=== PATIENT | male | born 1940 | race Caucasian/White ===

== ENCOUNTER 2017-11-06 19:26 | Inpatient (IN) | payer MEDICARE, OTHER, SELFPAY ==
--- NOTE | 2017-11-06 19:28 | DI.RAD.S_ITS ---
PROCEDURE: XR HIP W PEL IF DONE LT 2V INDICATIONS: Left hip pain after fall TECHNIQUE: AP pelvis with lateral view of the left hip. COMPARISON: [facility], , ABDOMEN 1 VIEW, 03/02/2017, 10:35. The FINDINGS: Bones: Visualized osseous structures appear osteopenic. There is a subcapital fracture of the left femoral neck with associated mild impaction and varus angulation. Pelvic ring appears intact. No suspicious bony lesions. Soft tissues: The visualized bowel gas pattern is normal. No suspicious soft tissue calcifications. IMPRESSION: 1. Left femoral neck fracture. Dictated by: David Frazier M.D. on 11/06/2017 at 20:43 Approved by: David Frazier M.D. on 11/06/2017 at 20:44
[2017-11-06 19:44] VITALS: BP 105/37; PULSE 72; RESP 22; TEMP 36.1; O2SAT 91; BMI 20.3
--- NOTE | 2017-11-06 19:46 | ED.LOWEXIN ---
HPI - Extremity Injury (Lower) General Chief Complaint: Extremity Injury, Lower Stated Complaint: GLF, Left hip pain Time Seen by Provider: 11/06/17 19:28 Source: EMS Mode of arrival: EMS Limitations: no limitations History of Present Illness HPI Narrative: Patient is a 76-year-old male here for evaluation of a reported fall left hip pain. Was reported by EMS that the patient was found in his garage by his . They stated that he was on the ground for approximately 30 min. Unknown how he fell. There was concern for left hip fracture. Patient states that he was in his garage sitting in his chair. He states that he did have a couple drinks of rum. He states he tried to get up from his chair and had ?problems with my left hip ?he states that he did not fall. States he did not hit his head. States he did not lose consciousness. Was unable to walk. Does report pain with the left hip with palpation. No other pain reported from the patient. Related Data Home Medications Medication Instructions Recorded Confirmed tiotropium bromide [Spiriva with 18 mcg RT #0 06/26/06 HandiHaler] CHOLECALCIFEROL (VITAMIN D3) 400 iu PO QDAY #0 09/11/11 (VITAMIN D) escitalopram oxalate [Lexapro] #0 09/11/11 ciprofloxacin (mixture) #0 11/28/16 alfuzosin [Uroxatral] 10 mg PO QDAY #0 01/21/17 cyanocobalamin (vitamin B-12) 50 mcg PO #0 01/21/17 [Vitamin B-12] potassium citrate [Urocit-K 5] 5 meq PO BIDCC #0 01/21/17 folic acid PO QDAY #0 01/23/17 Allergies Allergy/AdvReac Type Severity Reaction Status Date / Time tamsulosin [From FLOMAX] AdvReac Unknown DIZZINESS Unverified 07/01/17 13:03 Review of Systems Constitutional Denies fever(s) and Denies headache(s) ENT Ears, Nose, Mouth, and Throat: Denies vertigo, Denies dizziness and Denies headache(s) Cardiovascular Denies chest pain, Denies syncope and Denies dyspnea Respiratory Denies dyspnea Gastrointestinal Gastrointestinal: Denies abdominal pain, Denies nausea and Denies vomiting Musculoskeletal Comments: Left hip pain Integumentary/Breasts Denies lesions and Denies rash Neurologic Denies confusion, Denies vertigo, Denies dizziness, Denies syncope and Denies headache(s) Psychiatric Denies confusion Hematologic/Lymphatic Denies easy bleeding and Denies easy bruising [facility] Medical History COPD (chronic obstructive pulmonary disease) (Acute) Surgical History No pertinent past surgical history (Acute) Social History Smoking Status: Former smoker alcohol intake: current Exam Initial Vital Signs Initial Vital Signs: Vital Signs Temperature 97 F L 11/06/17 19:44 Pulse Rate 72 11/06/17 19:44 Respiratory Rate 22 11/06/17 19:44 Blood Pressure 105/37 L 11/06/17 19:44 Pulse Oximetry 91 11/06/17 19:44 Const General: cooperative, comfortable, well groomed and No acute distress Orientation: alert, awake, oriented to person, oriented to place and other (Oriented to situation) HENMT Head: normal to inspection, normocephalic and atraumatic Nose: external nose normal Eyes Pupils: PERRL EOM: EOM intact bilaterally Chest Chest: normal inspection of the chest Resp Effort & Inspection: normal respiratory effort Auscultation: clear to auscultation bilaterally Cardio Rate: regular rate Rhythm: regular rhythm Heart Sounds: no murmurs GI Inspection: non-distended Palpation: soft, No firm and No tender Back/Spine/Pelvis Cervical Spine: No cervical spinal tenderness and No step off deformity Skin Lesions: no lesions Rashes: no rashes Neuro General: alert, awake and oriented (Person, place, situation) Speech: speech normal Extrem Other: Bilateral upper extremities unremarkable Right lower extremity unremarkable Left lower extremity shortened and externally rotated with tenderness to palpation over the left hemipelvis Psych Appearance: grossly normal and well kempt Scores [facility] [place] coma scale eye opening: Spontaneous [place] coma scale verbal response: Orientated [place] coma scale motor response: Obey commands [place] coma scale total score: 15 Course Orders Ordered: ED Orders 11/06/17 19:28 XR hip w pel if done LT 2V Stat 11/06/17 20:20 Consult to Orthopedic Surgery Routine Consult to Physician Routine 11/06/17 20:40 Basic Metabolic Panel Stat Complete Blood Count AUTO DIFF Stat Ethanol (ETOH) Stat Partial Thromboplastin Time Stat Prothrombin Time INR Stat Type and Screen Stat Sodium Chloride (Normal Saline 0.9%) 1,000 mls @ 125 mls/hr IV CONT HONG Sodium Chloride (Normal Saline 0.9%) 1,000 mls @ 125 mls/hr IV CONT HONG Morphine Sulfate (Morphine) 2 mg IV Q4HR PRN PRN Reason: Pain, Mild (1-3) Ondansetron HCl (Zofran) 4 mg IV Q4HR PRN PRN Reason: Nausea And Vomiting Vital Signs - 8 hr 11/06/17 19:44 Temperature 97 F L Pulse Rate 72 Respiratory Rate 22 Blood Pressure 105/37 L Pulse Oximetry 91 MDM - Extremity Injury (Lower) Lab Data Result diagrams: 11/06/17 20:40 11/06/17 20:40 Imaging Data Pelvis x-ray: Radiologist's impression: PROCEDURE: XR HIP W PEL IF DONE LT 2V INDICATIONS: Left hip pain after fall TECHNIQUE: AP pelvis with lateral view of the left hip. COMPARISON: [facility], , ABDOMEN 1 VIEW, 03/02/2017, 10:35. The FINDINGS: Bones: Visualized osseous structures appear osteopenic. There is a subcapital fracture of the left femoral neck with associated mild impaction and varus angulation. Pelvic ring appears intact. No suspicious bony lesions. Soft tissues: The visualized bowel gas pattern is normal. No suspicious soft tissue calcifications. IMPRESSION: 1. Left femoral neck fracture. Dictated by: David Frazier M.D. on 11/06/2017 at 20:43 Approved by: David Frazier M.D. on 11/06/2017 at 20:44 [facility] Narrative Medical decision making narrative: Patient was neurovascularly intact. Did admit to having alcohol this evening however did know where he was in the situation of why he was here. X-ray show a left femoral neck fracture. Patient reports no other injuries. No other signs of trauma. Discussed the case with Dr. villagomez with Orthopedics who states that he will evaluate the patient for surgical intervention. Discussed the case with Dr. klein who is on-call for the patient's primary care doctor who will admit the patient. Informed the patient of the need to admit and surgical intervention of his fracture. He expressed understanding and agreement with plan. Discharge Plan Departure Patient Disposition: Admitted As Inpatient Clinical Impression: Closed fracture of neck of left femur, Alcohol intoxication, COPD (chronic obstructive pulmonary disease) Admit Date/Time: 11/06/17 20:27 Admit Provider: Rufino Klein
--- NOTE | 2017-11-06 20:34 | PM.CN ---
History of Present Illness Date Patient Seen: 11/06/17 Time Patient Seen: 20:34 Chief complaint: GLF, Left hip pain Reason for consult: L hip fracture Narrative: 76-year-old male with a left hip fracture. He was found on the floor of his garage by his early this evening complaining of left hip pain. He reports that he just felt like his leg popped and went out from underneath them but did not fall. He does not think he hit anywhere else and he is having no other pain besides the left hip. He was unable to stand. Most of the history is from his . She reports that he is a alcoholic and has been through recovery and alcoholics anonymous several times. She lives in [place] during part of the week and comes home on other days. She reports that she has seen signs of him drinking again over the past several months but never could find any alcohol. Today she came into the garage and found him on the floor. It looks like he had been sitting in his car because he was right next to the open door and she thinks he probably hit his head when he landed. He also has a history of an E coli sepsis about a year ago. He has COPD but stop smoking about 15 years ago after a bad bout of pneumonia. He has a history of a pulmonary embolus and was on Coumadin for several years but they stopped that about a year and a half ago. She thinks he may have had a stroke about 15 or 20 years ago with some resultant left side weakness. His is very frustrated with his recurrent drinking and does not know what to do at this point. [facility] Social History Smoking Status: Former smoker alcohol intake: current Meds Home Medications Medication Instructions Recorded Confirmed Type tiotropium bromide [Spiriva with 18 mcg RT #0 06/26/06 History HandiHaler] CHOLECALCIFEROL (VITAMIN D3) 400 iu PO QDAY #0 09/11/11 History (VITAMIN D) escitalopram oxalate [Lexapro] #0 09/11/11 History ciprofloxacin (mixture) #0 11/28/16 History alfuzosin [Uroxatral] 10 mg PO QDAY #0 01/21/17 History cyanocobalamin (vitamin B-12) 50 mcg PO #0 01/21/17 History [Vitamin B-12] potassium citrate [Urocit-K 5] 5 meq PO BIDCC #0 01/21/17 History folic acid PO QDAY #0 01/23/17 History Allergies Allergy/AdvReac Type Severity Reaction Status Date / Time tamsulosin [From FLOMAX] AdvReac Unknown DIZZINESS Unverified 07/01/17 13:03 Review of Systems Constitutional Constitutional: Reports weight loss Cardiovascular Cardiovascular: Reports shortness of breath with activity Respiratory Respiratory: Denies cough and Reports dyspnea on exertion Gastrointestinal Gastrointestinal: Denies abdominal pain Genitourinary Genitourinary: Denies urinary incontinence Exam Vital Signs (past 8 hours): - 11/06/17 19:44 Temperature 97 F L Pulse Rate 72 Respiratory Rate 22 Blood Pressure 105/37 L Pulse Oximetry 91 Oxygen Delivery Method Room Air Const General: cooperative Nutritional Appearance: thin Orientation: alert and oriented x3 Resp Auscultation: clear to auscultation bilaterally Cardio Rate: regular rate Rhythm: regular rhythm Extrem Other: Intact integument over the left hip. Internal rotation deformity. 1+ dorsalis pedis pulses both lower extremities. Intact sensation through both lower extremities. Able to easily move ankles and toes up and down. Pain with logroll of hip Objective Imaging Hip x-ray: My impression: Displaced left femoral neck fracture. Assessment & Plan Plan: Assessment/Plan Narrative: He has a displaced femoral neck fracture. My recommendation is for surgery with a left hip hemiarthroplasty. We discussed risks and benefits including but not limited to medical risks with heart attack, stroke, DVT, PE, , infection, bleeding, scarring, nerve or blood vessel injury, loss of ambulatory status, dislocation, need for further surgery. He is at higher risk of pulmonary complications due to his COPD. We will keep him on anticoagulation after the surgery due to his previous history of a PE. He understands and would like to go ahead with surgery tomorrow morning. His also understands. Time Spent With Patient Time with patient: 25 - 35 minutes
[2017-11-06 20:51] LABS: Add Manual Diff / Slide Review NO; Basophils Percent Auto 0.9 % (0-2); Hematocrit 38.2 % (41-53); Hemoglobin 12.7 g/dL (13.5-17.5); Lymphocytes Percent Auto 10.4 % (25-40); Mean Corpuscular HGB Conc 33.4 % (30-36); Mean Corpuscular Hemoglobin 33.6 PG (26-34); Mean Corpuscular Volume 100.7 fL (80-100); Monocytes Percent Auto 3.2 % (3-14); Neutrophils Absolute Auto 6400 /uL (3000-5900); Neutrophils Percent Auto 84.5 % (50-75); Platelet Count 213 X10^3/uL (150-400); Red Blood Cell Count 3.79 X10^6/uL (4.5-5.9); Red Cell Distribution Width 15.1 % (11.6-14.8); White Blood Cell Count 7.6 X10^3/uL (4.5-11.0)
[2017-11-06 20:58] LABS: Prothrombin Time 10.7 SECONDS (10.1-12.7)
[2017-11-06 21:00] LABS: PTT Partial Thromboplastin Tim 19 SECONDS (26.4-36.2)
[2017-11-06 21:02] LABS: BUN Creatinine Ratio 25.5 (6-22); Blood Urea Nitrogen 28 mg/dL (9-20); Calcium 8.1 mg/dL (8.4-10.2); Carbon Dioxide 21 mmol/L (22-32); Chloride 103 mmol/L (98-107); Estimated Glomerular Filt Rate > 60.0 mL/min (>60); Ethanol (ETOH) 290 mg/dL; Glucose 86 mg/dL (80-110); HEMOLYSIS < 15 (0-50); Potassium 4.6 mmol/L (3.4-5.1); Sodium 139 mmol/L (137-145)
[2017-11-06 21:45] VITALS: BP 110/41; PULSE 79; RESP 24; TEMP 36.3; O2SAT 92
[2017-11-06] MEDS: SODIUM CHLORIDE 0.9% 1,000 ML 125 ML IV (21:49)
[2017-11-06 21:50] VITALS: BMI 20.3
[2017-11-06] MEDS: MORPHINE 2 MG/ML INJ IV (22:14)
--- NOTE | 2017-11-06 22:41 | PC.NURSE ---
Pt to room 218 from [facility] alert and awake. Pt is cachetic and slightly hard of hearing. Spouse accompanies pt and takes all pt's home meds and clothing home. Pt is NPO with iv fluids infusing as ordered. Oral care per swab. Pt oriented to call light and bed alarm set. Ice to left hip and morphine 2 mg iv administered for pain associated with movement. Pedal pulses palpable x 2.
[2017-11-07] VITALS (31 sets, daily range): BP systolic 90–149; BP diastolic 39–93; PULSE 78–102; RESP 13–24; TEMP 36.3–37.7; O2SAT 90–100; BMI 18.0
--- NOTE | 2017-11-07 | DI.RAD.S_ITS ---
PROCEDURE: XR HIP LT 1V INDICATIONS: s/p hip replacement TECHNIQUE: 1 views of the hip were acquired. COMPARISON: [facility], CR, XR HIP W PEL IF DONE LT 2V, 11/06/2017, 19:48. FINDINGS: Bones: Left hip arthroplasty. Linear lucency traverses the left superomedial acetabulum. No suspicious bony lesions. The visualized pelvic ring appears intact. Soft tissues: No suspicious soft tissue calcifications or masses. IMPRESSION: 1. Left hip arthroplasty. 2. Possible minimally displaced left superomedial acetabular fracture. Dictated by: Sherry Gill M.D. on 11/07/2017 at 11:16 Approved by: Sherry Gill M.D. on 11/07/2017 at 11:18
[2017-11-07] MEDS: MORPHINE 2 MG/ML INJ IV (02:31)
--- NOTE | 2017-11-07 03:26 | PC.NURSE ---
Dr. Saldivar paged via answering service to report pt. unable to void. Bladder scanned showed 755 cc in the bladder. Pt. also hypoxic RA sat. 87-89%, placed 1 liter 02 & SPO2 93-94%. Hypotensive especially after a dose of Morphine [address] Saldivar called back received an orders to bolus him with NS 250 cc , 02 to keep SPO2 greater than 92% & placed a Berman Catheter. Will implement orders & monitor.
[2017-11-07] MEDS: SODIUM CHLORIDE 0.9% 250 ML IV (04:00)
[2017-11-07] MEDS: SODIUM CHLORIDE 0.9% 1,000 ML 125 ML IV (06:58)
[2017-11-07] MEDS: LACTATED RINGERS 1,000 ML 42 ML IV ×2 (08:37→10:48)
--- NOTE | 2017-11-07 08:37 | PM.PREOP ---
Pre-operative Note Interval Note Pre-op Check: Yes History & Physical Reviewed by Physician and Yes Exam Performed Changes: No
[2017-11-07] MEDS: CEFAZOLIN 2 GM/100 ML FROZ.PIGGY IV ×2 (08:42→18:19)
--- NOTE | 2017-11-07 09:33 | SUR.OPER ---
Lateral on padded OR bed. Gel axillary roll. Arms secured on padded armboard with pillow supporting top arm. Padded hip positioner braces x4 - anterior and posterior chest and pelvis. Additional gel pad used anterior pelvis. Gel pad under bottom leg from knee to foot and secured with tape over sheet.
[2017-11-07] MEDS: VANCOMYCIN 1,000 MG VIAL 1000 MG TOP (09:59)
[2017-11-07] MEDS: BUPIVACAINE 0.5% (PF) VIAL 30 ML INJ (09:59)
[2017-11-07] MEDS: BUPIVACAINE LIPOSOME 266 MG/20 ML VIAL INJ (09:59)
[2017-11-07] MEDS: SODIUM CHLORIDE IRRIG SOLUTION 250 ML, EPINEPHrine 1 MG IRR (10:00)
[2017-11-07] MEDS: SODIUM CHLORIDE 0.9% 1,000 ML, GENTAMICIN 80 MG IRR (10:01)
--- NOTE | 2017-11-07 10:53 | PM.OP.1 ---
Operative Date/Time/Diagnoses Date of procedure: 11/07/17 Time of procedure: 10:53 Pre-op diagnosis: Left hip femoral neck fracture Post-op diagnosis: same Procedure & Clinicians Procedure: Left hip hemiarthroplasty Same procedure as scheduled: Yes Indications: [age] year old male with a displaced left hip fracture. It was felt that he would need hemiarthroplasty replacement to fix this. Risks and benefits of surgery were discussed and appropriate consents were obtained. Surgeon: Bert Fierro Operational Risk Consultant: Winter King Anesthesia Type: Spinal Operative Notes Findings: None Closure Type: primary Specimen(s): none sent Implants & Drains: [employer] size 15 high offset stem, +0 neck, 49mm head Applied: catheter Estimated Blood Loss (mL): 100 Blood products transfused: none Procedure in detail: Patient brought to the operating room and intubated on the table. They were then rolled over to the lateral decubitus position with the well marked left hip up. Time-out was performed. Preoperative antibiotics were given. The left leg and hip were prepped and draped in standard sterile fashion. A 20 cm incision was made just posterior to the greater trochanter along the proximal femur and then curving posteriorly to the buttocks. We used Bovie to come down to the fascia. The fascia was nicked and elevated up and split proximally and distally. We bluntly spread through the gluteal muscles until we had good exposure. The leg was internally rotated and the fragments of the external rotators were identified. These were tagged and cut and retracted. The hip capsule was then exposed. This was already torn through but we extended this as a H shaped incision. The fracture and the neck and head and acetabulum were exposed. The femoral guide was used to make the 1st neck cut 1 cm proximal to the lesser trochanter. A corkscrew was then placed into the femoral head and the head was removed. The head was measured. The acetabulum was cleared out and the head was trialed. A lap was placed into the acetabulum. We then used a box osteotome with 20? of version to make our starting cut into the femur. The lateralizer was used and then we used sequentially larger broaches. . When there was a good fit we trialed our components. We needed the high offset for stability. A distal femoral plug was placed. The femur was then copiously irrigated. Cement was injected under pressure and then our components were placed. Once the cement was hardened we again trialed. The acetabulum was washed out.The neck and head were impacted on and then the hip was reduced. This was placed through range of motion with 90 degrees of flexion, 20 degrees of abduction, and 60 degrees of internal rotation before the hip started subluxing. We had little more stability with the +4 neck, but had significant limb length discrepancy with this and went back to the +0. The wound was then again irrigated. The capsule was closed. The external rotators were reapproximated. A drain was placed. The fascia was closed. The superficial skin were closed. The patient was then rolled over into the supine position. An abduction brace was placed. They were transferred to the stretcher and brought to the recovery room with no complications. Complications: none Condition: stable Disposition: PACU Plan for aftercare: Inpatient. Up with physical therapy. Weight bear as tolerated. Posterior hip precautions
--- NOTE | 2017-11-07 13:11 | PM.HP.1 ---
History of Present Illness Date Patient Seen: 11/07/17 Time Patient Seen: 13:11 Chief complaint: GLF, Left hip pain Narrative: Patient is a 76-year-old white male well known to Dr. Mike with history of alcoholism who presents with pain in left hip. Apparently he was in his usual state of health and was wanting to go out and get some air. Had some rum but just a few drinks. Really not sure what happened from there. Was sitting in his garage and next thing he knows he was on the floor. found him on the floor. Could not get up. Was having pain. Did not feel like he hit his head. Did not feel like he lost consciousness. No other changes. Complaining of pain in left hip. No other complaint or problem. Patient otherwise is feeling well. Apparently had a 13 year dry time and then started drinking again about a year ago. Has been good up until last 2 months when he had some family issues and stressors. Apparently has been drinking more in the last 2 months.. Has had a history of withdrawal in the past. His otherwise been feeling well. Has been having no chest pain shortness of breath. No palpitations. Apparently a year ago he was having quite a bit of anemia and dizziness but he has been feeling great since he returns. No other changes. Past medical history significant for alcoholism BPH with obstruction COPD Hypertension Past surgical history not significant. Social history lives with . Retired. Good social support. No other changes. History of smoking distant. Patient History Medical History COPD (chronic obstructive pulmonary disease) (Acute) Surgical History No pertinent past surgical history (Acute) Family & Social History Social History: household members spouse Prior Living Arrangements House Safety & Behavioral: Feels Safe in Current Yes Environment Been Physically Hurt or No Threatened By a Person Suicidal Ideation Description None Suicide Plan Description No Plan Tobacco & Substance use: Smoking Status Former smoker alcohol intake current alcohol intake frequency 0-2 drinks per day Substance Use Type does not use Meds Home Medications Medication Instructions Recorded Confirmed Type tiotropium bromide [Spiriva with 18 mcg RT DAILY #0 06/26/06 11/06/17 History HandiHaler] escitalopram oxalate [Lexapro] 10 mg PO DAILY #0 09/11/11 11/06/17 History alfuzosin [Uroxatral] 10 mg PO QDAY #0 01/21/17 11/06/17 History potassium citrate [Urocit-K 5] 540 mg PO BIDCC #0 01/21/17 11/06/17 History High Potency Iron 1 tab PO DAILY 11/06/17 11/06/17 History Ventolin HFA 1 - 2 puff INHALATION WEEKLY PRN 11/06/17 11/06/17 History docusate sodium 100 mg PO BID 11/06/17 11/06/17 History Allergies Allergy/AdvReac Type Severity Reaction Status Date / Time tamsulosin [From FLOMAX] AdvReac Unknown DIZZINESS Verified 11/07/17 01:17 Review of Systems Review of Systems All systems reviewed & are unremarkable except as noted in HPI and below Exam Vital Signs (past 8 hours): - 11/07/17 05:46 11/07/17 06:34 11/07/17 07:45 Temperature 98.4 F 98.2 F Pulse Rate 88 90 97 H Respiratory Rate 19 18 13 Blood Pressure 99/44 L 113/46 L 133/57 H Pulse Oximetry 95 96 95 11/07/17 07:55 11/07/17 08:32 11/07/17 10:55 Temperature 99.9 F H 99.2 F Pulse Rate 102 H 93 H Respiratory Rate 18 16 Blood Pressure 148/58 H 130/51 H Pulse Oximetry 96 96 98 11/07/17 11:00 11/07/17 11:05 11/07/17 11:15 Temperature 99.2 F 99.2 F 99.2 F Pulse Rate 87 86 88 Respiratory Rate 17 17 20 Blood Pressure 129/56 H 125/51 H 149/69 H Pulse Oximetry 98 97 96 11/07/17 11:24 11/07/17 11:30 11/07/17 12:05 Temperature 98.6 F 97.8 F 97.4 F L Pulse Rate 88 98 H 88 Respiratory Rate 18 24 16 Blood Pressure 124/55 H 149/49 H 128/52 H Pulse Oximetry 96 100 11/07/17 12:30 11/07/17 12:53 Temperature 97.7 F 97.7 F Pulse Rate 83 89 Respiratory Rate 24 24 Blood Pressure 130/52 H 131/50 H Pulse Oximetry 100 90 L Oxygen Delivery Method Nasal Cannula Oxygen Flow Rate 2 Narrative Exam Narrative: Alert elderly male in no acute distress lying comfortably in bed. Skin is without rash. Normal turgor. No diaphoresis. Mucous membranes moist. Neck is supple without adenopathy. Lungs are clear. Heart regular rate and rhythm without murmurs clicks rubs or gallops. Abdomen is soft positive bowel sounds nontender. Did not range is left hip. Postsurgery. Extremities without cyanosis clubbing edema. Neurologic exam appears intact nonfocal. He is alert and oriented. States psychologically appropriate interactive Objective Labs Result Diagrams: 11/06/17 20:40 11/06/17 20:40 Labs: Laboratory Results - last 24 hr 11/06/17 11/06/17 11/06/17 20:40 20:40 20:40 WBC 7.6 RBC 3.79 L Hgb 12.7 L Hct 38.2 L MCV 100.7 H MCH 33.6 MCHC 33.4 RDW 15.1 H Plt Count 213 Neut % (Auto) 84.5 H Lymph % (Auto) 10.4 L [place] % (Auto) 3.2 Eos % (Auto) 1.0 L Baso % (Auto) 0.9 Neut # (Auto) 6400 H PT 10.7 INR 1.0 APTT 19 L Sodium 139 Potassium 4.6 Chloride 103 Carbon Dioxide 21 L BUN 28 H Creatinine 1.10 Estimated GFR > 60.0 BUN/Creatinine Ratio 25.5 H Glucose 86 Calcium 8.1 L Ethyl Alcohol 290 Blood Type Antibody Screen 11/06/17 20:40 WBC RBC Hgb Hct MCV MCH MCHC RDW Plt Count Neut % (Auto) Lymph % (Auto) [place] % (Auto) Eos % (Auto) Baso % (Auto) Neut # (Auto) PT INR APTT Sodium Potassium Chloride Carbon Dioxide BUN Creatinine Estimated GFR BUN/Creatinine Ratio Glucose Calcium Ethyl Alcohol Blood Type AB Negative Antibody Screen Negative Assessment & Plan Plan: Assessment/Plan Narrative: Left hip fracture as per orthopedist. Status post operation. History of alcohol abuse. Will set up CIWA protocol and begin benzodiazepine as needed. Will watch closely. Has a history of withdrawal in the past. Looked okay at this time. Hypoxia. Probably secondary to COPD. May be chronic and not acute but hard to tell at this point. Will continue his usual inhalers. O2 as needed and follow. May need to go home on oxygen will see how things go. Will give usual banana bag. COPD. Actually seems to be pretty stable. Lung exam seems good. Will follow closely. Hypotension. Probably secondary to dehydration. Was managed with fluids last night. Will watch closely. Will place on hydration and follow. Hypertension. Patient is stable at this time. Will follow. Depression. Seems to be actually doing pretty well. No other changes. BPH. Patient unable to urinate last night Berman placed. Will leave in for the next 48 hr and try to remove. Code status. Patient would like no code. Seems comfortable with that decision. GI prophylaxis. Should be stable at this time although will add ranitidine. DVT prophylaxis as per Ortho. Disposition. Suspect will be at least Thursday until discharge will see how things go. Quality VTE Deep Vein Thrombosis/Pulmonary Embolism Present on Admission: No
[2017-11-07] MEDS: MAGNESIUM SULFATE 2 GM, FOLIC ACID 1 MG, THIAMINE 100 MG, MULTIVITAMIN 10 ML in SODIUM ... IV (13:27)
[2017-11-07] MEDS: LORazepam 1 MG TABLET 2 MG PO ×2 (13:28→21:19)
[2017-11-07] MEDS: OXYCODONE IR 5 MG TABLET PO ×2 (13:28→16:30)
[2017-11-07 14:05] LABS: Add Manual Diff / Slide Review NO; Basophils Percent Auto 0.3 % (0-2); Eosinophils Percent Auto 0.1 % (2-4); Hematocrit 29.2 % (41-53); Hemoglobin 9.8 g/dL (13.5-17.5); Lymphocytes Percent Auto 6.1 % (25-40); Mean Corpuscular HGB Conc 33.5 % (30-36); Mean Corpuscular Hemoglobin 33.8 PG (26-34); Mean Corpuscular Volume 100.7 fL (80-100); Monocytes Percent Auto 8.7 % (3-14); Neutrophils Absolute Auto 10800 /uL (3000-5900); Neutrophils Percent Auto 84.8 % (50-75); Platelet Count 149 X10^3/uL (150-400); Red Cell Distribution Width 15.4 % (11.6-14.8); White Blood Cell Count 12.7 X10^3/uL (4.5-11.0)
--- NOTE | 2017-11-07 14:25 | CM.DANOTE ---
DCP: Case received, EMR reviewed and met with patient. Introduced self and role. DCP template completed with information currently available. Patient is a 76 year old malewho admitted yesterday evening to the care of the hospitalist team. PCP: Dr. Mike. Payer: confirmed: Medicare/[facility] Patient carries diagnosis of displaced femoral neck fracture. Had been on the floor of his garage at the time. Patient stated that he did not fall, but that his leg had given out. According to previous note, has been concerned that patient has been drinking again, for he does have a history, and had gone to at one time. Patient had hip surgery today. Attemped to reach , left a message for her to call. Met with patient post surgery, pleasant. Discussed discharge plan, should he need rehabilitation, and he stated that he had been at [facility], [facility] before. Patient is on CIWA as well. Stated that he lives at home with his , but has been under some stress regarding his drinking. P: DCP will continue to plan and assess, and will offer Medicare choice list as well. Will continue to reach out to spouse as well. Mindy Link RN/Community Health Coordinator
--- NOTE | 2017-11-07 15:01 | PC.NURSE ---
LOC/Ortho: SI don't have a problem drinking, who told you that? I didn't fall. Discussed information shared by . Pt reports she makes the issues bigger than they are. Discussed hospital safety concerns, some how the hip was broken and blood alcohol levels were elevated to 290 when he was admitted. Perhaps he doesn't recall what occurred? SI was 290? I only had one little drink at 1:00pm. He was agreeable to leave the seizure pads on and the bed alarm on for now. discussed other modalities in place and he is agreeable to all of them but admitted he might change his mind later. Did take a pain pill and 1mg of ativan, wouldn't take 2mg of ativan because he said he doesn't need it. CIWA was 9-6, off for shakiness, sl off on orientation and he does have a little headache. Ortho - lt upper leg/thigh area does have edema present. aquacel is d/i, ppp, is able to move feet sl now but he can't raise his legs off the bed. They still feel a little numb, brisk cap refill. (Had spinal) Abductor pillow in place and pt isn't sure he needs it but will leave it for now. Pt is on O2 and had to be enc to take deep breaths. Does have hx of copd. Cont w/poc.
--- NOTE | 2017-11-07 15:31 | PT.IIE ---
Surgery Performed Operation Date: 11/07/17 08:30 Actual Procedures p Hip Hemiarthroplasty(Left) - Bert Fierro MD Surgical History (Last Reviewed 11/07/17 @ 13:18 by Rufino Saldivar MD) No pertinent past surgical history (Acute) Medical History (Last Reviewed 11/07/17 @ 13:18 by Rufino Saldivar MD) COPD (chronic obstructive pulmonary disease) (Acute) Physical Therapy Inpatient Evaluation/Re-Eval M1 PT/OT-IP Prior Functional Status Start: 11/07/17 17:06 Freq: NEEDED Status: Active Protocol: Document 11/07/17 15:31 AB (Rec: 11/07/17 17:38 AB [id number]) Medical Review Prior Functional Status Medical History Reviewed Yes Communication able to make needs known Mobility and Gait stated that he is independent with all mobilities and ambulation using SPC outdoors and uses FWW at night inside the house for safety Social History Household Members spouse none Living Arrangements House Number of Floors (Floors) Two Floors Number of Stairs To Enter/Railing? has 5 steps to enter with R rail ascending; pt stays on main level of the house. Home Environment Standard Height Toilet Home Equipment Front Wheel Walker Straight Cane Employment Status Retired Additional Social History Comment pt stated that he does not go upstairs and the shower is upstairs so pt just sponge off . M2 PT-IP Current Condition Start: 11/07/17 17:06 Freq: NEEDED Status: Active Protocol: Document 11/07/17 15:31 AB (Rec: 11/07/17 17:38 AB [id number]) Physical Therapy Current Condition Current Condition Evaluation Date 11/07/17 Treatment Diagnosis L femoral neck fracture s/p L hip hemiarthroplasty Onset Date 11/06/17 Precautions Posterior Hip Precautions No Hip Flexion > 90 degrees No Hip Internal Rotation No Hip Adduction Weight Bearing Status Weight Bearing Status Weight Bear as Tolerated M3 PT-IP Subjective Start: 11/07/17 17:06 Freq: NEEDED Status: Active Protocol: Document 11/07/17 15:31 AB (Rec: 11/07/17 17:38 AB [id number]) Subjective Physical Therapy Visit Type Type Initial Evaluation Visit Start Time 15:31 Visit Stop Time 16:24 Total Visit Minutes 55 Number of STEWARD/STEWARDESS ROOM Visits 0 Therapy Pain Assessment Pain When Pain Assessed At Rest Pain Present Pain Present Pain Reported Location Left Hip Intensity 6 Scale Used Numeric (1 - 10) Pain Management Techniques Re-positioning M4 PT-IP Mobility and Gait Start: 11/07/17 17:06 Freq: NEEDED Status: Active Protocol: Document 11/07/17 15:31 AB (Rec: 11/07/17 17:38 AB [id number]) PT-Bed Mobility Assessment Supine to Sit Supine to Sit Maximum Assistance 1 Person Assistance 2 Person Assistance Sit to Supine Sit to Supine Maximum Assistance 2 Person Assistance Scooting Scooting to Edge of Bed Maximum Assistance PT-Transfer Assessment Sit to and From Stand Sit to and from Stand Maximum Assistance 2 Person Assistance Use of Upper Extremities Equipment Transfer Assistive Device Gait Belt Front Wheeled Walker Orthotic/Prosthetic Devices or Brace: No Gait Assessment Gait Gait Assistance Required: Maximum Assistance 1 Person Assist Able to Maintain Weight Bearing Status No During Gait Assistive Devices Assistive Device Gait Belt Orthotic/Prosthetic Devices or Brace: No Gait Deviations General Gait Pattern Antalgic Decreased Stride Length Decreased Feet Clearance Factors Limiting Gait Function Factors Limiting Gait Function Decreased Activity Tolerance Decreased Strength Limited Range of Motion Pain Poor Balance Poor Safety Awareness Comments Gait Comments pt was able to take side steps towards the HOB max A and cues. M5 PT-IP Objective Assessments Start: 11/07/17 17:06 Freq: NEEDED Status: Active Protocol: Document 11/07/17 15:31 AB (Rec: 11/07/17 17:38 AB [id number]) Orientation Orientation/Cognition Level of Alertness Alert Orientation Name Age Birthday Month Date Year Day of Week Place Situation Safety Awareness Decreased Safety Awareness Memory Description Short Term Impaired Gross Range of Motion Lower Extremity ROM Assessment Left Impaired Strength Lower Extremity Strength Assessment Bilaterally Impaired Hip 3-/5 Knee 3-/5 Comments Strength Comments LLE weaker than RLE Sensation Assessment Sensation Gross Sensation WNL M6 PT-IP Treatment Start: 11/07/17 17:06 Freq: NEEDED Status: Active Protocol: Document 11/07/17 15:31 AB (Rec: 11/07/17 17:38 AB [id number]) Physical Therapy Treatment Education Education Provided Precautions Weight Bearing Status Post-Op Packet Safety M7 PT-IP Assessment and Plan Start: 11/07/17 17:06 Freq: NEEDED Status: Active Protocol: Document 11/07/17 15:31 AB (Rec: 11/07/17 17:38 AB [id number]) PT Summary Assessment and Plan Potential Rehabilitation Potential Fair Status of Condition at Evaluation Evolving Summary Impairments Pain ROM Strength Balance Coordination Sensation Tone Cognition Bed Mobility Transfers Gait Activity Tolerance Assessment Summary pt requiring 1 to 2 person assist with mobility and will require SNF rehab to improve strength and mobility. Goals Bed Mobility Goal Contact Guard Assistance Transfer Goal Contact Guard Assistance Gait Goal Contact Guard Assistance Gait Distance 100 Other Goals up/down 5 steps with R rail ascending Days to Meet Goals 3 Frequency of Treatment Frequency Of Treatment Twice a Day Treatment Plan Physical Therapy Treatment Plan Bed Mobility Training Transfer Training Gait Training Therapeutic Exercise Balance Retraining Post Op Education Discharge Planning Hot or Cold Pack Neuromuscular Re-ed Coordination Retraining Manual Therapy Other Recommendations and Next Treatment transfers, ambulation Focus Recommendations To Nursing Amount of Assist Needed 2 Person Assist Discharge Recommendations PT Discharge Recommendations SNF Rehab Equipment Needed for Home Before FWW if pt goes home Discharge
--- NOTE | 2017-11-07 17:12 | PC.NURSE ---
Pt awake and alert in bed. Pale. Dyspnea with exertion and utilizing pursed lip breathing which spouse states is baseline with exertion. 02 1L per nc sats 92%. P.T. in to mobilize pt to side of bed and stand. Rhonchi throughout all posterior lung hubbard and anterior lung hubbard BL. Multivitamin bag infusing iv. Page to Dr. Saldivar to discuss as further iv orders exist following administration of this MVI fluid bag. Rates left hip pain 5.5/10 with movement. Administered oxycodone 5 mg po. Continuous pulse oximeter in place. Spouse is present. No evidence of etoh withdrawal. Seizure pads in place when returned to bed.
[2017-11-07] MEDS: FUROSEMIDE 20 MG/2 ML VIAL IV (18:18)
[2017-11-07] MEDS: ACETAMINOPHEN 325 MG TABLET 650 MG PO (18:18)
--- NOTE | 2017-11-07 18:38 | PC.NURSE ---
Per Dr. Saldivar, discontinue lactated ringer's ordered postop. Stop banana bag. Give 20 mg iv lasix now. Restart banana bag in two hours. Pt resting quietly in bed with eyes closed. Rouses easily to movement in room. Spouse has left for the evening.
[2017-11-07] MEDS: ENOXAPARIN 30 MG/0.3 ML SYRINGE SUBCUT (21:21)
[2017-11-07] MEDS: DOCUSATE 100 MG CAPSULE PO (21:21)
[2017-11-07] MEDS: ASPIRIN EC 81 MG TABLET PO (21:22)
--- NOTE | 2017-11-07 23:29 | PC.NURSE ---
Pt resting quietly in bed without dyspnea following administration of lasix iv. Rouses easily to voice. Ativan administered as pt reportedly uses alcohol on a daily basis. No signs of withdrawal, but this was administered prophylactically. Abductor wedge between legs with scd's in place. Offloaded pressure to sacrum/buttocks by adjusting pt's head of bed. Continuous pulse oximeter in place; 1L per nc sats 95%. Dr. Saldivar has looked in on pt this evening shift and updated on this RN's interventions.
[2017-11-08] VITALS (14 sets, daily range): BP systolic 95–136; BP diastolic 25–52; PULSE 72–100; RESP 12–24; TEMP 36.9–37.5; O2SAT 91–96
[2017-11-08] MEDS: CEFAZOLIN 2 GM/100 ML FROZ.PIGGY IV (02:27)
[2017-11-08 05:30] LABS: Add Manual Diff / Slide Review NO; Basophils Percent Auto 0.2 % (0-2); Eosinophils Percent Auto 0.1 % (2-4); Hematocrit 27.6 % (41-53); Hemoglobin 9.4 g/dL (13.5-17.5); Lymphocytes Percent Auto 4.4 % (25-40); Mean Corpuscular HGB Conc 34.1 % (30-36); Mean Corpuscular Hemoglobin 34.2 PG (26-34); Mean Corpuscular Volume 100.3 fL (80-100); Neutrophils Absolute Auto 9400 /uL (3000-5900); Neutrophils Percent Auto 87.3 % (50-75); Platelet Count 124 X10^3/uL (150-400); Red Blood Cell Count 2.75 X10^6/uL (4.5-5.9); Red Cell Distribution Width 14.9 % (11.6-14.8); White Blood Cell Count 10.7 X10^3/uL (4.5-11.0)
[2017-11-08 05:43] LABS: BUN Creatinine Ratio 21.8 (6-22); Blood Urea Nitrogen 24 mg/dL (9-20); Calcium 7.4 mg/dL (8.4-10.2); Carbon Dioxide 27 mmol/L (22-32); Chloride 102 mmol/L (98-107); Estimated Glomerular Filt Rate > 60.0 mL/min (>60); Glucose 138 mg/dL (80-110); HEMOLYSIS < 15 (0-50); Potassium 4.1 mmol/L (3.4-5.1); Sodium 134 mmol/L (137-145)
[2017-11-08] MEDS: ACETAMINOPHEN 325 MG TABLET 650 MG PO ×2 (06:58→17:16)
--- NOTE | 2017-11-08 09:18 | PM.PNPO.1 ---
Subjective Date Patient Seen: 11/08/17 Time Patient Seen: 09:19 Interval history: pain is under decent control. Exam Vital Signs (past 8 hours): - 11/08/17 04:36 11/08/17 05:20 11/08/17 07:00 Temperature 99.0 F 98.4 F Pulse Rate 77 76 Respiratory Rate 12 20 Blood Pressure 129/41 H 136/52 H Pulse Oximetry 94 92 96 Oxygen Delivery Method Room Air Oxygen Flow Rate 1 Const Orientation: alert and oriented x3 Extrem Other: Dressing with mild drainage. Drain output 100/57/10. Soft calf Objective Labs Result Diagrams: 11/08/17 05:07 11/08/17 05:07 Labs: Laboratory Results - last 24 hr 11/07/17 11/08/17 11/08/17 13:59 05:07 05:07 WBC 12.7 H D 10.7 RBC 2.90 L 2.75 L Hgb 9.8 L 9.4 L Hct 29.2 L 27.6 L MCV 100.7 H 100.3 H MCH 33.8 34.2 H MCHC 33.5 34.1 RDW 15.4 H 14.9 H Plt Count 149 L 124 L Neut % (Auto) 84.8 H 87.3 H Lymph % (Auto) 6.1 L 4.4 L [place] % (Auto) 8.7 8.0 Eos % (Auto) 0.1 L 0.1 L Baso % (Auto) 0.3 0.2 Neut # (Auto) 67918 H 9400 H Sodium 134 L Potassium 4.1 Chloride 102 Carbon Dioxide 27 BUN 24 H Creatinine 1.10 Estimated GFR > 60.0 BUN/Creatinine Ratio 21.8 Glucose 138 H Calcium 7.4 L Assessment & Plan Post-op Postoperative Procedures Operation Date: 11/07/17 08:30 Actual Procedures Side Surgeon p Hip Hemiarthroplasty Left Bert Fierro MD stable status post left hip hemiarthroplasty. Mobilize with physical therapy. Recheck H&H tomorrow. Plan on discharging to long-term in a few days. Quality VTE Deep Vein Thrombosis/Pulmonary Embolism Present on Admission: No
[2017-11-08] MEDS: TIOTROPIUM BROMIDE 18 MCG INHALER INH (09:59)
[2017-11-08] MEDS: ENOXAPARIN 30 MG/0.3 ML SYRINGE SUBCUT ×2 (10:14→20:21)
[2017-11-08] MEDS: MULTIVITAMIN 1 TABLET 1 TAB PO (10:15)
[2017-11-08] MEDS: THIAMINE 100 MG TABLET PO (10:15)
[2017-11-08] MEDS: OXYCODONE IR 5 MG TABLET PO (10:15)
[2017-11-08] MEDS: DOCUSATE 100 MG CAPSULE PO ×3 (10:16→20:20)
[2017-11-08] MEDS: FOLIC ACID 1 MG TABLET PO (10:16)
[2017-11-08] MEDS: ASPIRIN EC 81 MG TABLET PO ×2 (10:16→20:20)
--- NOTE | 2017-11-08 10:40 | PM.PN.1 ---
Subjective Date Patient Seen: 11/08/17 Time Patient Seen: 10:41 Interval history: Patient overall feeling well today. No further breathing problems. Having no evidence of withdrawal at this time. Has been getting lorazepam. Otherwise no changes or complaints. Patient feels like pain is well controlled at this time. Exam Vital Signs (past 8 hours): - 11/08/17 04:36 11/08/17 05:20 11/08/17 07:00 Temperature 99.0 F 98.4 F Pulse Rate 77 76 Respiratory Rate 12 20 Blood Pressure 129/41 H 136/52 H Pulse Oximetry 94 92 96 11/08/17 10:07 11/08/17 10:08 Temperature Pulse Rate Respiratory Rate Blood Pressure Pulse Oximetry 95 94 Oxygen Delivery Method Room Air Oxygen Flow Rate 1 Narrative Exam Narrative: Alert mildly fatigued male interactive inappropriate no acute distress Lungs are clear. Heart regular rate and rhythm. Abdomen is soft positive bowel sounds nontender. Extremities without cyanosis clubbing edema. Incision dressing is clean Const General: cooperative and healthy appearing Nutritional Appearance: well nourished Orientation: alert HENAL Ears: hearing grossly normal bilaterally Objective Labs Result Diagrams: 11/08/17 05:07 11/08/17 05:07 Labs: Laboratory Results - last 24 hr 11/07/17 11/08/17 11/08/17 13:59 05:07 05:07 WBC 12.7 H D 10.7 RBC 2.90 L 2.75 L Hgb 9.8 L 9.4 L Hct 29.2 L 27.6 L MCV 100.7 H 100.3 H MCH 33.8 34.2 H MCHC 33.5 34.1 RDW 15.4 H 14.9 H Plt Count 149 L 124 L Neut % (Auto) 84.8 H 87.3 H Lymph % (Auto) 6.1 L 4.4 L [place] % (Auto) 8.7 8.0 Eos % (Auto) 0.1 L 0.1 L Baso % (Auto) 0.3 0.2 Neut # (Auto) 84751 H 9400 H Sodium 134 L Potassium 4.1 Chloride 102 Carbon Dioxide 27 BUN 24 H Creatinine 1.10 Estimated GFR > 60.0 BUN/Creatinine Ratio 21.8 Glucose 138 H Calcium 7.4 L Assessment & Plan Plan: Assessment/Plan Narrative: History of alcohol abuse. Does not appear to be having significant issues with withdrawal at this time. Probably today and tomorrow is the highest risk. Will continue with CIWA protocol and follow. Hypoxemia. Stable. Probably secondary to COPD. May be chronic. May need to go with oxygen to home. Will add respiratory evaluation and nebulizer and follow from there. COPD. Stable. Will add nebulizer and follow. Hypertension. Stable at this time. Will continue off his current medicine. May restart medication will see how things go. Hypotension. Resolved. Probably combination of alcohol abuse and dehydration. BPH. Stable. Patient has Berman placed. We will hold on 24 hr and then discontinue tomorrow and see if we get away without it. Code status patient would like to be no code no change today. GI prophylaxis. Continue on radiated Anil will discontinue on discharge. DVT prophylaxis as per Ortho. Disposition. I suspect he will be here through Thursday. Will need chcf placement for short period of time. We will see how his withdrawal symptoms go. Quality VTE Deep Vein Thrombosis/Pulmonary Embolism Present on Admission: No
--- NOTE | 2017-11-08 10:47 | P.PN_ITS ---
Subjective Date Patient Seen: 11/08/17 Time Patient Seen: 10:41 Interval history: Patient overall feeling well today. No further breathing problems. Having no evidence of withdrawal at this time. Has been getting lorazepam. Otherwise no changes or complaints. Patient feels like pain is well controlled at this time. Exam Vital Signs (past 8 hours): - 11/08/17 04:36 11/08/17 05:20 11/08/17 07:00 Temperature 99.0 F 98.4 F Pulse Rate 77 76 Respiratory Rate 12 20 Blood Pressure 129/41 H 136/52 H Pulse Oximetry 94 92 96 11/08/17 10:07 11/08/17 10:08 Temperature Pulse Rate Respiratory Rate Blood Pressure Pulse Oximetry 95 94 Oxygen Delivery Method Room Air Oxygen Flow Rate 1 Narrative Exam Narrative: Alert mildly fatigued male interactive inappropriate no acute distress Lungs are clear. Heart regular rate and rhythm. Abdomen is soft positive bowel sounds nontender. Extremities without cyanosis clubbing edema. Incision dressing is clean Const General: cooperative and healthy appearing Nutritional Appearance: well nourished Orientation: alert HENMO Ears: hearing grossly normal bilaterally Objective Labs Result Diagrams: 11/08/17 05:07 11/08/17 05:07 Labs: Laboratory Results - last 24 hr 11/07/17 11/08/17 11/08/17 13:59 05:07 05:07 WBC 12.7 H D 10.7 RBC 2.90 L 2.75 L Hgb 9.8 L 9.4 L Hct 29.2 L 27.6 L MCV 100.7 H 100.3 H MCH 33.8 34.2 H MCHC 33.5 34.1 RDW 15.4 H 14.9 H Plt Count 149 L 124 L Neut % (Auto) 84.8 H 87.3 H Lymph % (Auto) 6.1 L 4.4 L [place] % (Auto) 8.7 8.0 Eos % (Auto) 0.1 L 0.1 L Baso % (Auto) 0.3 0.2 Neut # (Auto) 97668 H 9400 H Sodium 134 L Potassium 4.1 Chloride 102 Carbon Dioxide 27 BUN 24 H Creatinine 1.10 Estimated GFR > 60.0 BUN/Creatinine Ratio 21.8 Glucose 138 H Calcium 7.4 L Assessment & Plan Plan: Assessment/Plan Narrative: History of alcohol abuse. Does not appear to be having significant issues with withdrawal at this time. Probably today and tomorrow is the highest risk. Will continue with CIWA protocol and follow. Hypoxemia. Stable. Probably secondary to COPD. May be chronic. May need to go with oxygen to home. Will add respiratory evaluation and nebulizer and follow from there. COPD. Stable. Will add nebulizer and follow. Hypertension. Stable at this time. Will continue off his current medicine. May restart medication will see how things go. Hypotension. Resolved. Probably combination of alcohol abuse and dehydration. BPH. Stable. Patient has Berman placed. We will hold on 24 hr and then discontinue tomorrow and see if we get away without it. Code status patient would like to be no code no change today. GI prophylaxis. Continue on radiated Anil will discontinue on discharge. DVT prophylaxis as per Ortho. Disposition. I suspect he will be here through Thursday. Will need alf placement for short period of time. We will see how his withdrawal symptoms go. Quality VTE Deep Vein Thrombosis/Pulmonary Embolism Present on Admission: No
--- NOTE | 2017-11-08 12:52 | CM.DPC ---
DCP: Spoke to patient today, pleasant demeanor, alert and oriented. Stated that his pain has decreased. Started working with physical therapy. Gave patient a Medicare Choice list, and he stated that he had been to [facility] before, and was happy with the care. Stated that this would be the place that he would want to go to. Dr. Saldivar had seen patient today, and is also recommending potential short stay at [facility]. Stated that patient may need to go on oxygen, due to his COPD. Patient is continuing to receive Lorazepam, and is on CIWA precautions. Stated that patient is at most high risk of DTs today and tomorrow, but has not seen any signs yet. Left a message with Teetee at [facility] to inquire on beds. P: DCP to continue to assess. [facility] when stable. Mindy Link RN/Airveyor Operator
[2017-11-08] MEDS: ALBUTEROL 2.5 MG/3 ML NEB (ADULT) INH ×2 (12:56→18:12)
--- NOTE | 2017-11-08 13:30 | PT.IPTN ---
Surgery Performed Operation Date: 11/07/17 08:30 Actual Procedures p Hip Hemiarthroplasty(Left) - Bert Fierro MD Physical Therapy Treatment Note M2 PT-IP Current Condition Start: 11/07/17 17:06 Freq: NEEDED Status: Active Protocol: Document 11/08/17 13:30 RCC (Rec: 11/08/17 15:16 RCC [id number]) Physical Therapy Current Condition Current Condition Evaluation Date 11/07/17 Treatment Diagnosis L femoral neck fracture s/p L hip hemiarthroplasty Onset Date 11/06/17 Precautions Posterior Hip Precautions No Hip Flexion > 90 degrees No Hip Internal Rotation No Hip Adduction Weight Bearing Status Weight Bearing Status Weight Bear as Tolerated M3 PT-IP Subjective Start: 11/07/17 17:06 Freq: NEEDED Status: Active Protocol: Document 11/08/17 13:30 RCC (Rec: 11/08/17 15:16 RCC [id number]) Subjective Physical Therapy Visit Type Type Treatment Note Visit Start Time 13:05 Visit Stop Time 13:30 Total Visit Minutes 25 Number of FAMILY THERAPIST Visits 0 Physical Therapy Visit Comments Patient Comments pt willing to get OOB, no c/o pain at rest. M4 PT-IP Mobility and Gait Start: 11/07/17 17:06 Freq: NEEDED Status: Active Protocol: Document 11/08/17 13:30 RCC (Rec: 11/08/17 15:16 RCC [id number]) PT-Bed Mobility Assessment Supine to Sit Supine to Sit Maximum Assistance 1 Person Assistance Head of Bed Elevated Scooting Scooting to Edge of Bed Maximum Assistance PT-Transfer Assessment Sit to and From Stand Sit to and from Stand Moderate Assistance 1 Person Assistance Use of Upper Extremities Equipment Transfer Assistive Device Gait Belt Front Wheeled Walker Orthotic/Prosthetic Devices or Brace: No Transfers Transfer Destination Chair Transfer Technique Stand Step Pivot Transfer Ability Level of Assist Moderate Assistance 1 Person Assistance Gait Assessment Gait Gait Assistance Required: Moderate Assistance 1 Person Assist Distance (Feet) (feet) 3 Assistive Devices Assistive Device Gait Belt Front Wheeled Walker Orthotic/Prosthetic Devices or Brace: No Gait Deviations General Gait Pattern Antalgic Decreased Stride Length Decreased Feet Clearance Step-to Gait Factors Limiting Gait Function Factors Limiting Gait Function Decreased Activity Tolerance Decreased Strength Limited Range of Motion Pain Poor Balance Poor Safety Awareness Comments Gait Comments Mod A for weight shifting M5 PT-IP Objective Assessments Start: 11/07/17 17:06 Freq: NEEDED Status: Active Protocol: Document 11/07/17 15:31 AB (Rec: 11/07/17 17:38 AB [id number]) Orientation Orientation/Cognition Level of Alertness Alert Orientation Name Age Birthday Month Date Year Day of Week Place Situation Safety Awareness Decreased Safety Awareness Memory Description Short Term Impaired Gross Range of Motion Lower Extremity ROM Assessment Left Impaired Strength Lower Extremity Strength Assessment Bilaterally Impaired Hip 3-/5 Knee 3-/5 Comments Strength Comments LLE weaker than RLE Sensation Assessment Sensation Gross Sensation WNL M6 PT-IP Treatment Start: 11/07/17 17:06 Freq: NEEDED Status: Active Protocol: Document 11/08/17 13:30 RCC (Rec: 11/08/17 15:16 RCC [id number]) Physical Therapy Treatment Education Education Provided Precautions Weight Bearing Status M7 PT-IP Assessment and Plan Start: 11/07/17 17:06 Freq: NEEDED Status: Active Protocol: Document 11/08/17 13:30 RCC (Rec: 11/08/17 15:16 RCC [id number]) PT Summary Assessment and Plan Summary Assessment Summary Pt with less assistance required for transfers and able to walk a very short distance with FWW, but is not close to being at his prior level of function or a safe level to be able to d/c home. Pt will require SNF rehabilitation upon d/c to due progress toward functional independence. Goals Bed Mobility Goal Contact Guard Assistance Transfer Goal Contact Guard Assistance Gait Goal Contact Guard Assistance Gait Distance 100 Other Goals up/down 5 steps with R rail ascending Days to Meet Goals 3 Frequency of Treatment Frequency Of Treatment Twice a Day Treatment Plan Other Recommendations and Next Treatment transfers, review precautions, Focus post-op exercises Recommendations To Nursing Amount of Assist Needed 2 Person Assist Discharge Recommendations PT Discharge Recommendations SNF Rehab Equipment Needed for Home Before FWW if pt goes home Discharge
--- NOTE | 2017-11-08 14:45 | PT.IPTN ---
Surgery Performed Operation Date: 11/07/17 08:30 Actual Procedures p Hip Hemiarthroplasty(Left) - Bert Fierro MD Physical Therapy Treatment Note M2 PT-IP Current Condition Start: 11/07/17 17:06 Freq: NEEDED Status: Active Protocol: Document 11/08/17 14:45 RCC (Rec: 11/08/17 15:20 RCC [id number]) Physical Therapy Current Condition Current Condition Evaluation Date 11/07/17 Treatment Diagnosis L femoral neck fracture s/p L hip hemiarthroplasty Onset Date 11/06/17 Precautions Posterior Hip Precautions No Hip Flexion > 90 degrees No Hip Internal Rotation No Hip Adduction Weight Bearing Status Weight Bearing Status Weight Bear as Tolerated M3 PT-IP Subjective Start: 11/07/17 17:06 Freq: NEEDED Status: Active Protocol: Document 11/08/17 14:45 RCC (Rec: 11/08/17 15:20 RCC [id number]) Subjective Physical Therapy Visit Type Type Treatment Note Visit Start Time 14:30 Visit Stop Time 14:45 Total Visit Minutes 15 Number of EMPLOYEE DEVELOPMENT MANAGER Visits 0 Physical Therapy Visit Comments Patient Comments pt requesting BTB. M4 PT-IP Mobility and Gait Start: 11/07/17 17:06 Freq: NEEDED Status: Active Protocol: Document 11/08/17 14:45 RCC (Rec: 11/08/17 15:20 RCC [id number]) PT-Bed Mobility Assessment Sit to Supine Sit to Supine Maximum Assistance 1 Person Assistance Scooting Scooting to Edge of Bed Maximum Assistance PT-Transfer Assessment Sit to and From Stand Sit to and from Stand Maximum Assistance 1 Person Assistance Use of Upper Extremities Equipment Transfer Assistive Device Gait Belt Front Wheeled Walker Orthotic/Prosthetic Devices or Brace: No Transfers Transfer Destination Bed Transfer Technique Stand Step Pivot Transfer Ability Level of Assist Moderate Assistance 1 Person Assistance M5 PT-IP Objective Assessments Start: 11/07/17 17:06 Freq: NEEDED Status: Active Protocol: Document 11/07/17 15:31 AB (Rec: 11/07/17 17:38 AB [id number]) Orientation Orientation/Cognition Level of Alertness Alert Orientation Name Age Birthday Month Date Year Day of Week Place Situation Safety Awareness Decreased Safety Awareness Memory Description Short Term Impaired Gross Range of Motion Lower Extremity ROM Assessment Left Impaired Strength Lower Extremity Strength Assessment Bilaterally Impaired Hip 3-/5 Knee 3-/5 Comments Strength Comments LLE weaker than RLE Sensation Assessment Sensation Gross Sensation WNL M6 PT-IP Treatment Start: 11/07/17 17:06 Freq: NEEDED Status: Active Protocol: Document 11/08/17 14:45 RCC (Rec: 11/08/17 15:20 [facility] [id number]) Physical Therapy Treatment Education Education Provided Precautions Weight Bearing Status M7 PT-IP Assessment and Plan Start: 11/07/17 17:06 Freq: NEEDED Status: Active Protocol: Document 11/08/17 14:45 [facility] (Rec: 11/08/17 15:20 [facility] [id number]) PT Summary Assessment and Plan Summary Assessment Summary Pt reported being tired and wanting back to bed. He was unable to attempt ambulation this session due to increased fatigue and pain. Pt is motivated to improve and becoming more alert during this session. Pt is still not at a safe functional level to d/c home. Goals Bed Mobility Goal Contact Guard Assistance Transfer Goal Contact Guard Assistance Gait Goal Contact Guard Assistance Gait Distance 100 Other Goals up/down 5 steps with R rail ascending Days to Meet Goals 3 Frequency of Treatment Frequency Of Treatment Twice a Day Treatment Plan Other Recommendations and Next Treatment transfers, review precautions, Focus post-op exercises Recommendations To Nursing Amount of Assist Needed 2 Person Assist Discharge Recommendations PT Discharge Recommendations SNF Rehab Equipment Needed for Home Before FWW if pt goes home Discharge
--- NOTE | 2017-11-08 15:19 | PC.NURSE ---
LOC/Ortho: Very sleepy this am, did arouse but would then fall immed back to sleep. Woke up at about lunch. called earlier to obtain 2 home medications. She reports pt usually sleeps in most days and doesn't get up until 11 or 12. Pt did receive some oral pain medication and this helped but he declined the tylenol and the ativan was held due to being sleepy after his return to bed by PT. No sxs of DT's seen. Orthos - brisk cap refill, ppp, feet =/warm. Dressing intact and hemovac has remained in place. Declined pain medication this afternoon. Cont w/poc.
[2017-11-08] MEDS: POTASSIUM CITRATE 540 EACH PO (17:17)
--- NOTE | 2017-11-08 17:23 | PC.NURSE ---
Pt mostly sleeping, but rouses easily to voice. Pale. Hard of hearing, but appropriate mentation and conversation when heard. Room air 90% with sleep per continuous monitor and was placed on 1L per nc. Sats increase to 93-95%. Admits to pain left hip 4/10, dull in nature. Administered tylenol as ordered. No signs of alcohol withdrawal. Spouse arrives with pt's home meds to be ID'd and dispensed per pharmacy. This was done. Ice to left hip. Berman with fernanda colored urine. BL calf scd's replaced and pt tolerates well. Abductor wedge in place. Set up for evening meal. Offered oral fluids and pt accepts.
--- NOTE | 2017-11-08 19:00 | PC.NURSE ---
Pt denies pain at rest. Repositioned onto left side slightly with pillow to support. Aquacel dressing left hip with moderate amount drainage contained within dressing. Moist cough without sputum. Encouraged cough.
[2017-11-08] MEDS: SODIUM CHLORIDE 0.9% FLUSH 10 ML IV (20:32)
[2017-11-08] MEDS: LORazepam 1 MG TABLET 2 MG PO (22:15)
[2017-11-09] VITALS (17 sets, daily range): BP systolic 103–126; BP diastolic 42–57; PULSE 81–98; RESP 14–24; TEMP 36.9–37.7; O2SAT 91–100; BMI 18.0
--- NOTE | 2017-11-09 04:17 | PC.NURSE ---
Medical Pathology Teacher Note: Vital signs stable. Dressing to lt hip 2/3 saturated with old drainage. Pt remains in abductor pillow wedge. He requested to not be disturbed during the night. Assisted to reposition.
[2017-11-09] MEDS: LORazepam 1 MG TABLET 2 MG PO (05:43)
[2017-11-09] MEDS: ACETAMINOPHEN 325 MG TABLET 650 MG PO ×2 (05:43→22:12)
[2017-11-09 05:50] LABS: Hematocrit 25.2 % (41-53); Hemoglobin 8.6 g/dL (13.5-17.5)
[2017-11-09 06:01] LABS: Blood Urea Nitrogen 23 mg/dL (9-20); Calcium 7.6 mg/dL (8.4-10.2); Carbon Dioxide 29 mmol/L (22-32); Chloride 101 mmol/L (98-107); Estimated Glomerular Filt Rate > 60.0 mL/min (>60); Glucose 118 mg/dL (80-110); HEMOLYSIS < 15 (0-50); Potassium 3.9 mmol/L (3.4-5.1); Sodium 133 mmol/L (137-145)
[2017-11-09] MEDS: ALBUTEROL 2.5 MG/3 ML NEB (ADULT) INH ×3 (06:02→17:57)
[2017-11-09] MEDS: TIOTROPIUM BROMIDE 18 MCG INHALER INH (06:02)
--- NOTE | 2017-11-09 07:46 | PM.PNPO.1 ---
Subjective Date Patient Seen: 11/09/17 Time Patient Seen: 07:23 Interval history: Patient is seen bedside status post left hip hemiarthroplasty postop day 2. Patient is somnolent and difficult to assess secondary to this state. He is resting comfortably. Exam Vital Signs (past 8 hours): - 11/08/17 23:55 11/09/17 00:10 11/09/17 00:30 Temperature 99.5 F Pulse Rate 88 Respiratory Rate 24 Blood Pressure 114/38 L 116/45 L Pulse Oximetry 94 95 11/09/17 04:00 11/09/17 06:02 11/09/17 07:33 Temperature 99.9 F H 98.9 F Pulse Rate 87 86 98 H Respiratory Rate 24 14 18 Blood Pressure 108/43 L 119/44 L Pulse Oximetry 96 100 98 Oxygen Delivery Method Nasal Cannula Oxygen Flow Rate 2 Narrative Exam Narrative: Well-developed well-nourished in no acute distress. Patient is somnolent on exam. Left hip dressing is clean dry and intact with minimal discharge in the Hemovac drain. Berman present. Patient is neurovascularly intact in his extremity calves are soft and compressible. Objective Labs Result Diagrams: 11/09/17 05:32 11/09/17 05:32 Labs: Laboratory Results - last 24 hr 11/09/17 11/09/17 05:32 05:32 Hgb 8.6 L Hct 25.2 L Sodium 133 L Potassium 3.9 Chloride 101 Carbon Dioxide 29 BUN 23 H Creatinine 1.00 Estimated GFR > 60.0 BUN/Creatinine Ratio 23.0 H Glucose 118 H Calcium 7.6 L Assessment & Plan Post-op Postoperative Procedures Operation Date: 11/07/17 08:30 Actual Procedures Side Surgeon p Hip Hemiarthroplasty Left Bert Fierro MD The patient is postop day 2. Status post left hemiarthroplasty of the hip. Doing well from an orthopedic standpoint. Discontinue Hemovac drain today. Discontinue Berman once more alert and moving with physical therapy. Weightbearing as tolerated. Follow up in the office in 2 weeks time for examination and x-rays. May be discharged once medically cleared. A SNF would be a good option for post-hospital care. Quality VTE Deep Vein Thrombosis/Pulmonary Embolism Present on Admission: No
--- NOTE | 2017-11-09 08:17 | PM.PN.1 ---
Subjective Date Patient Seen: 11/09/17 Time Patient Seen: 08:17 Interval history: Had an okay day yesterday. Mildly agitated but otherwise stable. Still requiring oxygen. No other significant new change. Pain is well controlled. Exam Vital Signs (past 8 hours): - 11/09/17 00:30 11/09/17 04:00 11/09/17 06:02 Temperature 99.9 F H Pulse Rate 87 86 Respiratory Rate 24 14 Blood Pressure 108/43 L Pulse Oximetry 95 96 100 11/09/17 07:33 Temperature 98.9 F Pulse Rate 98 H Respiratory Rate 18 Blood Pressure 119/44 L Pulse Oximetry 98 Oxygen Delivery Method Nasal Cannula Oxygen Flow Rate 2 Narrative Exam Narrative: Alert elderly male in no acute distress. Lungs are clear. Heart regular rate and rhythm. Abdomen is soft positive bowel sounds nontender. Extremities without cyanosis clubbing edema. Awake interactive Objective Labs Result Diagrams: 11/09/17 05:32 11/09/17 05:32 Labs: Laboratory Results - last 24 hr 11/09/17 11/09/17 05:32 05:32 Hgb 8.6 L Hct 25.2 L Sodium 133 L Potassium 3.9 Chloride 101 Carbon Dioxide 29 BUN 23 H Creatinine 1.00 Estimated GFR > 60.0 BUN/Creatinine Ratio 23.0 H Glucose 118 H Calcium 7.6 L Assessment & Plan Plan: Assessment/Plan Narrative: History of alcohol abuse. Does not appear to be having a significant issue I would like to watch to the day. Make sure he is stable for a discharge him to assisted. Hopefully that will be tomorrow. Anemia. Secondary to surgery. With history. Will see what it is tomorrow may need to go home on iron. Hypoxemia. Stable. I suspect he may need long-term oxygen will see how things go. COPD stable continue pulmonary care. Hypotension resolved. Hypertension stable. BPH. Discontinue Berman and see how he does. Need to manage closely and if stable can go home tomorrow. Code status no code. GI prophylaxis on meds. DVT prophylaxis as per Ortho. Disposition. Hopefully if able to urinate and no evidence of withdrawal today can go to assisted tomorrow. We did discuss this and understands questions answered Quality VTE Deep Vein Thrombosis/Pulmonary Embolism Present on Admission: No
--- NOTE | 2017-11-09 08:21 | P.PN_ITS ---
Subjective Date Patient Seen: 11/09/17 Time Patient Seen: 08:17 Interval history: Had an okay day yesterday. Mildly agitated but otherwise stable. Still requiring oxygen. No other significant new change. Pain is well controlled. Exam Vital Signs (past 8 hours): - 11/09/17 00:30 11/09/17 04:00 11/09/17 06:02 Temperature 99.9 F H Pulse Rate 87 86 Respiratory Rate 24 14 Blood Pressure 108/43 L Pulse Oximetry 95 96 100 11/09/17 07:33 Temperature 98.9 F Pulse Rate 98 H Respiratory Rate 18 Blood Pressure 119/44 L Pulse Oximetry 98 Oxygen Delivery Method Nasal Cannula Oxygen Flow Rate 2 Narrative Exam Narrative: Alert elderly male in no acute distress. Lungs are clear. Heart regular rate and rhythm. Abdomen is soft positive bowel sounds nontender. Extremities without cyanosis clubbing edema. Awake interactive Objective Labs Result Diagrams: 11/09/17 05:32 11/09/17 05:32 Labs: Laboratory Results - last 24 hr 11/09/17 11/09/17 05:32 05:32 Hgb 8.6 L Hct 25.2 L Sodium 133 L Potassium 3.9 Chloride 101 Carbon Dioxide 29 BUN 23 H Creatinine 1.00 Estimated GFR > 60.0 BUN/Creatinine Ratio 23.0 H Glucose 118 H Calcium 7.6 L Assessment & Plan Plan: Assessment/Plan Narrative: History of alcohol abuse. Does not appear to be having a significant issue I would like to watch to the day. Make sure he is stable for a discharge him to long-term. Hopefully that will be tomorrow. Anemia. Secondary to surgery. With history. Will see what it is tomorrow may need to go home on iron. Hypoxemia. Stable. I suspect he may need long-term oxygen will see how things go. COPD stable continue pulmonary care. Hypotension resolved. Hypertension stable. BPH. Discontinue Berman and see how he does. Need to manage closely and if stable can go home tomorrow. Code status no code. GI prophylaxis on meds. DVT prophylaxis as per Ortho. Disposition. Hopefully if able to urinate and no evidence of withdrawal today can go to long-term tomorrow. We did discuss this and understands questions answered Quality VTE Deep Vein Thrombosis/Pulmonary Embolism Present on Admission: No
[2017-11-09] MEDS: POTASSIUM CITRATE 540 EACH PO (08:27)
[2017-11-09] MEDS: DOCUSATE 100 MG CAPSULE PO ×2 (08:28→22:13)
[2017-11-09] MEDS: ENOXAPARIN 30 MG/0.3 ML SYRINGE SUBCUT ×2 (08:28→22:13)
[2017-11-09] MEDS: ASPIRIN EC 81 MG TABLET PO ×2 (08:28→22:14)
[2017-11-09] MEDS: MULTIVITAMIN 1 TABLET 1 TAB PO (08:29)
[2017-11-09] MEDS: FOLIC ACID 1 MG TABLET PO (08:29)
[2017-11-09] MEDS: SODIUM CHLORIDE 0.9% FLUSH 10 ML IV ×2 (08:29→22:14)
[2017-11-09] MEDS: THIAMINE 100 MG TABLET PO (08:37)
--- NOTE | 2017-11-09 10:07 | PC.NURSE ---
Pt roused for breakfast and sat up. Speaking in muffled voice. Oriented to self and place (town not hospital or date). Denies pain or symptoms of ETOH withdrawal per CIWA. Scored 3 mainly for disorientation. Attempted to assist pt with feeding and taking pills. Pt experienced difficulty swallowing - attempted with apple sauce which pt took but noted swallowing coordination seemed impaired. Coughed vigorously with oral suctioning via yankhaur done to assist in clearing secretions. MD called to request order for swallow evaluation. Dressing to left hip CDI with H/V drain present. Plan to removed drain and bojorquez catheter later this am when pt is more awake. O2 sats on 1L are in the low 90s.
--- NOTE | 2017-11-09 12:00 | PT.IPTN ---
Current Diagnoses Fracture of unspecified part of neck of left femur, initial encounter for closed fracture (11/06/17) Surgery Performed Operation Date: 11/07/17 08:30 Actual Procedures p Hip Hemiarthroplasty(Left) - Bert Fierro MD Physical Therapy Treatment Note M2 PT-IP Current Condition Start: 11/07/17 17:06 Freq: NEEDED Status: Active Protocol: Document 11/08/17 14:45 RCC (Rec: 11/08/17 15:20 RCC [id number]) Physical Therapy Current Condition Current Condition Evaluation Date 11/07/17 Treatment Diagnosis L femoral neck fracture s/p L hip hemiarthroplasty Onset Date 11/06/17 Precautions Posterior Hip Precautions No Hip Flexion > 90 degrees No Hip Internal Rotation No Hip Adduction Weight Bearing Status Weight Bearing Status Weight Bear as Tolerated M3 PT-IP Subjective Start: 11/07/17 17:06 Freq: NEEDED Status: Active Protocol: Document 11/09/17 12:00 DLM (Rec: 11/09/17 12:41 DLM [id number]) Subjective Physical Therapy Visit Type Type Patient Unavailable Notes Pt very sleepy and difficult to arouse. His nurse is aware. May be related to medication give at 6AM. Will follow later today for treatment when alert and able to participate.
--- NOTE | 2017-11-09 12:15 | CM.DPC ---
Addendum entered by Ida Lala LPN 11/10/17 08:33: Received a call from Gabriella, pt's spouse in the late afternoon. Went over the POC with her. She notes that pt also has a LTC policy that she will need some help with and she will followup with the business office at [facility] re this. She notes pt really does not do well when left alone in the home setting and is hopeful this benefit will support further care in appropriate environment after snf rehab/recovery is completed. Agreed to keep her updated re the d/c details. Unclear at this point when pt will be ready for d/c. Original Note: DCP: Case received and spoke this morning with Dr. Saldivar. He noted pt would likely be ready for [facility] tomorrow. Checked in now with pt to confirm his plan ([place]/[facility] confirms they have the bed available). Pt was noted to be coughing, groggy, barely able to open his eyes. Checked in with MILANA Ryan. She reported that this is not pt's usual state and that he had a dose of Ativan at the end of shift boss. She noted CIWA at that time was 0 so she was unsure of the details surrounding this. She stated Dr. Saldivar is aware. P: Will check in tomorrow and follow. [facility] when stable. PT thus far is unable to work with pt today due to pt's groggy state. RT is seeing pt. Need: PASRR
--- NOTE | 2017-11-09 13:16 | ST.IPIE ---
Care Team Visit Care Team Role Provider Type Olayinka Mike MD Primary Care Provider Physician Specialty: Family Practice Address: [address] [place] [address], [id number] Email: Bert Fierro MD Other Providers Physician Specialty: Orthopedic Surgery Address: [address] [place] [address], [id number] Email: [email or web address] Olayinka Ramachandran DO Emergency Provider Physician Specialty: Emergency Medicine Address: [address] [place] [address], [id number] Email: Rufino Saldivar MD Admit Provider Physician Attending Provider Specialty: [facility] Practice Address: [address] [place] [address], [id number] Email: [email or web address] Current Diagnoses Fracture of unspecified part of neck of left femur, initial encounter for closed fracture (11/06/17) Past Medical History (Last Reviewed 11/07/17 @ 13:18 by uRfino Saldivar MD) COPD (chronic obstructive pulmonary disease) (Acute Medical) ST IP Initial Evaulation Report PLASTIC INJECTION MOLD MAKER Clinical Swallow Evaluation Start: 11/09/17 12:52 Freq: Status: Active Protocol: Document 11/09/17 12:52 [facility] (Rec: 11/09/17 13:15 [facility] [id number]) Clinical Swallow Evaluation Session Time Visit Start Time 12:20 Visit Stop Time 12:50 Total Visit Minutes [address] Saldivar Reason for Referral Dysphagia Setting Assessment Location Acute Care Visit Type Note Type Initial Evaluation Next Note Type Next Note Type Treatment Note Patient Information Identification Type Name ID Wristband History Patient is a 76-year-old male with a history of alcoholism who came to [facility] on 11/06/17 after being found down by his , unable to get up. He had hip surgery on 11/06/17. PMH: HTN BPH with obstruction COPD Anemia, secondary to surgery Hypoxemia, stable, but may require long-term oxygen Per RNShelby, patient was suspected to demonstrate symptoms of alcohol withdrawal . His CIWA score was 3, mainly showing disorientation. Patient was given an ativan a 0600 this AM. Nursing observed couging with need for suctioning with thin liqudis. Difficutly tolerating eggs and applesauce observed by nursing as well. As a result, a swallow evaluation was ordered to determine the nature and safety of the patient's swallowing ability. Until now, he has been tolerating a regular diet with thin liquids. Subjective Observations Patient was resting in bed, but able to rouse. Lunch tray present at bedside. No complaints of pain pre/post evaluation. RN and PLASTIC INJECTION MOLD MAKER repositioned patient upright. Disoriented to place and time. Able to follow firm verbal directions. Observed difficulty with self-feeding. No family present. After completion of the evaluation, patient's 02 sats dropped from mid 90s to 81. PLASTIC INJECTION MOLD MAKER and RN called RT and examined patient. Found that his pulse-ox had fallen off his finger and was not getting a reading. PLASTIC INJECTION MOLD MAKER replaced this on the patient's right index finger. His 02 gabino returned to 94. PLASTIC INJECTION MOLD MAKER and RN monitored patient for consistency. He showed no further signs of respiratory distress. Evaluation Liquids Trialed Thin [place] Solids Trialed Puree Administration Type Tea Spoon Controlled Cup Sip Straw Dependent Feeding Oral Impairment Moderately Impaired Oral Strategies Upright at 90 degrees Double Swallow Controlled Bite/Sip Size Alternate Liquids/Solids Dementia Strategies Other Pharyngeal Impairment Moderately Impaired Pharyngeal Strategies Sitting Upright (90 deg) Double Swallow Effortful Swallow Supraglottic Swallow Small Bites and Sips Alternate Liquids/Solids Findings Impressions Moderate oropharyngeal impairment, secondary to reduced cognitive state. Observed minimal base of tongue strength, observed through articualtion and oral bolus control. Demonstrated lingual pumping and a loose jaw, strongly indicating reduced/absent lingua-velar seal, to allow posterior spillage into pharynx. Cough observed immediately after straw and small cup sip of thin liquid despite cues for throat clear/double swallow. Audible wet vocal quality observed upon inhalation. Symptoms resolved with nectar thick liquid via tsp. Demonstrated mild wet vocal quality with spoon bites of applesauce, unable to self- feed. Required cues from PLASTIC INJECTION MOLD MAKER for throat clear/double swallow. Able to follow these commands and demonstrate ability to tolerate puree textures slowly with cues. No further trials performed due to patient's lethargy and poor oral coordination for safety. Minimal mastication observed with trials of applesauce. Recommend further assessment next session. RECOMMEND: [place] thick liquids via small, controlled cup sips or straw sips; dysphagia blenderized textures . 1:1 assistance with meals. Cues for throat clear/double swallow. Small bites/sips. Alternate liquids/solids. Monitor for wet vocal quality. If observed, cues for throat clear/cough until resolved. Diet Recommendations Liquids Order [place] Diet Order Dysphagia Blenderized Medication Recommendations Crushed in Carrier Additional Dietary Needs 1:1 Assistance Reminders to Use Strategies Aspiration Precautions Recommended Precautions Upright at 90 Degrees Alternate Liquids/Solids Frequent Rest Periods Small Bites/Sips Effortful Swallow Treatment Plan Placement Recommendations after Nursing Home Facility Discharge Appropriate for Therapy Yes Therapy Recommendations Dysphagia therapy Dysphagia Goals Patient will tolerate PO while sitting bolt upright at 90 degrees to improve alertness. Patient will particiapte in 1: 1 assistance with intake with cues to implement strategies ( throat clear/double swallow, cough/swallow). Patient will trial more solid textures, when appropriate, for possible diet upgrade. Patient will tolerate safest, least restrictive diet without overt s/s of aspiration. Referrals/Other Recommended Referrals Occupational Therapy
--- NOTE | 2017-11-09 14:12 | PC.NURSE ---
Pt placed on dysphagia diet with one on one supervision during meals and double swallows. Pt refused to have bojorquez removed at this time - states Do it later. Has not been up yet due to excessive sedation from ativan. PT to work with pt this afternoon. Pt rouses easily and is cooperative. No signs of alcohol withdrawal at this time.
--- NOTE | 2017-11-09 14:49 | PC.NURSE ---
No drainage from hemovac - this was removed and 2x2 placed. NOted that aquacel dressing has signiciant shadow drainage present. Not leaking but needs close monitoring for increased drainage. Plan to change prior to dc.
--- NOTE | 2017-11-09 14:51 | PT.IPTN ---
Current Diagnoses Fracture of unspecified part of neck of left femur, initial encounter for closed fracture (11/06/17) Surgery Performed Operation Date: 11/07/17 08:30 Actual Procedures p Hip Hemiarthroplasty(Left) - Bert Fierro MD Physical Therapy Treatment Note M2 PT-IP Current Condition Start: 11/07/17 17:06 Freq: NEEDED Status: Active Protocol: Document 11/08/17 14:45 RCC (Rec: 11/08/17 15:20 RCC [id number]) Physical Therapy Current Condition Current Condition Evaluation Date 11/07/17 Treatment Diagnosis L femoral neck fracture s/p L hip hemiarthroplasty Onset Date 11/06/17 Precautions Posterior Hip Precautions No Hip Flexion > 90 degrees No Hip Internal Rotation No Hip Adduction Weight Bearing Status Weight Bearing Status Weight Bear as Tolerated M3 PT-IP Subjective Start: 11/07/17 17:06 Freq: NEEDED Status: Active Protocol: Document 11/09/17 14:47 DLM (Rec: 11/09/17 14:51 DLM [id number]) Subjective Physical Therapy Visit Type Notes Pt continues to be very sleepy , can arouse him to talk, he is oriented to self and hospital but not why he is here nor the day. He continues to be very lethargic and unable to participate in mobility. Therapy Pain Assessment Pain When Pain Assessed During Mobility Pain Present Pain Present Pain Reported FLACC Pain Scale Face No particular expression Legs Normal position; relaxed Activity Squirming,shifting Cry Moans/whimpers/complains Consolability Reassurable with touch FLACC Total 3 Location Left Hip Intensity 3 Scale Used FLACC Description Aching Pain Behaviors Moaning Pain Management Techniques Re-positioning M4 PT-IP Mobility and Gait Start: 11/07/17 17:06 Freq: NEEDED Status: Active Protocol: Document 11/09/17 14:47 DLM (Rec: 11/09/17 14:51 DLM [id number]) PT-Transfer Assessment Comments Mobility Comments Worked with nursing to reposition him and his nurse removed his hemovac. Pt unable to participate and was dependent for all moving. He reports he just wants to go back to sleep
--- NOTE | 2017-11-09 23:06 | PC.NURSE ---
Roney very drowsy, appeared sedated for most of evening, sleeping for the most part. Did wake up to voice, oriented to person place and situation, just not date. Thought it was thursday. Denies pain until repositioned. Medicated with 2 Tylenol tonight for left hip pain flacc score of 3. Aquacel to left hip mostly saturated, not leaking. Aquacel changed per protocol, staple line intact with no erythema, well approximated, cleaned with ns and sterile gauze, new aquacel placed. Pt tolerated drsg change. Diastolic BP low, BP 117/42. He denies any dizziness or lightheadedness at rest or with movement. H&H is 11/14. 1:1 feed assist per strict aspiration precautions, pt took in sips of juice earlier tonight and at bedtime agreed to drink most of ensure. Meds crushed and given in pudding. Pt with no observed swallowing difficulty tonight. No cough, LS diminished with scattered crackles to bases. 2L O2 sats 94-95%, continuous pulse ox on but has not alarmed all night. Using IS to 600. Denies headache or hallucinations. No tremor. Ciwa = 1 as forgetful to date. Bed alarm active for safety, pt reminded to use call button.
[2017-11-10] VITALS (11 sets, daily range): BP systolic 109–115; BP diastolic 43–46; PULSE 73–88; RESP 16–21; TEMP 36.6–36.8; O2SAT 89–97
[2017-11-10] MEDS: SODIUM CHLORIDE 0.9% FLUSH 10 ML IV ×2 (00:06→08:29)
--- NOTE | 2017-11-10 04:16 | PC.NURSE ---
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 States September 1990. Arouses with verbal stimuli, appropriate during conversation, maintains eye contact. Denies pain to left hip, some facial grimacing noted with repositioning, facial expression relaxed and pt talking after in resting position. Left hip aquacel dressing CDI, CMS+, PPP, no edema noted to lower extremity, edema is noted to left hip area. Abductor foam in place. Berman insitu draining clear yellow urine qs. HOB elevated at 30 degrees, pt aware of need and safety precaution. AE clear to upper lobes and diminished with coarseness to bases. On continuous O2 monitoring. Attempt to wean from 1L NC O2. O2 95% on 1L NC, at [id number] O2 sat 91-95% on RA. At 0410 O2 sat 89% on RA, 1LNC placed back on and O2 sat increased to 92%. At beginning of shift, instructed pt on use of incentive spirometer, pt able to return demonstrate. Volume to 500 with 5 breaths, enc daytime use.High fall risk precautions in place, bed alarm on. Call light within reach.
[2017-11-10] MEDS: TIOTROPIUM BROMIDE 18 MCG INHALER INH (04:40)
[2017-11-10] MEDS: ALBUTEROL 2.5 MG/3 ML NEB (ADULT) INH ×2 (04:40→10:40)
[2017-11-10] MEDS: ACETAMINOPHEN 325 MG TABLET 650 MG PO ×3 (06:41→13:03)
[2017-11-10 07:29] LABS: Hematocrit 25.9 % (41-53); Hemoglobin 8.8 g/dL (13.5-17.5); Mean Corpuscular Volume 101.5 fL (80-100); Red Blood Cell Count 2.55 X10^6/uL (4.5-5.9); White Blood Cell Count 7.5 X10^3/uL (4.5-11.0)
[2017-11-10 07:30] LABS: Add Manual Diff / Slide Review NO; Basophils Percent Auto 0.2 % (0-2); Eosinophils Percent Auto 1.1 % (2-4); Lymphocytes Percent Auto 10.5 % (25-40); Mean Corpuscular HGB Conc 33.9 % (30-36); Mean Corpuscular Hemoglobin 34.5 PG (26-34); Monocytes Percent Auto 6.9 % (3-14); Neutrophils Percent Auto 81.3 % (50-75); Platelet Count 125 X10^3/uL (150-400); Red Cell Distribution Width 15.3 % (11.6-14.8)
[2017-11-10 07:31] LABS: Neutrophils Absolute Auto 6100 /uL (3000-5900)
--- NOTE | 2017-11-10 07:38 | PM.PNPO.1 ---
Subjective Date Patient Seen: 11/10/17 Time Patient Seen: 07:38 Interval history: PD 3. S/P left hip hemiarthroplasty by Dr. Fierro. No complaints of any pain this a.m.. According to the nurse on duty, patient has been somnolent after receiving Ativan. Plan is to DC to snf facility when medically stable. Exam Vital Signs (past 8 hours): - 11/09/17 23:50 11/10/17 01:15 11/10/17 01:47 Temperature Pulse Rate Respiratory Rate Blood Pressure Pulse Oximetry 95 91 91 11/10/17 02:10 11/10/17 04:09 11/10/17 04:12 Temperature Pulse Rate 73 Respiratory Rate Blood Pressure Pulse Oximetry 95 89 L 92 11/10/17 04:40 11/10/17 05:03 11/10/17 05:30 Temperature 98.3 F Pulse Rate 75 78 Respiratory Rate 18 16 Blood Pressure 115/46 L Pulse Oximetry 92 94 95 Oxygen Delivery Method Room Air Oxygen Flow Rate 0 Narrative Exam Narrative: Patient sleeping in bed but able to wake up and answer questions and follow commands. Hip abductor brace on. Left hip Aquacel dressing clean dry and intact. Some swelling in left anterior thigh. Bilateral calf soft and nontender. 5/5 left ankle strength. Neurovascular status intact. Berman in. Objective Labs Result Diagrams: 11/10/17 05:21 11/09/17 05:32 Labs: Laboratory Results - last 24 hr 11/10/17 05:21 WBC 7.5 RBC 2.55 L Hgb 8.8 L Hct 25.9 L MCV 101.5 H MCH 34.5 H MCHC 33.9 RDW 15.3 H Plt Count 125 L Neut % (Auto) 81.3 H Lymph % (Auto) 10.5 L [place] % (Auto) 6.9 Eos % (Auto) 1.1 L Baso % (Auto) 0.2 Neut # (Auto) 6100 H Assessment & Plan Post-op Postoperative Procedures Operation Date: 11/07/17 08:30 Actual Procedures Side Surgeon p Hip Hemiarthroplasty Left Bert Fierro MD Postop day 3. Continue hip abductor brace. Continue DVT prophylaxis. Continue physical therapy. Weight bear as tolerated. DC Berman when more mobile. Follow up with Ortho in 10-14 days. Plan to is to DC to a snf facility when medically stable by the hospitalist service. Quality VTE Deep Vein Thrombosis/Pulmonary Embolism Present on Admission: No
--- NOTE | 2017-11-10 07:43 | P.PN_ITS ---
Subjective Date Patient Seen: 11/10/17 Time Patient Seen: 07:38 Interval history: PD 3. S/P left hip hemiarthroplasty by Dr. Fierro. No complaints of any pain this a.m.. According to the nurse on duty, patient has been somnolent after receiving Ativan. Plan is to DC to [facility] facility when medically stable. Exam Vital Signs (past 8 hours): - 11/09/17 23:50 11/10/17 01:15 11/10/17 01:47 Temperature Pulse Rate Respiratory Rate Blood Pressure Pulse Oximetry 95 91 91 11/10/17 02:10 11/10/17 04:09 11/10/17 04:12 Temperature Pulse Rate 73 Respiratory Rate Blood Pressure Pulse Oximetry 95 89 L 92 11/10/17 04:40 11/10/17 05:03 11/10/17 05:30 Temperature 98.3 F Pulse Rate 75 78 Respiratory Rate 18 16 Blood Pressure 115/46 L Pulse Oximetry 92 94 95 Oxygen Delivery Method Room Air Oxygen Flow Rate 0 Narrative Exam Narrative: Patient sleeping in bed but able to wake up and answer questions and follow commands. Hip abductor brace on. Left hip Aquacel dressing clean dry and intact. Some swelling in left anterior thigh. Bilateral calf soft and nontender. 5/5 left ankle strength. Neurovascular status intact. Berman in. Objective Labs Result Diagrams: 11/10/17 05:21 11/09/17 05:32 Labs: Laboratory Results - last 24 hr 11/10/17 05:21 WBC 7.5 RBC 2.55 L Hgb 8.8 L Hct 25.9 L MCV 101.5 H MCH 34.5 H MCHC 33.9 RDW 15.3 H Plt Count 125 L Neut % (Auto) 81.3 H Lymph % (Auto) 10.5 L [place] % (Auto) 6.9 Eos % (Auto) 1.1 L Baso % (Auto) 0.2 Neut # (Auto) 6100 H Assessment & Plan Post-op Postoperative Procedures Operation Date: 11/07/17 08:30 Actual Procedures Side Surgeon p Hip Hemiarthroplasty Left Bert Fierro MD Postop day 3. Continue hip abductor brace. Continue DVT prophylaxis. Continue physical therapy. Weight bear as tolerated. DC B[place] when more mobile. Follow up with Ortho in 10-14 days. Plan to is to DC to a [facility] facility when medically stable by the hospitalist service. Quality VTE Deep Vein Thrombosis/Pulmonary Embolism Present on Admission: No
[2017-11-10 08:24] LABS: BUN Creatinine Ratio 24.4 (6-22); Blood Urea Nitrogen 22 mg/dL (9-20); Calcium 7.9 mg/dL (8.4-10.2); Carbon Dioxide 31 mmol/L (22-32); Chloride 101 mmol/L (98-107); Estimated Glomerular Filt Rate > 60.0 mL/min (>60); Glucose 92 mg/dL (80-110); HEMOLYSIS 0 (0-50); Potassium 3.8 mmol/L (3.4-5.1); Sodium 136 mmol/L (137-145)
[2017-11-10] MEDS: DOCUSATE 100 MG CAPSULE PO (08:29)
[2017-11-10] MEDS: FOLIC ACID 1 MG TABLET PO (08:29)
[2017-11-10] MEDS: THIAMINE 100 MG TABLET PO (08:29)
[2017-11-10] MEDS: MULTIVITAMIN 1 TABLET 1 TAB PO (08:29)
[2017-11-10] MEDS: ASPIRIN EC 81 MG TABLET PO (08:30)
[2017-11-10] MEDS: POTASSIUM CITRATE 540 EACH PO (08:38)
--- NOTE | 2017-11-10 08:49 | PM.DS.1 ---
History of Present Illness Chief complaint: GLF, Left hip pain Discharge Providers Date of admission: 11/06/17 20:27 Primary care physician: Olayinka Mike MD Consults: 11/06/17 20:20 Consult to Orthopedic Surgery Routine Comment: Consulting Provider: Bert Fierro Reason for consultation: Left femoral neck fracture Has provider been notified: Yes 11/07/17 11:47 Consult to Discharge Planning Routine Comment: Consult to Physical Therapy Evaluate & Treat Comment: Physician Instructions: post op NAINA protocol Consult to Respiratory Therapy Evaluate & Treat Comment: Physician Instructions: Evaluate and treat 11/08/17 10:48 Consult to Respiratory Therapy Evaluate & Treat Comment: history of copd Physician Instructions: Evaluate and treat 11/09/17 10:30 Consult to Speech Therapy Evaluate & Treat Comment: Difficulty swallowing, aspiration risk Physician Instructions: Evaluate and treat Discharge provider: Olayinka Mike MD Summary Discharge Diagnosis: Discharge diagnosis 1. Left hip fracture Diagnosis 2. Anemia stable postoperative COPD stable at this point no longer requiring oxygen Diagnosis 4. Hypertension blood pressure stable at this point will continue regular meds Diagnosis 5. Alcohol abuse no evidence of withdrawal but I think this contributed to his fall which led to his hip fracture Diagnosis 6. Constipation duplex suppository to be given prior to his discharge to residential Hospital Course: Patient fell while intoxicated several days ago unable to bear weight or move and transported to the hospital found to have left hip fracture and had surgical resection of that. Had significant sedation with meds and some secondary anemia both have stabilized. His COPD has been stable and initially requiring some oxygen but I think that was because of sedation of a combination of pain meds and lorazepam. Clear mind this morning wakens easily answers questions appropriately is clear breasts fine plan lungs heart are clear. Has slight irregular heart rate I think this is consistent with his COPD and denies any pain while at rest. Status at Discharge Cognitive/behavioral status at discharge: Patient's cognitive function clear this morning and appears to be at his baseline Functional status at discharge: bed bound Overall status at discharge: patient is progressing back to baseline Time Spent with Patient Greater than 30 minutes Exam Vital Signs (past 8 hours): - 11/10/17 01:15 11/10/17 01:47 11/10/17 02:10 Temperature Pulse Rate Respiratory Rate Blood Pressure Pulse Oximetry 91 91 95 11/10/17 04:09 11/10/17 04:12 11/10/17 04:40 Temperature Pulse Rate 73 75 Respiratory Rate 18 Blood Pressure Pulse Oximetry 89 L 92 92 11/10/17 05:03 11/10/17 05:30 11/10/17 07:00 Temperature 98.3 F 97.9 F Pulse Rate 78 81 Respiratory Rate 16 17 Blood Pressure 115/46 L 109/43 L Pulse Oximetry 94 95 90 L Oxygen Delivery Method Room Air Oxygen Flow Rate 0 Objective Labs Result Diagrams: 11/10/17 05:21 11/10/17 05:21 Labs: Laboratory Results - last 24 hr 11/10/17 11/10/17 05:21 05:21 WBC 7.5 RBC 2.55 L Hgb 8.8 L Hct 25.9 L MCV 101.5 H MCH 34.5 H MCHC 33.9 RDW 15.3 H Plt Count 125 L Neut % (Auto) 81.3 H Lymph % (Auto) 10.5 L [place] % (Auto) 6.9 Eos % (Auto) 1.1 L Baso % (Auto) 0.2 Neut # (Auto) 6100 H Sodium 136 L Potassium 3.8 Chloride 101 Carbon Dioxide 31 BUN 22 H Creatinine 0.90 Estimated GFR > 60.0 BUN/Creatinine Ratio 24.4 H Glucose 92 Calcium 7.9 L Discharge Plan Discharge Plan Patient Disposition: SNF Transfer to: [facility] Under care of provider: Jonatan Mike Transportation: [facility] Discharge comment: frail, anemic post hip fracture, COPD, no alchohol withdrawal I certify the postop hospital residential care is medically necessary on a continuing basis for any conditions for which he/ she received care during this hospitalization.: Yes The receiving facility has agreed to accept transfer and provide medical treatment.: Yes Discharge Health Status Multidrug resistant organism: No MDRO Provider Discharge Instructions Diet: Diet as Tolerated Liquid consistency: Normal/Thin Food texture: Regular Activity: Rehab per Ortho for have fractured hip Special Rehabilitation Services Reason for rehabilitation: Post-operative therapy Rehab type: Physical therapy and Occupational therapy Discharge Data Primary Care Provider: Olayinka Mike Attending Provider: Rufino Saldivar Admit Date/Time: 11/06/17 20:27 Quality VTE Deep Vein Thrombosis/Pulmonary Embolism Present on Admission: No
--- NOTE | 2017-11-10 08:55 | P.DS_ITS ---
History of Present Illness Chief complaint: GLF, Left hip pain Discharge Providers Date of admission: 11/06/17 20:27 Primary care physician: Olayinka Mike MD Consults: 11/06/17 20:20 Consult to Orthopedic Surgery Routine Comment: Consulting Provider: Bert Fierro Reason for consultation: Left femoral neck fracture Has provider been notified: Yes 11/07/17 11:47 Consult to Discharge Planning Routine Comment: Consult to Physical Therapy Evaluate & Treat Comment: Physician Instructions: post op NAINA protocol Consult to Respiratory Therapy Evaluate & Treat Comment: Physician Instructions: Evaluate and treat 11/08/17 10:48 Consult to Respiratory Therapy Evaluate & Treat Comment: history of copd Physician Instructions: Evaluate and treat 11/09/17 10:30 Consult to Speech Therapy Evaluate & Treat Comment: Difficulty swallowing, aspiration risk Physician Instructions: Evaluate and treat Discharge provider: Olayinka Mike MD Summary Discharge Diagnosis: Discharge diagnosis 1. Left hip fracture Diagnosis 2. Anemia stable postoperative COPD stable at this point no longer requiring oxygen Diagnosis 4. Hypertension blood pressure stable at this point will continue regular meds Diagnosis 5. Alcohol abuse no evidence of withdrawal but I think this contributed to his fall which led to his hip fracture Diagnosis 6. Constipation duplex suppository to be given prior to [facility] Hospital Course: Patient fell while intoxicated several days ago unable to bear weight or move and transported to the hospital found to have left hip fracture and had surgical resection of that. Had significant sedation with meds and some secondary anemia both have stabilized. His COPD has been stable and initially requiring some oxygen but I think that was because of sedation of a combination of pain meds and lorazepam. Clear mind this morning wakens easily answers questions appropriately is clear breasts fine plan lungs heart are clear. Has slight irregular heart rate I think this is consistent with his COPD and denies any pain while at rest. Status at Discharge Cognitive/behavioral status at discharge: Patient's cognitive function clear this morning and appears to be at his baseline Functional status at discharge: bed bound Overall status at discharge: patient is progressing back to baseline Time Spent with Patient Greater than 30 minutes Exam Vital Signs (past 8 hours): - 11/10/17 01:15 11/10/17 01:47 11/10/17 02:10 Temperature Pulse Rate Respiratory Rate Blood Pressure Pulse Oximetry 91 91 95 11/10/17 04:09 11/10/17 04:12 11/10/17 04:40 Temperature Pulse Rate 73 75 Respiratory Rate 18 Blood Pressure Pulse Oximetry 89 L 92 92 11/10/17 05:03 11/10/17 05:30 11/10/17 07:00 Temperature 98.3 F 97.9 F Pulse Rate 78 81 Respiratory Rate 16 17 Blood Pressure 115/46 L 109/43 L Pulse Oximetry 94 95 90 L Oxygen Delivery Method Room Air Oxygen Flow Rate 0 Objective Labs Result Diagrams: 11/10/17 05:21 11/10/17 05:21 Labs: Laboratory Results - last 24 hr 11/10/17 11/10/17 05:21 05:21 WBC 7.5 RBC 2.55 L Hgb 8.8 L Hct 25.9 L MCV 101.5 H MCH 34.5 H MCHC 33.9 RDW 15.3 H Plt Count 125 L Neut % (Auto) 81.3 H Lymph % (Auto) 10.5 L [place] % (Auto) 6.9 Eos % (Auto) 1.1 L Baso % (Auto) 0.2 Neut # (Auto) 6100 H Sodium 136 L Potassium 3.8 Chloride 101 Carbon Dioxide 31 BUN 22 H Creatinine 0.90 Estimated GFR > 60.0 BUN/Creatinine Ratio 24.4 H Glucose 92 Calcium 7.9 L Discharge Plan Discharge Plan Patient Disposition: SNF Transfer to: [facility] Under care of provider: Jonatan Mike Transportation: [facility] Discharge comment: frail, anemic post hip fracture, COPD, no alchohol withdrawal I certify the postop hospital [facility] care is medically necessary on a continuing basis for any conditions for which he/ she received care during this hospitalization.: Yes The receiving facility has agreed to accept transfer and provide medical treatment.: Yes Discharge Health Status Multidrug resistant organism: No MDRO Provider Discharge Instructions Diet: Diet as Tolerated Liquid consistency: Normal/Thin Food texture: Regular Activity: Rehab per Ortho for have fractured hip Special [facility] Reason for rehabilitation: Post-operative therapy Rehab type: Physical therapy and Occupational therapy Discharge Data Primary Care Provider: Olayinka Mike Attending Provider: Rufino Saldivar Admit Date/Time: 11/06/17 20:27 Quality VTE Deep Vein Thrombosis/Pulmonary Embolism Present on Admission: No
--- NOTE | 2017-11-10 09:12 | PC.NURSE ---
Addendum entered by Columba Hammer R.N. 11/10/17 13:06: Pt walked into bathroom, attempted to void, unsuccessful. Bladder scanned for 50cc, denies urge to void. Pt given 650mg tylenol before transfer. Report called to Teetee at [facility], Teetee made aware of patients inability to void at this time. Also informed Teetee of patients home medications from pharmacy that are in the packet. Potassium citrate and alfuzosin. Original Note: Pt alert, oriented, denies nausea, pain 2/10 when not moving. Given tylenol in anticipation of working with physical therapy after breakfast. Pt fed himself with supervision, no signs symptoms of aspiration, ate 75%. CIWA 0. Dr Mike in to assess patient.
[2017-11-10] MEDS: BISACODYL 10 MG SUPP PR (09:15)
--- NOTE | 2017-11-10 10:05 | PT.IPTN ---
Current Diagnoses Fracture of unspecified part of neck of left femur, initial encounter for closed fracture (11/06/17) Surgery Performed Operation Date: 11/07/17 08:30 Actual Procedures p Hip Hemiarthroplasty(Left) - Bert Fierro MD Physical Therapy Treatment Note M2 PT-IP Current Condition Start: 11/07/17 17:06 Freq: NEEDED Status: Active Protocol: Document 11/08/17 14:45 RCC (Rec: 11/08/17 15:20 RCC [id number]) Physical Therapy Current Condition Current Condition Evaluation Date 11/07/17 Treatment Diagnosis L femoral neck fracture s/p L hip hemiarthroplasty Onset Date 11/06/17 Precautions Posterior Hip Precautions No Hip Flexion > 90 degrees No Hip Internal Rotation No Hip Adduction Weight Bearing Status Weight Bearing Status Weight Bear as Tolerated M3 PT-IP Subjective Start: 11/07/17 17:06 Freq: NEEDED Status: Active Protocol: Document 11/10/17 10:10 DLM (Rec: 11/10/17 10:21 DLM [id number]) Subjective Physical Therapy Visit Type Type Treatment Note Visit Start Time 09:45 Visit Stop Time 10:05 Total Visit Minutes 20 Number of PREMIUM NOTE INTEREST CALCULATOR CLERK Visits 0 Physical Therapy Visit Comments Patient Comments He is ready to get up, feels better today, he describes his breathing as about normal for him, c/o getting tired during treatment Therapy Pain Assessment Pain When Pain Assessed During Mobility Pain Present Pain Present Pain Reported Location Left Hip Intensity 2 Scale Used Numeric (1 - 10) Description Aching Pain Management Techniques Re-positioning M4 PT-IP Mobility and Gait Start: 11/07/17 17:06 Freq: NEEDED Status: Active Protocol: Document 11/10/17 10:10 DLM (Rec: 11/10/17 10:21 DLM [id number]) PT-Bed Mobility Assessment Supine to Sit Supine to Sit Minimal Assistance Scooting Scooting to Edge of Bed Contact Guard Assistance PT-Transfer Assessment Sit to and From Stand Sit to and from Stand Minimal Assistance Use of Upper Extremities Equipment Transfer Assistive Device Gait Belt Front Wheeled Walker Transfers Transfer Destination Chair Transfer Technique Stand Step Pivot Transfer Ability Level of Assist Minimal Assistance Comments Mobility Comments mild light-headedness when up which pt reports is how he has felt in past when anemic, shortness of breath noted, O2 sats 91-96% on room air. Pt up to recliner with chair alarm and call light close. PT-Balance Assessment Comments Other Balance Tests/Deviations/Treatment Pt is alert and appropriate : today. He is conversational and able to follow simple directions for mobility. He is using his remote to access the TV. M5 PT-IP Objective Assessments Start: 11/07/17 17:06 Freq: NEEDED Status: Active Protocol: Document 11/07/17 15:31 AB (Rec: 11/07/17 17:38 AB [id number]) Orientation Orientation/Cognition Level of Alertness Alert Orientation Name Age Birthday Month Date Year Day of Week Place Situation Safety Awareness Decreased Safety Awareness Memory Description Short Term Impaired Gross Range of Motion Lower Extremity ROM Assessment Left Impaired Strength Lower Extremity Strength Assessment Bilaterally Impaired Hip 3-/5 Knee 3-/5 Comments Strength Comments LLE weaker than RLE Sensation Assessment Sensation Gross Sensation WNL M6 PT-IP Treatment Start: 11/07/17 17:06 Freq: NEEDED Status: Active Protocol: Document 11/10/17 10:10 DLM (Rec: 11/10/17 10:21 DLM [id number]) Physical Therapy Treatment Education Education Provided Precautions Safety M7 PT-IP Assessment and Plan Start: 11/07/17 17:06 Freq: NEEDED Status: Active Protocol: Document 11/10/17 10:10 DLM (Rec: 11/10/17 10:21 DLM [id number]) PT Summary Assessment and Plan Summary Progress Towards Goals Slow Progress due to Activity Tolerance Assessment Summary He is more alert today and able to participate in therapy . He is up to recliner with mild lightheadedness and shortness of breath. He only tolerates light activity at this time with assistance of one person. He is not safe to discharge home at this time. Continue to recommend SNF rehab. Frequency of Treatment Frequency Of Treatment Twice a Day Treatment Plan Other Recommendations and Next Treatment slowly progress to gait as Focus light-headedness and shortness of breath allows Recommendations To Nursing Amount of Assist Needed 1 Person Assist Discharge Recommendations PT Discharge Recommendations SNF Rehab
--- NOTE | 2017-11-10 10:56 | CM.DPC ---
DCP: continued: pt now is ok'd by Dr. Mike for d/c to [facility]. [employer] VISITING TEACHER will see pt again to finalize diet order as pt today is back to baseline, alert, reading newpaper, per RN Columba swallowing with no apparent problems. Berman will be taken out. Teetee/[facility] can accept pt at 1300 by w/c with [facility] staff to transport. Called Timur and updated her re the d/c details of today. PASRR completed and faxed to [facility]. Rest of snf orders will be faxed to [facility] by [facility].
--- NOTE | 2017-11-10 13:04 | ST.IPDYTX ---
Care Team Visit Care Team Role Provider Type Olayinka Mike MD Primary Care Provider Physician Specialty: [facility] Practice Address: [address] [place] [address], [id number] Email: Bert Fierro MD Other Providers Physician Specialty: Orthopedic Surgery Address: [address] [place] [address], [id number] Email: [email or web address] Emergency Provider Physician Specialty: Emergency Medicine Address: [address] [place] [address], [id number] Email: Rufino Saldivar MD Admit Provider Physician Attending Provider Specialty: [facility] Address: [address] [place] [address], [id number] Email: [email or web address] API PRODUCT MANAGER Dysphagia Treatment API PRODUCT MANAGER Dysphagia Treatment Start: 11/09/17 12:52 Freq: Status: Active Protocol: Document 11/10/17 12:59 MRM (Rec: 11/10/17 13:04 [facility] [id number]) Dysphagia Treatment Session Time Visit Start Time 12:00 Visit Stop Time 12:20 Total Visit Minutes 20 Setting Assessment Location Acute Care Visit Type Note Type Treatment Note Next Note Type Next Note Type Treatment Note Patient Information Identification Type Name ID Card ID Wristband Other Subjective Observations Patient awake and very alert, sitting upright in chair reading the newspaper. Oriented to self, date, time, location and situation. Much more clear today than yesterday. Nursing reported self-feeding and able to take most pills whole. Treatment Liquids Trialed Thin [place] Solids Trialed Puree Dysphagia Mechanical Mechanical Soft Administration Type Cup Single Sip Oral Strategies Upright at 90 degrees Controlled Bite/Sip Size Alternate Liquids/Solids Pharyngeal Strategies Sitting Upright (90 deg) Double Swallow Effortful Swallow Small Bites and Sips Alternate Liquids/Solids Additional Dysphagia Treatment Throat clear/double swallow Strategies Treatment Activities Patient able to tolerate trials of nectar thick liquids and thin liquids via cup independently. Able to tolerate puree, dysphagia mechancial and mechancial soft texutres independently as well. Observed mild wet vocal quality throughout meal after multiple bites/sips. Able to clear with cue for throat clear. Mild cough observed occasionally throughout session. Not suspected to be related to aspiration. Benefitted from cues to implement throat clear/double swallow strategies. RECOMMEND: Upgrade to thin liquids and mechanical soft textures. No need for 1:1 assistance with meals. Assessment Patient Response to Treatment Excellent Rehab Potential Excellent Assessment of Improvement Significantly improved swallowing ability. Able to tolerate thin liquids and mechanical soft textures with mild wet vocal qualtiy. Occasional cough observed, but not suspected to be related to aspiration. No change in respiratory rate or saturation observed throughout the session. Recommend upgrade diet. Medication to be administered as tolerated. Discussed cutting large pills in half and/or taking them in a carrier. Patient agreed. Recommend follow up with API PRODUCT MANAGER at [facility] to assess for carryover and reassess patient's tolerance of new diet upgrade. Diet Recommendations Recommendations Upgrade Liquid Order Liquids Order Thin Diet Order Mechanical Soft Medication Recommendations As Tolerated Whole Whole in Carrier Additional Dietary Needs Encourage to Self-Feed Reminders to Use Strategies Aspiration Precautions Recommended Precautions Upright at 90 Degrees Alternate Liquids/Solids Small Bites/Sips Effortful Swallow Double Swallow Treatment Plan Placement Recommendation after Discharge Intermediate Facility Appropriate for Continued Therapy Yes Therapy Recommendations Dysphagia therapy Dysphagia Goals Patient will tolerate PO while sitting bolt upright at 90 degrees to improve alertness. Patient will tolerate safest, least restrictive diet without overt s/s of aspiration. Patient will implement throat clear/double swallow for clear pharynx throughout meals.
--- NOTE | 2017-11-10 16:23 | PC.NURSE ---
RN from [facility] here to mails supervisor patient. All belongings and DC packet sent with her. Patient assisted into wheelchair via 2 person assist, FWW & gait belt. Pt following cues & post-op hip precautions appropriately. RN from [facility] left room/hospital with patient, belongings & packet. Denies questions or concerns.
== END 2017-11-10 16:23 | DRG 469 ==
LOC: ED 20:16 → AC 20:29
PROVIDERS: Orthopaedic Surgery; Admitting Provider Family Medicine; Emergency Provider Emergency Medicine; PCP Family Medicine; Visit Provider Family Medicine
PROC: 0SRS0JZ Replacement of Left Hip Joint, Femoral Surface with Synthetic Substitute, Open Approach (ICD-10-PCS; CPT 27125; principal; 2017-11-07 08:30)
DX: S72.002A Fracture of unspecified part of neck of left femur, initial encounter for closed fracture (principal); E43 Unspecified severe protein-calorie malnutrition; W19.XXXA Unspecified fall, initial encounter; Y92.008 Other place in unspecified non-institutional (private) residence as the place of occurrence of the external cause; F10.220 Alcohol dependence with intoxication, uncomplicated; Y90.8 Blood alcohol level of 240 mg/100 ml or more; J44.9 Chronic obstructive pulmonary disease, unspecified; R09.02 Hypoxemia; N40.1 Benign prostatic hyperplasia with lower urinary tract symptoms; R33.9 Retention of urine, unspecified; I95.89 Other hypotension; E86.0 Dehydration; I10 Essential (primary) hypertension; D64.9 Anemia, unspecified; K59.00 Constipation, unspecified; R40.0 Somnolence; T42.4X5A Adverse effect of benzodiazepines, initial encounter; T39.95XA Adverse effect of unspecified nonopioid analgesic, antipyretic and antirheumatic, initial encounter; Y92.230 Patient room in hospital as the place of occurrence of the external cause; Z68.20 Body mass index [BMI] 20.0-20.9, adult
CPT/HCPCS: 36415; 36591; 73501; 73502; 80048; 80320; 85014; 85018; 85025; 85610; 85730; 86850; 86900; 86901; 92526; 92610; 94640; 94760; 97162; 97530; 99282; 99284; C1776; C9290; J0171; J0690; J1650; J1940; J2250; J2270; J2704; J3475; J7613

== ENCOUNTER → 2017-11-25 08:23 | Outpatient (REF) | payer MEDICARE, OTHER, SELFPAY ==
[2017-11-06 21:50] VITALS: BMI 20.3
[2017-11-25 08:39] LABS: Add Manual Diff / Slide Review NO; Basophils Percent Auto 0.9 % (0-2); Hematocrit 27.6 % (41-53); Hemoglobin 9.2 g/dL (13.5-17.5); Lymphocytes Percent Auto 12.2 % (25-40); Mean Corpuscular HGB Conc 33.4 % (30-36); Mean Corpuscular Hemoglobin 33.3 PG (26-34); Mean Corpuscular Volume 99.6 fL (80-100); Neutrophils Absolute Auto 5800 /uL (3000-5900); Neutrophils Percent Auto 75.9 % (50-75); Platelet Count 501 X10^3/uL (150-400); Red Blood Cell Count 2.77 X10^6/uL (4.5-5.9); Red Cell Distribution Width 14.8 % (11.6-14.8); White Blood Cell Count 7.6 X10^3/uL (4.5-11.0)
[2017-11-25 08:55] LABS: Blood Urea Nitrogen 24 mg/dL (9-20); Calcium 8.2 mg/dL (8.4-10.2); Carbon Dioxide 32 mmol/L (22-32); Chloride 104 mmol/L (98-107); Estimated Glomerular Filt Rate > 60.0 mL/min (>60); Glucose 84 mg/dL (80-110); HEMOLYSIS < 15 (0-50); Potassium 5.1 mmol/L (3.4-5.1); Sodium 140 mmol/L (137-145)
== END ==
LOC: LAB 08:23
PROVIDERS: PCP Family Medicine
DX: I50.9 Heart failure, unspecified (principal); J44.9 Chronic obstructive pulmonary disease, unspecified
CPT/HCPCS: 36415; 80048; 85025

== ENCOUNTER → 2017-12-03 11:00 | Outpatient (REF) | payer MEDICARE, OTHER, SELFPAY ==
[2017-11-06 21:50] VITALS: BMI 20.3
[2017-12-03 11:10] LABS: Add Manual Diff / Slide Review NO; Basophils Percent Auto 0.4 % (0-2); Eosinophils Percent Auto 2.9 % (2-4); Hematocrit 27.9 % (41-53); Hemoglobin 9.2 g/dL (13.5-17.5); Lymphocytes Percent Auto 5.7 % (25-40); Mean Corpuscular HGB Conc 32.7 % (30-36); Mean Corpuscular Hemoglobin 32.1 PG (26-34); Mean Corpuscular Volume 98.1 fL (80-100); Monocytes Percent Auto 6.8 % (3-14); Neutrophils Absolute Auto 11000 /uL (3000-5900); Neutrophils Percent Auto 84.2 % (50-75); Platelet Count 317 X10^3/uL (150-400); Red Blood Cell Count 2.85 X10^6/uL (4.5-5.9); Red Cell Distribution Width 14.4 % (11.6-14.8); White Blood Cell Count 13.1 X10^3/uL (4.5-11.0)
== END ==
LOC: LAB 11:00
PROVIDERS: PCP Family Medicine; Visit Provider Hospitalist
DX: N40.0 Benign prostatic hyperplasia without lower urinary tract symptoms (principal)
CPT/HCPCS: 85025

== ENCOUNTER → 2018-02-09 14:13 | Outpatient (CLI) | payer MEDICARE, OTHER, SELFPAY ==
--- NOTE | 2018-02-09 | DI.RAD.S_ITS ---
PROCEDURE: XR CHEST 2V INDICATIONS: SOB, AND COPD TECHNIQUE: 2 views of the chest were acquired. COMPARISON: [facility], CR, CHEST 2 VIEW, 11/25/2016, 8:41. [facility], CR, XR ABDOMEN 1 VIEW, 06/16/2017, 12:53. [facility], CR, XR ABDOMEN 1 VIEW, 11/30/2017, 13:30. FINDINGS: Surgical changes and devices: None. Lungs and pleura: No pleural effusions or pneumothorax. Lungs are abnormal with COPD and what appears to be mild or early pneumonia at the left lung base posteriorly. Mediastinum: Mediastinal contours are normal. Heart size is normal. Bones and chest wall: No suspicious bony abnormalities. Soft tissues appear unremarkable. IMPRESSION: Flattening of the diaphragms, COPD. Chronic interstitial prominence with superimposed mild or early pneumonia retrocardiac left lower lobe. Dictated by: Robert Bradshaw M.D. on 02/09/2018 at 15:04 Approved by: Robert Bradshaw M.D. on 02/09/2018 at 15:05
== END ==
PROVIDERS: Family Provider Nurse Practitioner Family; PCP Family Medicine; Visit Provider Family Medicine
DX: J18.9 Pneumonia, unspecified organism (principal); J44.9 Chronic obstructive pulmonary disease, unspecified; R06.02 Shortness of breath
CPT/HCPCS: 71046

== ENCOUNTER → 2019-01-31 09:32 | Outpatient (CLI) | payer MEDICARE, OTHER, SELFPAY | PROVIDERS: PCP Family Medicine; Visit Provider Family Medicine | DX: R53.1 Weakness (principal); J44.9 Chronic obstructive pulmonary disease, unspecified | CPT/HCPCS: 94618 ==

== ENCOUNTER 2020-03-06 22:35 | Emergency (ER) | payer MEDICARE, OTHER, SELFPAY ==
--- NOTE | 2020-03-06 22:39 | ED_ITS ---
HPI - General Adult General Chief complaint: Extremity Problem,Nontraumatic Stated complaint: SOB Time Seen by Provider: 03/06/20 22:37 Source: patient and family Mode of arrival: Wheelchair Limitations: no limitations History of Present Illness HPI narrative: For evaluation of right foot pain. He states that approximately 3 days ago he started noticing pain on the bottom of his right foot. He has a history of COPD and is on home oxygen. Spends most of his time in a wheelchair. He does not describe any specific incident the caused his foot to have discomfort. States he is somewhat better with just sitting in his chair however he has not been able to walk secondary to pain. Has tried lidocaine patches without any improvement. No fevers. Related Data Home Medications Medication Instructions Recorded Confirmed tiotropium bromide [Spiriva with 18 mcg RT DAILY #0 06/26/06 11/06/17 HandiHaler] escitalopram oxalate [Lexapro] 10 mg PO DAILY #0 09/11/11 11/06/17 alfuzosin [Uroxatral] 10 mg PO QDAY #0 01/21/17 11/06/17 potassium citrate [Urocit-K 5] 540 mg PO BIDCC #0 01/21/17 11/06/17 High Potency Iron 1 tab PO DAILY 11/06/17 11/06/17 Ventolin HFA 1 - 2 puff INHALATION WEEKLY PRN 11/06/17 11/06/17 docusate sodium 100 mg PO BID 11/06/17 11/06/17 Previous Rx's Medication Instructions Recorded oxycodone 5 mg PO Q3HR PRN #30 tab 11/10/17 Allergies Allergy/AdvReac Type Severity Reaction Status Date / Time tamsulosin [From FLOMAX] AdvReac Unknown DIZZINESS Verified 11/07/17 01:17 Review of Systems Constitutional Constitutional: Denies fever(s) Cardiovascular Cardiovascular: Denies chest pain and Denies dyspnea Respiratory Respiratory: Denies dyspnea Gastrointestinal Gastrointestinal: Denies abdominal pain, Denies nausea and Denies vomiting Musculoskeletal Comments: Right foot pain Integumentary/Breasts Skin/Breast: Denies lesions and Denies rash Neurologic Neurologic: Denies behavioral changes Psychiatric Psychiatric: Denies behavioral changes Hematologic/Lymphatic Hematologic/Lymphatic: Denies easy bleeding and Denies easy bruising Allergic/Immunologic Allergic/Immunologic: Denies urticaria Patient History Medical History COPD (chronic obstructive pulmonary disease) Surgical History No pertinent past surgical history Social History household members: spouse and none Smoking Status: Former smoker alcohol intake: current Smoking Status: Former smoker alcohol intake frequency: 0-2 drinks per day Substance Use Type: does not use Exam Initial Vital Signs Initial Vital Signs: Vital Signs Temperature 98.9 F 03/06/20 22:43 Pulse Rate 106 H 03/06/20 22:43 Respiratory Rate 17 03/06/20 22:43 Blood Pressure 188/75 H 03/06/20 22:43 Pulse Oximetry 96 03/06/20 22:43 Const General: cooperative Cardio Pulses: dorsalis pedis present on the right Skin Lesions: no lesions Extrem Other: Patient with tenderness to palpation on the plantar aspect of his right foot along the plantar fascia. He has no right ankle tenderness. He can flex and extend his right ankle without causing pain on the bottom of his foot. He has no calf tenderness. No knee tenderness. I was able to reproduce the pain that brought him in by extending his toes. Course Orders Ordered: ED Orders 03/06/20 22:54 XR foot RT min 3V Stat Vital Signs Vital signs: Vital Signs - 8 hr 03/06/20 22:43 03/06/20 22:48 Temperature 98.9 F Pulse Rate 106 H 103 H Respiratory Rate 17 24 Blood Pressure 188/75 H 185/75 H Pulse Oximetry 96 97 Medical Decision Making Imaging Data Extremity x-ray #1: Radiologist's Impression: Right foot x-ray Generalized osteopenia. No acute fracture dislocation MDM Narrative Medical decision making narrative: Patient is neurovascularly intact. He stated that the pain that brought him in his on the bottom of his right foot and is reproducible with palpation along the plantar fashion also with extending the toes on his right foot. There is no fractures on the x-ray. I do have a high suspicion that his symptoms are caused by plantar fasciitis. He does admit that he has been spending more time in his wheelchair secondary to his breathing issues secondary to COPD. I feel that this is causing some atrophy of his leg muscles and he agrees with this. We did discuss thinks he could try at home to include ice and massage in anti-inflammatories and stretching. He is going to contact his primary provider for follow-up. He expressed understanding and agreement. Discharge Plan Departure Patient Disposition: Home Clinical Impression: Plantar fasciitis of right foot Acute foot pain Qualifiers: Laterality: right Qualified Code(s): M79.671 - Pain in right foot Instructions: DI for Plantar Fasciitis Activity Restrictions/Additional Instructions: There were no fractures on the x-rays. I do recommend that you continue with the stretches like we talked about. Contact your primary provider for follow- up. Return to the emergency department for any new or worsening symptoms Prescriptions: No Action tiotropium bromide [Spiriva with HandiHaler] 18 MCG capsule, w/inhalation device 18 mcg RT DAILY Qty: 0 RF: 0 escitalopram oxalate [Lexapro] 10 MG tablet 10 mg PO DAILY Qty: 0 RF: 0 potassium citrate [Urocit-K 5] 5 MEQ tablet extended release 540 mg PO BIDCC Qty: 0 RF: 0 alfuzosin [Uroxatral] 10 MG tablet extended release 24 hr 10 mg PO QDAY Qty: 0 RF: 0 docusate sodium 100 mg Capsule 100 mg PO BID RF: 0 High Potency Iron 1 tab PO DAILY RF: 0 Ventolin HFA 90 mcg 1 - 2 puff Inhalation WEEKLY PRN (Reason: COPD) RF: 0 oxycodone 5 mg Tablet 5 mg PO Q3HR PRN (Reason: Pain, Moderate (4-6)) Qty: 30 RF: 0 Referrals: Olayinka Mike MD [Primary Care Provider] -
[2020-03-06 22:43] VITALS: BP 188/75; PULSE 106; RESP 17; TEMP 37.2; O2SAT 96; BMI 21.2
[2020-03-06 22:48] VITALS: BP 185/75; PULSE 103; RESP 24; O2SAT 97
--- NOTE | 2020-03-06 22:54 | DI.RAD.S_ITS ---
PROCEDURE: XR FOOT RT MIN 3V INDICATIONS: Pain over calcaneus TECHNIQUE: 3 views of the foot were acquired. COMPARISON: None. FINDINGS: Bones: No fractures or dislocations. No suspicious bony lesions. Diffuse hindfoot and midfoot joint degeneration. Moderate 1st MTP and diffuse interphalangeal joint degeneration. Soft tissues: Scattered vascular calcifications noted. IMPRESSION: Chronic and degenerative changes as above. If the patient's pain or other symptoms persist, consider further evaluation with MRI Dictated by: Rubio Abdul M.D. on 03/07/2020 at 9:01 Approved by: Rubio Abdul M.D. on 03/07/2020 at 9:02
== END 2020-03-06 23:55 | disposition home or self-care (01) ==
PROVIDERS: Emergency Provider Emergency Medicine; PCP Family Medicine
DX: M72.2 Plantar fascial fibromatosis (principal); M79.671 Pain in right foot; J44.9 Chronic obstructive pulmonary disease, unspecified
CPT/HCPCS: 73630; 99284; 99285

== ENCOUNTER 2020-03-22 10:25 | Inpatient (IN) | payer MEDICARE, OTHER, SELFPAY ==
[2020-03-22] VITALS (17 sets, daily range): BP systolic 117–156; BP diastolic 50–67; PULSE 78–93; RESP 14–17; TEMP 36.3–36.6; O2SAT 91–98; BMI 20.5
--- NOTE | 2020-03-22 10:39 | DI.RAD.S_ITS ---
PROCEDURE: XR CHEST 1V INDICATIONS: suspected sepsis TECHNIQUE: One view of the chest was acquired. COMPARISON: [facility], CR, XR CHEST 2V, 02/09/2018, 14:23. FINDINGS: Surgical changes and devices: None. Lungs and pleura: There are indistinct peripheral opacities in the left lung base peripherally. There is hyperinflation of the lungs with flattening of the hemidiaphragms compatible with COPD. No pleural effusions or pneumothorax. Mediastinum: Mediastinal contours appear unchanged. Heart size is normal. Bones and chest wall: Multiple healed right rib fractures are redemonstrated. Overlying soft tissues appear unremarkable. IMPRESSION: 1. Indistinct peripheral left basilar opacities are nonspecific and the differential includes pneumonia, inflammatory processes, atelectasis, or aspiration. 2. Findings compatible with COPD redemonstrated. Dictated by: David rFazier M.D. on 03/22/2020 at 12:40 Approved by: David Frazier M.D. on 03/22/2020 at 12:42
[2020-03-22 10:44] LABS: INR 1.3 (0.9-1.3); Prothrombin Time 14.7 SECONDS (10.1-12.7)
[2020-03-22 10:45] LABS: Hematocrit 36.7 % (41-53); Mean Corpuscular HGB Conc 32.6 % (30-36); Mean Corpuscular Hemoglobin 32.1 PG (26-34); Mean Corpuscular Volume 98.3 fL (80-100); Platelet Count 356 X10^3/uL (150-400); Red Blood Cell Count 3.73 X10^6/uL (4.5-5.9); Red Cell Distribution Width 13.7 % (11.6-14.8)
[2020-03-22 10:46] LABS: PTT Partial Thromboplastin Tim 24 SECONDS (26.4-36.2)
[2020-03-22 10:48] LABS: Add Manual Diff / Slide Review YES; White Blood Cell Count 25.6 X10^3/uL (4.5-11.0)
[2020-03-22 10:49] LABS: Alanine Aminotransferase 33 IU/L (<50); Albumin 3.4 g/dL (3.5-5.0); Albumin Globulin Ratio 0.8 (1.0-2.8); Alkaline Phosphatase 137 U/L (38-126); Aspartate Aminotransferase 57 IU/L (17-59); BUN Creatinine Ratio 31.2 (6-22); Bilirubin Total 0.6 mg/dL (0.2-1.3); Blood Urea Nitrogen 44 mg/dL (9-20); Carbon Dioxide 25 mmol/L (22-32); Chloride 104 mmol/L (98-107); Estimated Glomerular Filt Rate 48.2 mL/min (>60); Globulin 4.1 g/dL (1.7-4.1); Glucose 103 mg/dL (80-110); HEMOLYSIS 29 (0-50); Potassium 4.2 mmol/L (3.4-5.1); Sodium 136 mmol/L (137-145); Total Protein 7.5 g/dL (6.3-8.2)
[2020-03-22 10:50] LABS: Lipase < 10 U/L (23-300)
[2020-03-22 11:10] LABS: Neutrophils Absolute Manual 24576 /uL (3000-5900); Total Cells Counted 100
[2020-03-22 11:11] LABS: Anisocytosis 1+
[2020-03-22 11:15] LABS: Procalcitonin < 0.05 ng/mL (<0.5)
[2020-03-22 11:18] LABS: Lactate (Lactic Acid) 1.5 mmol/L (0.7-2.1)
--- NOTE | 2020-03-22 11:23 | ED_ITS ---
HPI - Extremity Problem General Chief complaint: Extremity Problem,Nontraumatic Stated complaint: Generalized weakness Time Seen by Provider: 03/22/20 10:49 Source: EMS Mode of arrival: EMS Limitations: no limitations History of Present Illness HPI Narrative: Patient is a john 79-year-old male history of COPD on home oxygen at presenting with right foot pain and swelling. He was actually seen evaluated here on March 06 for the same where he had an x-ray. There is no injury. The a has progressively gotten much more swollen. He has been sitting in his wheelchair unable to walk due to pain. He now has some pressure sores on his bottom. He states that he is so weak his can no longer take care of him. He denies any fever or chills. No worsening shortness of breath. He does have COPD but denies being on any prednisone at this time. MD Complaint: extremity pain and extremity swelling Location: right and lower extremity Related Data Home Medications Medication Instructions Recorded Confirmed Spiriva with HandiHaler 18 mcg RT DAILY #0 06/26/06 03/22/20 escitalopram oxalate [Lexapro] 10 mg PO DAILY #0 09/11/11 03/22/20 alfuzosin [Uroxatral] 10 mg PO QDAY #0 01/21/17 03/22/20 potassium citrate [Urocit-K 5] 540 mg PO BIDCC #0 01/21/17 03/22/20 High Potency Iron 1 tab PO DAILY 11/06/17 03/22/20 docusate sodium 100 mg PO BID 11/06/17 03/22/20 Previous Rx's Medication Instructions Recorded oxycodone 5 mg PO Q3HR PRN #30 tab 11/10/17 Allergies Allergy/AdvReac Type Severity Reaction Status Date / Time tamsulosin [From FLOMAX] AdvReac Unknown DIZZINESS Verified 11/07/17 01:17 Review of Systems Review of Systems ROS Unobtainable: All systems reviewed & are unremarkable except as noted in HPI and below Constitutional Constitutional: Denies chills, Reports fatigue, Denies fever(s), Reports lethargy and Denies weakness ENT Ears, Nose, Mouth, and Throat: Denies change in voice, Denies neck pain and Denies sore throat Cardiovascular Cardiovascular: Denies chest pain, Denies irregular heart rhythm, Denies lightheadedness, Denies palpitations and Denies orthopnea Gastrointestinal Gastrointestinal: Denies abdominal pain, Denies change in bowel habits, Denies diarrhea, Denies nausea and Denies vomiting Musculoskeletal Musculoskeletal: Reports as per HPI, Reports deformity and Denies neck pain Integumentary/Breasts Skin/Breast: Reports as per HPI, Denies pruritus, Reports erythema, Denies rash, Reports skin pain, Reports skin swelling, Reports skin ulcer, Reports sores and Reports wounds Neurologic Neurologic: Denies abnormal speech, Denies localized weakness and Denies weakness Endocrine Endocrine: Reports fatigue and Denies palpitations Patient History Medical History (Updated 03/22/20 @ 13:07 by Kady Farmer DO) COPD (chronic obstructive pulmonary disease) Surgical History No pertinent past surgical history Social History household members: spouse and none Smoking Status: Former smoker alcohol intake: former Smoking Status: Former smoker alcohol intake frequency: 0-2 drinks per day Substance Use Type: does not use Exam Initial Vital Signs Initial Vital Signs: Vital Signs Temperature 97.9 F 03/22/20 10:31 Pulse Rate 84 03/22/20 10:31 Respiratory Rate 17 03/22/20 10:31 Blood Pressure 129/58 L 03/22/20 10:31 Pulse Oximetry 96 03/22/20 10:31 GENERAL: Thin frail 79-year-old male and in no acute distress. HEENT: Head atraumatic,EOMI, pupils reactive, face symmetric, moist mucous membranes CARDIOVASCULAR: Regular rate and rhythm without murmurs, rubs or gallops. RESPIRATORY: Breath sounds equal bilaterally, no wheezes rales or rhonchi. ABDOMEN: Soft, nontender. Normoactive bowel sounds all 4 quadrants. No guarding or rebound. Pressure ulcer noted he has 2 sores on each buttock 1 cm x 0.5 cm erythematous mild skin breakdown, no drainage EXTREMITIES: Normal range of motion,. Neurovascularly intact Right lower extremity significantly swollen, erythema noted on toes but no sign ificant streaking. There is age dark and area on the bottom of his foot as well. It is tender to touch NEUROLOGICAL: Alert and oriented x4. SKIN: Pressure ulcer as described mild erythema of the right lower. Mild erythema of right toes Course Orders Ordered: ED Orders 03/22/20 10:39 XR chest 1V Stat EKG-12 Lead Stat 03/22/20 10:45 C-Reactive Protein Quant Stat Erythrocyte Sedimentation Rate Stat Lactate (Lactic Acid) Stat 03/22/20 10:56 Blood Culture Stat 03/22/20 11:24 US periph venous low extrem rt Stat 03/22/20 11:46 COVID19 Stat 03/22/20 13:07 MR foot RT wo con Stat 03/22/20 18:50 Urinalysis and Microscopic Stat Acetaminophen (Acetaminophen 325 Mg Tablet) 650 mg PO Q6HR PRN PRN Reason: Fever/Mild Pain (1-3) Hydrocodone Bitart/Acetaminophen (Hydrocodone/Acet 5/325 Tablet) 1 tab PO Q6HR [facility] Last Admin: 03/22/20 18:34 Dose: Not Given Documented by: ZO Al Hydrox/Mg Hydrox/Simethicone (Mag Hydrox/Alum/Simeth 30 Ml Udc) 30 ml PO Q6HR PRN PRN Reason: Dyspepsia Docusate Sodium (Docusate 100 Mg Capsule) 100 mg PO BID [facility] Enoxaparin Sodium (Enoxaparin 30 Mg/0.3 Ml Syringe) 30 mg SUBCUT DAILY [facility] Ferrous Sulfate (Ferrous Sulfate 325 Mg Tablet) 325 mg PO DAILY [facility] Sodium Chloride (Normal Saline 0.9%) 1,000 mls @ 100 mls/hr IV CONT [facility] Last Admin: 03/22/20 15:52 Dose: 100 mls/hr Documented by: ZO Ceftriaxone Sodium/Dextrose (Rocephin) 1 gm in 50 mls @ 100 mls/hr IV Q12H [facility] Vancomycin HCl (Vancomycin) 1,250 mg in 250 mls @ 250 mls/hr IV Q24H [facility] Last Admin: 03/22/20 16:05 Dose: 250 mls/hr Documented by: MOHAMUD Naloxone HCl (Naloxone 0.4 Mg/Ml Vial) 0.2 mg IV Q2MIN PRN PRN Reason: Opiate Reversal Alfuzosin [Uroxatral (] 10 Mg) 10 mg PO DAILY [facility] Potassium Citrate [ (Urocit-K 5] 5 Meq) 540 mg PO BIDWM [facility] Last Admin: 03/22/20 18:33 Dose: 540 mg Documented by: ZO Ondansetron HCl (Ondansetron 4 Mg/2 Ml Inj) 4 mg IV Q8HR PRN PRN Reason: Nausea And Vomiting Tiotropium Reinbeck (Tiotropium Reinbeck 18 Mcg Inhaler) 18 mcg INH DAILY [facility] Vancomycin HCl (Vancomycin Trough) 1 request MISC 1530 [facility] Discontinued Medications Ceftriaxone Sodium/Dextrose (Rocephin) 1 gm in 50 mls @ 100 mls/hr IV NOW ONE Stop: 03/22/20 12:01 Last Infusion: 03/22/20 12:12 Dose: 0 mls/hr Documented by: Admin: 03/22/20 11:39 Dose: 100 mls/hr Documented by: RENE Morphine Sulfate (Morphine 2 Mg/Ml Inj) 2 mg IV NOW ONE Stop: 03/22/20 11:36 Last Admin: 03/22/20 11:39 Dose: 2 mg Documented by: RENE Vancomycin HCl (Vancomycin Per Pharmacy) 1 request MISC NOW ONE Stop: 03/22/20 14:55 Last Admin: 03/22/20 18:32 Dose: Not Given Documented by: ZO Vital Signs Vital signs: Vital Signs - 8 hr 03/22/20 12:00 03/22/20 12:01 03/22/20 12:30 Pulse Rate 84 84 86 Blood Pressure 137/60 Pulse Oximetry 95 94 97 03/22/20 12:31 03/22/20 13:00 03/22/20 13:01 Pulse Rate 81 78 85 Blood Pressure 140/60 151/61 H Pulse Oximetry 97 96 96 MDM - Extremity (Nontraumatic) Lab Data Result diagrams: 03/22/20 10:18 03/22/20 10:18 Labs: Lab Results 03/22/20 03/22/20 03/22/20 Range/Units 10:18 10:18 10:18 WBC 25.6 H (4.5-11.0) X10^3/uL RBC 3.73 L (4.5-5.9) X10^6/uL Hgb 12.0 L (13.5-17.5) g/dL Hct 36.7 L (41-53) % MCV 98.3 (80-100) fL MCH 32.1 (26-34) PG MCHC 32.6 (30-36) % RDW 13.7 (11.6-14.8) % Plt Count 356 (150-400) X10^3/uL Neut % (Auto) Not Reportable Lymph % (Auto) Not Reportable [place] % (Auto) Not Reportable Eos % (Auto) Not Reportable Baso % (Auto) Not Reportable Lymph # (Auto) Not Reportable [place] # (Auto) Not Reportable Baso # (Auto) Not Reportable Total Counted 100 Seg Neutrophils % 85.0 H (38-70) % Band Neutrophils % 11.0 H (3-7) % Monocytes % (Manual) 2.0 (2-11) % Metamyelocytes % 2.0 H (-0) % Neutrophils # (Manual) 62590 H (8421-5994) /uL RBC Morphology See below Anisocytosis 1+ H ESR (0-15) MM/HR PT 14.7 H (10.1-12.7) SECONDS INR 1.3 (0.9-1.3) APTT 24 L D (26.4-36.2) SECONDS Sodium (137-145) mmol/L Potassium (3.4-5.1) mmol/L Chloride (98-107) mmol/L Carbon Dioxide (22-32) mmol/L BUN (9-20) mg/dL Creatinine (0.66-1.25) mg/dL Estimated GFR (>60) mL/min BUN/Creatinine Ratio (6-22) Glucose (80-110) mg/dL Lactate (0.7-2.1) mmol/L Calcium (8.4-10.2) mg/dL Total Bilirubin (0.2-1.3) mg/dL AST (17-59) IU/L ALT (<50) IU/L Alkaline Phosphatase (38-126) U/L C-Reactive Protein (<1.0) mg/dL Total Protein (6.3-8.2) g/dL Albumin (3.5-5.0) g/dL Globulin (1.7-4.1) g/dL Albumin/Globulin Ratio (1.0-2.8) Lipase (23-300) U/L Procalcitonin < 0.05 (<0.5) ng/mL SARS-CoV-2 (PCR) (Negative) 03/22/20 03/22/20 03/22/20 Range/Units 10:18 10:45 10:45 WBC (4.5-11.0) X10^3/uL RBC (4.5-5.9) X10^6/uL Hgb (13.5-17.5) g/dL Hct (41-53) % MCV (80-100) fL MCH (26-34) PG MCHC (30-36) % RDW (11.6-14.8) % Plt Count (150-400) X10^3/uL Neut % (Auto) Lymph % (Auto) [place] % (Auto) Eos % (Auto) Baso % (Auto) Lymph # (Auto) [place] # (Auto) Baso # (Auto) Total Counted Seg Neutrophils % (38-70) % Band Neutrophils % (3-7) % Monocytes % (Manual) (2-11) % Metamyelocytes % (-0) % Neutrophils # (Manual) (1253-5086) /uL RBC Morphology Anisocytosis ESR 66 H (0-15) MM/HR PT (10.1-12.7) SECONDS INR (0.9-1.3) APTT (26.4-36.2) SECONDS Sodium 136 L (137-145) mmol/L Potassium 4.2 (3.4-5.1) mmol/L Chloride 104 (98-107) mmol/L Carbon Dioxide 25 (22-32) mmol/L BUN 44 H (9-20) mg/dL Creatinine 1.41 H (0.66-1.25) mg/dL Estimated GFR 48.2 L (>60) mL/min BUN/Creatinine Ratio 31.2 H (6-22) Glucose 103 (80-110) mg/dL Lactate 1.5 (0.7-2.1) mmol/L Calcium 9.0 (8.4-10.2) mg/dL Total Bilirubin 0.6 (0.2-1.3) mg/dL AST 57 (17-59) IU/L ALT 33 (<50) IU/L Alkaline Phosphatase 137 H (38-126) U/L C-Reactive Protein (<1.0) mg/dL Total Protein 7.5 (6.3-8.2) g/dL Albumin 3.4 L (3.5-5.0) g/dL Globulin 4.1 (1.7-4.1) g/dL Albumin/Globulin Ratio 0.8 L (1.0-2.8) Lipase < 10 L (23-300) U/L Procalcitonin (<0.5) ng/mL SARS-CoV-2 (PCR) (Negative) 03/22/20 03/22/20 Range/Units 10:45 11:46 WBC (4.5-11.0) X10^3/uL RBC (4.5-5.9) X10^6/uL Hgb (13.5-17.5) g/dL Hct (41-53) % MCV (80-100) fL MCH (26-34) PG MCHC (30-36) % RDW (11.6-14.8) % Plt Count (150-400) X10^3/uL Neut % (Auto) Lymph % (Auto) [place] % (Auto) Eos % (Auto) Baso % (Auto) Lymph # (Auto) [place] # (Auto) Baso # (Auto) Total Counted Seg Neutrophils % (38-70) % Band Neutrophils % (3-7) % Monocytes % (Manual) (2-11) % Metamyelocytes % (-0) % Neutrophils # (Manual) (2598-8432) /uL RBC Morphology Anisocytosis ESR (0-15) MM/HR PT (10.1-12.7) SECONDS INR (0.9-1.3) APTT (26.4-36.2) SECONDS Sodium (137-145) mmol/L Potassium (3.4-5.1) mmol/L Chloride (98-107) mmol/L Carbon Dioxide (22-32) mmol/L BUN (9-20) mg/dL Creatinine (0.66-1.25) mg/dL Estimated GFR (>60) mL/min BUN/Creatinine Ratio (6-22) Glucose (80-110) mg/dL Lactate (0.7-2.1) mmol/L Calcium (8.4-10.2) mg/dL Total Bilirubin (0.2-1.3) mg/dL AST (17-59) IU/L ALT (<50) IU/L Alkaline Phosphatase (38-126) U/L C-Reactive Protein 5.3 H (<1.0) mg/dL Total Protein (6.3-8.2) g/dL Albumin (3.5-5.0) g/dL Globulin (1.7-4.1) g/dL Albumin/Globulin Ratio (1.0-2.8) Lipase (23-300) U/L Procalcitonin (<0.5) ng/mL SARS-CoV-2 (PCR) Negative (Negative) Imaging Data Chest x-ray: Radiologist's Impression: PROCEDURE: XR CHEST 1V INDICATIONS: suspected sepsis TECHNIQUE: One view of the chest was acquired. COMPARISON: [facility], , XR CHEST 2V, 02/09/2018, 14:23. FINDINGS: Surgical changes and devices: None. Lungs and pleura: There are indistinct peripheral opacities in the left lung base peripherally. There is hyperinflation of the lungs with flattening of the hemidiaphragms compatible with COPD. No pleural effusions or pneumothorax. Mediastinum: Mediastinal contours appear unchanged. Heart size is normal. Bones and chest wall: Multiple healed right rib fractures are redemonstrated. Overlying soft tissues appear unremarkable. IMPRESSION: 1. Indistinct peripheral left basilar opacities are nonspecific and the differential includes pneumonia, inflammatory processes, atelectasis, or aspiration. 2. Findings compatible with COPD redemonstrated. Dictated by: David Frazier M.D. on 03/22/2020 at 12:40 US - DVT: Radiologist's Impression: PROCEDURE: US PERIPH VENOUS LOW EXTREM RT INDICATIONS: significant swelling TECHNIQUE: Real-time imaging, as well as color and pulse Doppler interrogation, were performed of the lower extremity deep veins from the inguinal ligament to the popliteal fossa. COMPARISON: None. FINDINGS: The common femoral, femoral and popliteal veins are normally compressible, and free of intraluminal thrombus. Color and pulse Doppler demonstrate normal phasic intraluminal flow. There is normal augmentation response to distal compression maneuver. IMPRESSION: 1. No evidence of deep venous thrombosis in the right lower extremity. Dictated by: David Frazier M.D. on 03/22/2020 at 12:28 [facility] Narrative Medical decision making narrative: The patient has leukocytosis of 25 is afebrile he has significant swelling of his right leg without DVT. I suspect probable cellulitis. The bottom of this foot is quite tender questionable abs cess. MRI is ordered. I. have discussed case with Dr. Saldivar who is happy to accept patient. He is given 1 dose of Rocephin in the ED discussed with Yariel about vancomycin he will likely start that on the floor. Patient overall does not appear septic he is afebrile with normal vital signs but does clearly have been infection. Discharge Plan Departure Patient Disposition: Admitted As Inpatient Clinical Impression: Cellulitis Admit Date/Time: 03/22/20 13:23 Admit Provider: Rufino Saldivar
[2020-03-22] MEDS: CEFTRIAXONE 1 GM/50 ML FROZ.PIGGY IV (11:39)
[2020-03-22] MEDS: MORPHINE 2 MG/ML INJ IV (11:39)
[2020-03-22 12:09] LABS: COVID19 -Nasal RAPID Negative (Negative)
--- NOTE | 2020-03-22 12:28 | PC.NURSE ---
The patient has a stage 1-2 pressure ulcer over his coccyx. The skin is reddened and blanching on both sides of the tail bone region. His left cheek has a 1cm x 0.5cm ulcer with in tact skin. The right cheek is also tender and red and blanches without visible ulcerations. Provider reported to see a second ulcer of the same size over the right cheek as well when we did a two person skin check.
--- NOTE | 2020-03-22 13:07 | DI.MRI.S_ITS ---
PROCEDURE: MR FOOT RT WO CON INDICATIONS: pain ? abcess TECHNIQUE: Noncontrast sagittal T1 spin echo and T2 fast spin echo with fat saturation, long-axis T1 spin echo and T2 fast spin echo with fat saturation, short-axis T1 spin echo and T2 fast spin echo with fat saturation through the forefoot. COMPARISON: None. FINDINGS: Image quality: Diagnostic. Patient terminated the study prior to completion due to significant pain.. Bones and joints: No bone marrow contusions or metatarsal stress fractures. The sesamoid bones appear in expected positions, without internal edema. No metatarsophalangeal joint degeneration. No intraosseous lesions. Soft tissues: Marked soft tissue swelling and edema surrounding ankle joint is seen extending to dorsum of midfoot particularly over the metatarsus and distal tarsal bones. No discrete drainable abscess collection is identified. The visualized plantar foot muscles demonstrate normal signal and bulk. Visualized flexor and extensor tendons appear intact, without tenosynovitis. The distal insertions of the peroneus brevis and longus tendons appear intact. The principal Lisfranc ligament appears intact. No soft tissue ganglion cysts or bursal fluid collections. Sagittal images demonstrate no evidence for plantar plate tears. IMPRESSION: 1. Suggestion of extensive cellulitis involving around ankle joint extending to dorsum of midfoot with marked soft tissue swelling and edema. No discrete drainable abscess collection is seen. 2. No MR evidence of osteomyelitis. No fracture or dislocation. Dictated by: Teja Montero M.D. on 03/22/2020 at 15:42 Approved by: Teja Montero M.D. on 03/22/2020 at 15:44
[2020-03-22 13:38] LABS: C-Reactive Protein Quant 5.3 mg/dL (<1.0)
[2020-03-22 13:39] LABS: Erythrocyte Sedimentation Rate 66 MM/HR (0-15)
--- NOTE | 2020-03-22 14:43 | PM.HP.1 ---
History of Present Illness History of Present Illness Date Patient Seen: 03/22/20 Time Patient Seen: 14:43 Date of Onset of Symptoms: 03/22/20 Chief complaint: Generalized weakness Narrative: Patient an 79-year-old white male well known to our practice patient of Dr. Mike who presents with issues with his right leg. Patient has had approximately 3 week history of pain. No history of trauma. X-rays previously been negative. Patient had been seen in the clinic 2 weeks ago and was started on Levaquin and then Augmentin. Patient really has had no improvement. Maybe the pain was decreased but otherwise no improvement he has been sitting in his wheelchair persistently over the last 2 weeks. He has been coming increasingly weak. And has been having difficulty even getting to the bathroom alone participating. He has had no urinary changes no chest pain. No shortness of breath. No orthopnea is breathing which he has COPD has been stable and has not required more oxygen. He uses very little oxygen at home. He does not feel as if his leg has been increasingly red or had other changes. He has had no improvement in the swelling. He has otherwise had no change or complaint. Patient denies fever chills night sweats or other changes. Physically otherwise feeling well. Has not had a lot of change. Patient denies any neurologic symptoms or other change. 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 Social history. Retired. long to standing. Good support. 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 Patient History Medical History (Updated 03/22/20 @ 13:07 by Kady Farmer DO) COPD (chronic obstructive pulmonary disease) Surgical History No pertinent past surgical history Family & Social History Social History: household members spouse,none Prior Living Arrangements House Safety & Behavioral: Feels Safe in Current Yes Environment Been Physically Hurt or No Threatened By a Person Suicidal Ideation Description None Suicide Plan Description No Plan Tobacco & Substance use: Smoking Status Former smoker alcohol intake former alcohol intake frequency 0-2 drinks per day Substance Use Type does not use Meds Home Medications and Allergies Home Medications Medication Instructions Recorded Confirmed Type Spiriva with HandiHaler 18 mcg RT DAILY #0 06/26/06 03/22/20 History escitalopram oxalate [Lexapro] 10 mg PO DAILY #0 09/11/11 03/22/20 History alfuzosin [Uroxatral] 10 mg PO QDAY #0 01/21/17 11/06/17 History potassium citrate [Urocit-K 5] 540 mg PO BIDCC #0 01/21/17 03/22/20 History High Potency Iron 1 tab PO DAILY 11/06/17 03/22/20 History Ventolin HFA 1 - 2 puff INHALATION WEEKLY PRN 11/06/17 11/06/17 History docusate sodium 100 mg PO BID 11/06/17 03/22/20 History oxycodone 5 mg PO Q3HR PRN #30 tab 11/10/17 03/22/20 Rx Allergies Allergy/AdvReac Type Severity Reaction Status Date / Time tamsulosin [From FLOMAX] AdvReac Unknown DIZZINESS Verified 11/07/17 01:17 Review of Systems Review of Systems ROS: Yes All systems reviewed with the patient and are negative except as otherwise documented Exam Vital Signs (past 8 hours): - 03/22/20 10:31 03/22/20 10:59 03/22/20 11:00 Temperature 97.9 F Pulse Rate 84 90 89 Respiratory Rate 17 Blood Pressure 129/58 L 156/67 H Pulse Oximetry 96 98 97 03/22/20 11:30 03/22/20 11:31 03/22/20 12:00 Temperature Pulse Rate 93 H 84 84 Respiratory Rate Blood Pressure 147/64 H Pulse Oximetry 94 93 95 03/22/20 12:01 03/22/20 12:30 03/22/20 12:31 Temperature Pulse Rate 84 86 81 Respiratory Rate Blood Pressure 137/60 140/60 Pulse Oximetry 94 97 97 03/22/20 13:00 03/22/20 13:01 Temperature Pulse Rate 78 85 Respiratory Rate Blood Pressure 151/61 H Pulse Oximetry 96 96 Oxygen Delivery Method Room Air Narrative Exam Narrative: Alert smiling cachectic elderly male in no acute respiratory distress. Mucous membranes mildly dry. Neck supple without adenopathy JVD or bruits. No supraclavicular adenopathy. Lungs are clear with decreased breath sounds Heart regular rate and rhythm. Abdomen is soft scaphoid and nontender. He has no femoral adenopathy. He has for superficial buttock ulcers the top of his cleft. Mild erythema. Right leg shows no real tenderness in the thigh. Does have some slight tenderness in the calf moderate swelling compared to the other side right foot shows moderate swelling in quite a bit of tenderness. There is no bony abnormality that I can see. Otherwise no change. Capillary refill is decreased but present. Left side seems more normal. Neurologic exam is nonfocal. Appears to be intact psychologically interactive and appropriate Objective Labs Result Diagrams: 03/22/20 10:18 03/22/20 10:18 Labs: Laboratory Results - last 24 hr 03/22/20 03/22/20 03/22/20 10:18 10:18 10:18 WBC 25.6 H RBC 3.73 L Hgb 12.0 L Hct 36.7 L MCV 98.3 MCH 32.1 MCHC 32.6 RDW 13.7 Plt Count 356 Neut % (Auto) Not Reportable Lymph % (Auto) Not Reportable [place] % (Auto) Not Reportable Eos % (Auto) Not Reportable Baso % (Auto) Not Reportable Lymph # (Auto) Not Reportable [place] # (Auto) Not Reportable Baso # (Auto) Not Reportable Total Counted 100 Seg Neutrophils % 85.0 H Band Neutrophils % 11.0 H Monocytes % (Manual) 2.0 Metamyelocytes % 2.0 H Neutrophils # (Manual) 17870 H RBC Morphology See below Anisocytosis 1+ H ESR PT 14.7 H INR 1.3 APTT 24 L D Sodium Potassium Chloride Carbon Dioxide BUN Creatinine Estimated GFR BUN/Creatinine Ratio Glucose Lactate Calcium Total Bilirubin AST ALT Alkaline Phosphatase C-Reactive Protein Total Protein Albumin Globulin Albumin/Globulin Ratio Lipase Procalcitonin < 0.05 SARS-CoV-2 (PCR) 03/22/20 03/22/20 03/22/20 10:18 10:45 10:45 WBC RBC Hgb Hct MCV MCH MCHC RDW Plt Count Neut % (Auto) Lymph % (Auto) [place] % (Auto) Eos % (Auto) Baso % (Auto) Lymph # (Auto) [place] # (Auto) Baso # (Auto) Total Counted Seg Neutrophils % Band Neutrophils % Monocytes % (Manual) Metamyelocytes % Neutrophils # (Manual) RBC Morphology Anisocytosis ESR 66 H PT INR APTT Sodium 136 L Potassium 4.2 Chloride 104 Carbon Dioxide 25 BUN 44 H Creatinine 1.41 H Estimated GFR 48.2 L BUN/Creatinine Ratio 31.2 H Glucose 103 Lactate 1.5 Calcium 9.0 Total Bilirubin 0.6 AST 57 ALT 33 Alkaline Phosphatase 137 H C-Reactive Protein Total Protein 7.5 Albumin 3.4 L Globulin 4.1 Albumin/Globulin Ratio 0.8 L Lipase < 10 L Procalcitonin SARS-CoV-2 (PCR) 03/22/20 03/22/20 10:45 11:46 WBC RBC Hgb Hct MCV MCH MCHC RDW Plt Count Neut % (Auto) Lymph % (Auto) [place] % (Auto) Eos % (Auto) Baso % (Auto) Lymph # (Auto) [place] # (Auto) Baso # (Auto) Total Counted Seg Neutrophils % Band Neutrophils % Monocytes % (Manual) Metamyelocytes % Neutrophils # (Manual) RBC Morphology Anisocytosis ESR PT INR APTT Sodium Potassium Chloride Carbon Dioxide BUN Creatinine Estimated GFR BUN/Creatinine Ratio Glucose Lactate Calcium Total Bilirubin AST ALT Alkaline Phosphatase C-Reactive Protein 5.3 H Total Protein Albumin Globulin Albumin/Globulin Ratio Lipase Procalcitonin SARS-CoV-2 (PCR) Negative Assessment & Plan Assessment & Plan narrative: Cellulitis right leg mostly foot. Question possible bone abnormality or abscess MRI is pending. Will add vancomycin and continue Rocephin and follow. Till cultures are 1 way or the other. Certainly hopefully white count will be improved tomorrow. Will see what MRI shows and follow from there. Weakness. Probably secondary to infection. Will have to follow. Hopefully he will respond and will respond to physical therapy which will start once we have better idea what is going on with his leg. May be secondary to decreased appetite and other issue. Will see what his appetite does. Dehydration. Moderate. Gentle hydration given his age and will follow. Buttock ulcers. Will treat with barrier cream and follow. Biggest issue will be getting him off is wheelchair and see how we do. May need wound care but will see how does. Hypertension stable. BPH stable. GI prophylaxis. Does not need any adequate at this time. DVT prophylaxis. Will place on Lovenox. Code status. No code by patient's request. Disposition I suspect this with a 2-3 days but will see how things go see how he response and follow from there. Quality VTE Deep Vein Thrombosis/Pulmonary Embolism Present on Admission: No
--- NOTE | 2020-03-22 15:28 | PC.ADMIT ---
[address] Admission Note: Safe hand off from Roberto CORTÉS, ED. Patient arrived to the floor via stretcher and was moved to the bed via slider board. Patient VSS, and patient is on 1 liter NC and saturation is 95%. Patient is alert and oriented. Patient is not able to move very well because of cellulitis on right foot. All skin assessments are charted and patient has an allevyn dressing placed on his coccyx. Skin friction and Q2 turns implemented. Patient has foam boots for foot comfort and to prevent more skin break down. Patient was educated about the use of his call light, bed is low and locked, bed alarm is on and call light is within reach. The patient,Roney Wray,79 y/o, was given written information regarding hospital policies, unit procedures and contact persons. Patient's smoking status: Former smoker. Vital Signs - 8 hr 03/22/20 10:31 03/22/20 10:59 03/22/20 11:00 Temperature 97.9 F Pulse Rate 84 90 89 Respiratory Rate 17 Blood Pressure 129/58 L 156/67 H Pulse Oximetry 96 98 97 03/22/20 11:30 03/22/20 11:31 03/22/20 12:00 Temperature Pulse Rate 93 H 84 84 Respiratory Rate Blood Pressure 147/64 H Pulse Oximetry 94 93 95 03/22/20 12:01 03/22/20 12:30 03/22/20 12:31 Temperature Pulse Rate 84 86 81 Respiratory Rate Blood Pressure 137/60 140/60 Pulse Oximetry 94 97 97 03/22/20 13:00 03/22/20 13:01 03/22/20 14:00 Temperature 97.6 F Pulse Rate 78 85 86 Respiratory Rate 16 Blood Pressure 151/61 H 121/56 L Pulse Oximetry 96 96 97 03/22/20 14:51 Temperature Pulse Rate Respiratory Rate Blood Pressure Pulse Oximetry 96
--- NOTE | 2020-03-22 15:50 | DIET.PN ---
Dietary Progress Note Assessment: Mr. Wray is an 79-year-old male who presents with right leg pain for approx 3 weeks. reports he has become increasingly weak and has had diminished appetite. He was admitted 2 weeks ago and has had significant weight loss since. He has some difficulty chewing related to lower dentures and endorses typically drinking 2 ensures per day. HT: 68in WT: 135lb UBW: 140lb BMI: 20.5 Labs: BUN: 44 Cr: 1.41 eGFR: 48.2 Lipase: <10 MNA: 7 (malnourished) Elbert: 15 Nutrition Diagnosis: Acute severe PCM r/t decreased appetite w/ limited mobility aeb pt report energy intake <50% EER > 2 weeks, weight loss 3.5% x 2 wks ([facility]eb medical records), BMI 20.5 (age >65), overall thin appearing with moderate fat/muscle loss. Interventions: 1. Reviewed likes/dislikes with patient. Reviewed menu and discussed options for high protein, easy chew. 2. Provide ONS ensure enlive BID. 3. Recommend easy chew diet as requested by patient. Diet Order: General EER: 1800 luis @ 30cal/kg ; Pro 70-80g (1.1-1.3 g/kg) Monitoring/Evaluations: PO intake, diet tolerance, ONS acceptance
[2020-03-22] MEDS: SODIUM CHLORIDE 0.9% 1,000 ML 100 ML IV (15:52)
[2020-03-22] MEDS: VANCOMYCIN 1,250 MG/250 ML PIGGYBACK 250 MG IV (16:05)
[2020-03-22] MEDS: POTASSIUM CITRATE 5 MEQ 540 EACH PO (18:33)
[2020-03-22 19:20] LABS: Bacteria Urine None Seen; WBC Urine None Seen (0-5/HPF)
[2020-03-22 19:21] LABS: Appearance Urine UA CLEAR; Bilirubin Urine UA NEGATIVE (NEGATIVE); Color Urine UA YELLOW; Glucose Urine UA NEGATIVE (Negative); Ketones Urine UA TRACE (NEGATIVE); Leukocyte Esterase Urine UA NEGATIVE (NEGATIVE); Nitrite Urine UA NEGATIVE (Negative); Occult Blood Urine UA 1+ (Negative); Protein Urine UA NEGATIVE (Negative); Urobilinogen Urine UA 0.2 E.U./dL (0.2)
[2020-03-22 19:24] LABS: Culture Indicated Urine Cult Not Indicated; RBC Urine 5-10/HPF (0-5/HPF)
[2020-03-22] MEDS: DOCUSATE 100 MG CAPSULE PO (21:00)
[2020-03-23] MEDS: CEFTRIAXONE 1 GM/50 ML FROZ.PIGGY IV (00:38)
[2020-03-23] MEDS: HYDROCODONE/ACET 5/325 TABLET 1 TAB PO (03:10)
[2020-03-23] MEDS: SODIUM CHLORIDE 0.9% 1,000 ML 100 ML IV (04:01)
[2020-03-23 05:28] LABS: Add Manual Diff / Slide Review NO; Basophils Absolute Auto 0 /uL (0-100); Basophils Percent Auto 0.1 % (0-2); Eosinophils Absolute Auto 200 /uL (0-450); Eosinophils Percent Auto 0.6 % (2-4); Hematocrit 31.1 % (41-53); Lymphocytes Absolute Auto 400 /uL (1100-4500); Lymphocytes Percent Auto 1.6 % (25-40); Mean Corpuscular HGB Conc 32.1 % (30-36); Mean Corpuscular Hemoglobin 31.8 PG (26-34); Mean Corpuscular Volume 99.1 fL (80-100); Monocytes Absolute Auto 1200 /uL (0-900); Monocytes Percent Auto 4.9 % (3-14); Neutrophils Absolute Auto 22600 /uL (1500-7000); Neutrophils Percent Auto 92.8 % (50-75); Platelet Count 297 X10^3/uL (150-400); Red Blood Cell Count 3.14 X10^6/uL (4.5-5.9); Red Cell Distribution Width 13.7 % (11.6-14.8); White Blood Cell Count 24.3 X10^3/uL (4.5-11.0)
[2020-03-23 05:59] LABS: BUN Creatinine Ratio 31.1 (6-22); Blood Urea Nitrogen 32 mg/dL (9-20); Calcium 7.8 mg/dL (8.4-10.2); Carbon Dioxide 28 mmol/L (22-32); Chloride 109 mmol/L (98-107); Estimated Glomerular Filt Rate > 60.0 mL/min (>60); Glucose 94 mg/dL (80-110); HEMOLYSIS < 15 (0-50); Potassium 3.9 mmol/L (3.4-5.1); Sodium 138 mmol/L (137-145)
[2020-03-23 07:20] VITALS: BP 129/51; PULSE 73; RESP 16; TEMP 36.4; O2SAT 93
[2020-03-23] MEDS: ENOXAPARIN 30 MG/0.3 ML SYRINGE SUBCUT (08:15)
[2020-03-23] MEDS: FERROUS SULFATE 325 MG TABLET PO (08:15)
[2020-03-23] MEDS: DOCUSATE 100 MG CAPSULE PO ×2 (08:15→20:30)
[2020-03-23] MEDS: Alfuzosin [Uroxatral] 10 MG 10 EACH PO (08:16)
[2020-03-23] MEDS: POTASSIUM CITRATE 5 MEQ 540 EACH PO ×2 (08:16→16:58)
[2020-03-23] MEDS: TIOTROPIUM BROMIDE 18 MCG INHALER INH (09:57)
[2020-03-23 09:58] VITALS: PULSE 76; RESP 12; O2SAT 93
--- NOTE | 2020-03-23 11:02 | DI.US.S_ITS ---
PROCEDURE: US ARTERIAL DUPLEX LE RT INDICATIONS: COLD FOOT TECHNIQUE: Color and pulse Doppler interrogation was performed of the right lower extremity arterial system, with image documentation. COMPARISON: None. FINDINGS: Common femoral artery: 169 cm/sec, with biphasic flow. Deep femoral artery: 134 cm/sec, with biphasic flow. Proximal superficial femoral artery: 67 cm/sec, with monophasic flow. Mid superficial femoral artery: 81 cm/sec, with monophasic flow. Distal superficial femoral artery: Occluded. Popliteal artery: 15 cm/sec, with monophasic flow. No popliteal artery aneurysm can be seen. Posterior tibial artery: Occluded Anterior tibial artery/dorsalis pedis: 11 cm/sec, with monophasic flow. [place]re-scale imaging description: Prominent atherosclerotic plaque can be seen. IMPRESSION: Occlusion of the distal superficial femoral artery and the posterior tibial artery. Note is made of cardiac arrhythmia within the waveforms. Dictated by: Rajan De Los Santos M.D. on 03/23/2020 at 12:15 Approved by: Rajan De oLs Santos M.D. on 03/23/2020 at 12:20
--- NOTE | 2020-03-23 11:15 | P.PN_ITS ---
Subjective Subjective Date Patient Seen: 03/23/20 Time Patient Seen: 11:15 Interval history: Patient feeling a little better today. A little less pain. No other changes. Has not been up moving around much. But otherwise has been doing well. Feels like maybe used energy level is a little better. Does not feel a lot of other changes. Has no complaint or problem today. Exam Vital Signs (past 8 hours): - 03/23/20 07:20 03/23/20 09:58 Temperature 97.5 F L Pulse Rate 73 76 Respiratory Rate 16 12 Blood Pressure 129/51 L Pulse Oximetry 93 93 Oxygen Delivery Method Nasal Cannula Oxygen Flow Rate 0.5 Narrative Exam Narrative: Alert male no acute distress. With oxygen in place. In no respiratory distress. Mucous membranes moist. Neck supple without adenopathy. Lungs are clear. Heart regular rate and rhythm. Abdomen is soft positive bowel sounds nontender is no femoral adenopathy or tenderness right leg shows no tenderness in the upper thigh no swelling no erythema he feels like he has good pulses in the femoral area. Has still continued swelling maybe slightly better certainly not worse no erythema of the foot toes are tender to palpation and slightly purplish. But do have decreased capillary refill but present. Unable to feel pulses. Neurologic exam is normal. Psychologically interactive appropriate smiling Objective Labs Result Diagrams: 03/23/20 04:55 03/23/20 04:55 Labs: Laboratory Results - last 24 hr 03/22/20 03/22/20 03/22/20 10:18 10:45 10:45 WBC RBC Hgb Hct MCV MCH MCHC RDW Plt Count Neut % (Auto) Lymph % (Auto) [place] % (Auto) Eos % (Auto) Baso % (Auto) Neut # (Auto) Lymph # (Auto) [place] # (Auto) Eos # (Auto) Baso # (Auto) ESR 66 H Sodium Potassium Chloride Carbon Dioxide BUN Creatinine Estimated GFR BUN/Creatinine Ratio Glucose Lactate 1.5 Calcium C-Reactive Protein Procalcitonin < 0.05 Urine Color Urine Appearance Urine pH Ur Specific [place] Urine Protein Urine Glucose (UA) Urine Ketones Urine Occult Blood Urine Nitrate Urine Bilirubin Urine Urobilinogen Ur Leukocyte Esterase Urine RBC Urine WBC Urine Bacteria Ur Culture Indicated? SARS-CoV-2 (PCR) 03/22/20 03/22/20 03/22/20 10:45 11:46 18:50 WBC RBC Hgb Hct MCV MCH MCHC RDW Plt Count Neut % (Auto) Lymph % (Auto) [place] % (Auto) Eos % (Auto) Baso % (Auto) Neut # (Auto) Lymph # (Auto) [place] # (Auto) Eos # (Auto) Baso # (Auto) ESR Sodium Potassium Chloride Carbon Dioxide BUN Creatinine Estimated GFR BUN/Creatinine Ratio Glucose Lactate Calcium C-Reactive Protein 5.3 H Procalcitonin Urine Color Yellow Urine Appearance Clear Urine pH 5.0 Ur Specific [place] 1.020 Urine Protein Negative Urine Glucose (UA) Negative Urine Ketones Trace H Urine Occult Blood 1+ H Urine Nitrate Negative Urine Bilirubin Negative Urine Urobilinogen 0.2 Ur Leukocyte Esterase Negative Urine RBC 5-10/hpf H Urine WBC None seen Urine Bacteria None seen Ur Culture Indicated? Cult not indicated SARS-CoV-2 (PCR) Negative 03/23/20 03/23/20 04:55 04:55 WBC 24.3 H RBC 3.14 L Hgb 10.0 L Hct 31.1 L MCV 99.1 MCH 31.8 MCHC 32.1 RDW 13.7 Plt Count 297 Neut % (Auto) 92.8 H Lymph % (Auto) 1.6 L [place] % (Auto) 4.9 Eos % (Auto) 0.6 L Baso % (Auto) 0.1 Neut # (Auto) 73457 H Lymph # (Auto) 400 L [place] # (Auto) 1200 H Eos # (Auto) 200 Baso # (Auto) 0 ESR Sodium 138 Potassium 3.9 Chloride 109 H Carbon Dioxide 28 BUN 32 H Creatinine 1.03 Estimated GFR > 60.0 BUN/Creatinine Ratio 31.1 H Glucose 94 Lactate Calcium 7.8 L C-Reactive Protein Procalcitonin Urine Color Urine Appearance Urine pH Ur Specific [place] Urine Protein Urine Glucose (UA) Urine Ketones Urine Occult Blood Urine Nitrate Urine Bilirubin Urine Urobilinogen Ur Leukocyte Esterase Urine RBC Urine WBC Urine Bacteria Ur Culture Indicated? SARS-CoV-2 (PCR) [facility] Medical History (Updated 03/22/20 @ 13:07 by Kady Farmer DO) COPD (chronic obstructive pulmonary disease) Surgical History No pertinent past surgical history Social History household members: spouse and none Smoking Status: Former smoker alcohol intake: former Assessment & Plan Assessment & Plan narrative: Cellulitis right foot leg. White count continues to increase. No fever no other evidence of any other obvious source of infection. MRI showed no evidence of abscess but significant swelling. Antibiotic coverage should be good for all but anaerobes. Will discontinue Rocephin and start Unasyn. Discussed with pharmacy. Wonder about possible decrease vascular supply to the foot that could be contributing to this. Will obtain arterial Doppler. If not improved tomorrow consider discussion with orthopedist and have them evaluated. There was no evidence of bone infection on MRI. But certainly not improving. Discussed with patient he understands. Will see what the next 24 hours does. Follow from there. Weakness. Probably secondary to deconditioning and infection. Certainly unable to place much weight on his foot. Hoping that improves with his response to antibiotics. But no other changes. He otherwise has no other changes. Certainly can not do physical therapy with him in his foot at this time. What to see how things go. Buttock ulcers. Will just take time will continue treatment may have Wound Care see if needed. Dehydration. Seems to be euvolemic at this time will Hep-Lock IV. Hypertension. Stable. BPH stable. GI prophylaxis no other change but on Lovenox. Code status. DNR. Disposition. [place] to take a few days. No other changes. 45 minutes spent in care plan discussion with team and work on the floor Quality VTE Deep Vein Thrombosis/Pulmonary Embolism Present on Admission: No
[2020-03-23] MEDS: AMPICILLIN/SULBACTAM 1.5 GM 1.5 GM in SODIUM CHLORIDE 0.9% 100 ML IV ×3 (13:00→23:43)
--- NOTE | 2020-03-23 14:51 | PC.NURSE ---
SHIFT SUMMARY; PATIENT DENIES PAIN OR NEED FOR PAIN MEDICATION. DOES ENDORSE PAIN TO BL FEET, ESPECIALLY R FOOT WITH LIGHT PALPATION, PURPLISH DISCOLORATION, 2+ PITTING EDEMA BL FEET, ANKLE AND PRE-TIBIAL. FOOT COOL BUT NOT COLD. PULSES BY DOPPLER. TURN Q2HRS. HAS NOT BEEN OOB. ARTERIAL U/S COMPLETED TO RLE. REPORTED RESULTS TO DR. PHILLIP AT 1445. DR. PHILLIP WILL REVIEW AND CALL BACK WITH ANY ORDERS OR CHANGE OF POC NECESSARY.
[2020-03-23] MEDS: VANCOMYCIN 1,250 MG/250 ML PIGGYBACK 250 MG IV (15:43)
[2020-03-23 16:11] VITALS: BP 105/38; PULSE 79; RESP 18; TEMP 36.2; O2SAT 96
[2020-03-23] MEDS: SODIUM CHLORIDE 0.9% FLUSH 10 ML IV ×2 (20:31→23:45)
[2020-03-23 23:51] VITALS: BP 122/44; PULSE 86; RESP 18; TEMP 37.3; O2SAT 93
[2020-03-24] MEDS: AMPICILLIN/SULBACTAM 1.5 GM 1.5 GM in SODIUM CHLORIDE 0.9% 100 ML IV ×4 (05:57→23:48)
[2020-03-24 06:15] LABS: Add Manual Diff / Slide Review NO; Basophils Absolute Auto 200 /uL (0-100); Basophils Percent Auto 0.9 % (0-2); Eosinophils Absolute Auto 300 /uL (0-450); Eosinophils Percent Auto 1.5 % (2-4); Hematocrit 31.8 % (41-53); Hemoglobin 10.2 g/dL (13.5-17.5); Lymphocytes Absolute Auto 600 /uL (1100-4500); Mean Corpuscular HGB Conc 32.1 % (30-36); Mean Corpuscular Hemoglobin 31.7 PG (26-34); Mean Corpuscular Volume 98.7 fL (80-100); Monocytes Absolute Auto 1200 /uL (0-900); Monocytes Percent Auto 5.7 % (3-14); Neutrophils Absolute Auto 19200 /uL (1500-7000); Neutrophils Percent Auto 88.9 % (50-75); Platelet Count 283 X10^3/uL (150-400); Red Blood Cell Count 3.23 X10^6/uL (4.5-5.9); Red Cell Distribution Width 13.8 % (11.6-14.8); White Blood Cell Count 21.6 X10^3/uL (4.5-11.0)
[2020-03-24 06:21] LABS: BUN Creatinine Ratio 34.1 (6-22); Blood Urea Nitrogen 31 mg/dL (9-20); Calcium 7.9 mg/dL (8.4-10.2); Carbon Dioxide 31 mmol/L (22-32); Chloride 106 mmol/L (98-107); Estimated Glomerular Filt Rate > 60.0 mL/min (>60); Glucose 99 mg/dL (80-110); HEMOLYSIS < 15 (0-50); Potassium 4.3 mmol/L (3.4-5.1); Sodium 137 mmol/L (137-145)
[2020-03-24] MEDS: HYDROCODONE/ACET 5/325 TABLET 1 TAB PO (07:00)
[2020-03-24 07:45] VITALS: BP 111/41; PULSE 83; RESP 18; TEMP 36.5; O2SAT 93
[2020-03-24] MEDS: TIOTROPIUM BROMIDE 18 MCG INHALER INH (09:11)
[2020-03-24 09:15] VITALS: PULSE 79; RESP 18; O2SAT 94
[2020-03-24] MEDS: POTASSIUM CITRATE 5 MEQ 540 EACH PO ×2 (09:48→17:10)
[2020-03-24] MEDS: Alfuzosin [Uroxatral] 10 MG 10 EACH PO (09:50)
[2020-03-24] MEDS: DOCUSATE 100 MG CAPSULE PO ×2 (09:51→20:38)
[2020-03-24] MEDS: SODIUM CHLORIDE 0.9% FLUSH 10 ML IV ×3 (09:52→23:49)
[2020-03-24] MEDS: ENOXAPARIN 30 MG/0.3 ML SYRINGE SUBCUT (09:52)
[2020-03-24] MEDS: FERROUS SULFATE 325 MG TABLET PO (09:52)
--- NOTE | 2020-03-24 10:58 | PM.PN.1 ---
Subjective Subjective Date Patient Seen: 03/24/20 Time Patient Seen: 10:58 Interval history: Patient feeling slightly better today. Less pain. Otherwise no real significant changes. No fever. Exam Vital Signs (past 8 hours): - 03/24/20 07:45 03/24/20 09:15 Temperature 97.7 F Pulse Rate 83 79 Respiratory Rate 18 18 Blood Pressure 111/41 L Pulse Oximetry 93 94 Oxygen Delivery Method Nasal Cannula Oxygen Flow Rate 1 Narrative Exam Narrative: Alert smiling male in no acute distress. Lungs are clear. Heart regular rate and rhythm. Right leg has decreased swelling. Decreased erythema continued significant pain. Second toe has a small eschar but otherwise is decreased but present capillary refill. Quite tender everywhere. Objective Labs Result Diagrams: 03/24/20 05:55 03/24/20 05:55 Labs: Laboratory Results - last 24 hr 03/24/20 03/24/20 05:55 05:55 WBC 21.6 H RBC 3.23 L Hgb 10.2 L Hct 31.8 L MCV 98.7 MCH 31.7 MCHC 32.1 RDW 13.8 Plt Count 283 Neut % (Auto) 88.9 H Lymph % (Auto) 3.0 L [place] % (Auto) 5.7 Eos % (Auto) 1.5 L Baso % (Auto) 0.9 Neut # (Auto) 39586 H Lymph # (Auto) 600 L [place] # (Auto) 1200 H Eos # (Auto) 300 Baso # (Auto) 200 H Sodium 137 Potassium 4.3 Chloride 106 Carbon Dioxide 31 BUN 31 H Creatinine 0.91 Estimated GFR > 60.0 BUN/Creatinine Ratio 34.1 H Glucose 99 Calcium 7.9 L [facility] Medical History (Updated 03/22/20 @ 13:07 by Kady Farmer DO) COPD (chronic obstructive pulmonary disease) Surgical History No pertinent past surgical history Social History household members: spouse and none Smoking Status: Former smoker alcohol intake: former Assessment & Plan Assessment & Plan narrative: Cellulitis right foot. Complicated by decreased vascular supply. White count actually improved on Unasyn. I think were in a good spot at this point. Very slow improvement I suspect that is how it is going to go with his decreased vascular supply. But I do think clinically it is improved today. At this point will continue IV antibiotics I suspect is going to take several days and will just have to see how goes. Peripheral vascular disease. Moderately severe probably with positive rest pain. Discussed with vascular surgeon. Will need evaluation as outpatient but not acutely at this time. We discussed the significance of this he understands. Buttock ulcers. Re-evaluate in a.m.. But expect will be improved. Will have to follow. Dehydration. Seems to be euvolemic at this time. Will continue to follow. Weakness. Combination of his poor nutritional status and his pain and decreased mobilization. Will continue to evaluate add physical therapy the next few days. I do not think he can get move around on this leg at this time. BPH. Stable. Acute severe PCM. I suspect he has probably been moderately with poor nutrition for some time but has been made more acute with this issue of pain and infection. Will have to watch closely as per dietitian GI prophylaxis no other changes on Protonix. DVT prophylaxis on Lovenox Code status negative DNR only. COVID negative. Disposition. Will need to discuss with equipment planner. Going to need maybe longstanding IV antibiotics can be hard to tell. Will know over the next couple days. Whether we can do this at home or will need to go to the [facility] will have to be discussed. Patient is reluctant to go to [facility] but understands. Quality VTE Deep Vein Thrombosis/Pulmonary Embolism Present on Admission: No
--- NOTE | 2020-03-24 10:58 | CM.DANOTE ---
Addendum entered by Mindy Link R.N. 03/24/20 14:49: Dr. Saldivar stopped by the care management office and indicated that patient may need to be on outpatient IV antibiotics. He is not certain what medications he will be on, and how often or long. Patient does not yet have a PICC line, and anticipate that he may have one tomorrow or Thursday. Spoke to patient's , Gabriella, who was at bedside. Mentioned potential for long term, and she stated, there's no way he's going into any correction, he's been careful about not going out if necessary, and don't want to chance him getting COVID there. Mentioned having patient go home with IV antibiotics. stated, I won't always be there to help him with that, he should be able to finish them here, since it's the providers that have caused these medical problems. Let her know that patient can't stay here for the duration of antibiotics. Gave her choice for home with [facility] and home health, or outpatient to the infusion clinic if it is a daily antibiotic. stated, 'it's challenging for him at home, he's always in a wheel-chair because of his foot, and I can't life him. She is looking into getting in home caregivers. Gave her the [facility] book, so she can call some of the in home agencies. stated, she doesn't need them all of the time, just for a few hours at a time so she can run her errands. Gave her a Medicare Choice List to look at regarding home health agencies. Let her know that it is unclear how much that [employer] will cover for in home infusions, but can run this by [facility]. Reminded that there are no other options if he is not going to skilled, he would be going home. Will contact [facility] and send referral. Dr. Saldivar anticipates that patient will be here for a few days. Original Note: DCP: Case received, EMR reviewed and met with patient. Introduced self and role. Was able to obtain information from patient regarding his baseline activity level at home prior to hospitalization. DCP assessment completed with information currently available. Patient is an 79 year old male who admitted 03/22 to the care of the hospitalist team. PCP: Dr. Saldivar. Payer: confirmed: Medicare/[facility]. Patient came to the hospital via ambulance secondary to increased weakness, as well as pain to his right leg. Patient was diagnosed with occlusion of distal femoral posterior tibialis. It was noted in note from yesterday that patient could potentially be transferred to a higher level hospital secondary to vascular issues. Patient will be seen again by his provider today. Met with patient in his room. He is alert and oriented, and was sitting up in bed. Patient indicated that at his baseline, is in a wheel-chair at home, due to the pain that he has had in his right leg, but also uses a FWW. He stated that his , Ivette, is his primary caregiver. Discussed possibility of having some skilled rehab at discharge, and patient stated, I don't want to go to any long term facilities, but home health would be helpful. Patient indicated that he has had home health before, but was uncertain which agency. P: DCP to continue to follow. Patient does not yet have any P.T. orders due the instability of his leg, but is unclear if this can be ordered today, or if patient will be transferred out. If patient remains here, can go over Medicare Choice List of home health agencies. Mindy Link RN/Grape Pruner
--- NOTE | 2020-03-24 11:26 | PC.NURSE ---
Patient resting in bed with heels floated. Patient is A/Ox4, reports moderate pain in RLE. Right foot is swollen, dusky toes, warm, cap refill <2, pulses equal bilaterally. Noted non-draining pressure ulcer on right heel. Allyvn on coccyx, CDI. Lungs are clear except in RLL, fine crackles noted on inspiration. Patient denies SOB or increased WOB. NC @ 1L removed, patient remains at 93% on room air. Intermittent, non productive moist cough noted. Patient repositioned Q2. Patient is able to turn in bed but needs reminded to relieve pressure on coccyx. Call light in reach, bed alarm.
--- NOTE | 2020-03-24 15:10 | CM.DPC ---
Addendum entered by Mindy Link R.N. 03/24/20 15:57: Rani from [facility] called back and stated that patient's deductible for his insurance is $250.00, which she stated, he most likely has met being here at the hospital. She stated that the cost of the Vancomycin will be about $145.00 a week. Let her know that care management will continue to keep her updated. Original Note: DCP Cont: Called [facility], and spoke to Rani, pharmacist suppression crew leader. She is requesting that information get faxed over, focusing on his face sheet, for she indicated that they have someone from billing in the office today. Went ahead and faxed over information, face sheet, H&P, labs, and med sheets. Did let Rani know does of current Vancomycin. P: DCP to continue to follow. Plan is home with home health, is reviewing agencies and [facility]. Other option is outpatient infusions at the infusion clinic here at the hospital. Mindy Link RN/Cattle Inspector
[2020-03-24 15:40] VITALS: BP 137/55; PULSE 85; RESP 188; TEMP 36.5
[2020-03-24] MEDS: VANCOMYCIN 1,250 MG/250 ML PIGGYBACK 250 MG IV (16:46)
[2020-03-24 19:40] VITALS: O2SAT 91
[2020-03-24 23:49] VITALS: BP 140/47; PULSE 115; RESP 16; TEMP 37.2
--- NOTE | 2020-03-24 23:53 | PC.NURSE ---
DAIRY INSPECTOR note: repositioned patient to bridge him up, floating his hips between two pillows. Patient stated he was comfortable. Call light next to patient, bed alarm is on.
[2020-03-25] MEDS: AMPICILLIN/SULBACTAM 1.5 GM 1.5 GM in SODIUM CHLORIDE 0.9% 100 ML IV ×3 (06:28→20:41)
[2020-03-25] MEDS: SODIUM CHLORIDE 0.9% FLUSH 10 ML IV ×3 (06:28→20:41)
[2020-03-25 07:18] LABS: Add Manual Diff / Slide Review NO; Basophils Absolute Auto 100 /uL (0-100); Basophils Percent Auto 0.6 % (0-2); Eosinophils Absolute Auto 200 /uL (0-450); Hematocrit 31.4 % (41-53); Hemoglobin 10.6 g/dL (13.5-17.5); Lymphocytes Absolute Auto 500 /uL (1100-4500); Lymphocytes Percent Auto 2.8 % (25-40); Mean Corpuscular HGB Conc 33.6 % (30-36); Mean Corpuscular Volume 98.1 fL (80-100); Monocytes Absolute Auto 1100 /uL (0-900); Neutrophils Absolute Auto 16800 /uL (1500-7000); Neutrophils Percent Auto 89.6 % (50-75); Platelet Count 288 X10^3/uL (150-400); Red Cell Distribution Width 13.8 % (11.6-14.8); White Blood Cell Count 18.8 X10^3/uL (4.5-11.0)
--- NOTE | 2020-03-25 07:37 | PC.NURSE ---
Attempted to flush patients heplock, and site was leaking. Tried to tighten connection, was still leaking. IV site discontinued, canulla intact. I attempted times one, got blood flash, but IV blew. Site covered. Another chief of staff attempted twice, with the last try successful.
[2020-03-25 08:00] VITALS: BP 143/49; PULSE 83; RESP 19; TEMP 36.6; O2SAT 91
[2020-03-25] MEDS: TIOTROPIUM BROMIDE 18 MCG INHALER INH (08:04)
[2020-03-25 08:07] VITALS: PULSE 91; RESP 24; O2SAT 92
[2020-03-25] MEDS: POTASSIUM CITRATE 5 MEQ 540 EACH PO ×2 (09:32→18:41)
--- NOTE | 2020-03-25 09:35 | P.PN_ITS ---
Subjective Subjective Date Patient Seen: 03/25/20 Time Patient Seen: 09:35 Interval history: Overall doing well. No major issues. Pain is slightly improved. Has not been ambulating. No other changes Exam Vital Signs (past 8 hours): - 03/25/20 08:00 03/25/20 08:07 Temperature 98 F Pulse Rate 83 91 H Respiratory Rate 19 24 Blood Pressure 143/49 H Pulse Oximetry 91 92 Oxygen Delivery Method Room Air Oxygen Flow Rate 0 Narrative Exam Narrative: Alert male no acute distress right foot less swollen. Less red. LEs warm. Still has some eschar at the into the 2nd toe but otherwise capillary refill seems good. Lungs are clear. Heart regular rate and rhythm Objective Labs Result Diagrams: 03/25/20 06:50 03/24/20 05:55 Labs: Laboratory Results - last 24 hr 03/25/20 06:50 WBC 18.8 H RBC 3.20 L Hgb 10.6 L Hct 31.4 L MCV 98.1 MCH 33.0 MCHC 33.6 RDW 13.8 Plt Count 288 Neut % (Auto) 89.6 H Lymph % (Auto) 2.8 L [place] % (Auto) 6.0 Eos % (Auto) 1.0 L Baso % (Auto) 0.6 Neut # (Auto) 82579 H Lymph # (Auto) 500 L [place] # (Auto) 1100 H Eos # (Auto) 200 Baso # (Auto) 100 PFSH Medical History (Updated 03/22/20 @ 13:07 by Kady Farmer DO) COPD (chronic obstructive pulmonary disease) Surgical History No pertinent past surgical history Social History household members: spouse and none Smoking Status: Former smoker alcohol intake: former Assessment & Plan Assessment & Plan narrative: Cellulitis right foot slowly improving. Will need long-term antibiotic some not sure how long IV. I am hoping over the next 2 days we can get his white count down at switch over to p.o. medicine and be adequatel y covered. It would be hard to do IV antibiotics 3 times a day use anywhere but in a custodial he is not interested in custodial care. Will have to see. At this point will continue IV antibiotics and re-evaluate in a.m. make a decision probably on Thursday on whether we can switch to p.o. or not or half to proceed for IV long-term antibiotics. Peripheral vascular disease. Stable certainly not worse. Will need outpatient evaluation. Buttock ulcers. Stable. We just need to keep him off his bottom. Hopefully he will be mobilized. Dehydration. Resolved. Will follow. COPD. Stable will increase deep breaths and will mobilize. Weakness. Combination of poor nutritional status and decreased mobilization will follow. Acute severe PCM. As per dietitian will follow as outpatient. GI prophylaxis stable. DVT prophylaxis on Lovenox. Code status DNR. Code status negative. Quality VTE Deep Vein Thrombosis/Pulmonary Embolism Present on Admission: No
[2020-03-25] MEDS: FERROUS SULFATE 325 MG TABLET PO (10:00)
[2020-03-25] MEDS: ENOXAPARIN 30 MG/0.3 ML SYRINGE SUBCUT (10:00)
[2020-03-25] MEDS: Alfuzosin [Uroxatral] 10 MG 10 EACH PO (10:00)
[2020-03-25] MEDS: DOCUSATE 100 MG CAPSULE PO (10:00)
--- NOTE | 2020-03-25 12:10 | PT.IIE ---
Addendum entered and electronically signed by Corinna Maldonado PT 03/25/20 15:00: Pt had waffle cushion in the bed which was transferred to the chair during transfer. Original Note: Current Diagnoses Cellulitis of right lower limb (03/22/20) Surgical History (Last Reviewed 03/22/20 @ 11:44 by Kady Farmer DO) No pertinent past surgical history Medical History (Last Reviewed 03/22/20 @ 11:44 by Kady Farmer DO) COPD (chronic obstructive pulmonary disease) Physical Therapy Inpatient Evaluation/Re-Eval M1 PT/OT-IP Prior Functional Status Start: 03/25/20 08:16 Freq: NEEDED Status: Active Protocol: Document 03/25/20 12:10 AW (Rec: 03/25/20 14:18 AW [id number]) Medical Review Prior Functional Status Medical History Reviewed Yes Communication WNL. Pt is an effective verbal communicator. Mobility and Gait Pt states he has been using a manual wheelchair for household mobility which he propels himself with either arms or legs. He transfers without AD. Activities of Daily Living and IADL's Pt states he is mod independent with dressing, using a sock aid and assistant unit forester. He does not shower since his shower is upstairs and he stays on the entry level receptionist; instead, he sponge bathes regularly. Pt states he is independent with toileting. Pt and his both contribute to cooking and cleaning. His does all the shopping. Prior Functional Level (Other details) Pt has COPD and uses oxygen at home during light housework. Social History Household Members spouse,none Living Arrangements House Number of Floors (Floors) Two Floors Number of Stairs To Enter/Railing? 7 CARID[address] through the garage with R rail ascending. Home Environment Standard Height Toilet Home Equipment Front Wheel Walker,Quad Cane, Manual Wheelchair,Womens Volleyball Coach,Sock Aid Employment Status Retired Additional Social History Comment Pt lives with his , Ivette, who is somewhat limited in her ability to provide physical assist. They have a daughter in [place] and a son in [place]. They have been considering private caregiver options recently. M2 PT-IP Current Condition Start: 03/25/20 08:16 Freq: NEEDED Status: Active Protocol: Document 03/25/20 12:10 AW (Rec: 03/25/20 14:37 AW [id number]) Physical Therapy Current Condition Current Condition Evaluation Date 03/25/20 Treatment Diagnosis RLE cellulitis; PAD; difficulty in walking Onset Date three weeks M3 PT-IP Subjective Start: 03/25/20 08:16 Freq: NEEDED Status: Active Protocol: Document 03/25/20 12:10 AW (Rec: 03/25/20 14:37 AW [id number]) Subjective Physical Therapy Visit Type Type Initial Evaluation Visit Start Time 11:25 Visit Stop Time 12:10 Total Visit Minutes 45 Notes PT spoke with pt's later in the day and clarified that they will refuse SNF. Physical Therapy Visit Comments Patient Comments Pt is unsure about mobilizing but willing to try. Patient Goals Pt and his refuse SNF rehab and plan to take the pt home Therapy Pain Assessment Pain When Pain Assessed During Mobility Pain Present Pain Present Pain Reported Location Right Lower Leg Intensity 8 Scale Used Numeric (0 - 10) M4 PT-IP Mobility and Gait Start: 03/25/20 08:16 Freq: NEEDED Status: Active Protocol: Document 03/25/20 12:10 AW (Rec: 03/25/20 14:37 AW [id number]) PT-Bed Mobility Assessment Supine to Sit Supine to Sit Minimal Assistance,1 Person Assistance Scooting Scooting to Edge of Bed Minimal Assistance PT-Transfer Assessment Sit to and From Stand Sit to and from Stand Maximum Assistance,1 Person Assistance,Use of Upper Extremities Equipment Transfer Assistive Device Gait Belt,Front Wheeled Walker Orthotic/Prosthetic Devices or Brace: No Transfers Transfer Destination Chair Transfer Technique Stand Step Pivot Transfer Ability Level of Assist Maximum Assistance,1 Person Assistance,Use of Upper Extremities Comments Mobility Comments SpO2 was 88-93% on room air during conversation. Pt completed supine to sit min A x 1 and immediately began to have increased work of breathing as SpO2 dropped to mid-80's. PT applied O2 2L/min via NC and SpO2 remained 96- 97% for the duration of the session. PT donned sock on LLE and left RLE in the purple cushion. Pt required increased time and max A x 1 for sit to stand with FWW. RLE WB was minimal. Pt required max A x 1 for pivot transfer to bedside chair set up on his left side . Pt refused further mobility but agreed to stay up on the chair for lunch. Pt was positioned with pillow beneath RLE, call light and all needs in reach. Gait Assessment Gait Gait Assistance Required: Maximum Assistance,1 Person Assist Distance (Feet) 2 Assistive Devices Assistive Device Gait Belt,Front Wheeled Walker Comments Gait Comments Pt mostly pivoted on LLE with minimal RLE WB with steps taken during transfer. Stair Climbing Assessment Comments Stair Climbing Comments Not assessed. PT-Balance Assessment Sitting Balance and Reactions Static Sitting Balance Ability Good Dynamic Sitting Balance Ability Good Standing Balance and Reactions Static Standing Balance Ability Fair Dynamic Standing Balance Ability Poor Device Used FWW M5 PT-IP Objective Assessments Start: 03/25/20 08:16 Freq: NEEDED Status: Active Protocol: Document 03/25/20 12:10 AW (Rec: 03/25/20 14:37 AW [id number]) Orientation Orientation/Cognition Level of Alertness Alert Orientation Name,Day of Week,Place, Situation Language Function Ability No Deficits Noted Safety Awareness Decreased Safety Awareness Gross Range of Motion Lower Extremity ROM Assessment Right Impaired Impairments distal impaired more than proximal Strength Lower Extremity Strength Assessment Bilaterally Impaired Comments Strength Comments LLE grossly 4-/5; RLE 3+/5 Sensation Assessment Sensation Gross Sensation Right LE Impaired,Left LE Impaired Light Touch Impaired Sensation Description Numbness Comments Sensation Comments plantar surfaces of bilateral feet with impaired light touch sensation M6 PT-IP Treatment Start: 03/25/20 08:16 Freq: NEEDED Status: Active Protocol: Document 03/25/20 12:10 AW (Rec: 03/25/20 14:37 AW [id number]) Physical Therapy Treatment Education Education Provided Weight Bearing Status,Safety Other Treatments Other Treatment Performed Provided education on risks of immobility with positive feedback. M7 PT-IP Assessment and Plan Start: 03/25/20 08:16 Freq: NEEDED Status: Active Protocol: Document 03/25/20 12:10 AW (Rec: 03/25/20 14:37 AW [id number]) PT Summary Assessment and Plan Potential Rehabilitation Potential Fair Status of Condition at Evaluation Evolving Summary Impairments Pain,ROM,Strength,Balance, Sensation,Bed Mobility, Transfers,Gait,Activity Tolerance Assessment Summary Roney is an 79 yo man admitted with RLE cellulitis. He lives with his , Ivette, and mobilizes with a manual wheelchair which he propels without assist. He typically transfers without AD. On evaluation, pt required mod to max assist with bed mobility and transfer with FWW. His work of breathing increased with moblity but SpO2 remained 96-97% with 2L/min O2 via NC. Pt and his spouse adamantly refuse SNF rehab. Pt is not safe for home discharge at this time. He must be able to transfer CGA, walk 15 feet with FWW, and climb 7 steps with right rail ascending before returning home. PT will continue to assess and refine discharge recommendation based on pt progress. Goals Bed Mobility Goal Contact Guard Assistance Transfer Goal Contact Guard Assistance,Front Wheeled Walker Gait Goal Contact Guard Assistance,Front Wheel Walker Gait Distance 15 Other Goals - up/down 7 steps with R rail ascending CGA (may also use quad cane opposite side) Days to Meet Goals 10 Frequency of Treatment Frequency Of Treatment Once a Day Treatment Plan Physical Therapy Treatment Plan Bed Mobility Training,Transfer Training,Gait Training, Therapeutic Exercise,Balance Retraining,Discharge Planning Other Recommendations and Next Treatment transfers with FWW; ambulation Focus with FWW when able Recommendations To Nursing Amount of Assist Needed 2 Person Assist Discharge Recommendations PT Discharge Recommendations Home with 24/7 Assist,Home Health,SNF Rehab Other Discharge Recommendations SNF vs home with 24/7 assist for all mobility and HH Transportation Needs at Discharge Private Vehicle,Wheelchair/ Cabulance
--- NOTE | 2020-03-25 12:39 | CM.DPC ---
Addendum entered by Mindy Link R.N. 03/25/20 13:43: [facility] can accept patient, but stated, no way will he go to [facility]. Let her know that skilled is the alternative if patient can't go home. stated, she will make it work, she's not comfortable giving IV medication, she would rather that he get them here if possible, and have home health at home. Let her know that this will depend upon how often patient needs. Let her know that if patient needs QD Vancomycin, cost of co-payment would be approximately 146.00 a week, per [facility]. Let her and patient know that this all depends upon cultures. stated, he used to be independent, it's unfortunate that they missed his diagnosis before. Gave her Soila's phone number at [facility], confirmed with Soila that it would be ok to give out her number. Her phone number is:[phone]. is prepared to take him home with home health as well, as long as he's strong enough. Original Note: DCP Cont: Have not yet seen patient's , Gabriella, but Daniele is working with patient today. It is noted that patient is on two antibiotics, and Dr. Saldivar is hoping that patient can go home on oral. As a plan B, this case manage went ahead and faxed referral over to [facility], in case is not able to manage him at home, although she has adamately refused for him to go to [facility]. She has not yet decided on a home health agency as well. Daniele Weinstein is working with patient, will see what her recommendations are. Updated Reba at [facility] about patient, faxed over information, letting her know that this is a plan B, in case is not able to manage at home. P: DCP to continue to follow, and will follow up with as well. Face to face is signed, but agency not yet picked out. Plan B referral was sent to [facility] Mindy Link RN/Branch Assistant
[2020-03-25 15:15] VITALS: BP 120/48; PULSE 88; RESP 22; TEMP 37.1
--- NOTE | 2020-03-25 15:38 | PC.NURSE ---
Assumed care of patient at 0700. Patient A/O x 4, denies pain except with touch to right foot. Foot is edematous, still red and dusky at the toes. DP is palpable, subtle warmth noted around ankle, cooler at the toes. Pressure ulcer noted on heel, erythemic, unable to observe base d/t slough. Covered with allyvn 3x3. Foam booties reapplied, heels floated. Stage 2 pressure ulcer on buttocks, barrier cream applied, dressing changed. Patient turned Q2, using foam wedge and waffle for coccyx relief. Patient tolerating. Saline locked, left wrist, IV patent, dsg CDI. Patient up to chair with PT, reports he does not feel SOB but dropped to mid 80's and RR increased to 30bpm, put on 2L of O2, patient returned to baseline. Bed alarm on. Belongings in reach. was bedside and discussed options for home at discharge.
--- NOTE | 2020-03-25 17:22 | PC.NURSE ---
Addendum entered by Mally Braxton R.N. 03/25/20 20:49: Able to ausculate pedal pulse to right foot with doppler. Foot booties in place to heels BL. BL calf scd's in place. Pt mostly sleeping, states breathing (pursed lip) is as per home routine r/t COPD. On 1.5L oxygen per NC. Addendum entered by Mally Braxton R.N. 03/25/20 18:05: Lab in to draw vanco trough. Pt denies pain or need for analgesia. Addendum entered by Mally Braxton R.N. 03/25/20 17:46: Reached Tony in laboratory and states phelbotomist will be up to draw vancomycin trough [facility]IS Original Note: Awaiting report of trough prior to hanging vancomycin. Unsuccessful attempt to contact lab, will continue to attempt.
[2020-03-25 18:36] LABS: Vancomycin Random 15.3 ug/mL (10-40)
[2020-03-25] MEDS: VANCOMYCIN 1,250 MG/250 ML PIGGYBACK 250 MG IV (18:43)
[2020-03-25 23:55] VITALS: BP 124/48; PULSE 86; RESP 16; TEMP 36.9; O2SAT 94
[2020-03-26] VITALS (7 sets, daily range): BP systolic 122–137; BP diastolic 58–59; PULSE 86–92; RESP 14–23; TEMP 36–36.9; O2SAT 93–97
[2020-03-26] MEDS: ACETAMINOPHEN 325 MG TABLET 650 MG PO (01:41)
[2020-03-26] MEDS: AMPICILLIN/SULBACTAM 1.5 GM 1.5 GM in SODIUM CHLORIDE 0.9% 100 ML IV ×2 (05:35→13:50)
[2020-03-26 06:20] LABS: Add Manual Diff / Slide Review NO; Basophils Absolute Auto 0 /uL (0-100); Basophils Percent Auto 0.2 % (0-2); Eosinophils Absolute Auto 200 /uL (0-450); Hematocrit 29.8 % (41-53); Hemoglobin 9.7 g/dL (13.5-17.5); Lymphocytes Absolute Auto 600 /uL (1100-4500); Lymphocytes Percent Auto 3.1 % (25-40); Mean Corpuscular HGB Conc 32.5 % (30-36); Mean Corpuscular Hemoglobin 31.8 PG (26-34); Mean Corpuscular Volume 97.9 fL (80-100); Monocytes Absolute Auto 1200 /uL (0-900); Monocytes Percent Auto 6.7 % (3-14); Neutrophils Absolute Auto 15900 /uL (1500-7000); Platelet Count 251 X10^3/uL (150-400); Red Blood Cell Count 3.04 X10^6/uL (4.5-5.9); Red Cell Distribution Width 13.5 % (11.6-14.8); White Blood Cell Count 17.9 X10^3/uL (4.5-11.0)
--- NOTE | 2020-03-26 08:07 | PM.PN.1 ---
Subjective Subjective Date Patient Seen: 03/26/20 Time Patient Seen: 08:07 Interval history: Clinically patient feeling better. Was up on his foot yesterday. Feel like it was better. He otherwise has no new pain or complaint. Pain is still present but not as bad. No fevers no chills Exam Vital Signs (past 8 hours): Oxygen Delivery Method Nasal Cannula Oxygen Flow Rate 0 Narrative Exam Narrative: Alert smiling male in no acute distress. Lungs-clear. Heart regular rate and rhythm. Abdomen is soft positive bowel sounds nontender. Right leg shows decreased swelling capillary refill seems okay and no new lesions. mill tender warm up to palpation of the entire forefoot but less tender than it was. Objective Labs Result Diagrams: 03/26/20 05:55 03/24/20 05:55 Labs: Laboratory Results - last 24 hr 03/25/20 03/26/20 18:15 05:55 WBC 17.9 H RBC 3.04 L Hgb 9.7 L Hct 29.8 L MCV 97.9 MCH 31.8 MCHC 32.5 RDW 13.5 Plt Count 251 Neut % (Auto) 89.0 H Lymph % (Auto) 3.1 L [place] % (Auto) 6.7 Eos % (Auto) 1.0 L Baso % (Auto) 0.2 Neut # (Auto) 73903 H Lymph # (Auto) 600 L [place] # (Auto) 1200 H Eos # (Auto) 200 Baso # (Auto) 0 Random Vancomycin 15.3 PFSH Medical History (Updated 03/22/20 @ 13:07 by Kady Farmer DO) COPD (chronic obstructive pulmonary disease) Surgical History No pertinent past surgical history Social History household members: spouse and none Smoking Status: Former smoker alcohol intake: former Assessment & Plan Assessment & Plan narrative: Cellulitis right foot. Slowly improving. Clinically doing better his white count isn't that much better. At this point I think 2 more days of antibiotics and then oral and we should be okay. Will need outpatient vascular surgeon evaluation which really might be the answer to the question. And will have to follow. Peripheral vascular disease. Stable at this time. I do not see any worsening. Seems to be slightly improved on will see if the infection improvement does not make it but least tolerable. Tell outpatient evaluation. Buttock ulcers. Will re-evaluate tomorrow. Reported to be improved. Dehydration resolved. COPD stable. Weakness. Hopefully we will be able to increase his mobilization and follow. Issues his leg hurts a lot he is probably not going to get up on it. I think his weakness is not a new issue has probably been going on for a while but we need to mobilize as much as we can. Acute severe PCM. Not helping us. Hopefully status is improving why were here and we can get him better before discharge. GI prophylaxis stable. DVT prophylaxis on Lovenox. DNR code status. COVID status negative. Disposition. Hopefully home by Thursday or Quality VTE Deep Vein Thrombosis/Pulmonary Embolism Present on Admission: No
[2020-03-26] MEDS: Alfuzosin [Uroxatral] 10 MG 10 EACH PO (08:09)
[2020-03-26] MEDS: DOCUSATE 100 MG CAPSULE PO ×2 (08:09→20:04)
[2020-03-26] MEDS: ENOXAPARIN 30 MG/0.3 ML SYRINGE SUBCUT (08:09)
[2020-03-26] MEDS: FERROUS SULFATE 325 MG TABLET PO (08:09)
[2020-03-26] MEDS: SODIUM CHLORIDE 0.9% FLUSH 10 ML IV ×2 (08:09→20:04)
[2020-03-26] MEDS: POTASSIUM CITRATE 5 MEQ 540 EACH PO ×2 (08:10→17:08)
[2020-03-26] MEDS: TIOTROPIUM BROMIDE 18 MCG INHALER INH (08:30)
[2020-03-26] MEDS: ALBUTEROL/IPRATROPIUM 3 ML AMPUL INH ×2 (08:40→12:53)
--- NOTE | 2020-03-26 12:31 | DIET.PN ---
Dietary Progress Note Assessment: Follow up with Mr. Wray for right food cellulitis and buttocks ulcers. Pt has been bed/chair bound for the last several weeks. He expresses reduced appetite with too large of tray portions. He has been drinking his ensure enlive 2x/day as recommended. HT: 68in WT: 135lb UBW: 140lb BMI: 20.5 Interventions: 1. Recommend ONS Alvin BID for wound healing. Provided pt educational material for he and his to review. Diet Order: General PO's: ~50% Monitoring/Evaluations: ONS acceptance, PO's, labs
--- NOTE | 2020-03-26 14:21 | CM.DPC ---
DCP: continued: Case received, EMR reviewed and spoke this afternoon with Dr. Saldivar in attempt to get some clarity re the ? of IV antibiotics at d/c. He stated (and added an addendum to his morning note) that he told pt that he will plan for a d/c on 03/29. IF pt is not improving to point where he can d/c on oral antibiotics he will need to go to a snf setting for continued IV antibiotics/Unasyn at every 6 hours. Followed up on the [facility] referral with Dinorah: she says if pt needs to come on that specific antibiotic the facility can accept him and will hold a place if he is agreeable and needs it. Met then with pt and his spouse Gabriella. Introduced self and role. Gabriella said she was not here when Dr. Saldivar spoke with her and that I deliberately do not come in when I think he will be here. She expressed anger re her 's d/c options and anger in general about his deteriorating health over the last few months. She said a shelter d/c is not an option. Her agreed but did ask questions about [facility] and explained to both the care that [facility] takes to insure that staff and patients remain as safe as possible in terms of following COVID guidelines. Did agreed to call [facility] in order to get a quote for this new antibiotic. Adria is agreeble to having the team follow. Gabriella does say that she will not accept a call from any number that does not show up as [facility] and I do not listen to voice mails. PT Corinna was working with pt during this conversation and stated later that she continued to encourage pt and Gabriella to consider the snf setting. Clearly pt is very debilitated, is struggling with mobility of any kind and would benefit from PT/OT and as well as the IV antibiotics. P: follow closely. Dr. Saldivar plans for a d/c this as per above. ? [facility]. ? home with HH and [facility] with Gabriella being taught to give his. vs home on oral antibiotics with HH (if they will accept people into their home)
--- NOTE | 2020-03-26 15:18 | PT.IPTN ---
Current Diagnoses Cellulitis of right lower limb (03/22/20) Physical Therapy Treatment Note M2 PT-IP Current Condition Start: 03/25/20 08:16 Freq: NEEDED Status: Active Protocol: Document 03/25/20 12:10 AW (Rec: 03/25/20 14:37 AW [id number]) Physical Therapy Current Condition Current Condition Evaluation Date 03/25/20 Treatment Diagnosis RLE cellulitis; PAD; difficulty in walking Onset Date three weeks M3 PT-IP Subjective Start: 03/25/20 08:16 Freq: NEEDED Status: Active Protocol: Document 03/26/20 15:05 AW (Rec: 03/26/20 15:17 AW [id number]) Subjective Physical Therapy Visit Type Type Treatment Note Visit Start Time 13:32 Visit Stop Time 14:02 Total Visit Minutes 30 Notes DCP Ida present for part of treatment, advising pt and his on discharge options. Physical Therapy Visit Comments Patient Comments Pt is willing to participate with PT Therapy Pain Assessment Pain When Pain Assessed During Mobility Pain Present Pain Present Pain Reported Location Right Lower Leg Intensity 8 Scale Used Numeric (0 - 10) M4 PT-IP Mobility and Gait Start: 03/25/20 08:16 Freq: NEEDED Status: Active Protocol: Document 03/26/20 15:05 AW (Rec: 03/26/20 15:17 AW [id number]) PT-Bed Mobility Assessment Supine to Sit Supine to Sit Minimal Assistance,1 Person Assistance Scooting Scooting to Edge of Bed Minimal Assistance PT-Transfer Assessment Sit to and From Stand Sit to and from Stand Moderate Assistance,1 Person Assistance,Use of Upper Extremities Equipment Transfer Assistive Device Gait Belt,Front Wheeled Walker Orthotic/Prosthetic Devices or Brace: No Transfers Transfer Destination Chair Transfer Technique Stand Step Pivot Transfer Ability Level of Assist Maximum Assistance,1 Person Assistance,Use of Upper Extremities Comments Mobility Comments SpO2 maintained ~95% throughout treatment today although pt did have increased work of breathing with mobility same as yesterday. PT donned sock on left foot and left the right foot in purple bootie. Pt completed supine to long-sitting and turned toward EOB to dangle his legs min A x 1. After scooting to EOB, pt required a rest break to focus on breathing. He then stood from the bed in lowest position mod A x1 with FWW. He c/o increased pain with WB on right foot but was able to briefly accept weight in order to ambulate 3 feet to the bedside chair max A x 1 with FWW and max A x 1 to sit due to poor control of descent. Pt needed another rest break and then was able to stand for placement on waffle cushion on the chair. Sit to stand was mod a X 1 and pt stood for 60 seconds before needing to sit again. Pt was positioned with legs elevated, call light and all needs within reach, warm blankets provided. Gait Assessment Gait Gait Assistance Required: Maximum Assistance,1 Person Assist Distance (Feet) 3 Assistive Devices Assistive Device Gait Belt,Front Wheeled Walker Comments Gait Comments Pt mostly pivoted on LLE with minimal RLE WB with steps taken during transfer. Stair Climbing Assessment Comments Stair Climbing Comments Not assessed. PT-Balance Assessment Sitting Balance and Reactions Static Sitting Balance Ability Good Dynamic Sitting Balance Ability Good Standing Balance and Reactions Static Standing Balance Ability Fair Dynamic Standing Balance Ability Poor Device Used FWW M5 PT-IP Objective Assessments Start: 03/25/20 08:16 Freq: NEEDED Status: Active Protocol: Document 03/25/20 12:10 AW (Rec: 03/25/20 14:37 AW [id number]) Orientation Orientation/Cognition Level of Alertness Alert Orientation Name,Day of Week,Place, Situation Language Function Ability No Deficits Noted Safety Awareness Decreased Safety Awareness Gross Range of Motion Lower Extremity ROM Assessment Right Impaired Impairments distal impaired more than proximal Strength Lower Extremity Strength Assessment Bilaterally Impaired Comments Strength Comments LLE grossly 4-/5; RLE 3+/5 Sensation Assessment Sensation Gross Sensation Right LE Impaired,Left LE Impaired Light Touch Impaired Sensation Description Numbness Comments Sensation Comments plantar surfaces of bilateral feet with impaired light touch sensation M6 PT-IP Treatment Start: 03/25/20 08:16 Freq: NEEDED Status: Active Protocol: Document 03/26/20 15:05 AW (Rec: 03/26/20 15:17 AW [id number]) Physical Therapy Treatment Education Education Provided Weight Bearing Status,Safety M7 PT-IP Assessment and Plan Start: 03/25/20 08:16 Freq: NEEDED Status: Active Protocol: Document 03/26/20 15:05 AW (Rec: 03/26/20 15:17 AW [id number]) PT Summary Assessment and Plan Potential Rehabilitation Potential Fair Status of Condition at Evaluation Stable Summary Impairments Pain,ROM,Strength,Balance, Sensation,Bed Mobility, Transfers,Gait,Activity Tolerance Progress Towards Goals Slow Progress due to Pain,Slow Progress due to Medical Issues Assessment Summary Roney required slightly less assist today and tolerated slight uptick in activity with SpO2 maintained ~95% on 1.5L/ min via NC. Pt and his were discussing discharge options. PT provided education on pt's level of assist needed and likelihood that he would need SNF rehab before being able to safely return home. Goals Bed Mobility Goal Contact Guard Assistance Transfer Goal Contact Guard Assistance,Front Wheeled Walker Gait Goal Contact Guard Assistance,Front Wheel Walker Gait Distance 15 Other Goals - up/down 7 steps with R rail ascending CGA (may also use quad cane opposite side) Days to Meet Goals 10 Frequency of Treatment Frequency Of Treatment Once a Day Treatment Plan Physical Therapy Treatment Plan Bed Mobility Training,Transfer Training,Gait Training, Therapeutic Exercise,Balance Retraining,Discharge Planning Other Recommendations and Next Treatment transfers with FWW; ambulation Focus with FWW when able Recommendations To Nursing Amount of Assist Needed 2 Person Assist Discharge Recommendations PT Discharge Recommendations Home with 24/7 Assist,Home Health,SNF Rehab Other Discharge Recommendations SNF vs home with 24/7 assist for all mobility and HH Transportation Needs at Discharge Wheelchair/Cabulance
[2020-03-26] MEDS: AMPICILLIN/SULBACTAM 1.5 GM 1.5 GM in SODIUM CHLORIDE 0.9% 100 ML 150 ML IV (17:33)
[2020-03-27] MEDS: AMPICILLIN/SULBACTAM 1.5 GM 1.5 GM in SODIUM CHLORIDE 0.9% 100 ML IV ×4 (01:51→17:37)
[2020-03-27] MEDS: ACETAMINOPHEN 325 MG TABLET 650 MG PO ×3 (02:50→19:59)
[2020-03-27 07:20] VITALS: BP 139/70; PULSE 89; RESP 16; TEMP 36.3; O2SAT 94
[2020-03-27 08:21] LABS: HEMOLYSIS < 15 (0-50); Iron 16 ug/dL (49-181)
[2020-03-27 08:31] LABS: Percent Iron Saturation 10 % (20-50); Total Iron Binding Capacity 158 ug/dL (261-462); Transferrin 95 mg/dL (206-381)
--- NOTE | 2020-03-27 08:35 | PM.PN.1 ---
Subjective Subjective Date Patient Seen: 03/27/20 Time Patient Seen: 08:36 Interval history: Patient overall feeling well. Got up yesterday move around was pretty weak. Basically could be up for more than 30 seconds to a minute. Without severe weakness. Was not all related to his right foot. Still having some pain but improved. Basically feels about the same as he was. Exam Vital Signs (past 8 hours): Oxygen Delivery Method Nasal Cannula Oxygen Flow Rate 2 Narrative Exam Narrative: Alert male no acute distress. Lungs are clear. Heart regular rate and rhythm. Abdomen is soft positive bowel sounds nontender. Extremities without change. Right foot continues to be decreased in its edema and swelling. He still has tenderness now mostly over the toes. He does have the lesion on the tip of his left toe which is not any worse. Capillary refill about the same. Neurologic exam is stable. Objective Labs Result Diagrams: 03/26/20 05:55 03/24/20 05:55 Labs: Laboratory Results - last 24 hr 03/27/20 07:58 Iron 16 L TIBC 158 L % Saturation 10 L Transferrin 95 L PFSH Medical History (Updated 03/22/20 @ 13:07 by Kady Farmer DO) COPD (chronic obstructive pulmonary disease) Surgical History No pertinent past surgical history Social History household members: spouse and none Smoking Status: Former smoker alcohol intake: former Assessment & Plan Assessment & Plan narrative: Cellulitis right foot. Continue slow improvement. Clinically much improved. White count is improving certainly not completely resolved will see how things go. Hopefully tomorrow we can consider switch to oral or at least . We are making progress and things seem to be improved. I do not think we need long-term IV antibiotics but it is unclear at this time. Weakness. I think this is multifactorial some part being his peripheral vascular disease but some part being just his generalized weakness and COPD. And his lack of mobility over the last several months. Will see what physical therapy thinks. Will determine what happens only go home. Anemia. Probably chronic. Probably secondary to his poor nutritional status will check iron studies B12 and folate re-evaluate. Buttock ulcers. Tried to look at him today but they are covered. At this point will see what they do but I think we are making progress just having him off that area. Dehydration resolved. COPD is stable. Were GI prophylaxis stable. DVT prophylaxis on Lovenox. DNR status no code. Disposition. Unclear what the best system will be. is unclear whether she wants him home or retirement he eats thinking maybe it would be best for him to go to retirement and get some strength and then go back home. I think that and had difficulty with his lack of strength. I am not sure that this is going to recover completely by the end of his stay here. Probably safest would be in retirement but could go home with home health. Will have to see how things go will see what the next 40 hours per ring and will follow from there. Discussed extensively with enterprise resource planner who will be working on that today. Quality VTE Deep Vein Thrombosis/Pulmonary Embolism Present on Admission: No
[2020-03-27] MEDS: TIOTROPIUM BROMIDE 18 MCG INHALER INH (09:01)
[2020-03-27] MEDS: ALBUTEROL/IPRATROPIUM 3 ML AMPUL INH (09:03)
[2020-03-27 09:04] VITALS: PULSE 90; RESP 24; O2SAT 97
[2020-03-27 09:13] LABS: Vitamin B12 968 pg/mL (239-931)
[2020-03-27] MEDS: DOCUSATE 100 MG CAPSULE PO ×2 (09:29→20:00)
[2020-03-27] MEDS: POTASSIUM CITRATE 5 MEQ 540 EACH PO ×2 (09:30→17:37)
[2020-03-27] MEDS: FERROUS SULFATE 325 MG TABLET PO (09:30)
[2020-03-27] MEDS: Alfuzosin [Uroxatral] 10 MG 10 EACH PO (09:30)
[2020-03-27] MEDS: SODIUM CHLORIDE 0.9% FLUSH 10 ML IV ×2 (09:31→19:00)
[2020-03-27] MEDS: ENOXAPARIN 30 MG/0.3 ML SYRINGE SUBCUT (09:31)
[2020-03-27 10:26] LABS: Folate 12.2 ng/mL (2.76-20.0)
--- NOTE | 2020-03-27 10:26 | PC.NURSE ---
Addendum entered by Veronika Magana R.N. 03/28/20 15:30: Note about patient void and bladder scan, please ignore. This was charted under the wrong patient. Addendum entered by Veronika Magana R.N. 03/27/20 15:29: Patient voided only 50cc and bladder scanned for 187cc. aware and states that we will watch this for now. Original Note: Assess- Patient is A&Ox3, he is a two person assist to get up to the chair and is only able to pivot. Dressing to lower coccyx changed, area appears to be healing. Skin is only slightly open and red on each side of buttocks. Allevyn foam placed over area, patient did have a small bowel movement and was incontinent of urine. His r.foot and maxwell is red and swollen with 1+ edema. Patient is on 1L of O2 and sats around 93%. His lung sounds are diminished but clear. Resting on his right side after being repositioned.
--- NOTE | 2020-03-27 13:55 | OT.IPNOTE ---
Attempted to see pt for OT eval and able to discuss with pt about pro and and cons about going home versus skilled rehab. Case management also present for pt's decision that it would be best for him to go to skilled rehab as he feels that it would be too much on his to assist and in addition would have to hire addition caregivers to assist. Therefore no charge and to attempt OT eval again tomorrow.
--- NOTE | 2020-03-27 14:54 | CM.DPC ---
DCP SNF Planning Per MD, pt remains on IV-Abx with potential for switching to oral abx tomorrow 03/28/20 pending how pt's infection looks. PT still recommending SNF as pt 2PA for transfers. NITO met bedside with pt and OT Yolis who just had new orders for eval and had lengthy discussion about d/c plan and options. Pt confirms that home with just his spouse is not a safe option and that if home CG would need to be hired. Pt states he feels SNF is his best/safe option for d/c to gain strength and have 24/7 care before safely going home. Pt had to talk through his COVID fears and hear the precautions SNF has in place to prevent COVID and pt's own physical limitations currently and was then agreeable with another referral to [facility] to confirm they can accept and have openings. Pt states he has a hx of SNF at [facility] and had a very pleasant experience. Pt acknowledges that he and his spouse do not feel they can currently manage his needs at home alone and he doesn't want to put all this on my , she already was saying she couldn't care for me. Pt aware that he may d/c on IV-Abx vs oral abx. NITO called Dinorah at [facility] and confirmed they can accept pt on his current IV-Abx or oral meds as long as pt's cellulitis has not resolved, but resolving. Dinorah states she spoke with pt's spouse via phone yesterday and updated her on COVID precautions and option for pt getting COVID vaccine tomorrow if pt is discharged in the morning as their facility will be provided with the vaccine for staff and residents tomorrow only and that spouse and pt would be very agreeable to pt getting the COVID vaccine. MATHEUS Giraldo willing to call Dr. Saldivar's clinic office to update Dr. Saldivar on pt's decision for SNF at [facility] and hope to get to [facility] in time tomorrow to get the COVID vaccine. PASRR completed in anticipation of SNF at d/c. Call from Adria at [email or web address] confirming again that pt would have a $250 deductible and then around $122 a week give or take on most IV-Abx medications if plan ends up being home at discharge and IV-Abx still needed. Plan: SW to follow for possible plan of [facility] tomorrow morning via facility van if medically stable to discharge.
--- NOTE | 2020-03-27 15:36 | PT.IPTN ---
Current Diagnoses Cellulitis of right lower limb (03/22/20) Physical Therapy Treatment Note M2 PT-IP Current Condition Start: 03/25/20 08:16 Freq: NEEDED Status: Active Protocol: Document 03/25/20 12:10 AW (Rec: 03/25/20 14:37 AW [id number]) Physical Therapy Current Condition Current Condition Evaluation Date 03/25/20 Treatment Diagnosis RLE cellulitis; PAD; difficulty in walking Onset Date three weeks M3 PT-IP Subjective Start: 03/25/20 08:16 Freq: NEEDED Status: Active Protocol: Document 03/27/20 15:23 AW (Rec: 03/27/20 15:36 AW [id number]) Subjective Physical Therapy Visit Type Type Treatment Note Visit Start Time 14:58 Visit Stop Time 15:17 Total Visit Minutes 19 Physical Therapy Visit Comments Patient Comments I think I'm going to have to go to rehab to get stronger before I go home. Therapy Pain Assessment Pain When Pain Assessed During Mobility Pain Present Pain Present Denied Pain Location Right Lower Leg Scale Used not quantified Description Sharp,With Movement Pain Behaviors Calling Out,Wincing Pain Management Techniques Distraction,Elevation,Timing of Activity with Medications M4 PT-IP Mobility and Gait Start: 03/25/20 08:16 Freq: NEEDED Status: Active Protocol: Document 03/27/20 15:23 AW (Rec: 03/27/20 15:36 AW [id number]) PT-Bed Mobility Assessment Supine to Sit Supine to Sit Contact Guard Assistance Scooting Scooting to Edge of Bed Contact Guard Assistance PT-Transfer Assessment Sit to and From Stand Sit to and from Stand Moderate Assistance,1 Person Assistance,Use of Upper Extremities Equipment Transfer Assistive Device Gait Belt,Front Wheeled Walker Orthotic/Prosthetic Devices or Brace: No Transfers Transfer Destination Chair Transfer Technique Stand Step Pivot Transfer Ability Level of Assist Moderate Assistance,1 Person Assistance,Use of Upper Extremities Comments Mobility Comments Pt was reclined in the bed and positioned tilted toward his left. He agreed to get up but refused surgical bootie or any covering on his right foot. PT donned the purple cushion on right foot and pt completed supine to sit from flat bed CGA, complaining of increased pain in right foot while in dependent position. He sat on EOB to focus on his breathing. SpO2 dropped to 87% but recovered to baseline 94% in less than one minute. Pt then stood from the bed mod A x 1 using FWW and took steps ~3 feet toward the chair. Transfer to chair required mod 1PA and verbal cues for positioning. Waffle cushion was placed under pt's pelvis. Pt was positioned with legs elevated, call light and all needs within reach. Gait Assessment Gait Gait Assistance Required: Moderate Assistance,1 Person Assist Distance (Feet) 3 Assistive Devices Assistive Device Gait Belt,Front Wheeled Walker Gait Deviations General Gait Pattern Antalgic,Decreased Stride Length,Decreased Feet Clearance,Flexed Trunk,Step-to Gait Factors Limiting Gait Function Factors Limiting Gait Function Decreased Activity Tolerance, Decreased Sensation,Decreased Strength,Limited Range of Motion,Pain,Poor Balance,Poor Safety Awareness,Respiratory Distress Comments Gait Comments Pt able to bear more weight on RLE this date during transfer but continues to be limited by pain. Stair Climbing Assessment Comments Stair Climbing Comments Not assessed. PT-Balance Assessment Sitting Balance and Reactions Static Sitting Balance Ability Good Dynamic Sitting Balance Ability Good Standing Balance and Reactions Static Standing Balance Ability Fair Dynamic Standing Balance Ability Poor Device Used FWW M5 PT-IP Objective Assessments Start: 03/25/20 08:16 Freq: NEEDED Status: Active Protocol: Document 03/25/20 12:10 AW (Rec: 03/25/20 14:37 AW [id number]) Orientation Orientation/Cognition Level of Alertness Alert Orientation Name,Day of Week,Place, Situation Language Function Ability No Deficits Noted Safety Awareness Decreased Safety Awareness Gross Range of Motion Lower Extremity ROM Assessment Right Impaired Impairments distal impaired more than proximal Strength Lower Extremity Strength Assessment Bilaterally Impaired Comments Strength Comments LLE grossly 4-/5; RLE 3+/5 Sensation Assessment Sensation Gross Sensation Right LE Impaired,Left LE Impaired Light Touch Impaired Sensation Description Numbness Comments Sensation Comments plantar surfaces of bilateral feet with impaired light touch sensation M6 PT-IP Treatment Start: 03/25/20 08:16 Freq: NEEDED Status: Active Protocol: Document 03/27/20 15:23 AW (Rec: 03/27/20 15:36 AW [id number]) Physical Therapy Treatment Education Education Provided Weight Bearing Status,Safety M7 PT-IP Assessment and Plan Start: 03/25/20 08:16 Freq: NEEDED Status: Active Protocol: Document 03/27/20 15:23 AW (Rec: 03/27/20 15:36 AW [id number]) PT Summary Assessment and Plan Potential Rehabilitation Potential Fair Status of Condition at Evaluation Stable Summary Impairments Pain,ROM,Strength,Balance, Sensation,Bed Mobility, Transfers,Gait,Activity Tolerance Progress Towards Goals Slow Progress due to Pain,Slow Progress due to Medical Issues Assessment Summary Pt improved with bed mobility today but remains limited in activity tolerance. He was able to transfer bed to chair 3 feet away but could not tolerate further activity due to pain. Pt spoke of needing to go to rehab, mentioning [facility] in particular, before returning home. PT continues to recommend SNF rehab. Goals Bed Mobility Goal Contact Guard Assistance Transfer Goal Contact Guard Assistance,Front Wheeled Walker Gait Goal Contact Guard Assistance,Front Wheel Walker Gait Distance 15 Other Goals - up/down 7 steps with R rail ascending CGA (may also use quad cane opposite side) Days to Meet Goals 10 Frequency of Treatment Frequency Of Treatment Once a Day Treatment Plan Physical Therapy Treatment Plan Bed Mobility Training,Transfer Training,Gait Training, Therapeutic Exercise,Balance Retraining,Discharge Planning Other Recommendations and Next Treatment transfers with FWW; ambulation Focus with FWW when able Recommendations To Nursing Amount of Assist Needed 2 Person Assist Discharge Recommendations PT Discharge Recommendations Home with 24/7 Assist,Home Health,SNF Rehab Other Discharge Recommendations SNF vs home with 24/7 assist for all mobility and HH Transportation Needs at Discharge Wheelchair/Cabulance
[2020-03-27] MEDS: IRON SUCROSE 200 MG in SODIUM CHLORIDE 0.9% 100 ML 220 ML IV (16:08)
--- NOTE | 2020-03-27 16:57 | CM.DPC ---
Addendum entered by Kristal Anguiano R.N. 03/27/20 17:12: Spoke to Dr. Kelly and updated him with the above. He will evaluate pt. for medical stability in the morning with hopes pt. can be discharged to by 10 am. Original Note: Marielena [employer] updated me about her conversations with patient and Dinorah at (where Dinorah explained her conversation with pt. about SNF stay and possible COVID vaccination). Due to Marielena's time constraints I agreed to call and update Dr. Saldivar. I spoke to Dr. Saldivar and he asked me about the possibility of the patient getting a PICC line so he could continue his IV abx. I told him that I was uncertain about PICC availability but I would look into possibility of PICC placement tonight or early tomorrow morning and if it was an option to get done in that time frame I would order it for him so PICC nurse would know it needed to be done. That way discharge in morning would be an option if pt. is medically ready. Spoke to Ely Garsia and he assured me he could get it done tonight or early tomorrow am. I updated Eryn CORTÉS about the plan and placed a telephone order for Dr. Saldivar. I called and spoke to his answering service and asked them to let him know I put the PICC order into [employer] for him. I left my 2040 office number in case he had any questions or issues. It has been over an hour since I left my message with his service and have not gotten a call that would alter the above plan.
[2020-03-27 17:30] VITALS: BP 134/70; PULSE 80; RESP 17; TEMP 36.3; O2SAT 94
--- NOTE | 2020-03-27 19:30 | PC.NURSE ---
A&OX3, 1L 94-96%, desat to 88% on RA. Rt.foot elevated w/pillows. rt foot drsng changed at 1930. pt signed the consent for PICC placement. PICC will be placed in the morning by Ely around 0730. call light in reach. bed alarm active.
[2020-03-27] MEDS: HYDROCODONE/ACET 5/325 TABLET 1 TAB PO (22:29)
[2020-03-28] VITALS: BP 121/89; PULSE 96; RESP 18; TEMP 36.8; O2SAT 93
[2020-03-28] MEDS: AMPICILLIN/SULBACTAM 1.5 GM 1.5 GM in SODIUM CHLORIDE 0.9% 100 ML IV ×2 (00:35→06:19)
[2020-03-28 06:17] LABS: Add Manual Diff / Slide Review NO; Basophils Absolute Auto 100 /uL (0-100); Basophils Percent Auto 0.4 % (0-2); Eosinophils Absolute Auto 400 /uL (0-450); Eosinophils Percent Auto 2.4 % (2-4); Hematocrit 28.1 % (41-53); Hemoglobin 9.1 g/dL (13.5-17.5); Lymphocytes Absolute Auto 600 /uL (1100-4500); Mean Corpuscular HGB Conc 32.2 % (30-36); Mean Corpuscular Hemoglobin 31.9 PG (26-34); Mean Corpuscular Volume 98.9 fL (80-100); Monocytes Absolute Auto 1100 /uL (0-900); Monocytes Percent Auto 7.2 % (3-14); Neutrophils Absolute Auto 12700 /uL (1500-7000); Platelet Count 237 X10^3/uL (150-400); Red Blood Cell Count 2.84 X10^6/uL (4.5-5.9); Red Cell Distribution Width 13.5 % (11.6-14.8); White Blood Cell Count 14.8 X10^3/uL (4.5-11.0)
[2020-03-28] MEDS: HYDROCODONE/ACET 5/325 TABLET 1 TAB PO (06:20)
[2020-03-28 06:27] LABS: Blood Urea Nitrogen 40 mg/dL (9-20); Calcium 7.7 mg/dL (8.4-10.2); Carbon Dioxide 34 mmol/L (22-32); Chloride 105 mmol/L (98-107); Estimated Glomerular Filt Rate > 60.0 mL/min (>60); Glucose 97 mg/dL (80-110); HEMOLYSIS < 15 (0-50); Potassium 4.2 mmol/L (3.4-5.1); Sodium 135 mmol/L (137-145)
[2020-03-28 07:24] VITALS: BP 131/61; PULSE 92; RESP 18; TEMP 36.1; O2SAT 98
[2020-03-28] MEDS: TIOTROPIUM BROMIDE 18 MCG INHALER INH (08:37)
[2020-03-28] MEDS: ALBUTEROL/IPRATROPIUM 3 ML AMPUL INH (08:38)
[2020-03-28 08:40] VITALS: PULSE 99; RESP 20; O2SAT 98
--- NOTE | 2020-03-28 08:49 | PM.DS.1 ---
History of Present Illness History of Present Illness Date Patient Seen: 03/28/20 Time Patient Seen: 08:50 Date of Onset of Symptoms: 03/28/20 Chief complaint: Generalized weakness Narrative: Patient an 79-year-old white male well known to our practice patient of Dr. Mike who presents with issues with his right leg. Patient has had approximately 3 week history of pain. No history of trauma. X-rays previously been negative. Patient had been seen in the clinic 2 weeks ago and was started on Levaquin and then Augmentin. Patient really has had no improvement. Maybe the pain was decreased but otherwise no improvement he has been sitting in his wheelchair persistently over the last 2 weeks. He has been coming increasingly weak. And has been having difficulty even getting to the bathroom alone participating. He has had no urinary changes no chest pain. No shortness of breath. No orthopnea is breathing which he has COPD has been stable and has not required more oxygen. He uses very little oxygen at home. He does not feel as if his leg has been increasingly red or had other changes. He has had no improvement in the swelling. He has otherwise had no change or complaint. Patient denies fever chills night sweats or other changes. Physically otherwise feeling well. Has not had a lot of change. Patient denies any neurologic symptoms or other change. 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 Social history. Retired. long to standing. Good support. 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 Discharge Providers Provider Date of admission: 03/22/20 13:23 Discharge Date: 03/28/20 Consults: 03/22/20 14:16 Consult to Dietitian, Adult Routine Comment: Reason For Exam: weight loss and appetite loss 03/22/20 14:17 Consult to Dietitian, Adult Routine Comment: Reason For Exam: weight loss and appetite loss 03/22/20 14:42 Consult to Discharge Planning Routine Comment: 03/24/20 12:02 Consult to Physical Therapy Evaluate & Treat Comment: Physician Instructions: Evaluate and Treat 03/25/20 19:37 Consult to Dietitian, Adult Routine Comment: Reason For Exam: skin integrity compromised 03/27/20 10:07 Consult to Occupational Therapy Evaluate & Treat Comment: Physician Instructions: Evaluate and treat Discharge provider: Rufino Saldivar MD Summary Hospital Course Discharge Diagnosis: Cellulitis right foot Peripheral vascular disease Anemia Buttock ulcers Dehydration Weakness Severe protein malnutrition COPD with O2 dependence Hospital Course: Cellulitis right foot. Patient had been treated with multiple outpatient therapies without improvement. Had significant pain and swelling. Patient had MRI done which showed no definitive osteo arthritis and only cellulitis. Was placed on IV Vanco and white count continued to increase. Was switched to IV Unasyn and improvement was had. No definitive source was found. Patient had slow improvement probably secondary to his compromised vascular status. Has been making steady improvement over the last 3 days. Swelling is markedly improved. Erythema is improved. Pain is decreased. We discussed options. I think at this point it is okay for discharge to prison will continue IV antibiotics for the next 7 days and will be followed after that. Peripheral vascular disease. I think this is the biggest issue with his right foot. Certainly he had no evidence of significant damage he does have a 2nd tell which has a eschar but has not worsened. Had discussed with vascular surgeon who felt that we needed to 1st control his infection and then as an outpatient we can refer him down for further evaluation. Certainly set risk for worsening condition but this point he has been stable throughout the course of his admission he has resting pain which I think is more related to the vascular status then his infection and will have to be sent to vascular surgeon as outpatient. I am not sure how this is going to get set up in the near future since he will be going to the prison but will have to do this. If he were to have worsening he will need to go to [facility] for evaluation. Anemia. Patient was stable but slightly decreased. Throughout the course. Iron study showed this was iron deficiency was given 1 IV dose of iron and will be sent on iron as an outpatient. Patient will be followed up with CBC in the next week. Buttock ulcers. Patient was on his wheelchair for 3 weeks. Without really moving. They were treated in the usual manner in seem to be improving. Was unable to look at him on the last day due to them being covered and I did not want her moving. We followed as an outpatient at the prison. But she seemed to be making good progress. Dehydration. Patient was hydrated on the initial 2 days and did well. Has been euvolemic since then. Weakness. This is of combination of multiple issues. Part his COPD part is deconditioning in part his pain in his right foot. Hopefully as we get this infection under control he can mobilize on a more consistent basis. No other changes. Severe protein malnutrition. Patient was seen by dietitian and plan is been in place. Will be followed as prison. COPD O2 dependence. No issue during his current admission. Will be continued on his oxygen. Usual treatments. Status at Discharge Cognitive/behavioral status at discharge: oriented Functional status at discharge: wheelchair bound Overall status at discharge: patient is not back to baseline Exam Vital Signs (past 8 hours): - 03/28/20 07:24 03/28/20 08:40 Temperature 97.0 F L Pulse Rate 92 H 99 H Respiratory Rate 18 20 Blood Pressure 131/61 Pulse Oximetry 98 98 Oxygen Delivery Method Nasal Cannula Oxygen Flow Rate 2 Narrative Exam Narrative: Alert male in no acute distress lying in bed not moving much. Lungs are clear. Heart regular rate and rhythm. Abdomen is soft positive bowel sounds nontender. Right foot shows decreased erythema decreased pain. Decreased swelling. He has an eschar on the tip of his 2nd toe which has been unchanged since his admission. Neurologic exam is nonfocal and he is alert and oriented. Objective Labs Result Diagrams: 03/28/20 05:45 03/28/20 05:45 Labs: Laboratory Results - last 24 hr 03/27/20 03/28/20 03/28/20 07:58 05:45 05:45 WBC 14.8 H RBC 2.84 L Hgb 9.1 L Hct 28.1 L MCV 98.9 MCH 31.9 MCHC 32.2 RDW 13.5 Plt Count 237 Neut % (Auto) 86.0 H Lymph % (Auto) 4.0 L Izard % (Auto) 7.2 Eos % (Auto) 2.4 Baso % (Auto) 0.4 Neut # (Auto) 46932 H Lymph # (Auto) 600 L Izard # (Auto) 1100 H Eos # (Auto) 400 Baso # (Auto) 100 Sodium 135 L Potassium 4.2 Chloride 105 Carbon Dioxide 34 H BUN 40 H Creatinine 0.91 Estimated GFR > 60.0 BUN/Creatinine Ratio 44.0 H Glucose 97 Calcium 7.7 L Vitamin B12 968 H Folate 12.2 PFSH Medical History (Updated 12/31/20 @ 13:07 by Kady Farmer DO) COPD (chronic obstructive pulmonary disease) Surgical History No pertinent past surgical history Social History household members: spouse and none Smoking Status: Former smoker alcohol intake: former Discharge Assessment & Plan Assessment and Plan Assessment: Patient has been slowly recovering and is doing well. Needs prison I think that is the safest thing for him. Eventually hopefully will get home. Will need vascular consult hopefully in the next couple weeks. Hopefully will only be in the prison for a couple weeks. Otherwise no change. Will need CBC in 1 week. Will need to continue on iron and will continue antibiotics for Discharge Plan Discharge Plan Patient Disposition: SNF Transfer to: [facility] Under care of provider: [facility] medical team Consult as needed: Dental, Hearing, Mental health and Podiatry Provider Discharge Comment: patient will need vascular surgery consult on the right foot Discharge orders & Medications Prescriptions: New enoxaparin [Lovenox] 30 mg/0.3 mL Syringe 30 mg SUBCUT DAILY Qty: 10 RF: 0 ampicillin-sulbactam [Unasyn] 1.5 gram recon soln 1.5 g IM Q6H Qty: 28 RF: 0 acetaminophen 325 mg Tablet 650 mg PO Q4HR PRN (Reason: Fever/Mild Pain (1-3)) 50 Days RF: 0 Continued Spiriva with HandiHaler 18 MCG capsule, w/inhalation device 18 mcg RT DAILY Qty: 0 RF: 0 escitalopram oxalate [Lexapro] 10 MG tablet 10 mg PO DAILY Qty: 0 RF: 0 potassium citrate [Urocit-K 5] 5 MEQ tablet extended release 540 mg PO BIDCC Qty: 0 RF: 0 alfuzosin [Uroxatral] 10 MG tablet extended release 24 hr 10 mg PO QDAY Qty: 0 RF: 0 docusate sodium 100 mg Capsule 100 mg PO BID RF: 0 High Potency Iron 1 tab PO DAILY RF: 0 Discontinued oxycodone 5 mg Tablet 5 mg PO Q3HR PRN (Reason: Pain, Moderate (4-6)) Qty: 30 RF: 0 Follow up/Referrals: Rufino Saldivar MD [Physician] - 1 Month Discharge Health Status Multidrug resistant organism: No MDRO Precautions: [place] Diet/Activity/Treatments Diet: Diet as Tolerated Liquid consistency: Normal/Thin Food texture: Regular Oxygen: to keep sats greater than 92% Skin/Wound/Dressing Care Report to your healthcare provider any signs of infection, such as:: chills, fever, night sweats and increased pain Special Rehabilitation Services Rehab type: Physical therapy and Occupational therapy Quality VTE Deep Vein Thrombosis/Pulmonary Embolism Present on Admission: No
[2020-03-28 09:17] LABS: COVID19 -Nasal RAPID Negative (Negative)
--- NOTE | 2020-03-28 09:21 | CM.DPC ---
Addendum entered by Mindy Link R.N. 03/28/20 10:10: Faxed over negative COVID results to [facility] Original Note: DCP Cont: Patient is to be discharged today to [facility]. Spoke to August at [facility], confirmed pick up and delivery driver time of 11:00. COVID test completed, pending. Dr. Saldivar signed med sheet, discharge summary completed. Faxed PASSR, med sheets, and DC summary to [facility]. White board at main nurses station updated. Patient signed updated IMM, and is on board with going to [facility]. P: Patient is to be discharged to [facility] today. Mindy Link RN/Rip/Mould Operator
--- NOTE | 2020-03-28 09:54 | DI.RAD.S_ITS ---
PROCEDURE: XR CHEST FOR PICC 1V INDICATIONS: line placement TECHNIQUE: One view of the chest was acquired. COMPARISON: [facility], CT, CT CHEST ABD PELVIS WO CON, 09/29/2016, 5:37. [facility], CR, XR CHEST 1V, 03/22/2020, 11:09. [facility], CR, XR CHEST 2V, 02/09/2018, 14:23. FINDINGS: Surgical changes and devices: Newly placed left-sided PICC with the tip at the lower 3rd of the SVC in satisfactory position. Lungs and pleura: Emphysematous change. Suspect bibasilar scarring, unchanged. No pleural effusions or pneumothorax. Mediastinum: Mediastinal contours appear normal. Heart size is normal. Bones and chest wall: Prior right-sided rib fractures. No suspicious bony lesions. Overlying soft tissues appear unremarkable. IMPRESSION: Left-sided PICC with the tip at the lower 3rd of the SVC in satisfactory position. No pneumothorax. Dictated by: Eric Stewart M.D. on 03/28/2020 at 9:19 Approved by: Eric Stewart M.D. on 03/28/2020 at 9:21
[2020-03-28] MEDS: ENOXAPARIN 30 MG/0.3 ML SYRINGE SUBCUT (10:23)
[2020-03-28] MEDS: FERROUS SULFATE 325 MG TABLET PO (10:24)
[2020-03-28] MEDS: DOCUSATE 100 MG CAPSULE PO (10:24)
[2020-03-28] MEDS: POTASSIUM CITRATE 5 MEQ 540 EACH PO (10:24)
[2020-03-28] MEDS: SODIUM CHLORIDE 0.9% FLUSH 10 ML IV (10:24)
[2020-03-28] MEDS: Alfuzosin [Uroxatral] 10 MG 10 EACH PO (10:24)
[2020-03-28] MEDS: ACETAMINOPHEN 325 MG TABLET 650 MG PO (10:27)
--- NOTE | 2020-03-28 10:40 | PC.NURSE ---
Assess- Patient complained of discomfort, given tylenol for pain to r. leg and foot. He has a heel protector to area and a dressing to his lower buttocks for a small ucler on each side that is healing, stage 1. He has voided 250cc of yellow urine. Picc line placed to left upper extremity. Patient is discharging to [facility] at 11am. He is resting better after tylenol given to patient.
--- NOTE | 2020-03-28 11:08 | PT-IP ANOTE ---
DRILLING SUPERINTENDENT unable to see pt for am tx due to DC to [facility] before arrived at 1108.
--- NOTE | 2020-03-28 11:08 | CM.DPNOTE ---
Faxed to [facility] per Maria Fernanda, [facility], med list and received fax confirmation. Herminia Garcia CM Asst.
== END 2020-03-28 11:15 | DRG 602 ==
LOC: ED 13:18 → AC 13:24
PROVIDERS: Admitting Provider Family Medicine; Emergency Provider Emergency Medicine; Referring Provider Emergency Medicine; Visit Provider Family Medicine
DX: L03.115 Cellulitis of right lower limb (principal); E43 Unspecified severe protein-calorie malnutrition; L89.302 Pressure ulcer of unspecified buttock, stage 2; Z99.81 Dependence on supplemental oxygen; E86.0 Dehydration; J44.9 Chronic obstructive pulmonary disease, unspecified; Z68.20 Body mass index [BMI] 20.0-20.9, adult; D64.89 Other specified anemias; N40.0 Benign prostatic hyperplasia without lower urinary tract symptoms; I10 Essential (primary) hypertension; I77.9 Disorder of arteries and arterioles, unspecified; R53.1 Weakness; Z87.891 Personal history of nicotine dependence; Z20.828 Contact with and (suspected) exposure to other viral communicable diseases; Z66 Do not resuscitate
CPT/HCPCS: 36415; 36569; 71045; 73718; 80048; 80053; 80202; 81001; 82607; 82746; 83540; 83550; 83605; 83690; 84145; 85007; 85025; 85610; 85651; 85730; 86140; 87040; 87635; 93005; 93926; 93971; 94640; 94762; 96365; 96375; 97162; 97530; 99284; C9803; J0295; J1650; J1756; J2270

== ENCOUNTER 2020-04-04 09:58 | Inpatient (IN) | payer MEDICARE, OTHER, SELFPAY ==
[2020-03-22 14:01] VITALS: BMI 20.5
[2020-04-04] VITALS (27 sets, daily range): BP systolic 80–120; BP diastolic 46–87; PULSE 45–119; RESP 18–40; TEMP 30.9–36.3; O2SAT 90–100; BMI 20.2
--- NOTE | 2020-04-04 10:07 | DI.RAD.S_ITS ---
PROCEDURE: XR CHEST 1V INDICATIONS: short of breath TECHNIQUE: One view of the chest was acquired. COMPARISON: [facility], CR, XR CHEST 2V, 02/09/2018, 14:23. [facility], CR, XR CHEST 1V, 03/22/2020, 11:09. [facility], CR, XR CHEST FOR PICC 1V, 03/28/2020, 10:00. FINDINGS: Surgical changes and devices: A right-sided PICC line can be seen, with the tip overlying the axillary region. The previously seen left-sided PICC line has been removed. Lungs and pleura: On this semiupright portable chest examination, no large pneumothorax or large pleural effusions are seen. No focal infiltrates are seen. Mediastinum: Mediastinal contours appear normal. Heart size is normal. Atherosclerotic calcification of the aortic arch is noted. Bones and chest wall: Age-appropriate bony degenerative changes are seen. No suspicious bony lesions. Remote right posterolateral rib fractures can be seen. Overlying soft tissues appear unremarkable. IMPRESSION: The tip of the right-sided PICC line is seen overlying the right axillary region. Please correlate with known patient history. Please adjust position, as clinically appropriate. Limited portable chest examination, without a significant cardiopulmonary abnormality identified. Remote right posterolateral rib fractures. Dictated by: Rajan De Los Santos M.D. on 04/04/2020 at 10:04 Approved by: Rajan De Los Santos M.D. on 04/04/2020 at 10:06
[2020-04-04] MEDS: ALBUTEROL/IPRATROPIUM 3 ML AMPUL INH ×2 (10:14→18:11)
--- NOTE | 2020-04-04 10:16 | ED_ITS ---
HPI - Neuro Symptoms/Deficit General Chief Complaint: Shortness of Breath/Dyspnea Stated Complaint: Decreased LOC Time Seen by Provider: 04/04/20 10:04 Source: patient and EMS Mode of arrival: Ambulatory Limitations: altered mental status History of Present Illness HPI Narrative: Patient is an 79-year-old male with, CHF, hypertension with recent admission for cellulitis. He was admitted March 22 through the . He had cellulitis of his right leg and foot. Today presenting with decreasing mental status and shortness of breath. [facility] what happened today but he was noticed to have decreasing mental status. He was responsive only to pain free EMS. He was difficult to get in O2 reading and blood pressure. However he does have a blood pressure of 120/80 but is currently on a non-rebreather. He is responsive and answering questions but not opening his eyes. He sounds like he has audible coarse breath sounds Onset (ago): hour(s) Related Data Home Medications Medication Instructions Recorded Confirmed Spiriva with HandiHaler 18 mcg RT DAILY #0 06/26/06 04/04/20 escitalopram oxalate [Lexapro] 10 mg PO DAILY #0 09/10/04/04/20 alfuzosin [Uroxatral] 10 mg PO QDAY #0 01/21/17 04/04/20 potassium citrate [Urocit-K 5] 540 mg PO BIDCC #0 01/21/17 04/04/20 docusate sodium 100 mg PO BID 11/06/17 04/04/20 ferrous sulfate 325 mg PO DAILY #0 11/06/17 04/04/20 albuterol sulfate 2 puff INHALATION QID 04/04/20 04/04/20 ampicillin-sulbactam 1.5 g IV Q6H 04/04/20 04/04/20 Previous Rx's Medication Instructions Recorded acetaminophen 650 mg PO Q4HR PRN 50 Days tab 03/28/20 enoxaparin [Lovenox] 30 mg SUBCUT DAILY #10 ml 03/28/20 Allergies Allergy/AdvReac Type Severity Reaction Status Date / Time tamsulosin [From FLOMAX] AdvReac Unknown DIZZINESS Verified 04/04/20 10:10 Review of Systems Review of Systems ROS Unobtainable: All systems reviewed & are unremarkable except as noted in HPI and below Cardiovascular Cardiovascular: Denies chest pain and Reports dyspnea Respiratory Respiratory: Reports as per HPI, Reports cough and Reports dyspnea Gastrointestinal Gastrointestinal: Denies nausea and Denies vomiting Musculoskeletal Musculoskeletal: Denies back pain and Denies myalgias Integumentary/Breasts Skin/Breast: Reports as per HPI Comments: known cellulitis of right foot and leg Patient History Medical History (Updated 04/04/20 @ 12:49 by Kady Farmer DO) COPD (chronic obstructive pulmonary disease) Surgical History No pertinent past surgical history Social History household members: spouse and none Smoking Status: Former smoker alcohol intake: former Smoking Status: Former smoker alcohol intake frequency: 0-2 drinks per day Substance Use Type: does not use Exam Initial Vital Signs Initial Vital Signs: Vital Signs Pulse Rate 53 L 04/04/20 10:03 Respiratory Rate 21 04/04/20 10:03 Pulse Oximetry 100 04/04/20 10:03 GENERAL: Alert elderly male chronically ill 79-year-old or and in mild respiratory distress distress. HEENT: Head atraumatic,keeps eyes closed, face symmetric, moist mucous membranes CARDIOVASCULAR: Regular rate and rhythm without murmurs, rubs or gallops. RESPIRATORY: Coarse breath sounds minimal wheezing ABDOMEN: Soft, nontender. Normoactive bowel sounds all 4 quadrants. No g uarding or rebound. EXTREMITIES: Normal range of motion, no clubbing or edema. Neurovascularly inta ct NEUROLOGICAL: Moving all extremities SKIN: Warm, dry, no laceration, no petechiae, no rashes or lesions. Course Orders Ordered: ED Orders 04/04/20 10:05 Influenza A & B (PCR) Stat 04/04/20 10:07 Consult to Respiratory Therapy Evaluate & Treat XR chest 1V Stat EKG-12 Lead Stat 04/04/20 10:13 COVID19 Stat 04/04/20 10:18 Complete Blood Count AUTO DIFF Stat Comprehensive Metabolic Panel Stat Lactate (Lactic Acid) Stat Magnesium Stat NT-proBNP (BNP-Adult 18+) Stat Procalcitonin Stat Troponin & CK Cardiac Panel Stat 04/04/20 10:30 Arterial Blood Gas Stat 04/04/20 10:35 Blood Culture Stat 04/04/20 10:39 CT head/brain wo con Stat 04/04/20 11:45 Urinalysis and Microscopic Stat Acetaminophen (Acetaminophen 325 Mg Tablet) 650 mg PO Q6HR PRN PRN Reason: Fever Albuterol/Ipratropium (Albuterol/Ipratropium 3 Ml Ampul) 3 ml INH [id number] [facility] Bisacodyl (Bisacodyl 10 Mg Supp) 10 mg OK DAILY PRN PRN Reason: Constipation Folic Acid (Folic Acid 1 Mg Tablet) 1 mg PO DAILY HONG Lorazepam (Lorazepam 2 Mg/Ml Inj) 0 mg IV CIWAPRN PRN; Protocol PRN Reason: Alcohol Withdrawal Multivitamins (Multivitamin 1 Tablet) 1 tab PO DAILY [facility] Naloxone HCl (Naloxone 0.4 Mg/Ml Vial) 0.2 mg IV Q2MIN PRN PRN Reason: Opiate Reversal Thiamine HCl (Thiamine 100 Mg Tablet) 100 mg PO DAILY HONG Stop: 04/08/20 09:01 Discontinued Medications Albuterol/Ipratropium (Albuterol/Ipratropium 3 Ml Ampul) 3 ml INH NOW ONE Stop: 04/04/20 10:08 Last Admin: 04/04/20 10:14 Dose: 3 ml Documented by: AURORA Furosemide (Furosemide 40 Mg/4 Ml Vial) 40 mg IV NOW ONE Stop: 04/04/20 11:04 Last Admin: 04/04/20 11:47 Dose: 40 mg Documented by: INDRA Lidocaine HCl (Lidocaine 2% (Urojet) 5 Ml Gel) 5 ml TOP NOW ONE Stop: 04/04/20 11:10 Last Admin: 04/04/20 11:48 Dose: 5 ml Documented by: INDRA Methylprednisolone (Methylprednisolone 125 Mg/2 Ml Vial) 125 mg IV NOW ONE Stop: 04/04/20 10:08 Last Admin: 04/04/20 10:22 Dose: 125 mg Documented by: INDRA Vital Signs Vital signs: Vital Signs - 8 hr 04/04/20 10:03 04/04/20 10:10 04/04/20 10:30 Temperature 97.4 F L Pulse Rate 53 L 45 L 85 Respiratory Rate 21 19 37 H Blood Pressure 120/69 Pulse Oximetry 100 99 99 04/04/20 11:04 04/04/20 11:15 04/04/20 11:30 Temperature Pulse Rate 90 91 H Respiratory Rate 23 24 Blood Pressure 111/73 Pulse Oximetry 98 04/04/20 11:46 04/04/20 12:00 Temperature Pulse Rate 92 H Respiratory Rate 28 H Blood Pressure 119/73 Pulse Oximetry 99 MDM - Neuro Symptoms/Deficit Lab Data Attestation: I reviewed the patient's lab results. Result diagrams: 04/04/20 10:18 04/04/20 10:18 Labs: Lab Results 04/04/20 04/04/20 04/04/20 Range/Units 10:05 10:13 10:18 WBC 13.4 H (4.5-11.0) X10^3/uL RBC 2.98 L (4.5-5.9) X10^6/uL Hgb 9.5 L (13.5-17.5) g/dL Hct 29.8 L (41-53) % MCV 100.0 (80-100) fL MCH 32.0 (26-34) PG MCHC 32.0 (30-36) % RDW 14.2 (11.6-14.8) % Plt Count 241 (150-400) X10^3/uL Neut % (Auto) 88.9 H (50-75) % Lymph % (Auto) 2.8 L (25-40) % [place] % (Auto) 6.5 (3-14) % Eos % (Auto) 1.2 L (2-4) % Baso % (Auto) 0.6 (0-2) % Neut # (Auto) 48381 H (8526-6516) /uL Lymph # (Auto) 400 L (8444-8226) /uL [place] # (Auto) 900 (0-900) /uL Eos # (Auto) 200 (0-450) /uL Baso # (Auto) 100 (0-100) /uL ABG pH (7.35-7.45) ABG pCO2 (35-45) mmHg ABG pO2 (80-100) mmHg ABG HCO3 (22-26) mmol/L ABG Total CO2 (21-31) mmol/L ABG O2 Saturation (95-100) % ABG Base Excess (-2-2) mmol/L FiO2 Sodium (137-145) mmol/L Potassium (3.4-5.1) mmol/L Chloride (98-107) mmol/L Carbon Dioxide (22-32) mmol/L BUN (9-20) mg/dL Creatinine (0.66-1.25) mg/dL Estimated GFR (>60) mL/min BUN/Creatinine Ratio (6-22) Glucose (80-110) mg/dL Lactate (0.7-2.1) mmol/L Calcium (8.4-10.2) mg/dL Magnesium (1.6-2.3) mg/dL Total Bilirubin (0.2-1.3) mg/dL AST (17-59) IU/L ALT (<50) IU/L Alkaline Phosphatase (38-126) U/L Total Creatine Kinase (55-170) U/L CK-MB (CK-2) (<2.37) ng/mL CK-MB (CK-2) Rel Index (1.5-5.0) % Troponin I (0.01-0.034) ng/mL NT-Pro-B Natriuret Pep (<450) pg/mL Total Protein (6.3-8.2) g/dL Albumin (3.5-5.0) g/dL Globulin (1.7-4.1) g/dL Albumin/Globulin Ratio (1.0-2.8) Procalcitonin (<0.5) ng/mL Urine Color Urine Appearance Urine pH (4.5-8.0) Ur Specific Surveyor (1.000-1.035) Urine Protein (Negative) Urine Glucose (UA) (Negative) g/dL Urine Ketones (NEGATIVE) Urine Occult Blood (Negative) Urine Nitrate (Negative) Urine Bilirubin (NEGATIVE) Urine Urobilinogen (0.2) E.U./dL Ur Leukocyte Esterase (NEGATIVE) Urine RBC (0-5/HPF) Urine WBC (0-5/HPF) Uric Acid Crystals (None) Amorphous Sediment Urine Bacteria (None) Ur Culture Indicated? SARS-CoV-2 (PCR) Negative (Negative) Influenza A (RT-PCR) Flu a negative (NEGATIVE) Influenza B (RT-PCR) Flu b negative (NEGATIVE) 04/04/20 04/04/20 04/04/20 Range/Units 10:18 10:18 10:18 WBC (4.5-11.0) X10^3/uL RBC (4.5-5.9) X10^6/uL Hgb (13.5-17.5) g/dL Hct (41-53) % MCV (80-100) fL MCH (26-34) PG MCHC (30-36) % RDW (11.6-14.8) % Plt Count (150-400) X10^3/uL Neut % (Auto) (50-75) % Lymph % (Auto) (25-40) % [place] % (Auto) (3-14) % Eos % (Auto) (2-4) % Baso % (Auto) (0-2) % Neut # (Auto) (2349-0835) /uL Lymph # (Auto) (8360-6847) /uL [place] # (Auto) (0-900) /uL Eos # (Auto) (0-450) /uL Baso # (Auto) (0-100) /uL ABG pH (7.35-7.45) ABG pCO2 (35-45) mmHg ABG pO2 (80-100) mmHg ABG HCO3 (22-26) mmol/L ABG Total CO2 (21-31) mmol/L ABG O2 Saturation (95-100) % ABG Base Excess (-2-2) mmol/L FiO2 Sodium 141 (137-145) mmol/L Potassium 4.0 (3.4-5.1) mmol/L Chloride 105 (98-107) mmol/L Carbon Dioxide 37 H (22-32) mmol/L BUN 24 H (9-20) mg/dL Creatinine 0.86 (0.66-1.25) mg/dL Estimated GFR > 60.0 (>60) mL/min BUN/Creatinine Ratio 27.9 H (6-22) Glucose 125 H (80-110) mg/dL Lactate 1.5 (0.7-2.1) mmol/L Calcium 8.1 L (8.4-10.2) mg/dL Magnesium 2.4 H (1.6-2.3) mg/dL Total Bilirubin 0.2 (0.2-1.3) mg/dL AST 51 (17-59) IU/L ALT 40 (<50) IU/L Alkaline Phosphatase 129 H (38-126) U/L Total Creatine Kinase 126 (55-170) U/L CK-MB (CK-2) 5.89 H (<2.37) ng/mL CK-MB (CK-2) Rel Index 4.7 (1.5-5.0) % Troponin I 0.030 (0.01-0.034) ng/mL NT-Pro-B Natriuret Pep 15457 H (<450) pg/mL Total Protein 6.1 L (6.3-8.2) g/dL Albumin 2.6 L (3.5-5.0) g/dL Globulin 3.5 (1.7-4.1) g/dL Albumin/Globulin Ratio 0.7 L (1.0-2.8) Procalcitonin 0.10 (<0.5) ng/mL Urine Color Urine Appearance Urine pH (4.5-8.0) Ur Specific Surveyor (1.000-1.035) Urine Protein (Negative) Urine Glucose (UA) (Negative) g/dL Urine Ketones (NEGATIVE) Urine Occult Blood (Negative) Urine Nitrate (Negative) Urine Bilirubin (NEGATIVE) Urine Urobilinogen (0.2) E.U./dL Ur Leukocyte Esterase (NEGATIVE) Urine RBC (0-5/HPF) Urine WBC (0-5/HPF) Uric Acid Crystals (None) Amorphous Sediment Urine Bacteria (None) Ur Culture Indicated? SARS-CoV-2 (PCR) (Negative) Influenza A (RT-PCR) (NEGATIVE) Influenza B (RT-PCR) (NEGATIVE) 04/04/20 04/04/20 Range/Units 10:30 11:45 WBC (4.5-11.0) X10^3/uL RBC (4.5-5.9) X10^6/uL Hgb (13.5-17.5) g/dL Hct (41-53) % MCV (80-100) fL MCH (26-34) PG MCHC (30-36) % RDW (11.6-14.8) % Plt Count (150-400) X10^3/uL Neut % (Auto) (50-75) % Lymph % (Auto) (25-40) % [place] % (Auto) (3-14) % Eos % (Auto) (2-4) % Baso % (Auto) (0-2) % Neut # (Auto) (7547-2413) /uL Lymph # (Auto) (6879-0913) /uL [place] # (Auto) (0-900) /uL Eos # (Auto) (0-450) /uL Baso # (Auto) (0-100) /uL ABG pH 7.28 L* (7.35-7.45) ABG pCO2 68.9 H* (35-45) mmHg ABG pO2 156 H (80-100) mmHg ABG HCO3 32 H (22-26) mmol/L ABG Total CO2 34 H (21-31) mmol/L ABG O2 Saturation 99 (95-100) % ABG Base Excess 6.0 H (-2-2) mmol/L FiO2 100 Sodium (137-145) mmol/L Potassium (3.4-5.1) mmol/L Chloride (98-107) mmol/L Carbon Dioxide (22-32) mmol/L BUN (9-20) mg/dL Creatinine (0.66-1.25) mg/dL Estimated GFR (>60) mL/min BUN/Creatinine Ratio (6-22) Glucose (80-110) mg/dL Lactate (0.7-2.1) mmol/L Calcium (8.4-10.2) mg/dL Magnesium (1.6-2.3) mg/dL Total Bilirubin (0.2-1.3) mg/dL AST (17-59) IU/L ALT (<50) IU/L Alkaline Phosphatase (38-126) U/L Total Creatine Kinase (55-170) U/L CK-MB (CK-2) (<2.37) ng/mL CK-MB (CK-2) Rel Index (1.5-5.0) % Troponin I (0.01-0.034) ng/mL NT-Pro-B Natriuret Pep (<450) pg/mL Total Protein (6.3-8.2) g/dL Albumin (3.5-5.0) g/dL Globulin (1.7-4.1) g/dL Albumin/Globulin Ratio (1.0-2.8) Procalcitonin (<0.5) ng/mL Urine Color Yellow Urine Appearance Clear Urine pH 5.0 (4.5-8.0) Ur Specific Surveyor 1.025 (1.000-1.035) Urine Protein Trace H (Negative) Urine Glucose (UA) Negative (Negative) g/dL Urine Ketones Negative (NEGATIVE) Urine Occult Blood Trace-lysed (Negative) Urine Nitrate Negative (Negative) Urine Bilirubin Negative (NEGATIVE) Urine Urobilinogen 0.2 (0.2) E.U./dL Ur Leukocyte Esterase Negative (NEGATIVE) Urine RBC 0-1/hpf (0-5/HPF) Urine WBC 0-1/hpf (0-5/HPF) Uric Acid Crystals Occasional (None) Amorphous Sediment 1+ Urine Bacteria Few (2-10) H (None) Ur Culture Indicated? Cult not indicated SARS-CoV-2 (PCR) (Negative) Influenza A (RT-PCR) (NEGATIVE) Influenza B (RT-PCR) (NEGATIVE) Imaging Data Chest x-ray: Radiologist's Impression: PROCEDURE: XR CHEST 1V INDICATIONS: short of breath TECHNIQUE: One view of the chest was acquired. COMPARISON: [facility], CR, XR CHEST 2V, 02/09/2018, 14:23. [facility], CR, XR CHEST 1V, 03/22/2020, 11:09. [facility], CR, XR CHEST FOR PICC 1V, 03/28/2020, 10:00. FINDINGS: Surgical changes and devices: A right-sided PICC line can be seen, with the tip overlying the axillary region. The previously seen left-sided PICC line has been removed. Lungs and pleura: On this semiupright portable chest examination, no large pneumothorax or large pleural effusions are seen. No focal infiltrates are seen. Mediastinum: Mediastinal contours appear normal. Heart size is normal. A therosclerotic calcification of the aortic arch is noted. Bones and chest wall: Age-appropriate bony degenerative changes are seen. No suspicious bony lesions. Remote right posterolateral rib fractures can be seen. Overlying soft tissues appear unremarkable. IMPRESSION: The tip of the right-sided PICC line is seen overlying the right axillary region. Please correlate with known patient history. Please adjust position, as clinically appropriate. Limited portable chest examination, without a significant cardiopulmonary abnormality identified. Remote right posterolateral rib fractures. Dictated by: Rajan De Los Santos M.D. on 04/04/2020 at 10:04 ECG Data Attestation: I personally reviewed and interpreted this ECG as follows: MDM Narrative Medical decision making narrative: Patient is [place] [address] probable both COPD and CHF exacerbation. He does have a SUKHWINDER ST which shows limited intervention but BiPAP is acceptable. He is placed on BiPAP and seems to be breathing much more easily. Berman catheter placed Lasix given he has had significant urine output. Leukocytosis has improved from previously. Chest x-ray does not show significant cardiopulmonary process however PICC line is noted to be in the axilla but is still working. 12:00p Dr. Darling updated patient's symptoms test results agrees with admission 12:05p Attempted to call at [phone] mailbox was full Discharge Plan Departure Patient Disposition: Admitted As Inpatient Clinical Impression: Acute exacerbation of chronic obstructive pulmonary disease, Acute hypercapnic respiratory failure, Cellulitis of leg, right Congestive heart failure Qualifiers: Heart failure type: unspecified Heart failure chronicity: unspecified Qualified Code(s): I50.9 - Heart failure, unspecified Admit Date/Time: 04/04/20 12:05 Admit Provider: Pamela Darling
[2020-04-04] MEDS: methylPREDNISolone 125 MG/2 ML VIAL IV ×2 (10:22→20:48)
[2020-04-04 10:31] LABS: Add Manual Diff / Slide Review NO; Basophils Absolute Auto 100 /uL (0-100); Basophils Percent Auto 0.6 % (0-2); Eosinophils Absolute Auto 200 /uL (0-450); Eosinophils Percent Auto 1.2 % (2-4); Hematocrit 29.8 % (41-53); Hemoglobin 9.5 g/dL (13.5-17.5); Lymphocytes Absolute Auto 400 /uL (1100-4500); Lymphocytes Percent Auto 2.8 % (25-40); Monocytes Absolute Auto 900 /uL (0-900); Monocytes Percent Auto 6.5 % (3-14); Neutrophils Absolute Auto 11900 /uL (1500-7000); Neutrophils Percent Auto 88.9 % (50-75); Platelet Count 241 X10^3/uL (150-400); Red Blood Cell Count 2.98 X10^6/uL (4.5-5.9); Red Cell Distribution Width 14.2 % (11.6-14.8); White Blood Cell Count 13.4 X10^3/uL (4.5-11.0)
--- NOTE | 2020-04-04 10:39 | DI.CT.S_ITS ---
PROCEDURE: CT HEAD/BRAIN WO CON INDICATIONS: decrased mental status TECHNIQUE: Noncontrast 4.5 mm thick angled axial sections acquired from the foramen magnum to the vertex, with coronal and sagittal reformats. For radiation dose reduction, the following was used: automated exposure control, adjustment of mA and/or kV according to patient size. COMPARISON: [facility], CT, HEAD WITHOUT CONTRAST, 09/28/2016, 21:30. FINDINGS: Image quality: Limited by motion artifact. CSF spaces: Basal cisterns are patent. No extra-axial fluid collections. The ventricles are symmetric in size and shape. Brain: No intracranial bleeds or masses. There is cerebral volume loss for age, with resultant ventricular and sulcal prominence. There are periventricular and deep white matter chronic small vessel ischemic changes. There is intracranial internal carotid artery atherosclerosis. Skull and face: Calvarium and visualized facial bones appear intact, without suspicious lesions. Sinuses: Visualized sinuses and mastoids are clear. IMPRESSION: No acute intracranial process. Motion degraded examination Dictated by: Rubio Abdul M.D. on 04/04/2020 at 11:32 Approved by: Rubio Abdul M.D. on 04/04/2020 at 11:34
[2020-04-04 10:49] LABS: Alanine Aminotransferase 40 IU/L (<50); Albumin 2.6 g/dL (3.5-5.0); Albumin Globulin Ratio 0.7 (1.0-2.8); Alkaline Phosphatase 129 U/L (38-126); Aspartate Aminotransferase 51 IU/L (17-59); BUN Creatinine Ratio 27.9 (6-22); Bilirubin Total 0.2 mg/dL (0.2-1.3); Blood Urea Nitrogen 24 mg/dL (9-20); Calcium 8.1 mg/dL (8.4-10.2); Carbon Dioxide 37 mmol/L (22-32); Chloride 105 mmol/L (98-107); Creatine Kinase 126 U/L (55-170); Estimated Glomerular Filt Rate > 60.0 mL/min (>60); Globulin 3.5 g/dL (1.7-4.1); Glucose 125 mg/dL (80-110); HEMOLYSIS < 15 (0-50); Lactate (Lactic Acid) 1.5 mmol/L (0.7-2.1); Magnesium 2.4 mg/dL (1.6-2.3); Sodium 141 mmol/L (137-145); Total Protein 6.1 g/dL (6.3-8.2)
[2020-04-04 11:00] LABS: NT-proBNP (BNP-Adult 18+) 19400 pg/mL (<450)
[2020-04-04 11:04] LABS: CKMB % Relative Index 4.7 % (1.5-5.0); Creatine Kinase MB 5.89 ng/mL (<2.37)
[2020-04-04 11:10] LABS: Influenza A - CEPHEID Flu A NEGATIVE (NEGATIVE); Influenza B - CEPHEID Flu B NEGATIVE (NEGATIVE)
[2020-04-04 11:35] LABS: HCO3 ABG 32 mmol/L (22-26); PCO2 ABG 68.9 mmHg (35-45); PO2 ABG 156 mmHg (80-100); TCO2 ABG 34 mmol/L (21-31); pH ABG 7.28 (7.35-7.45)
[2020-04-04 11:36] LABS: Fractionated Inspired Oxygen 100; Oxygen Saturation ABG 99 % (95-100)
[2020-04-04 11:42] LABS: COVID19 -Nasal RAPID Negative (Negative)
[2020-04-04] MEDS: FUROSEMIDE 40 MG/4 ML VIAL IV (11:47)
[2020-04-04] MEDS: LIDOCAINE 2% (UROJET) 5 ML GEL TOP (11:48)
--- NOTE | 2020-04-04 12:08 | PC.NURSE ---
Pt has some wounds to right LE.
[2020-04-04 12:18] LABS: Appearance Urine UA CLEAR; Bilirubin Urine UA NEGATIVE (NEGATIVE); Color Urine UA YELLOW; Glucose Urine UA NEGATIVE (Negative); Ketones Urine UA NEGATIVE (NEGATIVE); Leukocyte Esterase Urine UA NEGATIVE (NEGATIVE); Nitrite Urine UA NEGATIVE (Negative); Occult Blood Urine UA TRACE-LYSED (Negative); Protein Urine UA TRACE (Negative); Specific Gravity Urine UA 1.025 (1.000-1.035); Urobilinogen Urine UA 0.2 E.U./dL (0.2)
[2020-04-04 12:34] LABS: Amorphous Sediment Urine 1+; Bacteria Urine Few (2-10); RBC Urine 0-1/HPF (0-5/HPF); Uric Acid Crystals Urine Occasional; WBC Urine 0-1/HPF (0-5/HPF)
[2020-04-04 12:35] LABS: Culture Indicated Urine Cult Not Indicated
[2020-04-04] MEDS: LORazepam 2 MG/ML INJ IV ×2 (15:13→21:57)
--- NOTE | 2020-04-04 15:55 | DIET.PN ---
Dietary Progress Note Assessment: 79y M admitted for SOB and decreased LOC after d/c on 03/28/20 to [facility] for cellulitis and weakness referred to nutrition for skin breakdown and low Elbert score. Pt is weight stable since last admit, however appears to have exacerbation of CHF. Pt prefers easy chew diet and generally drinks 2 Ensures per day. HT: 68in WT: 62kg (up from 61.3kg on 03/23/2020) UBW: 63.6kg BMI: 20.2 Labs: BNP 19,400 Elbert: 12 Nutrition Diagnosis: increased protein needs r/t high risk for skin breakdown aeb Elbert score 12, pt admitted weeks ago for cellulitis, pt reports reduced appetite. Interventions: 1. Recc Easy Chew diet with a focus on protein rich choices 2. Recc ONS Ensure Enlive bid to support BMI and skin integrity Diet Order: General EER: 1800 luis @ 30cal/kg ; Pro 70-80g (1.1-1.3 g/kg) Monitoring/Evaluations: PO intake, diet tolerance, ONS acceptance
--- NOTE | 2020-04-04 16:30 | PC.NURSE ---
Addendum entered by Stephanie Bradford R.N. 04/04/20 19:15: NPO for too drowsy to safely swallow. Pt does have hx with EtOH, but has been staying [facility] and not been drinking per Pt and staff. Discussed with Dr Darling , as CIWA is ordered and Pt remains tremulous but this is likely not r/t ETOH consumption. Addendum entered by Stephanie Bradford R.N. 04/04/20 19:01: 1735-Call to Gabriella to Update on Pt and POC for next shift. Continue on bipap, possibly add pain control as dressing changes were not comfortable for Pt. Call into Dr Darling for orders as well as ABG for coming down on O2 settings for bipap. Orders obtained for same. . RT managing vent and Spo2 has been 95% or greater. Floating heels and protecting all bony prominences as skin is incredibly fragile. Addendum entered by Stephanie Bradford R.N. 04/04/20 17:50: back to see Patient, coordinator Ksenia accompanying , who is clearly quite upset. did not stay at bedside long, this RN with another patient at time and unable to give face to face update. Short time later, Daughter Nery called with Gabriella on speakerphone. Questions regarding why there was no one to update them at any time during this stay, and expressing concern about visitor policy. Discussed at length that 1 person per stay was out current policy, and that is for patient safety as well as staff safety. Daughter and were not pleased with this but they will follow the recommendations, though not pleased with them. Pooja Barrios and Coordinator Ksenia arrived during this conversation and the Spouse Original Note: Admission, Pt arrives from ER confused, able to confirm name and that is all. Skin check completed with Delmi Villa RN. Multiple areas of open tissue and erythema. See photos in chart. Pt noted to be quite tremulous. Pt denies that he is like this normally. Pt is alert to self, and drowsy, dosing intermittently. Bipap in place and managed by RT with settings @ 16/5 Rate 26 40% Fio2. Pt denies pain, and is more alert after 1 hour on bipap. Call light in reach, BA active. Berman patent with clear urine.
--- NOTE | 2020-04-04 18:55 | P.HP_ITS ---
History of Present Illness History of Present Illness Date Patient Seen: 04/04/20 Time Patient Seen: 18:55 Chief complaint: Decreased LOC Narrative: 79 year old male with peripheral vascular disease recently complicated by a right leg cellulitis requiring hospitalization from 03/22/2020 to 03/28/2020 presents to the ED after having a decline in mental status and s hortness of breath this morning. One week prior to presentation, he had been discharged on IV Unasyn via PICC line to [facility]. Paramedics reported that he was responsive only to pain when they found him this morning and that it was difficult to obtain an oxygen reading and blood pressure. Vital signs in the ED included a temperature of 97.4?, pulse 53, respirations 21, blood pressure 120/69, and O2 saturation 100% on room air. He was given Tylenol, DuoNeb, lorazepam, and Lasix and eventually was responsive enough to answer questions but did not open his eyes. Lab workup significant for a BNP of 19,400 and an ABG with a pH of 7.28, pCO2 of 68.9, and bicarb of 32. He has a normocytic/normochromic anemia with a hemoglobin/hematocrit of 9.5/29.8. His white count was up at 13.4 but this is a slight decrease from his white count of 14.8, one week ago. He continues to be protein malnourished. His lactic acid was normal. Notably, his influenza and COVID testing was negative. History is obtained from chart review as patient is unable to answer questions intelligibly. 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 Patient History Medical History (Updated 04/04/20 @ 12:49 by Kady Farmer DO) COPD (chronic obstructive pulmonary disease) Surgical History No pertinent past surgical history Family & Social History Social History: household members spouse,none Safety & Behavioral: Feels Safe in Current Unwilling to Answer Environment Been Physically Hurt or Unwilling to Answer Threatened By a Person Suicidal Ideation Description None Suicide Plan Description No Plan Tobacco & Substance use: Smoking Status Former smoker alcohol intake former alcohol intake frequency 0-2 drinks per day Substance Use Type does not use Meds Home Medications and Allergies Home Medications Medication Instructions Recorded Confirmed Type Spiriva with HandiHaler 18 mcg RT DAILY #0 06/26/06 04/04/20 History escitalopram oxalate [Lexapro] 10 mg PO DAILY #0 09/10/04/04/20 History alfuzosin [Uroxatral] 10 mg PO QDAY #0 01/21/17 04/04/20 History potassium citrate [Urocit-K 5] 540 mg PO BIDCC #0 01/21/17 04/04/20 History docusate sodium 100 mg PO BID 11/06/17 04/04/20 History ferrous sulfate 325 mg PO DAILY #0 11/06/17 04/04/20 History acetaminophen 650 mg PO Q4HR PRN 50 Days tab 03/28/20 04/04/20 Rx enoxaparin [Lovenox] 30 mg SUBCUT DAILY #10 ml 03/28/20 04/04/20 Rx albuterol sulfate 2 puff INHALATION QID 04/04/20 04/04/20 History ampicillin-sulbactam 1.5 g IV Q6H 04/04/20 04/04/20 History Allergies Allergy/AdvReac Type Severity Reaction Status Date / Time tamsulosin [From FLOMAX] AdvReac Unknown DIZZINESS Verified 04/04/20 10:10 Review of Systems Review of Systems ROS: Yes unobtainable due to mental status Exam Vital Signs (past 8 hours): - 04/04/20 11:04 04/04/20 11:15 04/04/20 11:30 Temperature Pulse Rate 90 91 H Respiratory Rate 23 24 Blood Pressure 111/73 Pulse Oximetry 98 04/04/20 11:46 04/04/20 12:00 04/04/20 13:00 Temperature Pulse Rate 92 H 91 H Respiratory Rate 28 H 26 H Blood Pressure 119/73 Pulse Oximetry 99 90 L 04/04/20 13:30 04/04/20 14:00 04/04/20 14:37 Temperature 97.0 F L Pulse Rate 119 H 85 87 Respiratory Rate 33 H 30 H 30 H Blood Pressure 108/68 Pulse Oximetry 100 98 04/04/20 15:42 04/04/20 16:06 04/04/20 18:17 Temperature 97.3 F L Pulse Rate 82 Respiratory Rate 18 27 H Blood Pressure 114/52 L 114/52 L Pulse Oximetry 04/04/20 18:35 Temperature Pulse Rate 82 Respiratory Rate Blood Pressure 106/67 Pulse Oximetry Fraction of Inspired Oxygen 0.40 Oxygen Delivery Method Non -Rebreather Oxygen Flow Rate 15 Narrative Exam Narrative: GENERAL: Lying in bed with BiPAP machine in place, grasping at his lines, not responsive to questions. HEENT: Head normocephalic/atraumatic. Pupils equal, round, and reactive to light and accomodation. Extraocular muscles intact. Tympanic membranes clear. BIPAP in place. Neck soft and supple, no lymphadenopathy. LUNGS: Breathing with BiPAP but has increased work of breathing with coarse breath sounds. He is tremulous making his exam difficult to obtain. CV: Normal S1 and S2 with regular rate and rhythm, no audible murmurs, rubs or gallops. ABDOMEN: Soft, non-tender, non-distended, no organomegaly. Hypoactive bowel sounds. EXTREMITIES: PICC line in place peripherally in right upper extremity. NEURO: Tremulous, unable to obtain as patient not able to cooperate. PSYCH: Awake but not able to answer questions, agitated and pulling at lines. SKIN: Right antecubital fossa has violaceous contusion that appears new with thin, weeping overlying skin. Right ankle and foot has white heel with surrounding erythema and edema. Petechial rash extends up the ankle. Lateral side of foot has a 1 x 3 cm superficial ulcer that is not bleeding. Buttocks have 4 small superficial ulcers in the gluteal cleft. Toenails are hypertrophic and several right toes have eschars on the tips. Objective Labs Result Diagrams: 04/04/20 10:18 04/04/20 10:18 Labs: Laboratory Results - last 24 hr 04/04/20 04/04/20 04/04/20 10:05 10:13 10:18 WBC 13.4 H RBC 2.98 L Hgb 9.5 L Hct 29.8 L MCV 100.0 MCH 32.0 MCHC 32.0 RDW 14.2 Plt Count 241 Neut % (Auto) 88.9 H Lymph % (Auto) 2.8 L [place] % (Auto) 6.5 Eos % (Auto) 1.2 L Baso % (Auto) 0.6 Neut # (Auto) 36282 H Lymph # (Auto) 400 L [place] # (Auto) 900 Eos # (Auto) 200 Baso # (Auto) 100 ABG pH ABG pCO2 ABG pO2 ABG HCO3 ABG Total CO2 ABG O2 Saturation ABG Base Excess FiO2 Sodium Potassium Chloride Carbon Dioxide BUN Creatinine Estimated GFR BUN/Creatinine Ratio Glucose Lactate Calcium Magnesium Total Bilirubin AST ALT Alkaline Phosphatase Total Creatine Kinase CK-MB (CK-2) CK-MB (CK-2) Rel Index Troponin I NT-Pro-B Natriuret Pep Total Protein Albumin Globulin Albumin/Globulin Ratio Procalcitonin Urine Color Urine Appearance Urine pH Ur Specific [place] Urine Protein Urine Glucose (UA) Urine Ketones Urine Occult Blood Urine Nitrate Urine Bilirubin Urine Urobilinogen Ur Leukocyte Esterase Urine RBC Urine WBC Uric Acid Crystals Amorphous Sediment Urine Bacteria Ur Culture Indicated? Nasal Screen MRSA (PCR) SARS-CoV-2 (PCR) Negative Influenza A (RT-PCR) Flu a negative Influenza B (RT-PCR) Flu b negative 04/04/20 04/04/20 04/04/20 10:18 10:18 10:18 WBC RBC Hgb Hct MCV MCH MCHC RDW Plt Count Neut % (Auto) Lymph % (Auto) [place] % (Auto) Eos % (Auto) Baso % (Auto) Neut # (Auto) Lymph # (Auto) [place] # (Auto) Eos # (Auto) Baso # (Auto) ABG pH ABG pCO2 ABG pO2 ABG HCO3 ABG Total CO2 ABG O2 Saturation ABG Base Excess FiO2 Sodium 141 Potassium 4.0 Chloride 105 Carbon Dioxide 37 H BUN 24 H Creatinine 0.86 Estimated GFR > 60.0 BUN/Creatinine Ratio 27.9 H Glucose 125 H Lactate 1.5 Calcium 8.1 L Magnesium 2.4 H Total Bilirubin 0.2 AST 51 ALT 40 Alkaline Phosphatase 129 H Total Creatine Kinase 126 CK-MB (CK-2) 5.89 H CK-MB (CK-2) Rel Index 4.7 Troponin I 0.030 NT-Pro-B Natriuret Pep 51969 H Total Protein 6.1 L Albumin 2.6 L Globulin 3.5 Albumin/Globulin Ratio 0.7 L Procalcitonin 0.10 Urine Color Urine Appearance Urine pH Ur Specific [place] Urine Protein Urine Glucose (UA) Urine Ketones Urine Occult Blood Urine Nitrate Urine Bilirubin Urine Urobilinogen Ur Leukocyte Esterase Urine RBC Urine WBC Uric Acid Crystals Amorphous Sediment Urine Bacteria Ur Culture Indicated? Nasal Screen MRSA (PCR) SARS-CoV-2 (PCR) Influenza A (RT-PCR) Influenza B (RT-PCR) 04/04/20 04/04/20 04/04/20 10:30 11:45 14:48 WBC RBC Hgb Hct MCV MCH MCHC RDW Plt Count Neut % (Auto) Lymph % (Auto) [place] % (Auto) Eos % (Auto) Baso % (Auto) Neut # (Auto) Lymph # (Auto) [place] # (Auto) Eos # (Auto) Baso # (Auto) ABG pH 7.28 L* ABG pCO2 68.9 H* ABG pO2 156 H ABG HCO3 32 H ABG Total CO2 34 H ABG O2 Saturation 99 ABG Base Excess 6.0 H FiO2 100 Sodium Potassium Chloride Carbon Dioxide BUN Creatinine Estimated GFR BUN/Creatinine Ratio Glucose Lactate Calcium Magnesium Total Bilirubin AST ALT Alkaline Phosphatase Total Creatine Kinase CK-MB (CK-2) CK-MB (CK-2) Rel Index Troponin I NT-Pro-B Natriuret Pep Total Protein Albumin Globulin Albumin/Globulin Ratio Procalcitonin Urine Color Yellow Urine Appearance Clear Urine pH 5.0 Ur Specific [place] 1.025 Urine Protein Trace H Urine Glucose (UA) Negative Urine Ketones Negative Urine Occult Blood Trace-lysed Urine Nitrate Negative Urine Bilirubin Negative Urine Urobilinogen 0.2 Ur Leukocyte Esterase Negative Urine RBC 0-1/hpf Urine WBC 0-1/hpf Uric Acid Crystals Occasional Amorphous Sediment 1+ Urine Bacteria Few (2-10) H Ur Culture Indicated? Cult not indicated Nasal Screen MRSA (PCR) Negative for mrsa SARS-CoV-2 (PCR) Influenza A (RT-PCR) Influenza B (RT-PCR) Assessment & Plan Assessment & Plan narrative: 79-year-old man with recent hospitalization for right foot/ankle cellulitis due to peripheral vascular disease, readmitted for decreasing mental status and dyspnea. 1. COPD exacerbation with acute hypoxic respiratory failure, oxygen dependent Plan: BiPAP per RT, DuoNebs, Spiriva, albuterol, methylprednisolone, azithromycin. Patient's code status is for limited interventions only. Will follow closely. 2. Congestive heart failure, type unknown, acute -BNP 19,400 Plan: IV Lasix, potassium, echo. 3. Acute metabolic encephalopathy Plan: Treating underlying diseases as noted above and below. Will trend labs. Lorazepam for agitation. 4. Right leg cellulitis, chronic Plan: Will reposition PICC and continue IV unasyn. Wound care consult. Will trend CBC. 5. Peripheral vascular disease, chronic Plan: Vascular surgery consult as outpatient after cellulitis infection has resolved. 6. Anemia of chronic disease Plan: Continue iron supplements. 7. Buttock ulcers, chronic Plan: Silvadene eggjhonate cushion, wound care consult. 8. Severe protein malnutrition, chronic Plan: Nutrition consult. 9. Weakness Plan: PT/OT 10. Hypertension, chronic Plan: Will watch closely, uses furosemide 20 mg daily at home, will start with IV furosemide to help bring down BNP and transition to orals when able. 11. Alcoholism, chronic Plan: CIWA protocol 12. History of PE Plan: Lovenox per home dose. DVT prophylaxis: Lovenox, SCDs Code: Limited COVID: Negative
[2020-04-04] MEDS: MORPHINE 2 MG/ML INJ 1 MG IV (19:16)
[2020-04-04 19:53] LABS: PCO2 ABG 40.7 mmHg (35-45); PO2 ABG 148 mmHg (80-100); pH ABG 7.53 (7.35-7.45)
[2020-04-04 19:54] LABS: HCO3 ABG 34 mmol/L (22-26); Oxygen Saturation ABG 99 % (95-100); TCO2 ABG 35 mmol/L (21-31)
--- NOTE | 2020-04-04 20:01 | PC.NURSE ---
Addendum entered by Kellen Herrera R.N. 04/04/20 22:54: Pt continues to be tremulous. Unable to get reliable BP at this time r/t tremors. Oral care provided. Audibly course with bi-pap mask removed for care. Addendum entered by Kellen Herrera R.N. 04/04/20 22:19: Discussed patients inability to take PO with MD. Clarified medication orders. Discussed patient's continued rigid and tremulous movements, appearing anxious or agitated during care. Ativan given. Pt repositioned. 100% on FIO2 of 30%, 05/08. Bed alarm on. Drsg intact. IV infusing as ordered. Original Note: Pt rigid and tremulous, grimacing. Morphine given for pain. RT to recheck ABG. Pt resistive to care, does not follow request to open eyes. PERRLA. Repositioned. Drsg placed to weeping right forearm, drsg to left forearm and RLE CDI. Repositioned, smearing stool. Waffle cushion under buttock. Bed alarm on.
[2020-04-04] MEDS: AMPICILLIN/SULBACTAM 1.5 GM 1.5 GM in SODIUM CHLORIDE 0.9% 100 ML IV (20:47)
[2020-04-04] MEDS: POTASSIUM CHLORIDE 20 MEQ in SODIUM CHLORIDE 0.9% 250 ML 75 ML IV (21:21)
[2020-04-04] MEDS: AZITHROMYCIN 500 MG in DEXTROSE 5% IN WATER 250 ML IV (22:00)
[2020-04-05] VITALS (69 sets, daily range): BP systolic 54–93; BP diastolic 34–51; PULSE 70–90; RESP 19–45; TEMP 30.9–36.4; O2SAT 94–100
--- NOTE | 2020-04-05 01:11 | PC.NURSE ---
Addendum entered by Debra John R.N. 04/05/20 04:19: A good amount of time spent at bedside with family; updating them on current patient condition and education on his tenuous status. Family agreed to morphine IVP for comfort. Current BP 78/44 (57). RR increasing 30-35 Sp02 100% on BiPAP. Remains unresponsive with spasticity. Addendum entered by Debra John R.N. 04/05/20 02:01: (Gabriella) at bedside. Original Note: Received patient unresponsive. BP stable at the time; however trending low. As the shift progressed the patient became increasingly hypotensive. Cuff changed to a more appropriate size without any improvement. Tele SR with rate in the 70's-80's. Tolerating BIPAP settings FI02 30%, 05/08. Dr. Darling notified of change in condition - she verbalized that this is expected. DNR code status verified from Dr. Darling as well as patient's POLST form signed 03/28/20. Family notified of change in patient status - awaiting their arrival to bedside. Last BP 66/38. Patient with noted intermittent spastic movements of extremities. Occasional facial grimacing noted for FLACC of 2. Per verbal orders will administer morphine once family arrives.
[2020-04-05] MEDS: methylPREDNISolone 125 MG/2 ML VIAL IV ×2 (01:27→06:29)
[2020-04-05] MEDS: MORPHINE 2 MG/ML INJ 1 MG IV ×4 (03:57→22:58)
[2020-04-05] MEDS: AMPICILLIN/SULBACTAM 1.5 GM 1.5 GM in SODIUM CHLORIDE 0.9% 100 ML IV ×4 (03:58→21:01)
[2020-04-05 05:35] LABS: Add Manual Diff / Slide Review NO; Basophils Absolute Auto 0 /uL (0-100); Basophils Percent Auto 0.1 % (0-2); Eosinophils Absolute Auto 0 /uL (0-450); Hematocrit 25.1 % (41-53); Hemoglobin 8.3 g/dL (13.5-17.5); Lymphocytes Absolute Auto 100 /uL (1100-4500); Lymphocytes Percent Auto 1.4 % (25-40); Mean Corpuscular HGB Conc 33.1 % (30-36); Mean Corpuscular Hemoglobin 32.6 PG (26-34); Mean Corpuscular Volume 98.4 fL (80-100); Monocytes Absolute Auto 200 /uL (0-900); Monocytes Percent Auto 1.8 % (3-14); Neutrophils Absolute Auto 9100 /uL (1500-7000); Neutrophils Percent Auto 96.7 % (50-75); Platelet Count 196 X10^3/uL (150-400); Red Blood Cell Count 2.55 X10^6/uL (4.5-5.9); White Blood Cell Count 9.4 X10^3/uL (4.5-11.0)
[2020-04-05 05:36] LABS: INR 1.1 (0.9-1.3); Prothrombin Time 12.8 SECONDS (10.1-12.7)
[2020-04-05 05:41] LABS: Alanine Aminotransferase 31 IU/L (<50); Albumin 2.2 g/dL (3.5-5.0); Albumin Globulin Ratio 0.7 (1.0-2.8); Alkaline Phosphatase 102 U/L (38-126); Aspartate Aminotransferase 36 IU/L (17-59); BUN Creatinine Ratio 34.2 (6-22); Bilirubin Total 0.1 mg/dL (0.2-1.3); Blood Urea Nitrogen 27 mg/dL (9-20); Calcium 7.6 mg/dL (8.4-10.2); Carbon Dioxide 37 mmol/L (22-32); Chloride 107 mmol/L (98-107); Estimated Glomerular Filt Rate > 60.0 mL/min (>60); Glucose 111 mg/dL (80-110); HEMOLYSIS < 15 (0-50); Sodium 141 mmol/L (137-145); Total Protein 5.2 g/dL (6.3-8.2)
[2020-04-05 05:50] LABS: NT-proBNP (BNP-Adult 18+) 14800 pg/mL (<450)
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
[2020-04-05] MEDS: TIOTROPIUM BROMIDE 18 MCG INHALER INH (07:52)
--- NOTE | 2020-04-05 08:55 | OT.IPNOTE ---
Per nursing, pt not appropriate for OT eval at this time. Hold OT eval.
--- NOTE | 2020-04-05 08:58 | PT-IP ANOTE ---
Per ORAL HYGIENIST, pt not appropriate for therapy at this time. Will discuss in AM rounds.
--- NOTE | 2020-04-05 10:12 | OT.IPNOTE ---
Pt not medically appropriate as not responsive and therefore discharge OT eval orders.
--- NOTE | 2020-04-05 10:51 | PC.NURSE ---
Addendum entered by Stephanie Bradford R.N. 04/05/20 15:25: Update to Dr Darling, family would like to have bedside service with [facility] if possible. prize coordinator notified for visitor approval. Addendum entered by Stephanie Bradford R.N. 04/05/20 14:38: Bipap removed @ 1210 due to Patient cough and unable to safely protect airway. 2L NC placed and Spo2 93-[address] Rossi. After speaking with Dr Rossi, Pt family is more understanding of dire situation that Patient is in. Discussion about comfort vs. giving patient the time to clear this Son and daughter at bedside for all conversation re care of Patient. Allow for additional time to process and grieve this shift. Pt family significant improvement to understanding process and what to expect in the coming days. Request made for backend java developer services, Luciano Ferrer at bedside with family at 1430. Original Note: Am shift Start of shift, and 2 adult children at bedside. BP low overnight, still tolerating bipap with settings adjusted by RT. Lengthy update with family, and Dr Darling at bedside to discuss POC, code status. Pt hypotensive, unable to tolerate Lasix, notified Dr Darling, but no changes to current POC, family expresses significant frustration in handling of care of Pt, extending from SNF. Allowing for additional time to let family air frustrations, and offer solutions as able. Update to prize coordinator, as Pt is appropriate for comfort care. Dr Darling has also consulted with Dr Rossi who is seeing Pt family at bedside @11am.
--- NOTE | 2020-04-05 11:03 | CM.DANOTE ---
Discharge Planning/Care Management DCP: assessment: case received, EMR reviewed. Readmit: noted. Discussed in Team Rounds and then just now with RN coordinator Ksenia. Pt is an 79 year old male who admitted yesterday afternoon to care of Dr. Briseyda Darling. Hospitalist consult is being requested. RN Ksenia reports that pt seems to be actively dying and she has discussed POC at length with Dr. Darling, MILANA Brown (caring for pt today) and the pt's family members. Pt's Gabriella and his son and daughter at bedside much of the night. POLST form is being reviewed and discussed. vp director of finance Pooja is now speaking with family members. After further discussion with RN coordinator Ksenia will plan to be available as need be but will wait until it might be considered helpful before joining in the large team focused on pt's current medical needs and the overall well being of pt and his family. CM Discharge Assessment Start: 04/05/20 11:00 Freq: Status: Active Protocol: Document 04/05/20 11:00 ITV (Rec: 04/05/20 11:03 ITV [id number]) Discharge Planning Assessment Advance Directives? Yes Advance Directives on File Yes History Provided By Medical Record Has Patient been admitted in last 30 Yes days? Comment 03/22 to 03/28/20 with a d/c to [facility] at that time. Household Members spouse Facility Name Admitted From: Other Willing to Return to Facility? Unknown. Review Status In Process
--- NOTE | 2020-04-05 11:11 | DI.ECHO.S_ITS ---
[facility] +---------+ : : [address] : [place] : : : : [id number] : : : : Phone: [phone] Echocardiogram Report + + :Name: KINSEY JUAN Study Date: 04/05/2020 Height: 69 in : :[facility] ReadingLocation: Weight: 136 lb: : Gender: Male BSA: 1.8 m2 : :: 1940 Age: 79 yrs BP: 75/40 mmHg: :Reason For Study: CONGESTIVE HEART FAILURE : :Ordering Physician: MAGDIEL, : :KENDRA Performed By: Geovanna Avalos : :Referring: KENDRA VELOZ : + + Interpretation Summary The ejection fraction is estimated to be 60-65%. There is no pericardial effusion. Procedure: A two-dimensional transthoracic echocardiogram with color flow and Doppler was performed in limited views only to assess Ejection fraction and IVC.. The study quality was technically adequate. Comparison is made with the echocardiogram of 09/30/2016. The heart rate ranged between 81-91 bpm during the study. Left Ventricle: The left ventricle is normal in size. Left ventricular wall thickness is at the upper limits of normal. The ejection fraction is estimated to be 60-65%. Left ventricular wall motion is normal. Tricuspid Valve: The right ventricular systolic pressure is estimated to be at least 43 mmHg based on an estimated right atrial pressure of 3 mm Hg. Great Vessels: The IVC is of normal diameter and collapses greater than 50% with a sniff. This suggests a low right atrial pressure of 3 mm Hg. Pericardium/ Pleura There is no pericardial effusion. There is no pleural effusion. MMode/2D Measurements & Calculations LVIDd: 4.0 cm LA A2 area: 9.3 cm2 LVIDs: 3.0 cm LA A4 area: 16.4 cm2 FS: 24.7 % LA length (vol): 4.7 cm IVSd: 0.85 cm LA vol: 27.5 ml LVPWd: 1.1 cm LA vol index: 15.7 ml/m2 LV garcia. diameter/BSA (cm/m^2): 2.3 LV sys. diameter/BSA (cm/m^2): 1.7 IVC diam: 1.7 cm Doppler Measurements & Calculations MV E max guille: 87.3 cm/sec TR max guille: 316.7 cm/sec MV A max guille: 94.7 cm/sec TR max P.1 mmHg MV E/A: 0.92 Med Peak E' Guille: 7.1 cm/sec E/E' med: 12.2 Lat Peak E' Guille: 7.8 cm/sec E/E' lat: 11.2 E/e' average: 11.7 MV dec time: 0.22 sec Reading Physician:02:16 PM
--- NOTE | 2020-04-05 11:57 | PT-IP ANOTE ---
D/C PT orders per hospitalist at AM rounds.
[2020-04-05] MEDS: SODIUM CHLORIDE 0.9% 1,000 ML 1000 ML IV ×2 (12:16→12:55)
[2020-04-05] MEDS: methylPREDNISolone 125 MG/2 ML VIAL 60 MG IV ×2 (12:17→19:03)
[2020-04-05] MEDS: SODIUM CHLORIDE 0.9% 1,000 ML 100 ML IV (12:17)
[2020-04-05 13:49] LABS: PCO2 ABG 52.5 mmHg (35-45); PO2 ABG 84 mmHg (80-100); pH ABG 7.37 (7.35-7.45)
[2020-04-05 13:50] LABS: Fractionated Inspired Oxygen 24; HCO3 ABG 30 mmol/L (22-26); Oxygen Saturation ABG 96 % (95-100); TCO2 ABG 32 mmol/L (21-31)
--- NOTE | 2020-04-05 14:36 | P.CONS_ITS ---
History of Present Illness Consult details Date Patient Seen: 04/05/20 Time Patient Seen: 10:45 Chief complaint: Decreased LOC Reason for consult: respiratory failure and hypotension Requesting provider: Pamela Darling Narrative: Patient is an 79-year-old male with history of COPD, peripheral vascular disease, hypertension, recent hospitalization March 22, 2020 to March 28, 2020 for right leg cellulitis, who was admitted from the emergency department on April 04 due to decline in mental status and shortness of breath. Per report, he was responsive only to physical stimuli when medics saw him. He had [facility] hospitalization. Initial WBC 13.4 with left shift which was trending down from prior values, hemoglobin 9.5, platelets 241, sodium 141, potassium 4.0, CO2 37, BUN 24, creatinine 0.86, glucose 125, NT proBNP 19,400. Blood gas with pH 7.28, pCO2 69, PO2 156 on 100% FiO2. Chest x-ray without infiltrate or edema. EKG showed sinus rhythm without acute ST or T-wave changes. Patient was felt to have COPD exacerbation and acute CHF. He was started on BiPAP as well as IV Solu-Medrol and IV furosemide and nebulizer treatments. He put out about 2 L urine output yesterday. Clinical situation has worsened with drops in his blood pressure where he has been persistently hypotensive and remained responsive only to physical stimuli. He also had difficulty clearing secretions which necessitated taking him off BiPAP. I was consulted to see him to assist with management of respiratory failure and hypotension. Patient does have DNR status while at same time his spouse who is POA would like us to do what we can to turn his condition around. Meds Home Medications and Allergies Home Medications Medication Instructions Recorded Confirmed Type Spiriva with HandiHaler 18 mcg RT DAILY #0 06/26/06 04/04/20 History escitalopram oxalate [Lexapro] 10 mg PO DAILY #0 09/11/11 04/04/20 History alfuzosin [Uroxatral] 10 mg PO QDAY #0 01/21/17 04/04/20 History potassium citrate [Urocit-K 5] 540 mg PO BIDCC #0 01/21/17 04/04/20 History docusate sodium 100 mg PO BID 11/06/17 04/04/20 History ferrous sulfate 325 mg PO DAILY #0 11/06/17 04/04/20 History acetaminophen 650 mg PO Q4HR PRN 50 Days tab 03/28/20 04/04/20 Rx enoxaparin [Lovenox] 30 mg SUBCUT DAILY #10 ml 03/28/20 04/04/20 Rx albuterol sulfate 2 puff INHALATION QID 04/04/20 04/04/20 History ampicillin-sulbactam 1.5 g IV Q6H 04/04/20 04/04/20 History Allergies Allergy/AdvReac Type Severity Reaction Status Date / Time tamsulosin [From FLOMAX] AdvReac Unknown DIZZINESS Verified 04/04/20 10:10 Review of Systems Review of Systems ROS: Yes unobtainable due to mental status Exam Vital Signs (past 8 hours): - 04/05/20 07:00 04/05/20 07:54 04/05/20 07:57 Temperature 96.8 F L Pulse Rate 80 Respiratory Rate 30 H Blood Pressure 73/45 L 73/45 L Pulse Oximetry 100 99 04/05/20 08:00 04/05/20 08:30 04/05/20 09:00 Temperature Pulse Rate 74 74 78 Respiratory Rate 32 H 39 H 33 H Blood Pressure 77/39 L Pulse Oximetry 100 100 100 04/05/20 09:30 04/05/20 10:00 04/05/20 10:01 Temperature Pulse Rate 72 74 77 Respiratory Rate 43 H 41 H 38 H Blood Pressure 63/35 L Pulse Oximetry 100 100 100 04/05/20 10:02 04/05/20 10:30 04/05/20 11:00 Temperature Pulse Rate 75 76 70 Respiratory Rate 36 H 34 H 45 H Blood Pressure 54/34 L 64/37 L Pulse Oximetry 100 100 100 04/05/20 11:25 04/05/20 11:30 04/05/20 12:00 Temperature 97.5 F L Pulse Rate 76 76 81 Respiratory Rate 26 H 34 H 25 H Blood Pressure 68/42 L Pulse Oximetry 98 100 97 04/05/20 12:04 04/05/20 12:30 04/05/20 13:00 Temperature Pulse Rate 81 78 80 Respiratory Rate 27 H 22 39 H Blood Pressure 75/40 L 86/48 L Pulse Oximetry 97 98 97 04/05/20 13:12 04/05/20 13:30 Temperature Pulse Rate 81 84 Respiratory Rate 28 H 24 Blood Pressure Pulse Oximetry 99 98 Fraction of Inspired Oxygen 30 Oxygen Delivery Method Nasal Cannula,BiPAP Oxygen Flow Rate 1 Narrative Exam Narrative: General: Elderly male responsive only to physical stimuli, gurgling in back of throat with difficulty clearing secretions, and grimacing HEENT: Nontraumatic, anicteric, pupils 2 mm and equal bilaterally Neck: No lymphadenopathy Lungs: Severely diminished bilaterally with inspiratory next abimbola rhonchi Heart: Regular rate and rhythm, murmur not appreciated Abdomen: Nondistended, soft, no HSM, no abdominal mass Extremities: Actually warm distally, nonedematous, there is mild macular erythema above the right ankle Neurological: As above, does not follow commands Objective Labs Result Diagrams: 04/05/20 05:20 04/05/20 05:20 Labs: Laboratory Results - last 24 hr 04/04/20 04/04/20 04/05/20 14:48 19:38 05:20 WBC 9.4 RBC 2.55 L Hgb 8.3 L Hct 25.1 L MCV 98.4 MCH 32.6 MCHC 33.1 RDW 14.0 Plt Count 196 Neut % (Auto) 96.7 H Lymph % (Auto) 1.4 L Tyrrell % (Auto) 1.8 L Eos % (Auto) 0.0 L Baso % (Auto) 0.1 Neut # (Auto) 9100 H Lymph # (Auto) 100 L Tyrrell # (Auto) 200 Eos # (Auto) 0 Baso # (Auto) 0 PT INR ABG pH 7.53 H ABG pCO2 40.7 ABG pO2 148 H ABG HCO3 34 H ABG Total CO2 35 H ABG O2 Saturation 99 ABG Base Excess 11.0 H FiO2 0.40 Sodium Potassium Chloride Carbon Dioxide BUN Creatinine Estimated GFR BUN/Creatinine Ratio Glucose Calcium Total Bilirubin AST ALT Alkaline Phosphatase NT-Pro-B Natriuret Pep Total Protein Albumin Globulin Albumin/Globulin Ratio Nasal Screen MRSA (PCR) Negative for mrsa 04/05/20 04/05/20 04/05/20 05:20 05:20 13:16 WBC RBC Hgb Hct MCV MCH MCHC RDW Plt Count Neut % (Auto) Lymph % (Auto) Tyrrell % (Auto) Eos % (Auto) Baso % (Auto) Neut # (Auto) Lymph # (Auto) Tyrrell # (Auto) Eos # (Auto) Baso # (Auto) PT 12.8 H INR 1.1 ABG pH 7.37 ABG pCO2 52.5 H ABG pO2 84 ABG HCO3 30 H ABG Total CO2 32 H ABG O2 Saturation 96 ABG Base Excess 5.0 H FiO2 24 Sodium 141 Potassium 4.0 Chloride 107 Carbon Dioxide 37 H BUN 27 H Creatinine 0.79 Estimated GFR > 60.0 BUN/Creatinine Ratio 34.2 H Glucose 111 H Calcium 7.6 L Total Bilirubin 0.1 L AST 36 ALT 31 Alkaline Phosphatase 102 NT-Pro-B Natriuret Pep 96348 H Total Protein 5.2 L Albumin 2.2 L Globulin 3.0 Albumin/Globulin Ratio 0.7 L Nasal Screen MRSA (PCR) Assessment & Plan Assessment & Plan narrative: This is an 79-year-old male with history of COPD, recent admission for lower extremity cellulitis, admitted with decreased LOC and acute respiratory failure but subsequently became severely hypotensive. 1. Acute hypoxic and hypercarbic respiratory failure, present on admission, active -patient presenting with hypoxia and respiratory acidosis. I think this is due to severe COPD exacerbation. There is no clear evidence of pneumonia. He has elevated BNP but clinically appears volume depleted related to previous IV Lasix and has no past history of CHF or requiring diuretics at home. -agree with present management of IV Solu-Medrol and nebulizers. Solu-Medrol dose adjusted to 60 mg IV q.8 hours. Continue DuoNeb q.6 hours. Continue current antibiotics. -a repeat blood gas off BiPAP and on 1 L NC was improved with pCO2 of 52, pH 7.37, PO2 84. Currently on 2 L NC with O2 sat in 90s. However his respiratory status is quite tenuous with difficulty clearing secretions and labored work of breathing where I think his respiratory muscles are going to fatigue overnight such that he has low probability of survive ability. Clinical findings and prognosis were discussed with patient's spouse and kids who would like to continue active treatments but have correct understanding of poor prognosis with likelihood that he will not survive this hospitalization. At same time, spouse has consented to using low doses of morphine to ease his work of breathing and reduce discomfort. 2. Acute hypotension secondary to volume depletion -as noted, he appeared volume depleted on today's exam. A limited echo was ordered which showed LVEF 60-65%. I was able to get a glimpse of his IVC which did not look dilated and collapsed greater than 50% indicating low right atrial pressure. He does not appear septic such as fever, tachycardia, elevated WBC, or x-ray infiltrate. He was already on Unasyn for continued treatment of lower extremity cellulitis. Additionally, blood cultures from admission remain negative and urinalysis was not indicative of infection.. -initiated saline bolus x2 which has brought his blood pressure up into 80's systolic -continue NS at 100 cc/hour to provide volume 3. Acute toxic encephalopathy -this is secondary to respiratory failure and not expected to improve Patient management was discussed with Dr. Darling. Hospitalist service will co manage patient.
[2020-04-05] MEDS: ALBUTEROL/IPRATROPIUM 3 ML AMPUL INH (15:06)
--- NOTE | 2020-04-05 15:53 | PC.NURSE ---
Called Dr. Rossi regarding pt's. antibiotic, solumedrol and other med order whether to administer or not, Dr. Rossi order to administer meds as ordered.
[2020-04-05] MEDS: ATROPINE 1% OPHTH 2 DROPS SL (17:20)
[2020-04-05] MEDS: SODIUM CHLORIDE 0.9% FLUSH 10 ML IV (21:01)
[2020-04-05] MEDS: AZITHROMYCIN 500 MG in DEXTROSE 5% IN WATER 250 ML IV (22:14)
[2020-04-06] VITALS (21 sets, daily range): BP systolic 62–83; BP diastolic 35–49; PULSE 79–93; RESP 20–26; TEMP 36.3–37.4; O2SAT 95–99
[2020-04-06] MEDS: methylPREDNISolone 125 MG/2 ML VIAL 60 MG IV ×3 (03:38→19:13)
[2020-04-06] MEDS: AMPICILLIN/SULBACTAM 1.5 GM 1.5 GM in SODIUM CHLORIDE 0.9% 100 ML IV ×4 (03:38→21:28)
[2020-04-06] MEDS: MORPHINE 2 MG/ML INJ IV (03:38)
[2020-04-06] MEDS: SODIUM CHLORIDE 0.9% 1,000 ML 100 ML IV (03:41)
[2020-04-06 06:16] LABS: Add Manual Diff / Slide Review NO; Basophils Absolute Auto 0 /uL (0-100); Basophils Percent Auto 0.2 % (0-2); Eosinophils Absolute Auto 0 /uL (0-450); Hematocrit 29.2 % (41-53); Hemoglobin 9.2 g/dL (13.5-17.5); Lymphocytes Absolute Auto 300 /uL (1100-4500); Lymphocytes Percent Auto 1.4 % (25-40); Mean Corpuscular HGB Conc 31.7 % (30-36); Mean Corpuscular Hemoglobin 31.9 PG (26-34); Mean Corpuscular Volume 100.7 fL (80-100); Monocytes Absolute Auto 400 /uL (0-900); Monocytes Percent Auto 2.3 % (3-14); Neutrophils Absolute Auto 18200 /uL (1500-7000); Neutrophils Percent Auto 96.1 % (50-75); Platelet Count 290 X10^3/uL (150-400); Red Cell Distribution Width 14.8 % (11.6-14.8); White Blood Cell Count 18.9 X10^3/uL (4.5-11.0)
[2020-04-06 06:40] LABS: Alanine Aminotransferase 30 IU/L (<50); Albumin 2.2 g/dL (3.5-5.0); Albumin Globulin Ratio 0.7 (1.0-2.8); Alkaline Phosphatase 98 U/L (38-126); Aspartate Aminotransferase 33 IU/L (17-59); BUN Creatinine Ratio 37.6 (6-22); Bilirubin Total 0.2 mg/dL (0.2-1.3); Blood Urea Nitrogen 32 mg/dL (9-20); Calcium 7.4 mg/dL (8.4-10.2); Carbon Dioxide 32 mmol/L (22-32); Chloride 112 mmol/L (98-107); Estimated Glomerular Filt Rate > 60.0 mL/min (>60); Globulin 3.2 g/dL (1.7-4.1); Glucose 121 mg/dL (80-110); HEMOLYSIS 24 (0-50); Potassium 3.9 mmol/L (3.4-5.1); Sodium 143 mmol/L (137-145); Total Protein 5.4 g/dL (6.3-8.2)
[2020-04-06 06:43] LABS: NT-proBNP (BNP-Adult 18+) 15500 pg/mL (<450)
--- NOTE | 2020-04-06 07:26 | PM.PN.1 ---
Subjective Subjective Date Patient Seen: 04/06/20 Time Patient Seen: 07:26 Interval history: Nursing reports that patient's status has improved overnight, started becoming responsive late last night. Is able to converse this morning, though still weak. Remains hypotensive, 70s/40s overnight. Patient is DNR/DNI with limitied interventions, fluids started yesterday with some improvement in systolic pressures and they continue to run at 100 cc per hour. Now on room air and maintaining his saturations. ABG yesterday at 13:15, improved overall with a pH of 7.37, pCO2 52.5, pO2 of 84, HCO3 of 30, and BE of 5, taken off BIPAP at that time. Receiving morphine and benzodiazepine as needed for respiratory distress and pain. Family has been at the bedside, was here overnight. and son at bedside at time of interview. Patient reports that he is not in pain. Reports that his breathing is ?about the same.? Denies chest pain. Does not have an appetite but thinks he would be able to try eating. No nausea or vomiting. Exam Vital Signs (past 8 hours): - 04/05/20 23:30 04/06/20 00:00 04/06/20 00:01 Temperature Pulse Rate 81 81 81 Respiratory Rate 23 21 25 H Blood Pressure 65/48 L Pulse Oximetry 97 99 99 04/06/20 00:16 04/06/20 00:30 04/06/20 01:00 Temperature 97.3 F L Pulse Rate 80 79 Respiratory Rate 22 20 Blood Pressure 67/44 L Pulse Oximetry 96 97 04/06/20 01:30 04/06/20 02:00 04/06/20 02:07 Temperature Pulse Rate 79 85 80 Respiratory Rate 21 22 22 Blood Pressure 76/49 L Pulse Oximetry 97 97 98 04/06/20 02:30 04/06/20 03:00 04/06/20 03:30 Temperature Pulse Rate 82 82 83 Respiratory Rate 21 21 24 Blood Pressure 83/44 L Pulse Oximetry 99 98 99 04/06/20 04:00 04/06/20 04:01 04/06/20 04:30 Temperature Pulse Rate 82 81 84 Respiratory Rate 21 22 20 Blood Pressure 72/35 L 72/35 L Pulse Oximetry 97 97 98 Fraction of Inspired Oxygen 30 Oxygen Delivery Method Nasal Cannula Oxygen Flow Rate 1 Narrative Exam Narrative: GENERAL: Lying in bed, cheerful to be around his family. Able to respond to questions. HEENT: Head normocephalic/atraumatic. LUNGS: Diminished inspiratory effort with coarse breath sounds and inspiratory rhonchi. CV: Normal S1 and S2 with regular rate and rhythm, no audible murmurs, rubs or gallops. ABDOMEN: Soft, non-tender, non-distended, no organomegaly. Hypoactive bowel sounds. EXTREMITIES: PICC line in place peripherally in right upper extremity. NEURO: No focal deficits. PSYCH: Alert and oriented x 3. SKIN: Right antecubital fossa contusion with dressing in placed, c/d/i. Right foot with dressing in place, c/d/i. Objective Labs Result Diagrams: 04/06/20 06:00 04/06/20 06:00 Labs: Laboratory Results - last 24 hr 04/05/20 04/06/20 04/06/20 13:16 06:00 06:00 WBC 18.9 H D RBC 2.90 L Hgb 9.2 L Hct 29.2 L MCV 100.7 H MCH 31.9 MCHC 31.7 RDW 14.8 Plt Count 290 Neut % (Auto) 96.1 H Lymph % (Auto) 1.4 L Carroll % (Auto) 2.3 L Eos % (Auto) 0.0 L Baso % (Auto) 0.2 Neut # (Auto) 86968 H Lymph # (Auto) 300 L Carroll # (Auto) 400 Eos # (Auto) 0 Baso # (Auto) 0 ABG pH 7.37 ABG pCO2 52.5 H ABG pO2 84 ABG HCO3 30 H ABG Total CO2 32 H ABG O2 Saturation 96 ABG Base Excess 5.0 H FiO2 24 Sodium 143 Potassium 3.9 Chloride 112 H Carbon Dioxide 32 BUN 32 H Creatinine 0.85 Estimated GFR > 60.0 BUN/Creatinine Ratio 37.6 H Glucose 121 H Calcium 7.4 L Total Bilirubin 0.2 AST 33 ALT 30 Alkaline Phosphatase 98 NT-Pro-B Natriuret Pep 03024 H Total Protein 5.4 L Albumin 2.2 L Globulin 3.2 Albumin/Globulin Ratio 0.7 L PFSH Medical History (Updated 04/04/20 @ 12:49 by Kady Farmer DO) COPD (chronic obstructive pulmonary disease) Surgical History No pertinent past surgical history Social History household members: spouse Smoking Status: Former smoker alcohol intake: former Assessment & Plan Assessment & Plan narrative: 79-year-old man with recent hospitalization for right foot/ankle cellulitis due to peripheral vascular disease, readmitted for decreasing mental status and dyspnea, HD #2. 1. COPD exacerbation with acute hypoxic and hypercarbic respiratory failure, oxygen dependent, acute 2. Hypotension secondary to volume depletion 3. Acute toxic encephalopathy 4. Right leg cellulitis, chronic 5. Peripheral vascular disease, chronic 6. Anemia of chronic disease 7. Buttock ulcers, chronic 8. Severe protein malnutrition, chronic 9. Weakness 10. Alcoholism, chronic 11. History of PE Appreciate consult from Dr. Rome yesterday. Spoke with Dr. Clancy today and shared decision was made to transfer care to hospitalist service. Called to update her regarding this transfer of care and she was amenable. expressed her thanks for my care and that she appreciated that the hospital had bent over backwards for the emotional needs of our family.
--- NOTE | 2020-04-06 10:29 | CM.DPC ---
dCP: continued: EMR reviewed and case discussed in Team Rounds. CM Electric Meter Technician Opal Rodriguez instructs per conversation and in an email statement to the Care Management dept and and including the DCPlanning team not to interact with the pt or family until further notice. She states he does not require d/c assistance at this time and is not expected to d/c from the hospital. If a point comes when d/c discussion needs to resume she will need to be involved. MILANA Brown, caring today for pt, is updated.
[2020-04-06] MEDS: TIOTROPIUM BROMIDE 18 MCG INHALER INH (10:36)
[2020-04-06] MEDS: ALBUTEROL/IPRATROPIUM 3 ML AMPUL INH ×2 (10:39→17:31)
--- NOTE | 2020-04-06 13:15 | CM.DPNOTE ---
At this time the patient does not require discharge assistance as he is not expected to discharge. We will get updates in rounds on this patient. IF he gets to a point where discharge discussions need to resume of course we will assist.? Will follow pt. in daily rounds for updates.
--- NOTE | 2020-04-06 14:01 | P.PN_ITS ---
Subjective Subjective Date Patient Seen: 04/06/20 Interval history: 79-year-old male who was admitted to the hospital for acute metabolic encephalopathy in the setting of right lower extremity cellulitis, and acute hypoxic respiratory failure in acute diastolic heart failure. The patient was given IV fluids yesterday. He is more awake and alert today. He does have some gurgling breath sounds. He complains of being hungry. He also complains of some pain. Patient is able to interact verbally and state some of his history and Bonds here. He remains hypotensive. His daughter and granddaughter were at the bedside, I was able to have a conversation with them regarding his overall prognosis and diagnosis. Exam Vital Signs (past 8 hours): - 04/06/20 08:00 04/06/20 10:39 04/06/20 12:00 Temperature 97.4 F L 97.5 F L Pulse Rate 87 88 88 Respiratory Rate 21 23 23 Blood Pressure 71/42 L 70/48 L Pulse Oximetry 98 95 99 Fraction of Inspired Oxygen 30 Oxygen Delivery Method Nasal Cannula Oxygen Flow Rate 1 Narrative Exam Narrative: Ill-appearing elderly male cachectic gurgling who appears somewhat uncomfortable HEENT: Bitemporal wasting noted, sclerae anicteric, extraocular muscles are intact Lungs: Decreased breath sounds with scattered rhonchi bilaterally Cardiac exam: Regular rate and rhythm normal S1-S2 Abdomen: Soft nontender nondistended Extremities: No edema right lower extremity with erythema excoriation Objective Labs Result Diagrams: 04/06/20 06:00 04/06/20 06:00 Labs: Laboratory Results - last 24 hr 04/06/20 04/06/20 06:00 06:00 WBC 18.9 H D RBC 2.90 L Hgb 9.2 L Hct 29.2 L MCV 100.7 H MCH 31.9 MCHC 31.7 RDW 14.8 Plt Count 290 Neut % (Auto) 96.1 H Lymph % (Auto) 1.4 L Keith % (Auto) 2.3 L Eos % (Auto) 0.0 L Baso % (Auto) 0.2 Neut # (Auto) 31697 H Lymph # (Auto) 300 L Keith # (Auto) 400 Eos # (Auto) 0 Baso # (Auto) 0 Sodium 143 Potassium 3.9 Chloride 112 H Carbon Dioxide 32 BUN 32 H Creatinine 0.85 Estimated GFR > 60.0 BUN/Creatinine Ratio 37.6 H Glucose 121 H Calcium 7.4 L Total Bilirubin 0.2 AST 33 ALT 30 Alkaline Phosphatase 98 NT-Pro-B Natriuret Pep 75734 H Total Protein 5.4 L Albumin 2.2 L Globulin 3.2 Albumin/Globulin Ratio 0.7 L PFSH Medical History (Updated 04/04/20 @ 12:49 by Kady Farmer DO) COPD (chronic obstructive pulmonary disease) Surgical History No pertinent past surgical history Social History household members: spouse Smoking Status: Former smoker alcohol intake: former Assessment & Plan Assessment & Plan narrative: Impression 1. Acute on chronic hypoxic respiratory failure -likely secondary to COPD -patient appears to have chronic bronchitis as well -family is moving towards comfort however the is still hopeful that there will be improvement in his symptomatology -patient is awake and alert today -will discuss with the plans for home hospice 2. Hypotension Suspect an element of volume depletion Will continue IV hydration until discharge 3. Right lower extremity cellulitis -continue current antibiotic 4. Peripheral vascular to -chronic 5. Acute metabolic encephalopathy, present on admission -improved -patient appears to be close to his baseline 6. Severe protein calorie malnutrition -dietary consult pending -patient's malnutrition likely impacting his overall morbidity and will greatly increase the probability of mortality. He is trying to eat however it is difficult Disposition Will discuss with the possible discharge home with hospice
--- NOTE | 2020-04-06 15:34 | PC.NURSE ---
AM shift Pt is notably more alert this shift, able to follow instruction and is alert to x3 states location and year, without difficulty. Pt is denying pain and is aware that pain medication is available to him if he should need it. NPO status as Pt is weak with cough effort and unable to protect airway. Order for speech eval placed. Bedside swalow showed gurgle to voice with attempts, even when awake. Reduced fluids to TKO for ABX. Midline to RUE. Bathing provided. Pt cooperative with all care. Family son, , and daughter in meeting for POC with Pooja Barrios, continue to follow 2 family visitor policy after cliff and care conference. Pt family has had traumatic care leading up to this admission, and are aware of grave prognosis. Gabriella, , expressing interest in d/c home with hospice, as SNF is not an option. Dr Clancy updated and openly discussed Hospice option at home. Continue to update family frequently. Pt remains A/ox3, declines morphine at present. BA active.
--- NOTE | 2020-04-06 15:48 | DIET.PN ---
Addendum entered by Griselda Oneill 04/06/20 16:40: Per SLT pt to have Dysphagia Puree c honey thick liquids including honey thick water and honey thick ONS Original Note: Dietary Progress Note Assessment: 79y M admitted for SOB and decreased LOC after d/c on 03/28/20 to [facility] for cellulitis and weakness referred to nutrition for skin breakdown and low Elbert score. Pt is being advanced to Dysphagia diet for dinner today, pt able to endorse feeling hungry. Pt is weight stable since last admit, however appears to have exacerbation of CHF. Pt prefers easy chew diet and generally drinks 2 Ensures per day. HT: 68in WT: 62.6kg (up from 61.3kg on 03/23/2020) UBW: 63.6kg BMI: 20.2 Labs: BNP 15,500, BG 121, eGFR >60 WNL Elbert: 12 Nutrition Diagnosis: 1. Ongoing Acute severe PCM r/t decreased appetite w/ limited mobility aeb pt report energy intake <50% EER > 2 weeks, weight loss 3.5% x 2 wks (aeb medical records), BMI 20.5 (age >65), overall thin appearing with moderate fat/muscle loss. 2. increased protein needs r/t high risk for skin breakdown aeb Elbert score 12, pt admitted weeks ago for cellulitis, pt reports reduced appetite. Interventions: 1. Recc ONS Ensure Enlive tid to support BMI and skin integrity providing 60% kcal needs and 80% PRO needs in addition to meal trays. If pt is unable to safely consume POs and desires nutrition support, recc continuous enteral feeding via NG using Glucerna 1.5 starting at 20mL/h for first 6h increasing by 10mL/h q6h as tolerated to goal of 50mL/h providing 100% kcal needs, 110% pro needs, and 911mL free water in formula. Recc 200mL free water flushes q4h (1200mL) or as directed by doctor secondary to CHF fluid management. Diet Order: Dysphagia EER: 1800 luis @ 30cal/kg ; Pro 80g (1.3 g/kg) Monitoring/Evaluations: PO intake, diet tolerance, ONS acceptance
[2020-04-06] MEDS: MORPHINE 2 MG/ML INJ 1 MG IV ×2 (17:20→22:55)
--- NOTE | 2020-04-06 17:27 | ST.IPCSEOM ---
Visit Care Team Role Provider Type Yvonne Oquendo DPM Other Providers Non-Staff Specialty: Podiatry Address: [address] [place] [address], [facility] Email: Mason Swift MD Other Providers Physician Specialty: Wound Care Address: [address] [place] [address] Email: [email or web address] Jason Rossi MD Other Providers Physician Specialty: Internal Medicine Address: [address] [place] [address], [facility] Email: [email or web address] Emergency Provider Physician Referring Provider Specialty: Emergency Medicine Address: [address] [place] [address] Email: [email or web address] Admit Provider Physician Attending Provider Specialty: Family Practice Address: [address] [place] [address], [facility] [place] [place], [facility] Email: [email or web address] Current Diagnoses Acute respiratory failure with hypoxia (04/04/20) Past Medical History (Last Reviewed 04/04/20 @ 12:45 by Kady Farmer DO) COPD (chronic obstructive pulmonary disease) (Medical) Speech-Language Pathology Swallow Evaluation 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 The patient was given IV fluids yesterday. He is more awake and alert today. He does have some gurgling breath sounds. Pt has been NPO status as he is weak with cough effort and unable to protect airway. Bedside swallow showed gurgle to voice with attempts, even when awake. Order for speech eval placed. Subjective Observations Pt was in bed, alert and asking for water. Reported by Patient Current Diet Nothing by mouth Objective Assessment Mental Status Alert,Responsive,Cooperative Oral Integrity WFL Dentition Missing teeth Lip Function Within normal limits Observation of Lips at Rest Symmetrical Pucker Within normal limits Observations of Tongue at Rest Within normal limits Tongue Protrusion Within normal limits Tongue Retraction Within normal limits Tongue Lateralization Within normal limits Jaw Function Within normal limits Hard/Soft Palate Function Within normal limits Food and Liquid Trials Position During Assessment Upright (90 degrees),In bed Liquids Trialed Ice chips,Thin,[place]ake Panorama,Honey Solids Trialed Puree Administration Type Tea spoon Oral Impairment Within normal limits Oral Phase Comments Pt was missing his upper denture. OME was WFL. Mucous was observed on the soft palate. pt unable to clear. Pharyngeal Impairment Severely impaired Pharyngeal Phase Comments Pt was provided PO trials. He has a delayed swallow response. Premature spillage to the valeculla/pyriforma sinuses suspected. Laryngeal elevation is weak with minimal hyoid movement per palpatation. Ice chip resulted in suspected aspiration with immediate wet voice, gurgly cough. No other trials of thin liquid was attempted. [place] Panorama thick liquids resulted in the same wet, gurgly cough. Honey thick liquids appeared to be safely tolerated with clear voicing and mo immediate cough. Puree texture appeared to be tolerated as well. No other texture trials as pt becomes very SOB when he swallows. More advanced textures would require longer mastication time increasing aspiration risk as he breathes while chewing. Fatigue/Endurance Severe fatigue Findings Swallowing Function Pharyngeal phase dysphagia Swallowing Function Comments Bedside evaluation cannot rule out silent aspiration. Would need MBSS Severity of Swallow Impairment Severely impaired Contributing Factors to Swallow Impaired oral-pharyngeal Impairment transport,Impaired velopharyngeal closure/ coordination,Impaired airway protection,Excessive pharyngeal residue Prognosis Guarded Based on Comorbidities Impact on Safety and Functioning Risk for aspiration,Risk for inadequate nutrition/hydration Recommendations Instrumental Assessment No Swallowing Treatment Yes Frequency F/u while in hospital. Is possibly going on Hospice Recommended Solids Puree Recommended Liquids Honey Other Recommendations NO THIN LIQUIDS eat/drink by teaspoon only NO STRAWS Safety Precautions/Swallowing Supervision needed for all Recommendations meals,1 to 1 close supervision ,Feed only when alert,Remain upright (90 degrees) during all oral intake,Small bites and sips when eating,Slow rate ; swallow between bites,Family assistance/supervision,Strict oral care after intake Medication Recommendations Crushed in Carrier Discharge Recommendations Home with Hospice Education Patient/Caregiver Education Described results of evaluation Goals Short-term Goals Family/pt education re: aspiration risk with PO intake
--- NOTE | 2020-04-06 17:39 | PC.NURSE ---
Speech pathologist changed diet to pureed, honey thick liquids and to be fed by spoon only. Put in order for Alejandra Steel.
--- NOTE | 2020-04-06 20:17 | PC.NURSE ---
Spoke with Loni Abdul regarding pt's IVF if it's ok to keep it at TKO for his antibiotic instead of 100ml/hr considering his BNP this am was [id number], Loni Abdul states to keep IVF at TKO rate.
[2020-04-07] VITALS (8 sets, daily range): BP systolic 71–136; BP diastolic 46–64; PULSE 73–89; RESP 17–26; TEMP 36.4–37; O2SAT 91–96
[2020-04-07] MEDS: methylPREDNISolone 125 MG/2 ML VIAL 60 MG IV ×2 (02:50→12:32)
[2020-04-07] MEDS: AMPICILLIN/SULBACTAM 1.5 GM 1.5 GM in SODIUM CHLORIDE 0.9% 100 ML IV ×4 (02:50→21:14)
[2020-04-07 05:20] LABS: Hematocrit 28.7 % (41-53); Hemoglobin 9.1 g/dL (13.5-17.5); Mean Corpuscular HGB Conc 31.7 % (30-36); Mean Corpuscular Hemoglobin 31.9 PG (26-34); Mean Corpuscular Volume 100.8 fL (80-100); Platelet Count 273 X10^3/uL (150-400); Red Blood Cell Count 2.85 X10^6/uL (4.5-5.9); Red Cell Distribution Width 14.2 % (11.6-14.8); White Blood Cell Count 18.4 X10^3/uL (4.5-11.0)
[2020-04-07 05:21] LABS: Add Manual Diff / Slide Review YES
[2020-04-07 05:26] LABS: Alanine Aminotransferase 28 IU/L (<50); Albumin 2.3 g/dL (3.5-5.0); Albumin Globulin Ratio 0.8 (1.0-2.8); Alkaline Phosphatase 100 U/L (38-126); Aspartate Aminotransferase 33 IU/L (17-59); Bilirubin Total 0.2 mg/dL (0.2-1.3); Blood Urea Nitrogen 36 mg/dL (9-20); Calcium 7.8 mg/dL (8.4-10.2); Carbon Dioxide 32 mmol/L (22-32); Chloride 112 mmol/L (98-107); Estimated Glomerular Filt Rate > 60.0 mL/min (>60); Glucose 157 mg/dL (80-110); HEMOLYSIS < 15 (0-50); Sodium 143 mmol/L (137-145); Total Protein 5.3 g/dL (6.3-8.2)
[2020-04-07 05:33] LABS: NT-proBNP (BNP-Adult 18+) 19800 pg/mL (<450)
[2020-04-07] MEDS: MORPHINE 2 MG/ML INJ 1 MG IV ×3 (06:06→15:56)
[2020-04-07] MEDS: ACETAMINOPHEN 325 MG TABLET 650 MG PO ×2 (06:58→10:27)
[2020-04-07] MEDS: ALBUTEROL/IPRATROPIUM 3 ML AMPUL INH ×3 (09:08→17:30)
[2020-04-07] MEDS: TIOTROPIUM BROMIDE 18 MCG INHALER INH (09:09)
[2020-04-07 09:15] LABS: Anisocytosis 1+; Neutrophils Absolute Manual 18032 /uL (3000-5900); Total Cells Counted 100
--- NOTE | 2020-04-07 11:56 | ST.IPTN ---
Visit Care Team Role Provider Type Yvonne Oquendo DPM Other Providers Non-Staff Address: [address] [place] [address], [id number] Mason Swift MD Other Providers Physician Address: [address] [place] [address], [address] Jason Rossi MD Other Providers Physician Address: [address] [place] [address], [facility] Kady Farmer DO Emergency Provider Physician Referring Provider Address: [address] [place] [address] Pamela Darling MD Admit Provider Physician Attending Provider Address: [address] [place] [address], [place] [address] ROLLER COASTER ENGINEER Treatment Note ROLLER COASTER ENGINEER Treatment Note Start: 04/06/20 17:00 Freq: Status: Active Protocol: Document 04/07/20 11:40 MG (Rec: 04/07/20 11:56 MG [id number]) Speech Pathology Treatment Note Session Time Visit Start Time 10:35 Visit Stop Time 11:35 Total Visit Minutes 60 Visit Information Visit Number 2 Setting Treatment Setting Acute Care Visit Type Note Type Treatment Note General Information General Information Per MD report: 79-year-old male who was admitted to the hospital for acute metabolic encephalopathy in the setting of right lower extremity cellulitis, and acute hypoxic respiratory failure in acute diastolic heart failure. The patient was given IV fluids yesterday. He is more awake and alert today. He does have some gurgling breath sounds. Bedside swallow showed gurgle to voice with attempts, even when awake. Order for speech eval placed. Current diet orders of honey thick liquids and puree thick solids was recommended post eval yesterday. Pt appears to be tolerating diet. Subjective Identification Type Name,ID Wristband Others Present Family Observations/Patient Presentation Pt was sitting upright in bed with close to bedside. Pt was friendly and agreeable to ROLLER COASTER ENGINEER entering the room to provide education re: swallowing mechanism, diet recommendations, comfort food, puree diet options, swallowing precautions, things to monitor upon discharge. ROLLER COASTER ENGINEER spoke with who will be preparing foods at home. Per , family is wishing to discharge pt home with hospice care. was very attentive, asked questions, and was engaged in education provided. Of note, pt was frequently producing a wet cough while not consuming food . reported that he does not cough like this at home. Chief Complaint(s) Swallowing Patient Knowledge/Awareness of ROLLER COASTER ENGINEER Role Good in Treatment Parent/Caretake Knowledge/Awareness of Excellent ROLLER COASTER ENGINEER Role in Treatment Patient/Caregiver Compliance with Home Good Exercise Program Objective Ship Loader Goals Pt will tolerate least restrictive diet w/o showing overt s/sx of aspiration. Treatment Activities ROLLER COASTER ENGINEER provided education re: swallowing mechanism, diet recommendations, comfort food, puree diet options, swallowing precautions, things to monitor upon discharge. ROLLER COASTER ENGINEER brought in many handouts/ resources for family which were given to pt's . and pt did not have any further questions upon ROLLER COASTER ENGINEER exiting the room. Assessment Assessment of Improvement Pt will likely be discharging home with hospice support per . Education has been provided and pt appears to be tolerating his current diet. Speech therapy is no longer needed at this time. If something comes up during his stay or family would like more support, please reach out. Reviewed with Patient Goals,Progress Being Made,Home Exercise Program Patient/Caregiver Understanding Good Plan Therapy Recommendations Discharge to Home Exercise Program,Discharge from Speech Therapy Reason for Discharge Pt will likely be discharging home with hospice.
[2020-04-07] MEDS: SODIUM CHLORIDE 0.9% FLUSH 10 ML IV (11:57)
[2020-04-07] MEDS: ENOXAPARIN 40 MG/0.4 ML SYRINGE SUBCUT (12:32)
--- NOTE | 2020-04-07 13:39 | PM.PN.1 ---
Subjective Subjective Date Patient Seen: 04/07/20 Interval history: Patient is an 79-year-old male who was admitted to the hospital after a week stay for right lower extremity cellulitis. The patient was sent over from [facility] with altered mental status, acute hypoxic hypercapnic respiratory failure, and probable heart failure. The patient was diuresed, he was started continued on antibiotics. He was treated for COPD. The patient had an echocardiogram which suggested hypovolemia. He initially was hypotensive. With IV fluids his blood pressure improved. Yesterday the patient was awake and alert. Today he is awake reading the newspaper. He continues to have some pain in the right foot. He does have a wet cough. And no specific complaints of shortness of breath. Exam Vital Signs (past 8 hours): - 04/07/20 08:00 04/07/20 09:09 04/07/20 12:00 Temperature 97.7 F Pulse Rate 77 73 Respiratory Rate 20 23 Blood Pressure 136/64 Pulse Oximetry 94 93 93 04/07/20 12:21 04/07/20 12:45 Temperature 98.6 F Pulse Rate 74 76 Respiratory Rate 17 20 Blood Pressure 85/49 L Pulse Oximetry 91 92 Fraction of Inspired Oxygen 30 Oxygen Delivery Method Nasal Cannula Oxygen Flow Rate 1 Narrative Exam Narrative: Ill-appearing elderly male lying in bed sitting with a wet rhonchorous cough Lungs: Decreased breath sounds with scattered rhonchi bilaterally Cardiac exam: Distant heart tones home normal S1-S2 Abdomen: Soft nontender nondistended Extremities: 1+ pitting edema bilaterally, right foot review plantar surface with an Jalen are, scaling of the skin, there is gangrenous discoloration of the toes. Foot is exquisitely painful. The dorsal surface reveals erythema, there is no warmth, Berman catheter in place Objective Labs Result Diagrams: 04/07/20 05:00 04/07/20 05:00 Labs: Laboratory Results - last 24 hr 04/07/20 04/07/20 05:00 05:00 WBC 18.4 H RBC 2.85 L Hgb 9.1 L Hct 28.7 L MCV 100.8 H MCH 31.9 MCHC 31.7 RDW 14.2 Plt Count 273 Neut % (Auto) Not Reportable Lymph % (Auto) Not Reportable [place] % (Auto) Not Reportable Eos % (Auto) Not Reportable Baso % (Auto) Not Reportable Lymph # (Auto) Not Reportable [place] # (Auto) Not Reportable Baso # (Auto) Not Reportable Total Counted 100 Seg Neutrophils % 45.0 Band Neutrophils % 53.0 H Lymphocytes % (Manual) 1.0 L Metamyelocytes % 1.0 H Neutrophils # (Manual) 82348 H RBC Morphology See below Anisocytosis 1+ H Sodium 143 Potassium 4.0 Chloride 112 H Carbon Dioxide 32 BUN 36 H Creatinine 1.00 Estimated GFR > 60.0 BUN/Creatinine Ratio 36.0 H Glucose 157 H Calcium 7.8 L Total Bilirubin 0.2 AST 33 ALT 28 Alkaline Phosphatase 100 NT-Pro-B Natriuret Pep 12930 H Total Protein 5.3 L Albumin 2.3 L Globulin 3.0 Albumin/Globulin Ratio 0.8 L PFSH Medical History (Updated 04/04/20 @ 12:49 by Kady Farmer DO) COPD (chronic obstructive pulmonary disease) Surgical History No pertinent past surgical history Social History household members: spouse Smoking Status: Former smoker alcohol intake: former Assessment & Plan Assessment & Plan narrative: Impression 1. 79-year-old male admitted to the hospital with acute on chronic respiratory failure most likely related to underlying COPD -patient has had significant improved likely related to nebulizers, steroids, and BiPAP -will discontinue Solu-Medrol, continue continue nebulized S, continue on -will switch to a prednisone taper 40 mg a day for 5 days 2. Acute metabolic encephalopathy, present on admission, improved -patient was unresponsive upon admission and confused. -this is likely related to hypercapnia as this resolved his mental status improved 3. Right lower extremity cellulitis -patient was to complete a 7 day course which he has completed -he has significant vascular compromise of the right lower extremity, likely has underlying persistent vascular disease which is why the foot is still painful and poor to heal -will continue 7 day course of interval, and consider whether further intervention is needed 4. Hypovolemic shock -patient was given Lasix to diurese for presumed heart failure on admission -patient found to have a proBNP elevated at over 19,000 however echo showed normal LV function and EF of 65%, IVC collapse suggest low volumes in the right atrium -patient remains hypotensive -he has received IV hydration with some improvement in blood pressure -given multiple hospitalizations and prior use of steroid he may have underlying adrenal insufficiency 5. Severe protein calorie malnutrition -this likely is contributing to his inability to he he will his right foot and ongoing skin finding 6. Iron deficiency anemia 7. History of sacral decubitus ulcer 8. History of tobacco dependence 9. History of pulmonary embolus Disposition -had a long discussion with his , she understands that the patient is at his end of life although he is not eminently terminal -she is agreeable to home hospice, she would like to continue antibiotics and treatment of his right lower extremity given the cellulitis -she is agreeable to discontinuing all nonessential medication. Patient does have a history of nephrolithiasis and she would like to continue treatment for the -as such all oral medications that are not necessary for comfort will be discontinued -patient will continue prednisone for COPD, antibiotics for right lower extremity cellulitis, inhalers, next but DVT prophylaxis will be discontinued -patient is DNR DNI -will refer to hospice would be, once equipment can be delivered, home nursing can be arranged, plans will be underway for him to discharge home with hospice. It is anticipated that that will occur next week. The is also investigating additional support for when she is at home.
--- NOTE | 2020-04-07 14:07 | CM.DPC ---
DCP Cont: Dr. Clancy spoke with patient and . Indicated that patient and want him to go home on hospice. Confirmed with Dr. Clancy that patient is bed bound, at this time. Went ahead and [facility] . Stephanie from hospice called back and stated, may not be able to open until . Stated, will see how next week goes. She did indicate that equipment can be sent out earlier. This will be deemed if patient is stable enough to go home until hospice can be opened, but may be unlikely. Will update Dr. Clancy. Stephanie at [facility] will review. P: DCP to continue to follow. Plan at this time is home with hospice. Mindy Link, RN/Financial Report Service Sales Agent
--- NOTE | 2020-04-07 14:28 | PC.NURSE ---
Patient alert, oriented c/o right rib pain and pain to right foot when touched, 3/10. Given 1mg IVP morphine. Patient taking some po fluids and food. Wound to right foot redressed. Dr Clancy in to assess and speak with patients Gabriella. Patient repositioned to right side, call light in reach and at bedside.
[2020-04-07 14:53] LABS: Procalcitonin < 0.05 ng/mL (<0.5)
[2020-04-07] MEDS: predniSONE 20 MG TABLET 40 MG PO (14:59)
[2020-04-07] MEDS: SODIUM CHLORIDE 0.9% 1,000 ML 84 ML IV (16:04)
[2020-04-07] MEDS: HYDROCORTISONE 100 MG/2 ML VIAL IV (18:26)
--- NOTE | 2020-04-07 22:52 | PC.NURSE ---
Evening shift note: Pt A/Ox3, at bedside. Pt c/o pain 4/10 to right foot and right side, 1mg IV morphine administered as ordered with relief. Pt taking limited PO fluids and food, IV fluids ordered per Dr Clancy, wound to right foot redressed during dayshift, order is for wound care daily. Pt is end of life care, per report by Dr Clancy, waiting to consult with Hospice on thursday to set up for pt to go home with family. Pt repositioned to right side currently, bed low and locked, call light within reach, no further needs at this time, will continue to treat and monitor as ordered, until report is given to oncoming noc shift nurse.
[2020-04-08] VITALS (7 sets, daily range): BP systolic 79–103; BP diastolic 46–75; PULSE 65–87; RESP 20–28; TEMP 36.1–36.7; O2SAT 90–98
[2020-04-08] MEDS: MORPHINE 2 MG/ML INJ IV ×2 (00:25→05:44)
[2020-04-08] MEDS: HYDROCORTISONE 100 MG/2 ML VIAL IV ×3 (00:25→12:02)
[2020-04-08] MEDS: ATROPINE 1% OPHTH 2 DROPS SL ×3 (02:07→11:35)
[2020-04-08] MEDS: AMPICILLIN/SULBACTAM 1.5 GM 1.5 GM in SODIUM CHLORIDE 0.9% 100 ML IV ×4 (03:09→20:59)
--- NOTE | 2020-04-08 03:20 | PC.NURSE ---
0300- Patient son at bedside. Patient is resting more comfortably after SL atropine to help with secretions and MSO4 2mg to help with work of breathing. Patient did not want to turn. Patient continues to make urine. Alert and oriented to self and place. Continues to make urine. Condition is guarded but stable at this time.
[2020-04-08] MEDS: SODIUM CHLORIDE 0.9% 1,000 ML 84 ML IV ×3 (05:45→21:00)
[2020-04-08] MEDS: ALBUTEROL/IPRATROPIUM 3 ML AMPUL INH ×2 (10:49→17:29)
[2020-04-08] MEDS: TIOTROPIUM BROMIDE 18 MCG INHALER INH (10:49)
--- NOTE | 2020-04-08 10:51 | PC.NURSE ---
Addendum entered by Columba Hammer R.N. 04/08/20 12:45: IVF stopped and BP rechecked, 84/54 and 79/46, Dr Clancy aware and IVF restarted. Addendum entered by Columba Hammer R.N. 04/08/20 11:10: RT deep suctioned patient, copious amounts per RT. Sats remain at 90-92% on 1L Original Note: Patient sleeping but easily aroused for assessment. Patient with coarse lung sounds, also with wet cough, patient with weak cough, nothing to suction orally. Dr Clancy in to assess, order for deep suctioning by RT placed. Patient repositioned to back, denies pain at this time. Spouse at bedside.
--- NOTE | 2020-04-08 12:22 | DI.RAD.S_ITS ---
PROCEDURE: XR CHEST 1V INDICATIONS: cough TECHNIQUE: One view of the chest was acquired. COMPARISON: [facility], CR, XR CHEST FOR PICC 1V, 03/28/2020, 10:00. [facility], CR, XR CHEST 1V, 03/22/2020, 11:09. [facility], US, US PERIPH VENOUS LOW EXTREM RT, 03/22/2020, 11:46. [facility], CR, XR CHEST 1V, 04/04/2020, 10:48. FINDINGS: Surgical changes and devices: The tip of the right-sided PICC line is again seen overlying the right axilla. The previously seen left-sided PICC line has been removed. Lungs and pleura: Streaky opacities can be seen involving both lung bases. No pneumothorax or large pleural effusion can be seen. Mediastinum: The cardiac contours are within normal limits. The aorta demonstrates calcification and tortuosity. Bones and chest wall: Age-appropriate bony degenerative changes are seen. No suspicious bony lesions. Remote right posterior rib fractures are seen. Overlying soft tissues appear unremarkable. IMPRESSION: Likely atelectasis is seen at the lung bases. Differential diagnosis includes developing infiltrates. If clinically appropriate, a short-term followup chest series (with PA and lateral views) performed in deep inspiration or a dedicated chest CT would be suggested for further evaluation. The tip of the right-sided PICC line is again seen overlying the right axilla. Please consider repositioning, if clinically appropriate. Dictated by: Rajan De Los Santos M.D. on 04/08/2020 at 12:03 Approved by: Rajan De Los Santos M.D. on 04/08/2020 at 12:05
--- NOTE | 2020-04-08 12:24 | P.PN_ITS ---
Subjective Subjective Interval history: Patient is an 79-year-old male who was admitted to the hospital for acute metabolic encephalopathy, right lower extremity cellulitis, acute respiratory failure, with known COPD. Overnight he has had no acute events. With IV hydration and steroids his blood pressure has improved. He continues to have a poor appetite. He is coughing today and quite rhonchorous. Deep suctioning reveals significant amount of copious thick secretion. His is at the bedside. Questions have been answered. She is agreeable to oral antibiotics at discharge. She is anxious to get him home under the care of hospice. Exam Vital Signs (past 8 hours): - 04/08/20 10:45 04/08/20 10:50 04/08/20 11:55 Temperature 98.1 F Pulse Rate 76 77 Respiratory Rate 26 H 20 Blood Pressure 103/75 84/54 L Pulse Oximetry 90 L 92 Fraction of Inspired Oxygen 30 Oxygen Delivery Method Nasal Cannula Oxygen Flow Rate 1 Narrative Exam Narrative: Ill-appearing male lying in bed coughing, he is quite un comfortable with pain when moving his right lower extremity Lungs: Diffuse rhonchi bilaterally Cardiac exam: Distant heart tones regular rate and rhythm normal S1-S2 Abdomen: Soft and nontender Extremities: Right lower extremity cool, gangrenous toes noted, these are dry eschars, plantar surface of the foot shows skin to be sloughing with some bruising unchanged from previous Objective Labs Result Diagrams: 04/07/20 05:00 04/07/20 05:00 Labs: Laboratory Results - last 24 hr 04/07/20 04/07/20 14:00 14:00 Lactate 1.0 Procalcitonin < 0.05 [facility] Medical History (Updated 04/04/20 @ 12:49 by Kady Farmer DO) COPD (chronic obstructive pulmonary disease) Surgical History No pertinent past surgical history Social History household members: spouse Smoking Status: Former smoker alcohol intake: former Assessment & Plan Assessment & Plan narrative: Impression 1. 79-year-old male admitted to the hospital with acute on chronic respiratory failure most likely related to underlying COPD -patient has had significant improved likely related to nebulizers, steroids, and BiPAP -will discontinue Solu-Medrol, continue continue nebulized S, continue on -will switch to a prednisone taper 40 mg a day for 5 days -patient was switched to hydrocortisone for adrenal insufficiency. He continues to have copious secretions, -continue intermittent deep suctioning -continue nebulizer treatment 2. Acute metabolic encephalopathy, present on admission, improved -patient was unresponsive upon admission and confused. -this is likely related to hypercapnia as this resolved his mental status improved 3. Right lower extremity cellulitis -patient was to complete a 7 day course which he has completed -he has significant vascular compromise of the right lower extremity, likely has underlying persistent vascular disease which is why the foot is still painful and poor to heal -will continue 7 day course of interval, and consider whether further intervention is needed, can consider long-term suppressive therapy with oral antibiotics at discharge 4. Hypovolemic shock -patient was given Lasix to diurese for presumed heart failure on admission -patient found to have a proBNP elevated at over 19,000 however echo showed normal LV function and EF of 65%, IVC collapse suggest low volumes in the right atrium -patient remains hypotensive -he has received IV hydration with some improvement in blood pressure -given multiple hospitalizations and prior use of steroid he may have underlying adrenal insufficiency -IV fluids held in the patient again becomes hypotensive, will repeat chest x-ray to ensure no pulmonary edema. In the interim will resume IV fluid although at a lower rate with the goal to improved blood pressure 5. Severe protein calorie malnutrition -this likely is contributing to his inability to he he will his right foot and ongoing skin finding -will continue oral intake 6. Iron deficiency anemia -will hold iron patient will be discharged home under the care of hospice 7. History of sacral decubitus ulcer -likely related to his underlying severe protein calorie malnutrition 8. History of tobacco dependence 9. History of pulmonary embolus -DV pre T prophylaxis held given the patient will be under comfort measures at discharge Disposition -had a long discussion with his , she understands that the patient is at his end of life although he is not eminently terminal -she is agreeable to home hospice, she would like to continue antibiotics and treatment of his right lower extremity given the cellulitis -she is agreeable to discontinuing all nonessential medication. Patient does have a history of nephrolithiasis and she would like to continue treatment for the -as such all oral medications that are not necessary for comfort will be discontinued -patient will continue prednisone for COPD, antibiotics for right lower extremity cellulitis, inhalers, next but DVT prophylaxis will be discontinued -patient is DNR DNI -will refer to hospice would be, once equipment can be delivered, home nursing can be arranged, plans will be underway for him to discharge home with hospice. It is anticipated that that will occur next week. The is also investigating additional support for when she is at home.
[2020-04-08] MEDS: SODIUM CHLORIDE 0.9% FLUSH 10 ML IV ×2 (12:43→20:59)
--- NOTE | 2020-04-08 14:38 | CM.DPC ---
DCP Cont: [facility] today to follow up regarding informational visit, and to confirm that they can't open patient until . Aura at [facility] stated that is when they can open to admission. She stated that informational visit can happen tomorrow, and after visit, will work on equipment. Had a conversation in patient's room with , Gabriella. She stated, she really wants him to go home on hospice, but I will need to have [address]. She stated that her daughter is helping her with this process. Encouraged patient to call caregiving agencies right away. She had [employer] book in her purse, which she was given when patient was admitted the last time. Went over book with her and encouraged her to call some of these places today, or tomorrow. She stated her daughter will start reviewing and calling them. Discussed with care data management consultant, Opal, and gave her update. Encouraged this patient case coordinator to look for plan B, in case spouse decides that she can't care for patient at home. Called [facility] and spoke to Kristina in admissions. Let her know that plan is for hospice to admit on , but would like to hold bed and have patient go back there on hospice, if is unable to manage. Went ahead and also called [facility]. Spoke to BLACK Narvaez. Stated that bed availability changes on a daily basis, but can go ahead and send referral. Confirmed that cost for room and board $305.00 a day. Brice gave fax number for [employer], which is [phone]. Faxed over referral. On referral, stated to contact mechanical planner, which would be Marielena tomorrow with questions. On fax, also indicated that is wanting home with hospice, but need an alternate plan in case is unable to care for patient. P: DCP to continue to follow. Plan is either home with [facility] . Will need to follow up with hospice regarding informational visit, when equipment can be delivered as well, and to ensure that is the soonest that they can see patient. Will also need to follow up with on in home caregivers. Can also follow up with Dinorah at [facility], to see if they can accommodate on hospice, and can also follow up with [facility]. Mindy Link, RN/Marketing Recruiter
[2020-04-09] VITALS (9 sets, daily range): BP systolic 99–148; BP diastolic 43–68; PULSE 66–93; RESP 16–24; TEMP 36.1–37.3; O2SAT 92–95
--- NOTE | 2020-04-09 03:10 | PC.NURSE ---
0006 Patient is oriented except to age, day of month. Expiratory rhonchi in bilateral upper lobes and diminished at bases. On oxygen at 1L/min per NC with sat of 95%. Seems SOB with conversation but can speak in complete sentences. HRR. Denies nausea. BT present and abdomen is soft. Indwelling catheter is patent; urine is clear, yellow. Generalized weeping edema in all extremities. Is being repositioned q2h. Gait not assessed at this time. Dressing to right foot is CDI; erythema/abrasions noted proximal to dressing; blackened toes. Denies pain. Fall risk score is high and bed alarm is activated.
[2020-04-09] MEDS: AMPICILLIN/SULBACTAM 1.5 GM 1.5 GM in SODIUM CHLORIDE 0.9% 100 ML IV (03:19)
--- NOTE | 2020-04-09 07:30 | P.PN_ITS ---
Subjective Subjective Date Patient Seen: 04/09/20 Interval history: Mr. Wray is an 79-year-old male who was admitted to the hospital with altered mental status, acute hypoxic respiratory failure, and presumed pulmonary edema. The patient developed hypovolemic shock. Since that time he has been treated with antibiotics for right lower extremity cellulitis. He has also been treated for COPD, he was found to be hypovolemic and given IV hydration with improvement in his blood pressure. He continues to have intermittent shortness of breath. He has loud gurgling rhonchi with sitting. But he is awake alert and oriented. He is reading the newspaper. He has no specific complaints other than feeling cold. Patient had an uneventful night Exam Vital Signs (past 8 hours): - 04/09/20 00:10 04/09/20 05:43 Temperature 97.1 F L 99.2 F Pulse Rate 83 81 Respiratory Rate 24 22 Blood Pressure 125/50 L 145/67 H Pulse Oximetry 95 92 Fraction of Inspired Oxygen 30 Oxygen Delivery Method Nasal Cannula Oxygen Flow Rate 1 Narrative Exam Narrative: Ill-appearing elderly male lying in bed Lungs: Diffuse rhonchi bilaterally Cardiac exam: Regular rate and rhythm normal S1-S2 with a 2/6 systolic ejection murmur Abdomen: Soft nontender nondistended Extremities: Trace edema, right lower extremity with dressing in place, the right lower extremities exquisitely tender to manipulation or palpation. Objective Labs Result Diagrams: 04/07/20 05:00 04/07/20 05:00 [facility] Medical History (Updated 04/04/20 @ 12:49 by Kady Farmer DO) COPD (chronic obstructive pulmonary disease) Surgical History No pertinent past surgical history Social History household members: spouse Smoking Status: Former smoker alcohol intake: former Assessment & Plan Assessment & Plan narrative: Assessment & Plan narrative: Impression 1. 79-year-old male admitted to the hospital with acute on chronic respiratory failure most likely related to underlying COPD -patient has had significant improved likely related to nebulizers, steroids, and BiPAP -will discontinue Solu-Medrol, continue continue nebulized S, continue on -will switch to a prednisone taper 40 mg a day for 5 days -patient was switched to hydrocortisone for adrenal insufficiency. He continues to have copious secretions, --continue nebulizer treatment -patient continues to require 1 L of oxygen, he continues to have copious secretions, but this appears to have reached his baseline -will continue deep suctioning -continue atropine to manage secretions 2. Acute metabolic encephalopathy, present on admission, improved -patient was unresponsive upon admission and confused. -this is likely related to hypercapnia as this resolved his mental status improved 3. Right lower extremity cellulitis -patient was to complete a 7 day course which he has completed -he has significant vascular compromise of the right lower extremity, likely has underlying persistent vascular disease which is why the foot is still painful and poor to heal -will continue 7 day course of interval, and consider whether further intervention is needed, can consider long-term suppressive therapy with oral an tibiotics at discharge -will discontinue Unasyn today, and start him on Augmentin 4. Hypovolemic shock -patient was given Lasix to diurese for presumed heart failure on admission -patient found to have a proBNP elevated at over 19,000 however echo showed normal LV function and EF of 65%, IVC collapse suggest low volumes in the right atrium -patient remains hypotensive -he has received IV hydration with some improvement in blood pressure -given multiple hospitalizations and prior use of steroid he may have underlying adrenal insufficiency -IV fluids held in the patient again becomes hypotensive, will repeat chest x-ray to ensure no pulmonary edema. In the interim will resume IV fluid although at a lower rate with the goal to improved blood pressure -blood pressure improved today, systolic blood pressure 145, will discontinue IV hydration at this time 5. Severe protein calorie malnutrition -this likely is contributing to his inability to he he will his right foot and ongoing skin finding -will continue oral intake 6. Iron deficiency anemia -will hold iron patient will be discharged home under the care of hospice 7. History of sacral decubitus ulcer -likely related to his underlying severe protein calorie malnutrition 8. History of tobacco dependence 9. History of pulmonary embolus -DV pre T prophylaxis held given the patient will be under comfort measures at discharge Disposition -had a long discussion with his , she understands that the patient is at his end of life although he is not eminently terminal -she is agreeable to home hospice, she would like to continue antibiotics and treatment of his right lower extremity given the cellulitis -she is agreeable to discontinuing all nonessential medication. Patient does have a history of nephrolithiasis and she would like to continue treatment for the -as such all oral medications that are not necessary for comfort will be discontinued -patient will continue prednisone for COPD, antibiotics for right lower extremity cellulitis, inhalers, next but DVT prophylaxis will be discontinued -patient is DNR DNI -will refer to hospice would be, once equipment can be delivered, home nursing can be arranged, plans will be underway for him to discharge home with hospice. It is anticipated that that will occur next week. The is also investigating additional support for when she is at home. -patient appears to be ready for discharge to home hospice once arrangements can be made
[2020-04-09] MEDS: TIOTROPIUM BROMIDE 18 MCG INHALER INH (08:54)
[2020-04-09] MEDS: ALBUTEROL/IPRATROPIUM 3 ML AMPUL INH ×3 (08:54→19:32)
[2020-04-09] MEDS: ESCITALOPRAM 10 MG TABLET PO (10:17)
[2020-04-09] MEDS: SODIUM CHLORIDE 0.9% FLUSH 10 ML IV ×2 (10:17→21:24)
[2020-04-09] MEDS: predniSONE 20 MG TABLET 40 MG PO (10:17)
[2020-04-09] MEDS: AMOXICILLIN/CLAV 875/125 MG 1 TAB PO ×2 (10:17→21:31)
[2020-04-09] MEDS: SILVER SULFADIAZINE 1% CREAM 25 GM 1 APPLIC TOP (10:18)
[2020-04-09] MEDS: GENTAMICIN 0.1% OINT 30 GM 1 APPLIC TOP (10:18)
--- NOTE | 2020-04-09 11:09 | CM.DPC ---
Addendum entered by BLACK Newsome 04/09/20 16:03: ADD: [facility] confirms they can accept pt tomorrow if needed but no visitors at this time. Return call from Nanda at [facility] and pt does not currently meet criteria for their program. Aura at [facility] called and confirmed that DME will be delivered tomorrow Tu and they can now open WED [phone]. SW met bedside with pt and updated on SNF acceptance and pt medically stable for d/c tomorrow and spouse pushing back stating she is not agreeable to SNF at d/c but wants time to call [facility] this evening to see how soon they can start and have time to grocery shop/etc to prepare for patient discharge home. SW helped spouse make a list of things she can accomplish tonight and in the morning towards patient discharge. Spouse inquired about transportation and SW discussed possible options and spouse does not feel pt would be safe in private vehicle or be able to manage their stairs so requesting BLS transport for safety. BLS needs to be set up pending decision tomorrow if pt will d/c or Thu. SW updated and MATHEUS Giraldo. BF Original Note: DCP Cont: Per MD, pt is very medically stable today and could d/c to either home with family and caregiver assist while waiting for [facility] to open or to SNF under Comfort Measures. SW called Hospice and confirmed they have pt on the schedule for Info Visit today and will alert their SW that Info Visit is more urgent. They also have pt on schedule to open him to service in the home on 04/12/20 between [id number] and that is still their soonest availability. SW called [facility] and confirmed they can accept pt on Comfort Measures until Hospice can open in the home on but aware that spouse may not want pt to return to their facility. SW called [facility] and confirmed they received referral and Provider will review clinicals some time today but if pt is not imminent he may not meet criteria for [facility] and they may not have an opening at this time but will call back later today once Provider reviews. SW also called these SNF's to determine if they could be an option: [facility]- not accepting new admits [facility]- not accepting new admits [facility]- no openings for a few days [facility] [place]- left msg inquiring about comfort measures until urs [facility]- have an opening and willing to review, faxed clinicals. Plan: SW to follow closely for [facility] and [facility] to call back to see if they can accept pt under Medicare Comfort Measures and [facility] review to see if pt meets criteria and if they have an opening before having discussion with MD and pt/spouse to determine d/c plan for today or tomorrow until [facility] can open pt Thurs. SW to confirm spouse completed Hospice Info Visit and signed consents and if PP CG have been arranged. LBACK Newsome
[2020-04-10] VITALS (8 sets, daily range): BP systolic 61–147; BP diastolic 45–67; PULSE 78–88; RESP 14–20; TEMP 36.8–36.9; O2SAT 94–96
[2020-04-10] MEDS: ALBUTEROL/IPRATROPIUM 3 ML AMPUL INH ×3 (05:16→20:10)
[2020-04-10] MEDS: AMOXICILLIN/CLAV 875/125 MG 1 TAB PO (10:04)
[2020-04-10] MEDS: predniSONE 20 MG TABLET 40 MG PO (10:04)
[2020-04-10] MEDS: ESCITALOPRAM 10 MG TABLET PO (10:04)
[2020-04-10] MEDS: SODIUM CHLORIDE 0.9% FLUSH 10 ML IV (10:05)
[2020-04-10] MEDS: GENTAMICIN 0.1% OINT 30 GM 1 APPLIC TOP (10:05)
[2020-04-10] MEDS: SILVER SULFADIAZINE 1% CREAM 25 GM 1 APPLIC TOP (10:05)
[2020-04-10] MEDS: ENOXAPARIN 40 MG/0.4 ML SYRINGE SUBCUT (12:25)
--- NOTE | 2020-04-10 12:29 | CM.DPC ---
DCP: continued: Case received, EMR for last few days was reviewed and case discussed in Team Rounds.j Dr. Rossi stated in Rounds that he has just had a lengthy discussion with pt's Gabriella and the plan will be for a d/c to home setting tomorrow with [facility] set to [facility] pt between [id number]. Have worked now to confirm and facilitate the d/c details for tomorrow: Checked in with pt and found him sitting in bed, reading newspaper, o2 in place. He confirmed that his Gabriella had gone home to prepare for his d/c tomorrow. Spoke with [facility] and confirmed the d/c plan as outlined by Dr. Rossi. She says that DME is being delivered today to pt's home and that she is following up directly with Gabriella to coordinate the Hospice details. Had a good phone conversation with Gabriella. She reported that the equipment was currently in process of being set up. She has set up private caregiving with [facility] and the caregiver is set to be at the home tomorrow about noon. She is starting with 12 hour daily shifts and will change this as needed. She said her family have been very helpful in this process. She would like to have pt be able to work on his strength at home. She has requested a PT order from Dr. Rossi, says she is aware that this will likely not be under Hosp[facility]. She plans to follow up on her options with pt's stand alone [address] [place] [address] and says if this is not possible she will hire a private warehouse trainer to come to the home a couple times a week. She is hoping that pt will get strong enough to be able to use a bedside commode. Transport: she confirms desire for ambulance transport and plan is to have pt arrive at the home before 1400. Gabriella today expresses her thankfulness for the hospital staff and care. She is aware that the DCP team on for tomorrow will follow up to make sure all goes as planned. Have updated RN coordinator Ksenia and RN Genny. CM manager warehouse Opal is aware of the d/c plan for tomorrow and details of same.
--- NOTE | 2020-04-10 12:36 | PC.NURSE ---
Day shift note: Dressing changed as ordered, tolerated well.
[2020-04-10] MEDS: TIOTROPIUM BROMIDE 18 MCG INHALER INH (13:03)
--- NOTE | 2020-04-10 15:52 | PT.IIE ---
Current Diagnoses Acute respiratory failure with hypoxia (04/04/20) Surgical History (Last Reviewed 04/04/20 @ 12:45 by Kady Farmer DO) No pertinent past surgical history Medical History (Last Reviewed 04/04/20 @ 12:45 by Kady Farmer DO) COPD (chronic obstructive pulmonary disease) Physical Therapy Inpatient Evaluation/Re-Eval M1 PT/OT-IP Prior Functional Status Start: 04/10/20 13:32 Freq: NEEDED Status: Active Protocol: Document 04/10/20 15:14 AW (Rec: 04/10/20 15:51 AW [id number]) Medical Review Prior Functional Status Medical History Reviewed Yes Communication WNL. Pt effectively communicates his needs verbally. Mobility and Gait One month ago, pt reported he had been using a manual wheelchair for household mobility and was able to propel himself with arms or legs. He was able to transfer without AD. Since hospital admission 03/22/20, pt's mobility has been severely impaired. He discharged to SNF rehab but reports he was only minimally able to participate with therapies in that setting. Since recent admission on 04/04/20, pt has not been out of bed. Activities of Daily Living and IADL's Pt has been requiring assist with dressing and has been using a catheter/bedpan for toileting. Pt does not typically shower since the shower is upstairs and he stays on the entry level sales consultant. He sponge bathes instead. Prior Functional Level (Other details) Pt has COPD and uses O2 at home. Social History Household Members spouse Living Arrangements House Number of Floors (Floors) 3 or More Floors Number of Stairs To Enter/Railing? 7 CARIDAD through the garage with R rail ascending. Home Environment Standard Height Toilet Home Equipment Front Wheel Walker,Quad Cane, Manual Wheelchair,Industrial Engineering Professor,Sock Aid Employment Status Retired Additional Social History Comment Pt lives with his , Gabriella, who is limited in her ability to provide physical assist. They have a daughter in [place] and a son in [place]. Pt and his have opted to discharge with hospice service. Hospice is delivering equipment tomorrow with anticipated service initiation tomorrow afternoon. M2 PT-IP Current Condition Start: 04/10/20 13:32 Freq: NEEDED Status: Active Protocol: Document 04/10/20 15:14 AW (Rec: 04/10/20 15:51 AW [id number]) Physical Therapy Current Condition Current Condition Evaluation Date 04/10/20 Treatment Diagnosis RLE cellulitis; COPD; impaired mobility Onset Date 03/22/20 Precautions Other Precautions falls risk M3 PT-IP Subjective Start: 04/10/20 13:32 Freq: NEEDED Status: Active Protocol: Document 04/10/20 15:14 AW (Rec: 04/10/20 15:51 AW [id number]) Subjective Physical Therapy Visit Type Type Initial Evaluation Visit Start Time 14:03 Visit Stop Time 14:53 Total Visit Minutes 50 Notes Pt's was present throughout most of this evaluation. Number of WAX MACHINE OPERATOR Visits 0 Physical Therapy Visit Comments Patient Comments I refuse to use the bedpan. Can I try the commode? Patient Goals Home with hospice. Pt hopes to get stronger and more able to participate in his own care. Therapy Pain Assessment Pain When Pain Assessed During Mobility Pain Present Pain Present Pain Reported Location Right Lower Leg Scale Used no pain at rest; 2/10 following activity Description Aching,Throbbing Pain Management Techniques Re-positioning M4 PT-IP Mobility and Gait Start: 04/10/20 13:32 Freq: NEEDED Status: Active Protocol: Document 04/10/20 15:14 AW (Rec: 04/10/20 15:51 AW [id number]) PT-Bed Mobility Assessment Supine to Sit Supine to Sit Minimal Assistance,1 Person Assistance Scooting Scooting to Edge of Bed Minimal Assistance PT-Transfer Assessment Sit to and From Stand Sit to and from Stand Maximum Assistance,1 Person Assistance,Use of Upper Extremities Equipment Transfer Assistive Device Gait Belt,Front Wheeled Walker Orthotic/Prosthetic Devices or Brace: No Transfers Transfer Destination Chair,Bedside Commode Transfer Technique Stand Step Pivot Transfer Ability Level of Assist Maximum Assistance,1 Person Assistance,Use of Upper Extremities Comments Mobility Comments Pt was sitting up in bed reading the newspaper as PT arrived. SpO2 was 94% on 1L/ min O2 via NC. With HOB elevated, pt was able to lift both legs and scoot toward the right side of the bed with min A x 1 due to poor trunk control and BUE weakness. Pt sat EOB with SpO2 dropping to 90% as WOB increased but improved within 2 minutes. Pt required max A x 1 and verbal cues to stand with FWW and transfer to BSC set up on his right side. Cues were needed at every step to ensure pt safety as he had difficulty feeling the BSC behind him and struggled to safely move his hands from bed to walker and walker to BSC. Pt sat on the commode but was unable to eliminate. He transferred from the BSC to the chair with FWW max A x 1. Pt was positioned with legs elevated, warm blankets provided, and call light on his lap. Pt's had arrived before the first transfer and assisted with second transfer. She will need additional training. Gait Assessment Comments Gait Comments Transfer only. See mobility comments. Stair Climbing Assessment Comments Stair Climbing Comments Not assessed. Pt and spouse are planning on BLS transport at discharge. PT-Balance Assessment Sitting Balance and Reactions Static Sitting Balance Ability Fair Dynamic Sitting Balance Ability Fair Standing Balance and Reactions Static Standing Balance Ability Poor Dynamic Standing Balance Ability Poor Device Used FWW M5 PT-IP Objective Assessments Start: 04/10/20 13:32 Freq: NEEDED Status: Active Protocol: Document 04/10/20 15:14 AW (Rec: 04/10/20 15:51 AW [id number]) Orientation Orientation/Cognition Level of Alertness Alert Orientation Name,Month,Year,Place, Situation Language Function Ability No Deficits Noted Safety Awareness Decreased Safety Awareness Gross Range of Motion Lower Extremity ROM Assessment Bilaterally Impaired Impairments Pt lacks dorsiflexion (right more affected than left) Strength Lower Extremity Strength Assessment Bilaterally Impaired Comments Strength Comments LLE grossly 4-/5; RLE 3+/5 Sensation Assessment Sensation Gross Sensation Right LE Impaired,Left LE Impaired Light Touch Impaired Proprioception (Position) Impaired Sensation Description Numbness,Heaviness Comments Sensation Comments right foot numb/heavy; decreased light touch sensation in distal LLE M6 PT-IP Treatment Start: 04/10/20 13:32 Freq: NEEDED Status: Active Protocol: Document 04/10/20 15:14 AW (Rec: 04/10/20 15:51 AW [id number]) Physical Therapy Treatment Education Education Provided Safety Other Treatments Other Treatment Performed Pt's spouse participated in brief caregiver training and is agreeable to further training set up at 10:00 tomorrow morning prior to discharge. M7 PT-IP Assessment and Plan Start: 04/10/20 13:32 Freq: NEEDED Status: Active Protocol: Document 04/10/20 15:14 AW (Rec: 04/10/20 15:51 AW [id number]) PT Summary Assessment and Plan Potential Rehabilitation Potential Fair Status of Condition at Evaluation Evolving Summary Impairments Pain,ROM,Strength,Balance, Sensation,Bed Mobility, Transfers,Gait,Activity Tolerance Assessment Summary Philip is an 79yo man with admitting diagnosis of RLE cellulitis and COPD exacerbation. Pt has been at [facility] since discharge on 03/28/20. His mobility has been severely limited due to pain and SOB. On evaluation, pt required min assist for bed mobility and max assist for transfers. Pt is limited now by weakness more than pain and shows poor safety awareness requiring constant assist and cues. Pt's states she plans to take the pt home with hospice service initiating tomorrow. She has also contracted with caregiver support 12 hours / day through [facility]. Pt will need 24/7 assist with all mobility at discharge and would benefit from continued PT to improve strength and functional mobility. Goals Bed Mobility Goal Contact Guard Assistance Transfer Goal Minimal Assistance,Front Wheeled Walker Gait Goal Minimal Assistance,Front Wheel Walker Gait Distance 15 Frequency of Treatment Frequency Of Treatment Once a Day Treatment Plan Physical Therapy Treatment Plan Bed Mobility Training,Transfer Training,Gait Training, Therapeutic Exercise,Balance Retraining,Discharge Planning, Neuromuscular Re-ed Other Recommendations and Next Treatment CGT with , Gabriella, at 10:00 Focus in preparation for discharge. Recommendations To Nursing Amount of Assist Needed 2 Person Assist,3 or More Person Assist Discharge Recommendations PT Discharge Recommendations Home with 24/7 Assist Other Discharge Recommendations home with hospice, 24/7 assist , and skilled therapy Equipment Needed for Home Before defer to hospice service Discharge Transportation Needs at Discharge Stretcher/Ambulance
--- NOTE | 2020-04-10 16:51 | PM.PN.1 ---
Subjective Subjective Date Patient Seen: 04/10/20 Interval history: Mr. Wray is an 79-year-old male who was admitted to the hospital with altered mental status, acute hypoxic respiratory failure, and presumed pulmonary edema. The patient developed hypovolemic shock. Since that time he has been treated with antibiotics for right lower extremity cellulitis. Patient has been stable last couple of days. He continues to have some cough and intermittent dyspnea but generally comfortable at rest unable to stay awake, read the paper, and talked to family. Exam Vital Signs (past 8 hours): - 04/10/20 13:00 04/10/20 15:30 Temperature 98.2 F Pulse Rate 78 80 Respiratory Rate 16 Blood Pressure 91/52 L Pulse Oximetry 96 95 Fraction of Inspired Oxygen 30 Oxygen Delivery Method Nasal Cannula Oxygen Flow Rate 1.5 Narrative Exam Narrative: General: Alert and comfortable Lungs: Diminished bilaterally with mild rhonchi Heart: Regular rhythm Abdomen: Soft Extremities: No pitting edema, exam consistent with peripheral vascular disease, he has several non pressure ulcerations on the right ankle and heel Objective Labs Result Diagrams: 04/07/20 05:00 04/07/20 05:00 [facility] Medical History (Updated 04/04/20 @ 12:49 by Kady Farmer DO) COPD (chronic obstructive pulmonary disease) Surgical History No pertinent past surgical history Social History household members: spouse Smoking Status: Former smoker alcohol intake: former Assessment & Plan Assessment & Plan narrative: 1. 79-year-old male admitted to the hospital with acute on chronic respiratory failure most likely related to underlying COPD -patient has had significant improved likely related to nebulizers, steroids, and BiPAP -continue prednisone taper 40 mg a day for 5 days --continue nebulizer treatment -patient continues to require 1 L of oxygen, he continues to have copious secretions, but this appears to have reached his baseline -will continue deep suctioning -continue atropine to manage secretions 2. Acute metabolic encephalopathy, present on admission, improved/resolved -patient was unresponsive upon admission and confused. -this is likely related to hypercapnia as this resolved his mental status improved 3. Right lower extremity cellulitis -patient was to complete a 7 day course of Unasyn which he has completed -he has significant vascular compromise of the right lower extremity, likely has underlying persistent vascular disease which is why the foot is still painful and poor to heal -continue Augmentin to complete 7 day course 4. Hypovolemic shock -patient was given Lasix to diurese for presumed heart failure on admission -patient found to have a proBNP elevated at over 19,000 however echo showed normal LV function and EF of 65%, IVC collapse suggest low volumes in the right atrium -patient's blood pressures have recovered and he is doing well off of IV hydration 5. Severe protein calorie malnutrition -this likely is contributing to his inability to he he will his right foot and ongoing skin finding -will continue oral intake 6. Iron deficiency anemia -will hold iron patient will be discharged home under the care of hospice 7. History of sacral decubitus ulcer -likely related to his underlying severe protein calorie malnutrition 8. History of tobacco dependence 9. History of pulmonary embolus -continue enoxaparin for DVT prophylaxis Patient with stable improving hospital course and will be ready for discharge tomorrow, Thursday, with initiation of home hospice in light of his end-stage COPD, severe malnutrition and peripheral vascular disease.
--- NOTE | 2020-04-10 17:02 | PC.NURSE ---
Addendum entered by Nancy Oconnor R.N. 04/10/20 21:04: pt watching tv no c/o at this time con't on 1.5 nc 92% oriented to person and place, bed alarmed call light within reach Original Note: Pt back to bed with 2 person assist using walker. HR tachy and increase sob with movement, audible rhonchi heard. 02 on 1.5 liters nc sats 92%. bed alarmed and call light within reach. oriented to person and place.
[2020-04-11 00:12] VITALS: BP 101/66; PULSE 78; RESP 24; TEMP 36.2; O2SAT 92
--- NOTE | 2020-04-11 03:04 | PC.NURSE ---
Addendum entered by Karen Davidson R.N. 04/11/20 06:49: ERROR: 1.0 L NC, not 1.5 L NC Addendum entered by Karen Davidson R.N. 04/11/20 06:43: Pt had small bowel movement. Agitation significantly decreased, able to sleep. 93% on 1.5 L NC. Original Note: Pt aware only to self and birthday. Agitation and confusion is increasing throughout the night.
[2020-04-11] MEDS: ALBUTEROL/IPRATROPIUM 3 ML AMPUL INH (04:55)
[2020-04-11] MEDS: TIOTROPIUM BROMIDE 18 MCG INHALER INH (04:56)
[2020-04-11 08:00] VITALS: BP 119/55; PULSE 81; RESP 24; TEMP 37.1; O2SAT 97
[2020-04-11] MEDS: ENOXAPARIN 40 MG/0.4 ML SYRINGE SUBCUT (09:32)
[2020-04-11] MEDS: AMOXICILLIN/CLAV 875/125 MG 1 TAB PO (09:33)
[2020-04-11] MEDS: ESCITALOPRAM 10 MG TABLET PO (09:33)
[2020-04-11] MEDS: predniSONE 20 MG TABLET 40 MG PO (09:33)
[2020-04-11] MEDS: SILVER SULFADIAZINE 1% CREAM 25 GM 1 APPLIC TOP (09:36)
[2020-04-11] MEDS: SODIUM CHLORIDE 0.9% FLUSH 10 ML IV (09:37)
[2020-04-11] MEDS: GENTAMICIN 0.1% OINT 30 GM 1 APPLIC TOP (09:38)
--- NOTE | 2020-04-11 11:12 | CM.DPC ---
DCP Cont: Patient is to be discharged home today. Initially, was concerned that patient had gotten worse. Dr. Rossi did talk to , and she is ok with discharge. [facility] is set up to arrive at the home at 1400. [facility] arrive between [id number], confirmed with Aura at Hospice. Let her know that patient will need a nebulizer, and let RT know as well. Filled out BLS form, and had Dr. Rossi sign. knows that patient will need BLS to transport home. Had project construction assistant manager, Herminia, call Ambulance, and pick up attendant time confirmed for 1330. Updated Gabriella, patient's , as well. She signed updated IMM. P: Patient is to be discharged home via BLS and [facility] services, as well as [facility] . Mindy Link, RN/Supervisor Smoke Control
--- NOTE | 2020-04-11 11:34 | P.DS_ITS ---
History of Present Illness History of Present Illness Chief complaint: Decreased LOC Narrative: 79 year old male with peripheral vascular disease recently complicated by a right leg cellulitis requiring hospitalization from 03/22/2020 to 03/28/2020 presents to the ED after having a decline in mental status and sh ortness of breath this morning. One week prior to presentation, he had been discharged on IV Unasyn via PICC line to [facility]. Paramedics reported that he was responsive only to pain when they found him this morning and that it was difficult to obtain an oxygen reading and blood pressure. Vital signs in the ED included a temperature of 97.4?, pulse 53, respirations 21, blood pressure 120/69, and O2 saturation 100% on room air. He was given Tylenol, DuoNeb, lorazepam, and Lasix and eventually was responsive enough to answer questions but did not open his eyes. Lab workup significant for a BNP of 19,400 and an ABG with a pH of 7.28, pCO2 of 68.9, and bicarb of 32. He has a normocytic/normochromic anemia with a hemoglobin/hematocrit of 9.5/29.8. His white count was up at 13.4 but this is a slight decrease from his white count of 14.8, one week ago. He continues to be protein malnourished. His lactic acid was normal. Notably, his influenza and COVID testing was negative. Discharge Providers Provider Date of admission: 04/04/20 12:05 Discharge Date: 04/11/20 Consults: 04/04/20 10:07 Consult to Respiratory Therapy Evaluate & Treat Comment: Physician Instructions: Evaluate and treat 04/04/20 14:08 Consult to Wound Care Routine Comment: Consulting Provider: [facility] 04/04/20 14:20 Consult to Respiratory Therapy Evaluate & Treat Comment: Physician Instructions: Evaluate and treat 04/04/20 14:49 Consult to Dietitian, Adult Routine Comment: Reason For Exam: skin breakdown and increased risk d/t score 04/04/20 19:52 Consult to Discharge Planning Routine Comment: 04/04/20 20:42 Consult to Dietitian, Adult Routine Comment: Reason For Exam: protein calorie malnutrition Consult to Occupational Therapy Evaluate & Treat Comment: Physician Instructions: Evaluate and treat Consult to Physical Therapy Evaluate & Treat Comment: Physician Instructions: Evaluate and Treat 04/05/20 13:40 Consult to Physician Routine Comment: Consulting Provider: Jason Rossi Reason for consultation: hypotension Has provider been notified: Yes 04/06/20 11:16 Consult to Speech Therapy Evaluate & Treat Comment: Physician Instructions: Evaluate and treat 04/10/20 10:53 Consult to Physical Therapy Evaluate & Treat Comment: Physician Instructions: Evaluate and Treat 04/10/20 12:13 Consult to Respiratory Therapy Evaluate & Treat Comment: NT suction prn Physician Instructions: Evaluate and treat 04/11/20 09:21 Consult to Respiratory Therapy Evaluate & Treat Comment: arrange home neb Physician Instructions: Evaluate and treat Discharge provider: Jason Rossi MD Summary Hospital Course Discharge Diagnosis: 1. Acute on chronic hypoxic and hypercarbic respiratory fa ilure due to COPD 2. Acute metabolic encephalopathy 3. Hypovolemic shock 4. Right lower extremity cellulitis 5. Right lower extremity non pressure ulcers unstageable 6. Severe peripheral vascular disease 7. Severe protein calorie malnutrition 8. Chronic iron deficiency anemia 9. Sacral decubitus ulcer unstageable 10. History of tobacco dependence 11. History of pulmonary embolism without acute PE 12. End-stage COPD with exacerbation Patient was admitted due to severe respiratory failure causing hypoxia and severe respiratory acidosis and decreased LOC. He was initially treated with BiPAP, IV steroids and received IV Lasix for possible CHF but subsequently developed hypovolemic shock. He was DNR but family requested to continue active treatments. He was fluid resuscitated but blood pressures remained low for several days before final recovering. His mentation also improved over course of days. He really made quite a remarkable recovery as he was not expected to survive this admission. At this time he is alert, able to participate in care, has chronic cough/wheeze due to end-stage COPD, remains in very weakened state with protein calorie malnutrition, requiring 2 person max assist. He is on dysphagia diet with pureed food and honey thick liquids. Patient and family has elected to transition to home hospice which will begin on day of discharge. He is written for nebulizer treatments and to complete course of prednisone. Patient was treated with IV antibiotic for persistent right lower extremity cellulitis. He is being discharged on Augmentin. He has chronic sensitivity and non pressure ulcers on RLE due to severe peripheral vascular disease. Status at Discharge Cognitive/behavioral status at discharge: oriented Functional status at discharge: bed bound Overall status at discharge: patient is not back to baseline Time Spent with Patient Time spent: Greater than 30 minutes Exam Vital Signs (past 8 hours): - 04/11/20 08:00 Temperature 98.7 F Pulse Rate 81 Respiratory Rate 24 Blood Pressure 119/55 L Pulse Oximetry 97 Fraction of Inspired Oxygen 30 Oxygen Delivery Method Nasal Cannula Oxygen Flow Rate 1 Objective Labs Result Diagrams: 04/07/20 05:00 04/07/20 05:00 [facility] Medical History (Updated 04/04/20 @ 12:49 by Kady Farmer DO) COPD (chronic obstructive pulmonary disease) Surgical History No pertinent past surgical history Social History household members: spouse Smoking Status: Former smoker alcohol intake: former Discharge Plan Discharge Plan Patient Disposition: Hospice - Home Discharge orders & Medications Prescriptions: New albuterol sulfate 2.5 mg /3 mL (0.083 %) Solution For Nebulization 2.5 mg continuous nebulization Q4HR PRN (Reason: shortness of breath or wheezing) Qty: 15 RF: 0 ipratropium-albuterol 0.5 mg-3 mg(2.5 mg base)/3 mL Solution For Nebulization 3 ml inhalation QID Qty: 90 RF: 0 prednisone 20 mg Tablet 40 mg PO DAILY Qty: 10 RF: 0 amoxicillin-pot clavulanate [Augmentin] 875-125 mg Tablet 1 tab PO BID Qty: 14 RF: 0 Continued escitalopram oxalate [Lexapro] 10 MG tablet 10 mg PO DAILY Qty: 0 RF: 0 potassium citrate [Urocit-K 5] 5 MEQ tablet extended release 540 mg PO BIDCC Qty: 0 RF: 0 alfuzosin [Uroxatral] 10 MG tablet extended release 24 hr 10 mg PO QDAY Qty: 0 RF: 0 docusate sodium 100 mg Capsule 100 mg PO BID RF: 0 ferrous sulfate 325 mg (65 mg iron) Tablet 325 mg PO DAILY Qty: 0 RF: 0 acetaminophen 325 mg Tablet 650 mg PO Q4HR PRN (Reason: Fever/Mild Pain (1-3)) 50 Days RF: 0 Discontinued Spiriva with HandiHaler 18 MCG capsule, w/inhalation device 18 mcg RT DAILY Qty: 0 RF: 0 enoxaparin [Lovenox] 30 mg/0.3 mL Syringe 30 mg SUBCUT DAILY Qty: 10 RF: 0 ampicillin-sulbactam 1.5 gram Recon Soln 1.5 g IV Q6H RF: 0 albuterol sulfate 90 mcg/actuation Hfa Aerosol Inhaler 2 puff INHALATION QID RF: 0 Diet/Activity/Treatments Diet comment: pureed by spoon, honey thick liquids Catheter: 2-way Bojorquez Catheter comment: Keep bojorquez for comfort Visit Report/Discharge Packet Instructions: How to Care for Your Bojorquez Catheter -- Male, DI for Cellulitis -- Adult, DI for Heart Failure, DI for Chronic Obstructive Pulmonary Disease, DI for Oxygen Therapy -- Adult, How to Prevent Falls, How to Use a Nebulizer
--- NOTE | 2020-04-11 12:12 | PT.IPTN ---
Addendum entered and electronically signed by Yareli Woody PTA 04/11/20 13:44: OK to return home when medically stable. Original Note: Current Diagnoses Acute respiratory failure with hypoxia (04/04/20) Physical Therapy Treatment Note M2 PT-IP Current Condition Start: 04/10/20 13:32 Freq: NEEDED Status: Active Protocol: Document 04/10/20 15:14 AW (Rec: 04/10/20 15:51 AW [id number]) Physical Therapy Current Condition Current Condition Evaluation Date 04/10/20 Treatment Diagnosis RLE cellulitis; COPD; impaired mobility Onset Date 03/22/20 Precautions Other Precautions falls risk M3 PT-IP Subjective Start: 04/10/20 13:32 Freq: NEEDED Status: Active Protocol: Document 04/11/20 11:13 SP (Rec: 04/11/20 13:43 SP [id number]) Subjective Physical Therapy Visit Type Type Treatment Note Visit Start Time 11:13 Visit Stop Time 12:12 Total Visit Minutes 59 Notes BLAZE Morrell attended tx provided physical assist when needed during tx. completed caregiver training with support of [employer] as 2nd person physical assist with cuing required to assimulate home needs and safety. Vitals taken: (LUE) supine 156 /118 HR72 SaO2 93% w/ NC 2L, seated EOB BP 123/62 HR 72 , after mobility seated in chair 3 min BP 91/50 non symptomatic + SOB. Supine in bed end tx 87/45 HR 82% on 2 L NC R 2nd MTP, (R UE) 156/76 HR 70 SaO2 on R 1st MTP 96% on 2L NC. Number of [employer] Visits 1 Physical Therapy Visit Comments Patient Comments Pt willing to work with therapy with support of his . Pt very lethargic but able to open eyes when prompted by [employer]/. Patient Goals Home with hospice. Pt hopes to get stronger and more able to participate in his own care. Therapy Pain Assessment Pain Present Pain Present Denied Pain M4 PT-IP Mobility and Gait Start: 04/10/20 13:32 Freq: NEEDED Status: Active Protocol: Document 04/11/20 11:13 SP (Rec: 04/11/20 13:43 SP [id number]) PT-Bed Mobility Assessment Rolling Type of Rolling Bilateral Level of Assist Moderate Assistance,1 Person Assistance Supine to Sit Supine to Sit Moderate Assistance,2 Person Assistance,Head of Bed Elevated,Bedrails Sit to Supine Sit to Supine Maximum Assistance,1 Person Assistance,Bedrails Scooting Scooting to Edge of Bed Minimal Assistance Scooting Up and Down in Bed Dependent PT-Transfer Assessment Sit to and From Stand Sit to and from Stand Moderate Assistance,Maximum Assistance,2 Person Assistance ,Use of Upper Extremities Equipment Transfer Assistive Device Gait Belt,Front Wheeled Walker Orthotic/Prosthetic Devices or Brace: No Transfers Transfer Destination Bed,Chair Transfer Technique Stand Step Pivot Transfer Ability Level of Assist Moderate Assistance,2 Person Assistance,Use of Upper Extremities Comments Mobility Comments Elevated supine when arrived, in room for caregiver training. Vitals assess throughout tx. Elevated sup> sit Mod A of 2 pp for trunk righting pulling from wifes hands and CG- Min for RLE repositioning to EOB and Min at upper back to keep trunk forward. Scoot to EOB CGA with BUE support self progression. sit> stand Max A of 1, Mod A x1 with cuing for hand placement using FWW, SPT L side bed > chair using FWW Mod A of 2 persons and support for FWW positioning when needed, cued reach back slow descent into chair by Max A x1. Pt SOB required rest for rest recovery and noted decrease in BP and non symptomatic, maintained 90% SaO2 on 2L. Sit>stand from chair Max A of 2 persons, SPT chair to bed Mod A of 2 person using fWW and cuing hand placement. Sit. supine Mod A of for LE support into bed pt able to self right trunk into supine. Pt required total assist to scoot up in bed x2-3 person(educated next TF to sit closer to HOB to allow decrease physical assist to scoot up with confirmation). had hard time physical assist scoot up in bed with drawsheet with support of 2nd person SPTA and needed 3rd V[employer] on side for support. V[employer] assisted log roll to L for nurse and to assess pt buttocks for clarification of sores, stated none. Educated pt needs to be repositioned every 2 hours for skin integrity pressure relief with verbal confirmation, also proided vitals taken and concern for big difference in BP during mobility and non symptomatic to be aware and take assess vitals for safety awareness especically during mobiltiy. Pt had call light and all needs in reach with bed alarm armed. Nurse in room providing patient education on wound dressing when left. Gait Assessment Comments Gait Comments Transfer only. See mobility comments. Stair Climbing Assessment Comments Stair Climbing Comments Not assessed. Pt and spouse are planning on BLS transport at discharge. PT-Balance Assessment Sitting Balance and Reactions Static Sitting Balance Ability Fair Dynamic Sitting Balance Ability Fair Standing Balance and Reactions Static Standing Balance Ability Poor Dynamic Standing Balance Ability Poor Device Used FWW Comments Other Balance Tests/Deviations/Treatment Extra time spend on caregiver : training with on safety physical support 2 person with additional caregivers training them, planning motor planning for pt and herself/ caregiver, vital assessment, wound assessment, positioning for pressure relief. M5 PT-IP Objective Assessments Start: 04/10/20 13:32 Freq: NEEDED Status: Active Protocol: Document 04/10/20 15:14 AW (Rec: 04/10/20 15:51 AW [id number]) Orientation Orientation/Cognition Level of Alertness Alert Orientation Name,Month,Year,Place, Situation Language Function Ability No Deficits Noted Safety Awareness Decreased Safety Awareness Gross Range of Motion Lower Extremity ROM Assessment Bilaterally Impaired Impairments Pt lacks dorsiflexion (right more affected than left) Strength Lower Extremity Strength Assessment Bilaterally Impaired Comments Strength Comments LLE grossly 4-/5; RLE 3+/5 Sensation Assessment Sensation Gross Sensation Right LE Impaired,Left LE Impaired Light Touch Impaired Proprioception (Position) Impaired Sensation Description Numbness,Heaviness Comments Sensation Comments right foot numb/heavy; decreased light touch sensation in distal LLE M6 PT-IP Treatment Start: 04/10/20 13:32 Freq: NEEDED Status: Active Protocol: Document 04/11/20 11:13 SP (Rec: 04/11/20 13:43 SP [id number]) Physical Therapy Treatment Education Education Provided Safety M7 PT-IP Assessment and Plan Start: 04/10/20 13:32 Freq: NEEDED Status: Active Protocol: Document 04/11/20 11:13 SP (Rec: 04/11/20 13:43 SP [id number]) PT Summary Assessment and Plan Potential Rehabilitation Potential Fair Status of Condition at Evaluation Evolving Summary Impairments Pain,ROM,Strength,Balance, Sensation,Bed Mobility, Transfers,Gait,Activity Tolerance Progress Towards Goals Slow Progress due to Medical Issues,Slow Progress due to Activity Tolerance Assessment Summary Pt is limited now by weakness more than pain and shows poor safety awareness requiring constant assist and cues. Pt's states she has a few contracted caregivers support 12 hours / day through [facility] [employer]. Pt will need 24/7 assist with all mobility at discharge and would benefit from continued PT to improve strength and functional mobility HHPT. Pt required Mod - Max A of 1-2 during bed mob, transfers Max A of 1-2 person using FWW and GB for safety. Cuing required towife for constant contact assist with pt for safety and cuing motor planning TF to stable surface. [employer] discussed awareness of set up for commode transfer pre mobility and always using 2 persons due to her decreased physical limitations. PT is ok to return home with Hospice , 24/ support with additional caregivers assist during waking hours 8-8 was told already set up. Transport by BLS. Goals Bed Mobility Goal Contact Guard Assistance Transfer Goal Minimal Assistance,Front Wheeled Walker Gait Goal Minimal Assistance,Front Wheel Walker Gait Distance 15 Frequency of Treatment Frequency Of Treatment Once a Day Treatment Plan Physical Therapy Treatment Plan Bed Mobility Training,Transfer Training,Gait Training, Therapeutic Exercise,Balance Retraining,Discharge Planning, Neuromuscular Re-ed Other Recommendations and Next Treatment bed mobility, transfers, gait Focus if tolerated short distances. Check orthostatic BPs. Recommendations To Nursing Amount of Assist Needed 2 Person Assist Discharge Recommendations PT Discharge Recommendations Home with 24/7 Assist Other Discharge Recommendations home with hospice, 24/ assist , and skilled therapy Equipment Needed for Home Before defer to hospice service Discharge Transportation Needs at Discharge Stretcher/Ambulance
--- NOTE | 2020-04-11 13:41 | CM.DPNOTE ---
[facility] per Maria Fernanda and received fax confirmation. Herminia Garcia CM Asst.
--- NOTE | 2020-04-11 14:49 | PC.NURSE ---
Discharge: Spouse here. She is highly anxious about discharge. She does have a primary health care nurse and hospice will meet her at home. Teaching time with spouse was 1 hr. She was teary at times, would shake her tears away. She did speak with MD Rossi twice. Once because she felt her spouse had a change in condition w/his LOC. He has been disoriented and she felt this was new. [employer] Kristen here and she did speak with pt's spouse about how disoriented he was when he was admitted. Spouse did confirm he had been disoriented when he arrived. Spouse talked w/Dr Rossi a second time to have him look at pt's wound on his rt ankle and foot. Dr. Rossi did confirm that it did look worse but pt is not a surgical canidate and pt is going home with hospice. The took pictures on her cell phone so she could see if it got worse or not. Reviewed wound care with MD, Spouse will change dressing with pads and then cover same with netting. No more creams or ointment as the area is quite mascerated and is draining copious amt of clear fluid. Float heels at all times if possible. Spouse changed dressing w/nursing help. Given a pair of waffle cushions for his feet and pt already had a chair waffle cushion. Discussed bojorquez cath care. Pt spouse shown how to care for same, how to provide cath care, how to open and drain bojorquez bag. She was able to do so with out problems. She had many questions which was to be expected. PT here and they gave spouse primary health care nurse training. Reviewed diet, crushing meds and using a carrier. Reviewed d/c packet and questions answered. Spouse feels a little on over load and she will be getting together a binder so she can keep a record. Spouse went home early so she could allow hospice in and to get everything ready there. S amb crew arrived. Report given. Pt left by [facility] transport, papers taken. Pt reported he had no questions and at the time the spouse went home she had no further questions either.
== END 2020-04-11 13:35 | disposition hospice, home (50) | DRG 189 ==
LOC: ED 11:39 → AC 12:09 → ICU 12:49 → AC 04-08 11:43
PROVIDERS: Internal Medicine; Admitting Provider Student in an Organized Health Care Education/Training Program; Emergency Provider Emergency Medicine; Referring Provider Emergency Medicine; Visit Provider Internal Medicine
DX: J96.01 Acute respiratory failure with hypoxia (principal); G93.41 Metabolic encephalopathy; E43 Unspecified severe protein-calorie malnutrition; I50.31 Acute diastolic (congestive) heart failure; R57.1 Hypovolemic shock; J44.1 Chronic obstructive pulmonary disease with (acute) exacerbation; L03.115 Cellulitis of right lower limb; J96.02 Acute respiratory failure with hypercapnia; I11.0 Hypertensive heart disease with heart failure; Z68.20 Body mass index [BMI] 20.0-20.9, adult; L98.419 Non-pressure chronic ulcer of buttock with unspecified severity; L89.899 Pressure ulcer of other site, unspecified stage; I95.9 Hypotension, unspecified; E86.9 Volume depletion, unspecified; Z66 Do not resuscitate; I73.9 Peripheral vascular disease, unspecified; D50.9 Iron deficiency anemia, unspecified; F10.20 Alcohol dependence, uncomplicated; Z87.891 Personal history of nicotine dependence; Z86.711 Personal history of pulmonary embolism; R53.1 Weakness; Z79.01 Long term (current) use of anticoagulants
CPT/HCPCS: 36415; 36592; 36600; 51701; 70450; 71045; 80053; 81001; 82550; 82553; 82805; 83605; 83735; 83880; 84145; 84484; 85007; 85025; 85610; 87040; 87502; 87635; 87797; 92507; 92610; 93005; 93010; 93307; 94640; 94660; 94760; 94762; 94799; 96374; 96375; 97162; 97530; 97535; 99285; C9803; J0295; J1650; J1720; J1940; J2060; J2270; J2930; J3480